=== PATIENT | male | born 1950 | race Caucasian/White ===

== ENCOUNTER → 2018-01-05 15:57 | Outpatient (CLI) | payer MEDICARE, SELFPAY ==
--- NOTE | 2018-01-05 16:04 | RAD_ITS ---
STUDY: X-RAY CHEST REASON FOR EXAM: Male, 67 years old. Bronchitis. Cough. TECHNIQUE: Frontal and lateral views of the chest COMPARISON: 06/10/2013 FINDINGS: There are stable emphysematous changes noted in the lungs. There is opacity in the right middle and lower lobes, consistent with infiltrates. The left lung is clear. There are no pleural effusions. There is no pneumothorax. The heart is normal in size. The visualized osseous structures are within normal limits. RAD/Chest PA and Lateral IMPRESSION: Right middle and lower lobe infiltrates. Electronically Signed: Jamar Plascencia, at 16:23 EDT Tel , Service support ,
== END ==
PROVIDERS: Family Provider Family Medicine Geriatric Medicine; PCP Family Medicine Geriatric Medicine; Visit Provider Family Medicine Geriatric Medicine
DX: J40 Bronchitis, not specified as acute or chronic (principal)
CPT/HCPCS: 71046

== ENCOUNTER → 2018-03-31 15:37 | Outpatient (CLI) | payer MEDICARE, SELFPAY ==
[2018-03-31 17:17] LABS: Absolute Lymphocyte Count 1.28 X10^3/ul (0.83-4.51); Absolute Neutrophil Count 5.7 X10^3/uL (2.0-7.7); Basophil# 0.01 X10^3/uL; Basophil% 0.1 % (0-1); Eosinophil# 0.01 X10^3/uL; Eosinophils% 0.1 % (0-5); Hematocrit 40.2 % (40-54); Hemoglobin 13.5 g/dl (13.0-16.5); Lymphocyte # 1.28 X10^3/ul (4.0); Lymphocyte % 16.3 % (19-41); Mean Corp Hgb Conc 33.6 g/gl (32-36); Mean Corpuscular Hgb 32.3 pg (27.0-32.0); Mean Corpuscular Volume 96.2 fL (80-94); Mean Platelet Vol. 9.3 fl (6.2-12.0); Monocyte# 0.85 X10^3/uL; Monocyte% 10.8 % (0-10); Neutrophil # 5.67 X10^3/uL (2.7-7.7); Neutrophil % 72.4 % (47-70); Platelet Count 269 K/mm3 (150-450); RBC Distribution Width CV 14.5 % (11.6-14.6); RBC Distribution Width SD 51.5 fl (35.1-43.9); Red Blood Count 4.18 M/mm3 (4.6-6.2); White Blood Count 7.8 K/mm3 (4.4-11.0)
[2018-03-31 17:23] LABS: POSITIVE COUNT NO; POSITIVE DIFFERENTIAL NO; POSITIVE MORPHOLOGY NO
[2018-03-31 19:08] LABS: ALB/GLOB Ratio 0.8 RATIO (0.9-2.4); AST(SGOT) 30 U/L (15-37); Alanine Aminotransfer ALT/SGPT 24 U/L (16-61); Albumin, Serum 3.4 g/dL (3.2-5.0); Alkaline Phosphatase 141 U/L (45-117); Anion Gap 10 (5-15); BUN 14 mg/dL (7-18); BUN/Creat Ratio 12.1 RATIO (10-20); Calcium,Total 9.3 mg/dL (8.5-10.1); Chloride 89 mmol/L (98-107); Creatinine, Serum 1.16 mg/dL (0.70-1.30); EST Glomerular Filtration Rate 66 mL/min (>60); Est Glom Filt Rate - Afr Amer 80 mL/min (>60); Globulin 4.3 g/dL (2.2-4.2); Glucose 83 mg/dL (74-106); Protein, Total 7.7 g/dL (6.4-8.2); Sodium Level 130 mmol/L (136-145); Thyroid Stim Hormone (TSH) 1.22 uIU/mL (0.358-3.74)
[2018-04-01 08:30] LABS: Vitamin D,25 Hydroxy 51.6 ng/mL (29.95-100.01)
== END ==
PROVIDERS: Family Provider Family Medicine Geriatric Medicine; PCP Family Medicine Geriatric Medicine; Visit Provider Family Medicine Geriatric Medicine
DX: I10 Essential (primary) hypertension (principal); E55.9 Vitamin D deficiency, unspecified
CPT/HCPCS: 36415; 80053; 82306; 84443; 85025

== ENCOUNTER → 2018-09-29 15:30 | Outpatient (CLI) | payer MEDICARE, SELFPAY ==
[2018-09-29 17:24] LABS: Absolute Lymphocyte Count 1.15 X10^3/ul (0.83-4.51); Absolute Neutrophil Count 4.6 X10^3/uL (2.0-7.7); Basophil# 0.02 X10^3/uL; Basophil% 0.3 % (0-1); Eosinophil# 0.12 X10^3/uL; Eosinophils% 1.8 % (0-5); Hematocrit 40.6 % (40-54); Hemoglobin 13.9 g/dl (13.0-16.5); Lymphocyte # 1.15 X10^3/ul (4.0); Lymphocyte % 17.4 % (19-41); Mean Corp Hgb Conc 34.2 g/gl (32-36); Mean Corpuscular Volume 99.3 fL (80-94); Mean Platelet Vol. 10.6 fl (6.2-12.0); Monocyte# 0.75 X10^3/uL; Monocyte% 11.3 % (0-10); Neutrophil # 4.57 X10^3/uL (2.7-7.7); Platelet Count 142 K/mm3 (150-450); RBC Distribution Width SD 50.3 fl (35.1-43.9); Red Blood Count 4.09 M/mm3 (4.6-6.2); White Blood Count 6.6 K/mm3 (4.4-11.0)
[2018-09-29 17:31] LABS: POSITIVE COUNT NO; POSITIVE DIFFERENTIAL NO; POSITIVE MORPHOLOGY NO
[2018-09-29 17:48] LABS: Vitamin D,25 Hydroxy 67.3 ng/mL (29.95-100.01)
[2018-09-29 17:52] LABS: ALB/GLOB Ratio 0.7 RATIO (0.9-2.4); AST(SGOT) 33 U/L (15-37); Alanine Aminotransfer ALT/SGPT 22 U/L (16-61); Albumin, Serum 3.1 g/dL (3.2-5.0); Alkaline Phosphatase 143 U/L (45-117); Anion Gap 8 (5-15); BUN 14 mg/dL (7-18); BUN/Creat Ratio 11.3 RATIO (10-20); Calcium,Total 8.6 mg/dL (8.5-10.1); Chloride 94 mmol/L (98-107); Creatinine, Serum 1.24 mg/dL (0.70-1.30); EST Glomerular Filtration Rate 61 mL/min (>60); Est Glom Filt Rate - Afr Amer 74 mL/min (>60); Globulin 4.2 g/dL (2.2-4.2); Glucose 112 mg/dL (74-106); PSA,Total - Annual Screen 0.64 ng/mL (0.00-4.00); Potassium 3.7 mmol/L (3.5-5.1); Protein, Total 7.3 g/dL (6.4-8.2); Sodium Level 130 mmol/L (136-145); Thyroid Stim Hormone (TSH) 1.25 uIU/mL (0.358-3.74)
--- OUTSIDE RECORDS SUMMARY | 2018-12-01 21:36 | XMS RPT_ITS ---
:1950 Author Organization [facility] Care Team Providers Name Role Phone Fareed, Smith Chi Attending Unavailable Fareed, Smith Chi Primary Care Unavailable Fareed, Smith Chi Attending Unavailable Fareed, Smith Chi Referring Unavailable Fareed, Smith Chi Primary Care Unavailable Fareed, Smith Chi Attending Unavailable Fareed, Smith Chi Referring Unavailable Fareed, Smith Chi Primary Care Unavailable Fareed, Smith Chi Attending Unavailable Fareed, Smith Chi Primary Care Unavailable PROBLEMS PROBLEMS DATE TYPE CONDITION / CODE ATTENDING STATUS SOURCE 01/05/2018 Unknown J40 - Fareed, Smith Chi Active [place] Bronchitis, not Community specified as Hospital acute or chronic Repository / J40(ICD-10) PROCEDURES PROCEDURES No Procedure Records FoundRESULTS RESULTS CBC W/DIFF, AUTOMATED Collected: 09/29/2018 Status: F Source: [place] 3:33 PM [facility] REPOSITORY TYPE CODE TESTS RESULT OUT OF RANGE REFERENCE UNITS LAB L100.1000 4.4-11.0 K/mm3 Normal WBC 6.6 LAB L100.1200 4.6-6.2 M/mm3 Low RBC 4.09 LAB L100.1300 13.0-16.5 g/dl Normal HGB 13.9 LAB L100.1400 40-54 % Normal HCT 40.6 LAB L100.1500 80-94 fL High MCV 99.3 LAB L100.1600 27.0-32.0 pg High MCH 34.0 LAB L100.1700 32-36 g/gl Normal MCHC 34.2 LAB L100.1810 11.6-14.6 % Normal RDW CV 14.0 LAB L100.1820 35.1-43.9 fl High RDW SD 50.3 LAB L100.1900 150-450 K/mm3 Low PLT 142 LAB L100.2000 6.2-12.0 fl Normal MPV 10.6 LAB L100.2100 47-70 % Normal NEUT% 69.0 LAB L100.2200 19-41 % Low LY% 17.4 LAB L100.2300 0-10 % High MONO% 11.3 LAB L100.2400 0-5 % Normal EO% 1.8 LAB L100.2500 0-1 % Normal BASO% 0.3 LAB L100.2550 0.0-0.9 % Normal IM GRAN % 0.200 Result Comment: IG% - Immature Granulocytes (promyelocytes, myelocytes and metamyelocytes) > 1% indicates that a LEFT SHIFT is Present. LAB L100.2620 2.0-7.7 X10 3/uL Normal Absolute Neut 4.6 LAB L100.2720 0.83-4.51 X10 3/ul Normal Absolute Lymph 1.15 Performed By: #### L100.0100 #### [facility] [facility]. [place], [place], [address] VITAMIN D,25 HYDROXY Collected: 09/29/2018 Status: F Source: [place] 3:33 PM [facility] TYPE CODE TESTS RESULT OUT OF RANGE REFERENCE UNITS LAB L506.1000 29.95-100.01 ng/mL Normal Vitamin D 67.3 25-OH Result Comment: Vitamin D 25(OH) Status Range Deficiency <20 ng/mL (50nmol/L) Insuffciency 20 - 30 ng/mL (50 - 75 nmol/L) Sufficiency 30 - 100 ng/mL (75 - 250 nmol/L) Toxicity >100 ng/mL (>250 nmol/L) Performed By: #### L506.1000 #### [facility] [address] [facility] [place], [place], [address] COMPREHENSIVE METABOLIC Collected: 09/29/2018 Status: F Source: [place] ACKERMAN 3:33 PM [facility] REPOSITORY TYPE CODE TESTS RESULT OUT OF RANGE REFERENCE UNITS LAB L501.0100 74-106 mg/dL High GLU 112 Result Comment: Fasting Glucose result from 100 to 125 mg/dL suggests IMPAIRED HOMEOSTASIS per A.D.A. criteria. Please note revised GLUCOSE reference range effective 2017. LAB L501.1000 7-18 mg/dL Normal BUN 14 LAB L501.1100 0.70-1.30 mg/dL Normal CREAT,SERUM 1.24 Result Comment: The validity of the calculated GFR AND GFRAA in patients over 70 years has not been determined. Clinical correlation is essential. LAB L501.1110 >60 mL/min Normal EST GFR 61 Result Comment: Non- GFR Calc LAB L501.1115 >60 mL/min Normal EST GFR - AA 74 Result Comment: GFR Calc LAB L501.1300 10-20 RATIO Normal BUN/CRE 11.3 LAB L501.1500 6.4-8.2 g/dL T Normal PROT 7.3 LAB L501.1800 3.2-5.0 g/dL Low ALB 3.1 LAB L501.1950 2.2-4.2 g/dL Normal GLOB 4.2 LAB L501.2000 0.9-2.4 RATIO Low A/G 0.7 LAB L501.2200 8.5-10.1 mg/dL CA Normal 8.6 LAB L501.4100 15-37 U/L Normal AST 33 LAB L501.4305 45-117 U/L High ALK P 143 LAB L501.4405 16-61 U/L Normal ALT 22 LAB L501.4600 0.20-1.00 mg/dL High T BILI 1.10 LAB L501.5300 136-145 mmol/L Low NA 130 LAB L501.5600 3.5-5.1 mmol/L K Normal 3.7 LAB L501.5900 98-107 mmol/L Low CL 94 LAB L501.6100 21.0-32.0 mmol/L Normal CO2 28.0 LAB L501.6200 5-15 Normal GAP 8 Performed By: #### L500.4050, L501.9520, L501.9910 #### [facility] [address] [place], [address] THYROID STIM HORMONE Collected: 09/29/2018 Status: F Source: [place] (TSH) 3:33 PM [facility] REPOSITORY TYPE CODE TESTS RESULT OUT OF RANGE REFERENCE UNITS LAB L501.9520 0.358-3.74 uIU/mL Normal TSH 1.25 Performed By: #### L500.4050, L501.9520, L501.9910 #### [facility] [address] [place], [address] PSA,TOTAL - ANNUAL Collected: 09/29/2018 Status: F Source: [place] SCREEN 3:33 PM [facility] REPOSITORY TYPE CODE TESTS RESULT OUT OF RANGE REFERENCE UNITS LAB L501.9910 0.00-4.00 ng/mL Normal PSA,TOT 0.64 SCREEN Result Comment: This test was performed using the TPSA assay method for the [employer] chemistry system. Values obtained with different assay methods cannot be used interchangably. When changing PSA assays in the course of monitoring a patient, additional sequential testing should be carried out to confirm baseline values. Performed By: #### L500.4050, L501.9520, L501.9910 #### [facility] [address] [place], [address] CBC W/DIFF, AUTOMATED Collected: 03/31/2018 Status: F Source: [place] 3:40 PM [facility] TYPE CODE TESTS RESULT OUT OF RANGE REFERENCE UNITS LAB L100.1000 4.4-11.0 K/mm3 Normal WBC 7.8 LAB L100.1200 4.6-6.2 M/mm3 Low RBC 4.18 LAB L100.1300 13.0-16.5 g/dl Normal HGB 13.5 LAB L100.1400 40-54 % Normal HCT 40.2 LAB L100.1500 80-94 fL High MCV 96.2 LAB L100.1600 27.0-32.0 pg High MCH 32.3 LAB L100.1700 32-36 g/gl Normal MCHC 33.6 LAB L100.1810 11.6-14.6 % Normal RDW CV 14.5 LAB L100.1820 35.1-43.9 fl High RDW SD 51.5 LAB L100.1900 150-450 K/mm3 Normal PLT 269 LAB L100.2000 6.2-12.0 fl Normal MPV 9.3 LAB L100.2100 47-70 % High NEUT% 72.4 LAB L100.2200 19-41 % Low LY% 16.3 LAB L100.2300 0-10 % High MONO% 10.8 LAB L100.2400 0-5 % Normal EO% 0.1 LAB L100.2500 0-1 % Normal BASO% 0.1 LAB L100.2550 0.0-0.9 % Normal IM GRAN % 0.300 Result Comment: IG% - Immature Granulocytes (promyelocytes, myelocytes and metamyelocytes) > 1% indicates that a LEFT SHIFT is Present. LAB L100.2620 2.0-7.7 X10 3/uL Normal Absolute Neut 5.7 LAB L100.2720 0.83-4.51 X10 3/ul Normal Absolute Lymph 1.28 Performed By: #### L100.0100 #### [facility] [address] [facility] [place], [address] COMPREHENSIVE METABOLIC Collected: 03/31/2018 Status: F Source: [facility] 3:40 PM [facility] RE[facility]IT[facility] TYPE CODE TESTS RESULT OUT OF RANGE REFERENCE UNITS LAB L501.0100 74-106 mg/dL Normal GLU 83 Result Comment: Please note revised GLUCOSE reference range effective 2017. LAB L501.1000 7-18 mg/dL Normal BUN 14 LAB L501.1100 0.70-1.30 mg/dL Normal CREAT,SERUM 1.16 Result Comment: The validity of the calculated GFR AND GFRAA in patients over 70 years has not been determined. Clinical correlation is essential. LAB L501.1110 >60 mL/min Normal EST GFR 66 Result Comment: Non- GFR Calc LAB L501.1115 >60 mL/min Normal EST GFR - AA 80 Result Comment: GFR Calc LAB L501.1300 10-20 RATIO Normal BUN/CRE 12.1 LAB L501.1500 6.4-8.2 g/dL T Normal PROT 7.7 LAB L501.1800 3.2-5.0 g/dL Normal ALB 3.4 LAB L501.1950 2.2-4.2 g/dL High GLOB 4.3 LAB L501.2000 0.9-2.4 RATIO Low A/G 0.8 LAB L501.2200 8.5-10.1 mg/dL CA Normal 9.3 LAB L501.4100 15-37 U/L Normal AST 30 LAB L501.4305 45-117 U/L High ALK P 141 LAB L501.4405 16-61 U/L Normal ALT 24 LAB L501.4600 0.20-1.00 mg/dL T Normal BILI 0.40 LAB L501.5300 136-145 mmol/L Low NA 130 LAB L501.5600 3.5-5.1 mmol/L K Normal 4.0 LAB L501.5900 98-107 mmol/L Low CL 89 LAB L501.6100 21.0-32.0 mmol/L Normal CO2 31.0 LAB L501.6200 5-15 Normal GAP 10 Performed By: #### L500.4050, L501.9520 #### [facility] [address] [place], [place], [address] THYROID STIM HORMONE Collected: 03/31/2018 Status: F Source: [place] (TSH) 3:40 PM [facility] TYPE CODE TESTS RESULT OUT OF RANGE REFERENCE UNITS LAB L501.9520 0.358-3.74 uIU/mL Normal TSH 1.22 Performed By: #### L500.4050, L501.9520 #### [facility] [address] [place], [address] VITAMIN D,25 HYDROXY Collected: 03/31/2018 Status: F Source: [place] 3:40 PM [facility] TYPE CODE TESTS RESULT OUT OF RANGE REFERENCE UNITS LAB L506.1000 29.95-100.01 ng/mL Normal Vitamin D 51.6 25-OH Result Comment: Vitamin D 25(OH) Status Range Deficiency <20 ng/mL (50nmol/L) Insuffciency 20 - 30 ng/mL (50 - 75 nmol/L) Sufficiency 30 - 100 ng/mL (75 - 250 nmol/L) Toxicity >100 ng/mL (>250 nmol/L) Performed By: #### L506.1000 #### [facility] [address] [place], [address] CHEST PA AND LATERAL Observed: 01/05/2018 Status: F Source: [place] 4:02 PM [facility] REPOSITORY [facility] Imaging Services [address] [place] [address] Chest PA and Lateral MR#: [id number] Acct: [id number] Name: SIVAKUMAR MAYORGA Rep #: [id number] : 1950 M 67 From: Jamar Plascencia MD PCP: Smith Guerrier MD, Chi Status: REG CLI Study: Chest PA and Lateral Date of Exam: 01/05/18 Exam# [id number] Ordering Dr: Smith Guerrier MD STUDY: X-RAY CHEST REASON FOR EXAM: Male, 67 years old. Bronchitis. Cough. TECHNIQUE: Frontal and lateral views of the chest COMPARISON: 06/10/2013 FINDINGS: There are stable emphysematous changes noted in the lungs. There is opacity in the right middle and lower lobes, consistent with infiltrates. The left lung is clear. There are no pleural effusions. There is no pneumothorax. The heart is normal in size. The visualized osseous structures are within normal limits. RAD/Chest PA and Lateral IMPRESSION: Right middle and lower lobe infiltrates. Electronically Signed: Jamar Plascencia, at 16:23 EDT Tel , Service support , CC: Smith Guerrier MD Risk Control Consultant: Signed ALLERGIES ALLERGIES No Allergies Records FoundENCOUNTERS ENCOUNTERS ADMIT/DISCHARGE ACCOUNT ADMITTING ENCOUNTER LOCATION SOURCE NUMBER CLASS 10/02/2018 [id number] Ambulatory [facility] 9 [facility] ing:CT Repository 09/29/2018 [id number] Ambulatory [facility] 0 [facility] ing:POLAB3 Repository 03/31/2018 [id number] [facility] [place] [facility] ing:POLAB3 Repository 01/05/2018 [id number] Ambulatory [place] 3 [facility] ing:RAD Repository PAYERS PAYERS ENCOUNTER GUARANTOR PAYER SUBSCRIBER SOURCE 10/02/2018 SIVAKUMAR Martinez Primary SIVAKUMAR Dillon [id number] Insurance:MEDICARE MOOREDOB: [facility] MCKAY PART A [facility] [id number] Number: Repository [id number]: 330 [id number] [phone] () Date:2018-09-29 10/02/2018 Secondary NOT GIVENUNK [place] Insurance:SELF PAY [place] Number: Effective Repository Date:2018-09-29 09/29/2018 Sivakumar Martinez Primary Sivakumar [id number] Insurance:MEDICARE MooreDOB: Community [place] PART A [id number] [place] [facility] Rep[facility] [id number]: 330 [id number] [phone] () Date:2018-09-29 09/29/2018 Secondary NOT GIVENUNK [place] Insurance:SELF PAY [place] Number: Effective Repository Date:2018-09-29 03/31/2018 Sivakumar Martinez Primary Sivakumar Dillon [id number] Insurance:MEDICARE MooreDOB: [facility] Mckay PART A [facility] [id number] Number: Repository [id number]: 330 [id number] [phone] () Date:2018-03-25 03/31/2018 Secondary NOT GIVENUNK [place] Insurance:SELF PAY [place] Number: Effective Repository Date:2018-03-25 01/05/2018 Sivakumar P Primary Sivakumar Dillon [id number] Insurance:MEDICARE MooreDOB: Community Mckay PART A [facility] [id number] Number: Repository [id number]: 330 [id number] [phone] () Date:2018-01-05 01/05/2018 Secondary NOT GIVENUNK [place] Insurance:[facility]LF [facility]: Effective Repository Date:2018-01-05
== END ==
PROVIDERS: Family Provider Family Medicine Geriatric Medicine; PCP Family Medicine Geriatric Medicine; Visit Provider Family Medicine Geriatric Medicine
DX: I10 Essential (primary) hypertension (principal); E55.9 Vitamin D deficiency, unspecified; Z12.5 Encounter for screening for malignant neoplasm of prostate
CPT/HCPCS: 36415; 80053; 82306; 84153; 84443; 85025; G0103

== ENCOUNTER → 2018-12-04 14:59 | Outpatient (CLI) | payer MEDICARE, SELFPAY ==
--- NOTE | 2018-12-04 15:04 | CT_ITS ---
STUDY: LOW DOSE CT LUNG CANCER SCREENING REASON FOR EXAM: Male, 68 years old. 10 pack-year history of smoking. Recent weight loss. RADIATION DOSAGE (If Supplied By Facility): CTDIvol = ( 2.01 ) mGy, DLP = ( 75.5 ) mGycm TECHNIQUE: No contrast was administered. Low dose technique was utilized (average mAS-38 and kVp 120). 1.25 mm axial source images with a slice interval of 1.25-mm were reconstructed in lung windows. 2.5 mm axial source images with a slice interval of 2.5-mm were reconstructed in lung windows. 5.0 mm axial source images with a slice interval of 5.0-mm were reconstructed in soft tissue windows. Nodule measured using lung windows on PACS and/or independent workstation with automated measurement of minimum and maximum diameter. Nodule measurement reported as average diameter rounded to the nearest whole number. Growth is defined as an increase ins size of greater than 1.5 mm. COMPARISON: Comparison is made with prior examination dated October 01, 2017. NODULES: Stable appearance of the small subcentimeters nodules suggestive of a granulomatous. Stable appearance of the 1 mm x 1 mm nodule in the right upper lobe. There is evidence of bilateral apical pleural-parenchymal scarring and bolus formation. Emphysema: Diffuse emphysematous changes with bullous formation worse in the upper lobes. Endobronchial lesion: None Aorta: Atherosclerotic calcification of the aortic arch and descending thoracic aorta. Coronary arteries: Coronary artery calcification. Heart: Normal size. Mediastinal nodes: Nonspecific subcentimeter mediastinal lymphadenopathy. Other chest and abdominal findings: Degenerative changes of the thoracic spine. CT/Low Dose CT Lung Screening IMPRESSION: Lung-RADS category 1 - Continue annual screening with LDCT in 12 months. IMPORTANT NOTES FOR USE: ACR Lung-RADS Version 1.0 Assessment Categories Release Date: January 03, 2014 Category: Coded 0-4 bases on nodule(s) with highest degree of suspicion. Negative screen is defined as categories 1 and 2; a positive screen is defined as categories 3 and 4. Category 3 and 4A nodules that are unchanged on interval CT should be coded as category 2, and individuals returned to screening in 12 months. Category 4X: Category 3 or 4 nodules with additional imaging findings that increase the suspicion of lung cancer, such as spiculation, GGN that doubles in size in 1 year, enlarged lymph notes, etc. Category Modifiers: S (significant finding unrelated to lung cancer) and C (prior history of treated lung cancer) may be added to the 0-4 Lung-RADS Electronically Signed: Davin Guerra, at 12:43 EDT , Service support ,
== END ==
PROVIDERS: Family Provider Family Medicine Geriatric Medicine; PCP Family Medicine Geriatric Medicine; Referring Provider Family Medicine Geriatric Medicine; Visit Provider Family Medicine Geriatric Medicine
DX: Z87.891 Personal history of nicotine dependence (principal)
CPT/HCPCS: G0297

== ENCOUNTER → 2019-01-13 15:29 | Outpatient (CLI) | payer MEDICARE, SELFPAY ==
--- NOTE | 2019-01-13 15:40 | RAD_ITS ---
STUDY: X-RAY - LUMBAR SPINE REASON FOR EXAM: Male, 68 years old. Back pain TECHNIQUE: AP and lateral view(s) of the lumbar spine were obtained. COMPARISON: None FINDINGS: Normal lumbar lordosis. There is no substantial scoliosis. There is a normal alignment of the vertebrae. There is multilevel disc space narrowing with anterior and posterior osteophytes. There are no acute fractures. The soft tissue structures are unremarkable. No acute fractures. RAD/Lumbar Spine 2 or 3 Views IMPRESSION: Multilevel spondylosis, no fractures Electronically Signed: Jakob Vásquez, at 16:24 EDT Tel , Service support ,
== END ==
PROVIDERS: Family Provider Family Medicine Geriatric Medicine; PCP Family Medicine Geriatric Medicine; Referring Provider Anesthesiology Pain Medicine; Visit Provider Anesthesiology Pain Medicine
DX: M54.9 Dorsalgia, unspecified (principal)
CPT/HCPCS: 72100

== ENCOUNTER → 2019-03-31 10:56 | Outpatient (CLI) | payer MEDICARE, SELFPAY | LOC: POLAB3 10:56 → LAB.FUTURE 15:57 | PROVIDERS: Family Provider Family Medicine Geriatric Medicine; PCP Family Medicine Geriatric Medicine; Visit Provider Family Medicine Geriatric Medicine | DX: I10 Essential (primary) hypertension (principal); E55.9 Vitamin D deficiency, unspecified ==

== ENCOUNTER → 2019-05-28 10:58 | Outpatient (CLI) | payer MEDICARE, SELFPAY ==
[2019-05-28 13:08] LABS: Erythrocyte Sedimentation Rate 27 mm/hr (0-20)
[2019-05-28 13:09] LABS: Absolute Neutrophil Count 3.4 X10^3/uL (2.0-7.7); Basophil# 0.06 X10^3/uL; Basophil% 0.9 % (0-1); Eosinophil# 0.16 X10^3/uL; Eosinophils% 2.5 % (0-5); Hematocrit 41.5 % (40-54); Hemoglobin 13.8 g/dL (13.0-16.5); Lymphocyte % 34.4 % (19-41); Mean Corp Hgb Conc 33.3 g/dL (32-36); Mean Corpuscular Volume 99.3 fL (80-94); Mean Platelet Vol. 9.5 fl (6.2-12.0); Monocyte# 0.51 X10^3/uL; NRBC Flagged by Analyzer 0 % (0-5); Neutrophil # 3.44 X10^3/uL (2.7-7.7); Neutrophil % 53.9 % (47-70); Platelet Count 272 K/mm3 (150-450); RBC Distribution Width CV 13.1 % (11.6-14.6); RBC Distribution Width SD 47.8 fl (35.1-43.9); Red Blood Count 4.18 M/mm3 (4.6-6.2); White Blood Count 6.4 K/mm3 (4.4-11.0)
[2019-05-28 13:23] LABS: Vitamin D,25 Hydroxy 42.9 ng/mL (29.95-100.01)
[2019-05-28 14:08] LABS: ALB/GLOB Ratio 0.7 RATIO (0.9-2.4); AST(SGOT) 24 U/L (15-37); Alanine Aminotransfer ALT/SGPT 16 U/L (16-61); Albumin, Serum 3.3 g/dL (3.2-5.0); Alkaline Phosphatase 119 U/L (45-117); Anion Gap 10 (5-15); BUN 14 mg/dL (7-18); BUN/Creat Ratio 14.9 RATIO (10-20); Calcium,Total 8.9 mg/dL (8.5-10.1); Chloride 99 mmol/L (98-107); Creatinine, Serum 0.94 mg/dL (0.70-1.30); EST Glomerular Filtration Rate 84 mL/min (>60); Est Glom Filt Rate - Afr Amer 102 mL/min (>60); Free T3 3.1 pg/mL (2.18-3.98); Globulin 4.6 g/dL (2.2-4.2); Glucose 67 mg/dL (74-106); Potassium 4.2 mmol/L (3.5-5.1); Protein, Total 7.9 g/dL (6.4-8.2); Rheumatoid Factor < 10.0 IU/mL (<15); Sodium Level 137 mmol/L (136-145); T4 Free Direct 0.99 ng/dL (0.76-1.46); Thyroid Stim Hormone (TSH) 2.22 uIU/mL (0.358-3.74)
[2019-05-31 21:09] LABS: Thyroid Stim Immunoglob <0.10 IU/L (0.00-0.55)
[2019-06-01 16:43] LABS: Adrenocorticotropic Hormone 31.3 pg/mL (7.2-63.3); Deamidated Gliadin IgA 5 units (0-19); Deamidated Gliadin IgG 2 units (0-19); t-Transglutaminase IgA <2 U/mL (0-3)
[2019-06-01 16:57] LABS: ANTINUCLEAR ANTIBODIES DIRECT Negative (Negative)
== END ==
PROVIDERS: Family Provider Family Medicine Geriatric Medicine; PCP Family Medicine Geriatric Medicine; Visit Provider Family Medicine Geriatric Medicine
DX: I10 Essential (primary) hypertension (principal); E55.9 Vitamin D deficiency, unspecified; R63.4 Abnormal weight loss
CPT/HCPCS: 36415; 80053; 82024; 82306; 82533; 83516; 84439; 84443; 84445; 84481; 85025; 85652; 86038; 86431

== ENCOUNTER → 2019-10-01 10:45 | Outpatient (CLI) | payer MEDICARE, SELFPAY ==
[2019-10-01 12:17] LABS: Absolute Lymphocyte Count 1.06 X10^3/uL (0.83-4.51); Absolute Neutrophil Count 5.9 X10^3/uL (2.0-7.7); Basophil# 0.04 X10^3/uL; Basophil% 0.5 % (0-1); Eosinophil# 0.08 X10^3/uL; Hematocrit 37.8 % (40-54); Hemoglobin 12.3 g/dL (13.0-16.5); Lymphocyte # 1.06 X10^3/ul (4.0); Lymphocyte % 13.8 % (19-41); Mean Corp Hgb Conc 32.5 g/dL (32-36); Mean Corpuscular Hgb 32.1 pg (27.0-32.0); Mean Corpuscular Volume 98.7 fL (80-94); Mean Platelet Vol. 10.2 fl (6.2-12.0); Monocyte# 0.58 X10^3/uL; Monocyte% 7.6 % (0-10); NRBC Flagged by Analyzer 0 % (0-5); Neutrophil # 5.87 X10^3/uL (2.7-7.7); Neutrophil % 76.6 % (47-70); Platelet Count 195 K/mm3 (150-450); RBC Distribution Width CV 14.1 % (11.6-14.6); Red Blood Count 3.83 M/mm3 (4.6-6.2); White Blood Count 7.7 K/mm3 (4.4-11.0)
[2019-10-01 12:35] LABS: Vitamin D,25 Hydroxy 31.5 ng/mL (29.95-100.01)
[2019-10-01 12:37] LABS: ALB/GLOB Ratio 0.7 RATIO (0.9-2.4); AST(SGOT) 21 U/L (15-37); Alanine Aminotransfer ALT/SGPT 17 U/L (16-61); Albumin, Serum 3.2 g/dL (3.2-5.0); Alkaline Phosphatase 110 U/L (45-117); Anion Gap 5 (5-15); BUN 24 mg/dL (7-18); BUN/Creat Ratio 16.9 RATIO (10-20); Chloride 99 mmol/L (98-107); Creatinine, Serum 1.42 mg/dL (0.70-1.30); EST Glomerular Filtration Rate 52 mL/min (>60); Est Glom Filt Rate - Afr Amer 63 mL/min (>60); Globulin 4.3 g/dL (2.2-4.2); Glucose 174 mg/dL (74-106); Potassium 4.3 mmol/L (3.5-5.1); Protein, Total 7.5 g/dL (6.4-8.2); Sodium Level 134 mmol/L (136-145)
== END ==
LOC: POLAB3 10:46
PROVIDERS: PCP Family Medicine Geriatric Medicine; Visit Provider Family Medicine Geriatric Medicine
DX: E55.9 Vitamin D deficiency, unspecified (principal); I10 Essential (primary) hypertension; Z12.5 Encounter for screening for malignant neoplasm of prostate
CPT/HCPCS: 36415; 80053; 82306; 84153; 84443; 85025; G0103

== ENCOUNTER 2020-02-26 16:59 | Emergency (ER) | payer MEDICARE, SELFPAY ==
[2020-02-26 17:00] VITALS: BP 184/108; PULSE 149; RESP 15; TEMP 36.6; O2SAT 95; BMI 18.6
--- NOTE | 2020-02-26 17:10 | EKG12_ITS ---
Test Reason : DYSRHYTHMIA Blood Pressure : / mmHG Vent. Rate : 122 BPM Atrial Rate : 122 BPM P-R Int : 152 ms QRS Dur : 088 ms QT Int : 290 ms P-R-T Axes : 086 -01 078 degrees QTc Int : 413 ms Sinus tachycardia with Premature supraventricular complexes Nonspecific ST and T wave abnormality Abnormal ECG Confirmed by RAAD DUMAS, DELTA ([id number]), editor in chief newspaper JOSE CLAIRE ([id number]) on 02/29/2020 8:59:10 AM Referred By: GILSON Confirmed By:DELTA SHANKAR MD
--- NOTE | 2020-02-26 17:11 | CT_ITS ---
STUDY: CT CHEST WITHOUT CONTRAST REASON FOR EXAM: Male, 69 years old. FALL last night WITH LEFT CHEST PAIN RADIATION DOSAGE (If Supplied By Facility): CTDIvol = ( 6.87 ) mGy, DLP = ( 295.15 ) mGycm TECHNIQUE: Transaxial imaging was performed without the administration of intravenous contrast material. Individualized dose optimization techniques were used for this CT. COMPARISON: Previous study of 12/04/2018 FINDINGS: This trauma study is technically limited, being performed without intravenous contrast. There are diffuse emphysematous changes of the lungs most severely affecting the upper lobes. There is a small calcified granuloma of the right lower lobe. There is a stellate margin 9 mm density of the right lower lobe image 85 series 4, new in the interval. There is no demonstrated pleural abnormality. The heart size is within normal limits. There is no pericardial effusion. Coronary arterial and valvular calcifications are present. There is a precarinal node measuring 1.1 cm in short axis appearing similar to the previous study. Hilar areas are difficult to assess on this noncontrast study. There is no obvious hilar mass or adenopathy. Normal unenhanced pulmonary arteries. There are calcified plaques of the thoracic aorta. There are diffuse degenerative changes of the visualized thoracolumbar spine. There are calcified plaques of the abdominal aorta. CT/Chest without Contrast IMPRESSION: 1. Negative limited study with the absence of intravenous contrast. 2. Diffuse emphysematous changes of the lungs most severely affecting the upper lobes. 3. Small calcified granuloma the right lower lobe. 4. There is a stellate margin 9 mm density of the right lower lobe, new in the interval. This may merely represent pneumonic or atelectatic process. Neoplasm cannot be excluded however. Close interval follow-up in 2-3 months is recommended. 5. Precarinal node measuring 1.1 cm in short axis appearing similar to the previous study. 6. There is no evidence of hemo or pneumothorax or pulmonary contusion. No fracture is identified. Electronically Signed: Monico Alexander MD at 18:01 EDT , Service support ,
--- NOTE | 2020-02-26 17:13 | ED.DCSUM_ITS ---
- ER Visit Summary Date of Service: 02/26/20 Chief Complaint: [Fall with injury to chest and left wrist] History of Present Illness: The patient is a 69 M [presents to the emergency department after sustaining a fall last evening around 11 PM. Patient states that he was at [facility] and fell when he tripped over some pallets. Patient complaining of pain in his left wrist and chest. Patient complains of pain with deep breath. He denies striking his head or loss consciousness. He denies any neck pain. He denies abdominal pain. Patient had been drinking alcohol last night. He has a history of hypertension. He is not on any blood thinners. He is a smoker. Denies any illicit drug use.] Physical Examination: [HEENT-PERRLA, EOMI. Cranial nerves II through XII grossly intact. TMs clear. Mucous membranes moist. No adenopathy. No external evidence of trauma to his head. No C-spine tenderness on palpation. He has normal active range of motion is painless. Cardiovascular-regular and tachycardic with a heart rate in the 150s. No murmurs auscultated. Lungs-clear to auscultation, chest wall stable without crepitus or subcu emphysema. Patient does have tenderness palpation over the anterior chest wall that reproduces his pain. Abdomen-normoactive bowel sounds, soft, nontender, no rebound or rigidity, no peritoneal signs. Extremities-intact ?4, normal range of motion, normal pulses. Left wrist- patient has ecchymosis and bruising noted over the volar aspect of the wrist as well as the dorsal aspect of the proximal hand. Decreased range of motion secondary to pain. No obvious deformity noted. Neurovascular intact distally.] Test Results: [EKG obtained on arrival showed a sinus tachycardia with a ventricular rate of 122 bpm with some nonspecific ST changes. CBC with differential showed a white count 12.2, hemoglobin 14, hematocrit 43.5, plates 189. Chemistries showed a sodium of 129, potassium 5.0, chloride 94, CO2 26, BUN 22, creatinine 1.3 and glucose was 130. . Troponin is less than 0.15.] CT scan of the chest obtained showed no evidence of acute traumatic injuries however he did have a right lower lobe density for which they recommended follow-up in 2 to 3 months. The concern was malignancy versus focal pneumonia versus atelectasis. X-rays of the left wrist obtained read by radiology as normal however on my evaluation of the film I suspect there is a nondisplaced fracture through the distal radius that may be intra-articular. Emergency Department Course and Treatment: [Patient will be placed in a wrist splint.] Treatment Plan: [Patient given a wrist splint and referral to orthopedics for follow-up. Patient will be given a prescription for H[place] for pain.] Disposition: [Discharged home in stable condition] Impression: [Chemical fall Left distal radius fracture nondisplaced Contusion chest] This note was generated with AppAddictive dictation software. It may contain incorrect words, spelling, and punctuation that were not noted in review of the chart prior to signing ED Disposition - Plan for ED Patient: Referrals: Smith Guerrier Chi, MD [Primary Care Provider] -
--- NOTE | 2020-02-26 17:16 | NURSING ---
NO OLD EKGS
--- NOTE | 2020-02-26 17:20 | RAD_ITS ---
STUDY: X-RAY - LEFT WRIST REASON FOR EXAM: Male, 69 years old. FALL TODAY. GENERALIZED LEFT WRIST PAIN. TECHNIQUE: 3 view(s) of the wrist were obtained. COMPARISON: None. FINDINGS: Normal visualized distal radius and ulna. Normal radiocarpal articulation. Normal distal radioulnar articulation. Normal carpal bones. Normal carpal articulations. Normal carpometacarpal articulation of the thumb. Normal second through fifth carpometacarpal articulations. Normal visualized metacarpal bones. The soft tissue structures are unremarkable. RAD/Wrist min 3 Views IMPRESSION: Normal x-ray examination of the wrist. Electronically Signed: Monico Alexander MD at 18:04 EDT , Service support ,
[2020-02-26 17:38] LABS: Absolute Lymphocyte Count 0.37 X10^3/uL (0.83-4.51); Absolute Neutrophil Count 11.2 X10^3/uL (2.0-7.7); Basophil# 0.03 X10^3/uL; Basophil% 0.2 % (0-1); Hematocrit 43.5 % (40-54); Lymphocyte # 0.37 X10^3/ul (4.0); Mean Corp Hgb Conc 32.2 g/dL (32-36); Mean Corpuscular Hgb 32.2 pg (27.0-32.0); Mean Platelet Vol. 9.8 fl (6.2-12.0); Monocyte# 0.61 X10^3/uL; NRBC Flagged by Analyzer 0 % (0-5); Neutrophil # 11.17 X10^3/uL (2.7-7.7); Neutrophil % 91.6 % (47-70); POSITIVE DIFFERENTIAL YES; Platelet Count 189 K/mm3 (150-450); RBC Distribution Width CV 12.8 % (11.6-14.6); RBC Distribution Width SD 46.9 fl (35.1-43.9); Red Blood Count 4.35 M/mm3 (4.6-6.2); White Blood Count 12.2 K/mm3 (4.4-11.0)
[2020-02-26] MEDS: 0.9% Normal Saline 1,000 ML 150 ML IV (17:44)
[2020-02-26 17:45] LABS: Anion Gap 9 (5-15); BUN 22 mg/dL (7-18); BUN/Creat Ratio 16.9 RATIO (10-20); Calcium,Total 9.5 mg/dL (8.5-10.1); Chloride 94 mmol/L (98-107); EST Glomerular Filtration Rate 58 mL/min (>60); Est Glom Filt Rate - Afr Amer 70 mL/min (>60); Estimated Creatinine Clearance 39.01 ml/min; Glucose 130 mg/dL (74-106); Sodium Level 129 mmol/L (136-145)
[2020-02-26 18:08] LABS: Differential Indicated SCAN CRITERIA MET
--- NOTE | 2020-02-26 18:23 | DCINST.ED_ITS ---
ED Disposition - Plan for ED Patient: Instructions: ED Mechanical Fall, ED Fx Colles Wrist No Redu Requ, ED CHEST CONTUSION Prescriptions: Hydrocodone Bitart/Apap 5-325 [[place] 5MG-325MG] 1 tablet PO Q4H PRN PRN 2 Days #10 tablet PRN Reason: Pain Transmission Status: Sent to [facility]30 Referrals: Smith Guerrier Chi, MD [Primary Care Provider] - Ermias López MD [STAFF PHYSICIAN] - 3-5 Days
[2020-02-26 18:40] VITALS: BP 114/74; PULSE 78; RESP 16; O2SAT 99
== END 2020-02-26 18:41 | disposition home or self-care (01) ==
LOC: ED 17:46
PROVIDERS: Emergency Provider Emergency Medicine; PCP Family Medicine Geriatric Medicine
DX: S52.502A Unspecified fracture of the lower end of left radius, initial encounter for closed fracture (principal); S20.212A Contusion of left front wall of thorax, initial encounter; W01.0XXA Fall on same level from slipping, tripping and stumbling without subsequent striking against object, initial encounter; Y93.9 Activity, unspecified; Y92.830 Public park as the place of occurrence of the external cause; J98.4 Other disorders of lung; I10 Essential (primary) hypertension; F17.200 Nicotine dependence, unspecified, uncomplicated
CPT/HCPCS: 71250; 73110; 80048; 84484; 85025; 93005; 96360; 96361; 99285; J7030; A4216

== ENCOUNTER 2020-07-03 21:26 | Inpatient (IN) | payer MEDICARE, SELFPAY ==
[2020-07-03 21:27] VITALS: BP 147/89; PULSE 73; RESP 22; TEMP 35.7; O2SAT 85; BMI 18.6
--- NOTE | 2020-07-03 21:52 | EKG12_ITS ---
Test Reason : SOB Blood Pressure : / mmHG Vent. Rate : 147 BPM Atrial Rate : 294 BPM P-R Int : 000 ms QRS Dur : 080 ms QT Int : 264 ms P-R-T Axes : 072 006 155 degrees QTc Int : [address] & T wave abnormality, consider lateral ischemia Abnormal ECG Confirmed by RAAD DUMAS, DELTA ([id number]), greeting card editor JOSE CLAIRE ([id number]) on 07/05/2020 1:48:56 PM Referred By: BB Confirmed By:DELTA SHANKAR MD
--- NOTE | 2020-07-03 21:57 | ED.DCSUM_ITS ---
History of Present Illness Chief Complaint: Shortness of Breath Informant: Patient Onset: Today Activity at onset: - - Gradual onset and progressively worsening Timing: Continuous Quality: - - Cannot breathe Current Severity: Moderate Maximum Severity: Moderate Worsened by: Coughing, Exertion, Lying flat Relieved by: Albuterol - Partially, Oxygen Associated Symptoms: Clear sputum, Cough. Negative for: Fever, Sweats Chest Pain: None Narrative: Patient with history of COPD, no home oxygen, presents with worsening COPD symptoms all day today. Progressively worsening throughout the day. He had a rescue inhaler, he used all 200 puffs from it throughout the day today and trying to help his symptoms. He is feeling a little jittery. He denies any chest pain, myalgias, he has noticed he has had some swelling in his legs lately and some orthopnea which are new. No known history of heart disease. - Past Medical History (1) COPD (chronic obstructive pulmonary disease) Status: Chronic (2) HTN (hypertension) Status: Chronic Past Medical History - Allergies and Home Meds Allergies/Adverse Reactions: Allergies No Known Allergies Allergy (Verified 07/03/20 21:28) Primary Care Physician: Smith Guerrier Chi, MD [Primary Care Provider] - Smoking Status: Current some day smoker Review of Systems General: Reports: Malaise. Denies: Chills, Fever, Sweats Eyes: Denies: Visual changes - bilaterally, Diplopia ENT: Denies: Bilateral ear pain, Rhinorrhea, Sore throat Cardiovascular: Denies: Chest pain, Palpitations, Heart racing Respiratory: Reports: Dyspnea, Cough, Sputum, Dyspnea on exertion, Orthopnea. Denies: Paroxysmal nocturnal dyspnea Gastrointestinal: Denies: Abdominal pain, Nausea, Vomiting, Diarrhea, Melena, Hematochezia Genitourinary: Denies: Dysuria, Hematuria, Frequency Musculoskeletal: Reports: Neck pain, Back pain - chronic, sciatica, Swelling. Denies: Myalgias, Extremity Pain Skin: Denies: Rash, Wounds Neurological: Denies: Headache, Weakness, Numbness Physical Exam Vital Signs/Narrative: Vital Signs Temp Pulse Resp BP Pulse Ox 07/03/20 21:27 96.2 F L 73 22 H 147/89 H 85 Inital Vital Signs reviewed: Yes General: Well nourished, Well developed, Acute Distress - Respiratory, mild, speaking in 3-5 her senses Head: Normocephalic, Atraumatic Eyes: Perrl, EOMI ENT: Moist mucous membranes, No rhinorrhea Neck: Supple, Nontender, No JVD Cardiovascular: Regular rate, Regular rhythm, No murmurs Respiratory: Chest nontender, Wheezing - Throughout all [place], symmetric with trachea midline. Negative for: Rales, Rhonchi Abdomen: Soft, Nontender, Nondistended, Normal bowel sounds Back: Nontender, Normal Inspection Extremities: Nontender, Edema - 1+ bilateral lower extremities to the knees, symmetric Skin: Normal color, No rash, No Trauma Neurological: Alert, Oriented x3, Cranial nerves II-XII grossly intact, Normal Strength, Normal Sensation Psychological: Normal affect, Normal Mood Diagnostic/Tx/Re-eval Impressions Chest X-Ray 07/03/20 22:24 IMPRESSION: Bibasilar infiltrates. Electronically Signed: Esau Beltran DO at 22:48 EDT Tel [phone], Service support , 07/03/20 22:24 Chest 1 View (Portable) [RAD] Stat Laboratory Results 07/03/20 07/03/20 07/03/20 21:45 21:48 21:48 WBC 9.5 RBC 3.75 L Hgb 12.2 L Hct 38.8 L MCV 103.5 H MCH 32.5 H MCHC 31.4 L RDW Std Deviation 55.2 H RDW Coeff of Senait 14.5 Plt Count 217 MPV 9.9 Immature Gran % (Auto) 0.400 Neut % (Auto) 83.4 H Lymph % (Auto) 7.4 L [place] % (Auto) 7.4 Eos % (Auto) 1.2 Baso % (Auto) 0.2 Absolute Neuts (auto) 7.9 H Absolute Lymphs (auto) 0.70 L Nucleated RBC % 0 Sodium 137 Potassium 4.9 Chloride 103 Carbon Dioxide 24.0 Anion Gap 10 BUN 31 H Creatinine 1.66 H Estim Creat Clear Calc 30.11 Est GFR (MDRD) Af Amer 53 L Est GFR (MDRD) Non-Af 44 L BUN/Creatinine Ratio 18.7 Glucose 167 H Calcium 8.4 L Total Bilirubin 0.40 AST 40 H ALT 18 Alkaline Phosphatase 151 H Troponin I B-Natriuretic Peptide 2999.8 H Total Protein 6.5 Albumin 2.7 L Globulin 3.8 Albumin/Globulin Ratio 0.7 L COVID-19 (NELSON) 07/03/20 07/03/20 21:48 21:55 WBC RBC Hgb Hct MCV MCH MCHC RDW Std Deviation RDW Coeff of Senait Plt Count MPV Immature Gran % (Auto) Neut % (Auto) Lymph % (Auto) [place] % (Auto) Eos % (Auto) Baso % (Auto) Absolute Neuts (auto) Absolute Lymphs (auto) Nucleated RBC % Sodium Potassium Chloride Carbon Dioxide Anion Gap BUN Creatinine Estim Creat Clear Calc Est GFR (MDRD) Af Amer Est GFR (MDRD) Non-Af BUN/Creatinine Ratio Glucose Calcium Total Bilirubin AST ALT Alkaline Phosphatase Troponin I 0.166 H B-Natriuretic Peptide Total Protein Albumin Globulin Albumin/Globulin Ratio COVID-19 (NELSON) Not Detected - Rhythm Strip Rhythm Strip: Sinus Tach Rate: 145 Ectopy: None Treatment - Dyspnea: Oxygen, Albuterol, Atrovent, Antibiotics, Steroid - Medical Decision Making Patient was presumed to be tachycardic because of all the albuterol he was using, however his EKG shows atrial flutter is likely. Initially treated him with a DuoNeb treatment and steroids, however his BNP returned significantly elevated and in context of a tachydysrhythmia, he was treated then with Lasix, Cardizem, oxygen, and eventually antibiotics just in case this is infectious which is unknown at this time. Afterwards he is significantly improved. He was also asking for tramadol/pain medication for his sciatica which is uncomfortable but otherwise not a major issue at this time. He states he has been dealing with this for a long time so he was given some pain medication. I think he is stable to be admitted to PCU. His Covid test came back negative. Of note, it is certainly possible the at his EKG represents sinus tachycardia, however it is difficult to discern whether it is this or atrial flutter with a 2:1 conduction since his rate is in the high 140s. After treatment and improvement, his rate is still in the 130s, so I do not think at this time it would be helpful to do another EKG, may be later when he is slower. ED Disposition - Plan for ED Patient: Disposition: Acute Care Hospital [facility] Diagnosis: Hypoxemia, Atrial flutter, Acute CHF, COPD (chronic obstructive pulmonary disease) Referrals: Smith Guerrier Chi, MD [Primary Care Provider] -
[2020-07-03 21:59] VITALS: O2SAT 100
[2020-07-03] MEDS: Ipratropium/Albuterol Sulfate 3 ML AMPUL.NEB INHALATION (21:59)
[2020-07-03 22:00] VITALS: PULSE 145; RESP 22
[2020-07-03 22:06] VITALS: BP 132/70; PULSE 135; RESP 30; TEMP 36.2; O2SAT 100
[2020-07-03 22:16] LABS: Absolute Neutrophil Count 7.9 X10^3/uL (2.0-7.7); Basophil# 0.02 X10^3/uL; Basophil% 0.2 % (0-1); Eosinophil# 0.11 X10^3/uL; Eosinophils% 1.2 % (0-5); Hematocrit 38.8 % (40-54); Hemoglobin 12.2 g/dL (13.0-16.5); Lymphocyte % 7.4 % (19-41); Mean Corp Hgb Conc 31.4 g/dL (32-36); Mean Corpuscular Hgb 32.5 pg (27.0-32.0); Mean Corpuscular Volume 103.5 fL (80-94); Mean Platelet Vol. 9.9 fl (6.2-12.0); Monocyte% 7.4 % (0-10); NRBC Flagged by Analyzer 0 % (0-5); Neutrophil # 7.91 X10^3/uL (2.7-7.7); Neutrophil % 83.4 % (47-70); Platelet Count 217 K/mm3 (150-450); RBC Distribution Width CV 14.5 % (11.6-14.6); RBC Distribution Width SD 55.2 fl (35.1-43.9); Red Blood Count 3.75 M/mm3 (4.6-6.2); White Blood Count 9.5 K/mm3 (4.4-11.0)
--- NOTE | 2020-07-03 22:24 | RAD_ITS ---
STUDY: X-RAY CHEST REASON FOR EXAM: Male, 70 years old. 3 of COPD. TECHNIQUE: Single AP portable view of the chest. COMPARISON: Chest CT, 02/26/2020. Chest, 01/05/2018. FINDINGS: There is increased density at both lung bases when compared to the earlier examination. History left pleural effusion. The heart is mildly enlarged. Normal mediastinum and jacky. Normal visualized pulmonary arteries. There is atherosclerotic calcification of the aortic arch with tortuosity. No visualized osseous changes. There is no demonstrated abnormality of the visualized soft tissue structures of the upper abdomen. RAD/Chest 1 View (Portable) IMPRESSION: Bibasilar infiltrates. Electronically Signed: Esau Beltran DO at 22:48 EDT Tel [phone], Service support ,
[2020-07-03] MEDS: MethylPREDNISolone 125 MG/2 ML Vial IV (22:52)
[2020-07-03 22:54] VITALS: BP 132/60; PULSE 135; RESP 30; TEMP 36.5; O2SAT 96
--- NOTE | 2020-07-03 23:21 | ED.RN ---
CALLED LAB CHEMISTRIES HAVE NOT RESULTED. LEVON WILL INVESTIGATE.
[2020-07-04] VITALS (28 sets, daily range): BP systolic 85–128; BP diastolic 48–77; PULSE 58–135; RESP 3–30; TEMP 36.3–37.1; O2SAT 93–100; BMI 19.1; BMI 19.2
[2020-07-04] MEDS: traMADol 50 MG Tablet PO ×3 (00:31→22:00)
[2020-07-04] MEDS: dilTIAZem 25 MG/5 ML Vial 15 MG IV BOLUS (00:31)
[2020-07-04] MEDS: Furosemide 20 MG/2 ML VIAL IV ×3 (00:32→22:00)
[2020-07-04 01:09] LABS: ALB/GLOB Ratio 0.7 RATIO (0.9-2.4); AST(SGOT) 40 U/L (15-37); Alanine Aminotransfer ALT/SGPT 18 U/L (16-61); Albumin, Serum 2.7 g/dL (3.2-5.0); Alkaline Phosphatase 151 U/L (45-117); Anion Gap 10 (5-15); BUN 31 mg/dL (7-18); BUN/Creat Ratio 18.7 RATIO (10-20); Calcium,Total 8.4 mg/dL (8.5-10.1); Chloride 103 mmol/L (98-107); Creatinine, Serum 1.66 mg/dL (0.70-1.30); EST Glomerular Filtration Rate 44 mL/min (>60); Est Glom Filt Rate - Afr Amer 53 mL/min (>60); Estimated Creatinine Clearance 30.11 ml/min; Globulin 3.8 g/dL (2.2-4.2); Glucose 167 mg/dL (74-106); Potassium 4.9 mmol/L (3.5-5.1); Protein, Total 6.5 g/dL (6.4-8.2); Sodium Level 137 mmol/L (136-145)
[2020-07-04] MEDS: Ceftriaxone 1 GM/50 ML BAG IV (01:40)
--- NOTE | 2020-07-04 02:03 | HP.PCM_ITS ---
Problem List (1) COPD (chronic obstructive pulmonary disease) Status: Chronic (2) HTN (hypertension) Status: Chronic (3) Hypoxemia Status: Acute (4) Atrial flutter Status: Acute (5) Acute CHF Status: Acute History of Present Illness Date of Admission: 07/04/20 Chief Complaint: sob The patient is a 70 year old M with a significant history of COPD who presents emergency department with a 1 day history of progressively worsening shortness of breath. Patient having symptom is a cough on and bilateral leg swelling as well as orthopnea. Also he reports wheezes. Patient used 1 canister of albuterol inhaler within 24 hours because of his shortness of breath. At emergency department he was found to have tachycardia and what appears to be atrial flutter. Past Medical History Past Medical History (Chronic Problems): Chronic Problems COPD (chronic obstructive pulmonary disease) (Chronic) HTN (hypertension) (Chronic) Allergies No Known Allergies Allergy (Verified 07/03/20 21:28) Home Medications: Ambulatory Orders Medication Instructions Recorded Losartan Potassium 100 mg PO DAILY 02/26/20 traMADol [Ultram (G)] 50 mg PO BID PRN 02/26/20 Albuterol Sulfate [Albuterol 2 puff IN Q6H PRN PRN 07/03/20 Sulfate HFA] Surgical History: - - Denies any surgical history. Smoking Status: Current every day smoker Tobacco Use: Cigarettes - *Family History Maternal History Items: Heart Disease Paternal History Items: - - Alcoholism Review of Systems Constitutional: Denies: Chills, Fever, Weight Change HEENT: Denies: Head Aches, Sinus Congestion, Sinus Drainage Cardiovascular: Reports: Edema, Orthopnea. Denies: Chest Pain, Palpitations Respiratory: Reports: Cough, Shortness of Breath, Wheezing Gastrointestinal: Denies: Abdominal Pain, Nausea, Vomiting Genitourinary: Denies: Dysuria Musculoskeletal: Denies: Joint Pain, Joint Tenderness Skin: Denies: Rash, Wounds Neurological: Denies: Numbness, Tingling, Focal weakness Psychiatric: Denies: Anxiety, Depression, Homicidal Ideations, Suicidal Ideations Hematologic/ Lymphatic: Denies: Easy Bruising, Easy Bleeding VTE Information - Inpt Only VTE Present on Admission: No VTE Mechan Device Prophylaxis: None VTE Pharm Prophylaxis ordered?: No Reason prophylaxis not ordered:: Treatment Not Indicated - Not indicated since patient has been started on therapeutic dose of Lovenox for atrial flutter Patient Problems: Active and Suspected Problems Hypoxemia (Acute) Atrial flutter (Acute) Acute CHF (Acute) - Physical Exam Vitals/I&O's: Vital Signs Temp Pulse Resp BP Pulse Ox 97.5 F L 135 H 30 H 122/49 H 95 07/04/20 00:34 07/04/20 01:21 07/04/20 01:21 07/04/20 01:21 07/04/20 01:21 Oxygen Flow Rate (L/min) 2 Oxygen Delivery Method Room Air Weight: 52.163 kg Body Mass Index (BMI) 18.6 General: Alert, Oriented x3, Cooperative HEENT: Atraumatic, PERRLA, EOMI, Normocephalic Neck: Supple, No JVD, Negative Carotid Bruits Lungs: No wheeze, Rales Cardiovascular: Normal S1, Normal S2, No murmurs, Tachycardic Abdomen: Bowel Sounds Present, Soft, Non Tender Extremities: Capillary Refill Less than 3 Seconds, Edema - Bilateral legs; mild. Skin: No rashes, No breakdown Musculoskeletal: No Tenderness to Palpation of Joints or Extremities Neurological: Cranial nerves II-XII grossly intact Psych/Mental Status: Normal Affect, Appropriate Laboratory Results 07/03/20 21:45: Sodium 137, Potassium 4.9, Chloride 103, Carbon Dioxide 24.0, Anion Gap 10, BUN 31 H, Creatinine 1.66 H, Estim Creat Clear Calc 30.11, Est GFR (MDRD) Af Amer 53 L, Est GFR (MDRD) Non-Af 44 L, BUN/Creatinine Ratio 18.7, Glucose 167 H, Calcium 8.4 L, Total Bilirubin 0.40, AST 40 H, ALT 18, Alkaline Phosphatase 151 H, Total Protein 6.5, Albumin 2.7 L, Globulin 3.8, Albumin/Globulin Ratio 0.7 L 07/03/20 21:48: WBC 9.5, RBC 3.75 L, Hgb 12.2 L, Hct 38.8 L, MCV 103.5 H, MCH 32.5 H, MCHC 31.4 L, RDW Std Deviation 55.2 H, RDW Coeff of Senait 14.5, Plt Count 217, MPV 9.9, Immature Gran % (Auto) 0.400, Neut % (Auto) 83.4 H, Lymph % (Auto) 7.4 L, [place] % (Auto) 7.4, Eos % (Auto) 1.2, Baso % (Auto) 0.2, Absolute Neuts (auto) 7.9 H, Absolute Lymphs (auto) 0.70 L, Nucleated RBC % 0 07/03/20 21:48: B-Natriuretic Peptide 2999.8 H 07/03/20 21:48: Troponin I 0.166 H 07/03/20 21:55: COVID-19 (NELOSN) Not Detected Assessment/Plan All Active Problems Hypoxemia (Acute) Atrial flutter (Acute) Acute CHF (Acute) New onset heart failure Place on monitored bed at the PCU Weight on admission to the floor; and then daily Strict I&O's CXR independently reviewed confirms bilateral basilar pulmonary infiltrates. EKG independently reviewed confirms atrial flutter Emergency department labs showed severely elevated BNP Lasix 20 mg IV was given at emergency department after patient did not have improvement with a DuoNeb and Solu-Medrol. We will continue Lasix 20 mg IV 3 times daily. Potassium is 4.9. Trend BMP. Echo ordered to evaluate LVEF and wall motion Elevate bilateral lower extremities Fluid restriction of 1500 mls daily Cardiac diet A flutter with rapid ventricular response Received Cardizem bolus. We will put patient on Cardizem drip. Therapeutic Lovenox adjusted for creatinine clearance. Consider transitioning to p.o. therapeutic anticoagulation Acute respiratory insufficiency His initial oxygen saturation was 85% on room air. Likely secondary to congestive heart failure and A. fib with rapid response. Treatment as above. As needed oxygen to maintain oxygen saturation more than 92%. RACHEL Creatinine presentation was 1.66. Review of old record showed a creatinine on 02/26/2020 was 1.37, and on 10/01/2019 was 1.42. Likely secondary to cardiorenal syndrome. Lasix as above. Trend BMP. DVT prophylaxis Not indicated since patient to be started on therapeutic dose of Lovenox for atrial flutter. Inpatient E&M: 92430 Init Hosp L3
[2020-07-04] MEDS: Morphine 4 MG/ML Syringe IV (02:55)
--- NOTE | 2020-07-04 04:34 | ECHOD_ITS ---
Reason For Study: Dyspnea/SOB Procedure This was a 2D Doppler, Color Flow transthoracic echocardiogram. The exam was of adequate technical quality. Exam performed portable in patient room. Left Ventricle Mildly dilated left ventricle. Apical false tendon noted. Severe segmental systolic dysfunction (see wall motion). The estimated ejection fraction is 15 %. Anterio-Basal: Hypokinetic. Lateral-Basal: Hypokinetic. Posterior-Basal: Severely hypokinetic. Infero-Basal: Severely Hypokinetic. Basal inferoseptal: Akinetic. Basal anteroseptal: Severely Hypokinetic. Mid-Anterior : Akinetic. Mid- Lateral : Severely Hypokinetic. Mid-Posterior: Hypokinetic. Mid-Inferior: Akinetic. Mid- inferoseptal : Akinetic. Mid-anteroseptal : Akinetic. [place] : Akinetic. Right Ventricle Normal RV size. Normal systolic function. Atria The left atrium is mildly enlarged. The right atrium is moderately enlarged. No doppler evidence for ASD. Mitral Valve There is no mitral annular calcification. Mild diffuse mitral valve thickening. Mild mitral valve prolapse, posterior leaflet. Mild (1+) mitral valve insufficiency. Tricuspid Valve Normal tricuspid valve. Mild to moderate (1-2+) tricuspid valve insufficiency. Right ventricular systolic pressure estimated to be 28 mmHg. Aortic Valve Trisinus/trileaflet aortic valve. Mild diffuse aortic valve thickening. Pulmonic Valve The pulmonic valve is not well visualized. Trivial eccentric pulmonic valve insufficiency. Great Vessels Normal sized aortic root. Mildly calcified aortic root. Pericardium/Pleural Trivial pericardial effusion. There are no echocardiographic indications of cardiac tamponade. Echo lucency compatible with a pleural effusion. MMode/2D Measurements & Calculations LVIDd: 5.5 cm IVSd: 1.2 cm Ao root diam: 3.2 cm LVIDs: 4.9 cm LVPWd: 1.2 cm LA dimension: 4.3 cm FS: 11.5 % LAV(MOD-bp): 61.0 ml LVAd ap4: 35.0 cm2 SV(MOD-sp4): 31.9 ml LAV(MOD-bp) Indexed: 38.1 ml/m2 EDV(MOD-sp4): 133.7 ml LAV(MOD-sp2): 62.4 ml EDV(sp4-el): 137.7 ml LAV(MOD-sp4): 60.0 ml LVAs ap4: 30.0 cm2 ESV(MOD-sp4): 101.8 ml ESV(sp4-el): 108.3 ml EF(MOD-sp4): 23.9 % EF(sp4-el): 21.4 % SV(sp4-el): 29.4 ml LA A4 area: 21.1 cm2 RA A4 area: 22.5 cm2 Time Measurements MV dec time: 0.19 sec Doppler Measurements & Calculations MV E max shahram: 85.4 cm/sec Lat Peak E' Shahram: 6.2 cm/sec Med Peak E' Shahram: 3.8 cm/sec MV A max shahram: 40.4 cm/sec E/E' lat: 13.8 E/E' med: 22.2 MV E/A: 2.1 MV V2 max: 84.6 cm/sec MV P1/2t max shahram: 85.0 cm/sec Ao V2 max: 80.8 cm/sec MV max P.9 mmHg MV P1/2t: 62.4 msec Ao max P.6 mmHg MV V2 mean: 42.8 cm/sec MV mean P.90 mmHg MV dec slope: 399.2 cm/sec2 MV V2 VTI: 16.9 cm MVA(P1/2t): 3.5 cm2 LV V1 max: 71.5 cm/sec MR max shahram: 381.5 cm/sec PA V2 max: 76.4 cm/sec LV V1 max P.0 mmHg MR max P.2 mmHg MR mean shahram: 330.5 cm/sec MR mean P.8 mmHg MR VTI: 124.0 cm TR max shahram: 250.8 cm/sec TR max P.2 mmHg Interpretation Summary Mildly dilated left ventricle. Severe segmental systolic dysfunction (see wall motion). The estimated ejection fraction is 15 %. Apical false tendon noted. The left atrium is mildly enlarged. The right atrium is moderately enlarged. Mild diffuse mitral valve thickening. Mild mitral valve prolapse, posterior leaflet Mild (1+) mitral valve insufficiency. Mild to moderate (1-2+) tricuspid valve insufficiency. Mild diffuse aortic valve thickening. Trivial eccentric pulmonic valve insufficiency. Mildly calcified aortic root. Trivial pericardial effusion. There are no echocardiographic indications of cardiac tamponade. Echo lucency compatible with a pleural effusion. Right ventricular systolic pressure estimated to be 28 mmHg. Transmitral diastolic flow velocities suggest diastolic dysfunction (pseudonormal pattern). Ordering Physician: Samuel Collins Referring Physician: Smith Guerrier Chi Performed By: Golden Tracey RCS
[2020-07-04] MEDS: Enoxaparin 60 MG/0.6 ML Syringe 50 MG SC (05:03)
[2020-07-04] MEDS: 0.9% Saline Lock 10 ML Syringe IV ×2 (05:07→05:52)
[2020-07-04 06:20] LABS: Absolute Lymphocyte Count 0.11 X10^3/uL (0.83-4.51); Absolute Neutrophil Count 8.8 X10^3/uL (2.0-7.7); Basophil# 0.01 X10^3/uL; Basophil% 0.1 % (0-1); Hematocrit 36.2 % (40-54); Hemoglobin 11.4 g/dL (13.0-16.5); Lymphocyte # 0.11 X10^3/ul (4.0); Lymphocyte % 1.2 % (19-41); Mean Corp Hgb Conc 31.5 g/dL (32-36); Mean Corpuscular Hgb 31.8 pg (27.0-32.0); Mean Corpuscular Volume 101.1 fL (80-94); Mean Platelet Vol. 9.7 fl (6.2-12.0); Monocyte# 0.07 X10^3/uL; Monocyte% 0.8 % (0-10); NRBC Flagged by Analyzer 0 % (0-5); Neutrophil # 8.79 X10^3/uL (2.7-7.7); Neutrophil % 97.3 % (47-70); POSITIVE DIFFERENTIAL YES; Platelet Count 177 K/mm3 (150-450); RBC Distribution Width CV 14.3 % (11.6-14.6); RBC Distribution Width SD 53.7 fl (35.1-43.9); Red Blood Count 3.58 M/mm3 (4.6-6.2)
[2020-07-04 06:30] LABS: Differential Indicated SCAN CRITERIA MET
[2020-07-04 06:53] LABS: Anion Gap 7 (5-15); BUN 31 mg/dL (7-18); BUN/Creat Ratio 18.8 RATIO (10-20); Calcium,Total 8.5 mg/dL (8.5-10.1); Chloride 102 mmol/L (98-107); Creatinine, Serum 1.65 mg/dL (0.70-1.30); EST Glomerular Filtration Rate 44 mL/min (>60); Est Glom Filt Rate - Afr Amer 53 mL/min (>60); Estimated Creatinine Clearance 31.31 ml/min; Glucose 230 mg/dL (74-106); Potassium 5.1 mmol/L (3.5-5.1); Sodium Level 135 mmol/L (136-145); Thyroid Stim Hormone (TSH) 1.16 uIU/mL (0.358-3.74)
[2020-07-04 07:40] LABS: Platelet Estimate ADEQUATE (ADEQ)
--- NOTE | 2020-07-04 07:57 | EKG12_ITS ---
Test Reason : Blood Pressure : / mmHG Vent. Rate : 082 BPM Atrial Rate : 082 BPM P-R Int : 158 ms QRS Dur : 090 ms QT Int : 418 ms P-R-T Axes : 033 -20 237 degrees QTc Int : 488 ms Normal sinus rhythm T wave abnormality, consider inferolateral ischemia Prolonged QT Poor R wave progression Abnormal ECG Confirmed by JOHNNY DUMAS, WALLY ([id number]), brands editor JOSE CLAIRE ([id number]) on 07/06/2020 9:20:54 AM Referred By: MONICA Confirmed By:WALLY TURNER MD
[2020-07-04] MEDS: Metoprolol Tartrate 50 MG Tablet PO (08:58)
--- NOTE | 2020-07-04 09:39 | PCM.PN.HOSP ---
Patient Problems: Active and Suspected Problems Hypoxemia (Acute) Atrial flutter (Acute) Acute CHF (Acute) Reason for Visit: CHF Subjective: Feels well. Vitals/I&O's: Vital Signs Temp Pulse Resp BP Pulse Ox 36.4 C L 93 3 L 128/64 H 98 07/04/20 08:00 07/04/20 08:58 07/04/20 08:14 07/04/20 08:58 07/04/20 08:14 Oxygen Flow Rate (L/min) 3 Oxygen Delivery Method Nasal Cannula Weight: 53.9 kg Body Mass Index (BMI) 19.1 Intake and Output for Last 24 Hours 07/02/20 07/03/20 07/04/20 23:59 23:59 23:59 Intake Total 189.66 / 189.66 Balance 189.66 / 189.66 General: Alert, No apparent distress HEENT: Atraumatic, Normocephalic Oral: Moist Mucosa, No Gingival or Mucosal Lesions/ Ulcerations Neck: No Nodes, Thyroid Normal Size and Texture Lungs: Clear to auscultation, Normal air movement, No rhonchi, No wheeze, No rales Cardiovascular: Regular rate, Regular Rhythm, Normal S1, Normal S2, No murmurs Abdomen: Bowel Sounds Present, Soft, Non Tender, Non-Distended Extremities: No Calf Tenderness, Edema Psych/Mental Status: Normal Affect, Appropriate Laboratory Results 07/03/20 21:45: Sodium 137, Potassium 4.9, Chloride 103, Carbon Dioxide 24.0, Anion Gap 10, BUN 31 H, Creatinine 1.66 H, Estim Creat Clear Calc 30.11, Est GFR (MDRD) Af Amer 53 L, Est GFR (MDRD) Non-Af 44 L, BUN/Creatinine Ratio 18.7, Glucose 167 H, Calcium 8.4 L, Total Bilirubin 0.40, AST 40 H, ALT 18, Alkaline Phosphatase 151 H, Total Protein 6.5, Albumin 2.7 L, Globulin 3.8, Albumin/Globulin Ratio 0.7 L 07/03/20 21:48: WBC 9.5, RBC 3.75 L, Hgb 12.2 L, Hct 38.8 L, MCV 103.5 H, MCH 32.5 H, MCHC 31.4 L, RDW Std Deviation 55.2 H, RDW Coeff of Senait 14.5, Plt Count 217, MPV 9.9, Immature Gran % (Auto) 0.400, Neut % (Auto) 83.4 H, Lymph % (Auto) 7.4 L, [place] % (Auto) 7.4, Eos % (Auto) 1.2, Baso % (Auto) 0.2, Absolute Neuts (auto) 7.9 H, Absolute Lymphs (auto) 0.70 L, Nucleated RBC % 0 07/03/20 21:48: B-Natriuretic Peptide 2999.8 H 07/03/20 21:48: Troponin I 0.166 H 07/03/20 21:55: COVID-19 (NELSON) Not Detected 07/04/20 05:45: WBC 9.0, RBC 3.58 L, Hgb 11.4 L, Hct 36.2 L, MCV 101.1 H, MCH 31.8, MCHC 31.5 L, RDW Std Deviation 53.7 H, RDW Coeff of Senait 14.3, Plt Count 177, MPV 9.7, Immature Gran % (Auto) 0.600, Neut % (Auto) 97.3 H, Lymph % (Auto) 1.2 L, [place] % (Auto) 0.8, Eos % (Auto) 0.0, Baso % (Auto) 0.1, Absolute Neuts (auto) 8.8 H, Absolute Lymphs (auto) 0.11 L, Nucleated RBC % 0, Platelet Estimate ADEQUATE 07/04/20 05:45: Sodium 135 L, Potassium 5.1, Chloride 102, Carbon Dioxide 26.0, Anion Gap 7, BUN 31 H, Creatinine 1.65 H, Estim Creat Clear Calc 31.31, Est GFR (MDRD) Af Amer 53 L, Est GFR (MDRD) Non-Af 44 L, BUN/Creatinine Ratio 18.8, Glucose 230 H, Calcium 8.5, TSH 1.16 07/04/20 05:45: Troponin I 0.345 H 07/04/20 08:40: Troponin I 0.331 H Current Medications Albuterol Sulfate (Albuterol 2.5 Mg/3 Ml Vial.Neb.) 2.5 mg INHALATION Q4H PRN PRN Reason: SHORTNESS OF BREATH Enoxaparin Sodium (Enoxaparin 60 Mg/0.6 Ml Syringe) 50 mg SC Q24 AYO Last Admin: 07/04/20 05:03 Dose: 50 mg Documented by: Furosemide (Furosemide 20 Mg/2 Ml Vial) 20 mg IV Q8 [facility] Last Admin: 07/04/20 05:53 Dose: 20 mg Documented by: Influenza Virus Vaccine Quadrival (Influenza Vaccine (6mos+)/Pf 0.5 Ml Syringe) 0.5 ml IM .ONCE ONE Stop: 07/04/20 10:01 Last Admin: 07/04/20 08:59 Dose: 0.5 ml Documented by: Melatonin (Melatonin 3 Mg Tablet) 3 mg PO QHS PRN PRN PRN Reason: INSOMNIA Metoprolol Tartrate (Metoprolol Tartrate 50 Mg Tablet) 50 mg PO BID [facility] Last Admin: 07/04/20 08:58 Dose: 50 mg Documented by: Nutritional Formula (Lactose Free) (Ensure Enlive 120 Ml Liquid) 120 ml PO 4X/DAY [facility] Ondansetron HCl (Ondansetron 4 Mg/2 Ml Vial) 4 mg IV Q8H PRN PRN PRN Reason: NAUSEA/VOMITING Sodium Chloride (0.9% Saline Lock 10 Ml Syringe) 10 - 40 ml IV UD PRN PRN Reason: SALINE FLUSH Last Admin: 07/04/20 05:52 Dose: 10 ml Documented by: Tramadol HCl (Tramadol 50 Mg Tablet) 50 mg PO BID [facility] Last Admin: 07/04/20 08:59 Dose: 50 mg Documented by: STROKE Vital Signs/Narrative: Vital Signs Temp Pulse Resp BP Pulse Ox 07/04/20 08:58 93 128/64 H 07/04/20 08:14 3 L 98 07/04/20 08:00 36.4 C L 78 12 125/64 H 98 07/04/20 07:44 99 07/04/20 07:38 78 07/04/20 07:00 87 12 102/53 L 99 07/04/20 06:30 86 13 105/54 L 100 07/04/20 06:00 93 16 112/58 L 97 07/04/20 05:45 91 14 114/63 100 Medical Necessity - Tobacco Use Smoking Status: Current every day smoker Tobacco Use: Cigarettes Assessment/Plan All Active Problems Hypoxemia (Acute) Atrial flutter (Acute) Acute CHF (Acute) 1. acute CHF exacerbation: unclear type. continue with furosemide. check echo. In the abscense of fever and leukocytosis, I doubt pneumonia and will DC abx. COVID-19 negative. 2. Aflutter with RVR: I don't see any evidence that patient was in aflutter. It appeared sinus tach if anything on EKG and telemetry. Currently rate controlled in NSR. on metoprolol for rate control. continue anticoagulation for now, but if no evidence of aflutter/afib, will dc. 3. elevated troponin: suspect due to demand from CHF and tachycardia. check echo. 4. moderate protein malnutrition: consult nutrition 5. CKD 3: RACHEL ruled out. Cr slightly higher than baseline. monitor closely. 6. VTE prophylaxis: anticoagulated. Procedures: Other Procedure - See Report - non billable rounding as patient admitted after midnight.
--- NOTE | 2020-07-04 10:43 | CASEMGMT ---
JULES RYAN assessment: Face to Face with patient for initial transition planning/care coordination assessment. JULES RYAN introduced self and role at [facility], pt voices understanding and consents to assessment at this time. Pt is sitting up in bed in no distress at this time and is currently on 3liters nc at this time. Care providers, pharmacy, and demographics verified at this time. Presentation: Increased SOB. hx COPD Admitting dx: SOB, new onset HF PCP: [facility] Specialists: Pt states no current specialists. Preferred Pharmacy: [facility] Insurance: MCR A/B Prescription Benefit: MCR D Living Will/HPOA: Pt states does not have LW/HPOA and declines AD info at this time. LNOK: Sonia Turk, keisha Living Arrangements: Pt states lives alone in apartment with a flight of stairs and states some SOB/weakness with going upstairs at times. Pt states is normally independent with ADL's. Transportation: Pt states drives self and states no transportation concerns at this time. DME/HHC: Pt states no current DME at this time and states no preference for DME company if pt needs home oxygen at discharge. Pt states no hx of HHC or SNF in the past. Pt states no concerns with going home at time of discharge. Pt states is retired. 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 Pt declines any need for resources at this time. Pt states no further concerns/needs at this time. CM to follow for home oxygen testing and any further discharge planning/needs. Advised pt to ask for CM if any further questions/concerns/needs arise, voices understanding. Pt Goal: Home Plan: Home, pending home oxygen testing. S[place]en JULES RYAN
--- NOTE | 2020-07-04 13:36 | NT.THERAPY_ITS ---
Nutrition Therapy Report - History Nutrition Services has been consulted to:: Manage nutrient details of diet order Current diet / nutrition support order:: Cardiac/1800 ml FR - Anthropometric Measurements Height:: 5 ft 6 in Weight:: 53.9 kg Body Mass Index (BMI):: 19.1 - Relevant Labs Relevant Labs:: RBC 3.58 M/mm3 (4.6-6.2) L 07/04/20 05:45 Hgb 11.4 g/dL (13.0-16.5) L 07/04/20 05:45 Hct 36.2 % (40-54) L 07/04/20 05:45 MCV 101.1 fL (80-94) H 07/04/20 05:45 MCH 32.5 pg (27.0-32.0) H 07/03/20 21:48 MCHC 31.5 g/dL (32-36) L 07/04/20 05:45 RDW Std Deviation 53.7 fl (35.1-43.9) H 07/04/20 05:45 Neut % (Auto) 97.3 % (47-70) H 07/04/20 05:45 Lymph % (Auto) 1.2 % (19-41) L 07/04/20 05:45 Absolute Neuts (auto) 8.8 X10^3/uL (2.0-7.7) H 07/04/20 05:45 Absolute Lymphs (auto) 0.11 X10^3/uL (0.83-4.51) L 07/04/20 05:45 Sodium 135 mmol/L (136-145) L 07/04/20 05:45 BUN 31 mg/dL (7-18) H 07/04/20 05:45 Creatinine 1.65 mg/dL (0.70-1.30) H 07/04/20 05:45 Est GFR (MDRD) Af Amer 53 mL/min (>60) L 07/04/20 05:45 Est GFR (MDRD) Non-Af 44 mL/min (>60) L 07/04/20 05:45 Glucose 230 mg/dL (74-106) H 07/04/20 05:45 Calcium 8.4 mg/dL (8.5-10.1) L 07/03/20 21:45 AST 40 U/L (15-37) H 07/03/20 21:45 Alkaline Phosphatase 151 U/L (45-117) H 07/03/20 21:45 Troponin I 0.280 ng/mL (<0.045) H 07/04/20 12:20 B-Natriuretic Peptide 2999.8 pg/mL (0-100) H 07/03/20 21:48 Albumin 2.7 g/dL (3.2-5.0) L 07/03/20 21:45 Albumin/Globulin Ratio 0.7 RATIO (0.9-2.4) L 07/03/20 21:45 - Assessment Food / Nutrition-Related History:: 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 Pt reports UBW~150-155 lbs approx 5 years ago but, has been maintaining current UBW~110-115 typically. Current admit wt is up likely due to fluid/heart failure--pt reports ankle edema. +NFPA--pt has moderate muscle/fat wasting in the face and upper body. Pt seems to maintain a low BMI x past 3-4 years. - Nutrition Diagnosis Problem / Etiology / Signs & Symptoms (PES):: Moderate pro/earnest malnutrition in the context of chronic disease related to increased nutrient needs as evidenced by moderate muscle/fat wasting, inadequate intake at meals and ~23% wt loss x 5 years per pt report. Evidence of Malnutrition Exists:: Yes Moderate PCM:: Chronic Illness - Nutrition Intervention Nutrition Prescription:: Estimated nutrition needs~7384-2221 kcal and ~65-75 g protein for repletion. - Food / Nutrient Delivery Interventions Summary of nutrition intervention:: Will offer ONS w/ medpass and with meals; encourage intake. Diet order: Cardiac/sodium-restricted with 1800 ml FR as ordered. Nutrition education provided?: Yes - low sodium/salt education provided - MNT Monitoring Further MNT monitoring and evaluation required?: Yes MNT Follow-up in:: 3-5 days
[2020-07-05] VITALS (15 sets, daily range): BP systolic 81–110; BP diastolic 47–66; PULSE 75–104; RESP 14–18; TEMP 36.4–37.1; O2SAT 97–100
[2020-07-05] MEDS: Acetaminophen 325 MG Tablet 650 MG PO (01:28)
[2020-07-05] MEDS: Furosemide 20 MG/2 ML VIAL IV (06:25)
[2020-07-05 07:23] LABS: Anion Gap 5 (5-15); BUN 46 mg/dL (7-18); BUN/Creat Ratio 19.4 RATIO (10-20); Calcium,Total 8.9 mg/dL (8.5-10.1); Chloride 102 mmol/L (98-107); Creatinine, Serum 2.37 mg/dL (0.70-1.30); EST Glomerular Filtration Rate 29 mL/min (>60); Est Glom Filt Rate - Afr Amer 35 mL/min (>60); Estimated Creatinine Clearance 22.85 ml/min; Glucose 151 mg/dL (74-106); Potassium 5.9 mmol/L (3.5-5.1); Sodium Level 130 mmol/L (136-145)
[2020-07-05] MEDS: Sodium Polystyrene Sulfonate 15 GM/60 ML UDC PO (09:53)
[2020-07-05] MEDS: Enoxaparin 60 MG/0.6 ML Syringe 50 MG SC (09:54)
[2020-07-05] MEDS: Metoprolol Tartrate 50 MG Tablet PO (09:54)
[2020-07-05] MEDS: traMADol 50 MG Tablet PO ×2 (10:00→21:58)
--- NOTE | 2020-07-05 13:02 | CON.PCM_ITS ---
Reason for Consult Date of Consultation: 07/05/20 Reason for Consultation: Shortness of breath and tachycardia History of Present Illness: The patient is a 70 year old M with no previous cardiac history who presented to the emergency room a few days ago due to progressive shortness of breath. She was seen in the emergency room and at that time was noted to have an elevated natruretic peptide level. He was also noted to be tachycardic etiology of which was not entirely clear. He has had no dizziness or diaphoresis no near syncope or syncope he has been compliant with his medications. He denies any significant pedal edema. His echocardiogram which was performed demonstrated a markedly reduced ejection fraction and cardiology was called for further evaluation and management. [] Past Medical History Allergies/Adverse Reactions: Allergies No Known Allergies Allergy (Verified 07/03/20 21:28) Home Medications: Ambulatory Orders Medication Instructions Recorded Losartan Potassium 100 mg PO DAILY 02/26/20 traMADol [Ultram (G)] 50 mg PO BID PRN 02/26/20 Albuterol Sulfate [Albuterol 2 puff IN Q6H PRN PRN 07/03/20 Sulfate HFA] Past Medical History (Chronic Problems): Chronic Problems COPD (chronic obstructive pulmonary disease) (Chronic) HTN (hypertension) (Chronic) Surgical History: - - Denies any surgical history. - *Family History Maternal History Items: Heart Disease Paternal History Items: - - Alcoholism Smoking Status: Current every day smoker Tobacco Use: Cigarettes Alcohol: None Drugs: None Review of Systems - Review of Systems General: Denies: Fever, Night Sweats, Fatigue HEENT: Denies: Vision Change Cardiovascular: Reports: Shortness of Breath, Shortness of Breath at Rest. Denies: Chest Discomfort, Orthopnea, PND, Peripheral Edema, Palpitations, Lightheadedness, Dizziness, Near Syncope, Syncope Respiratory: Denies: Cough, Sputum Production, Hemoptysis Gastrointestinal: Denies: Hematemesis, Hematochezia, Melena Genitourinary: Denies: Dysuria, Hematuria Muscoloskeletal: Denies: Myalgias Skin: Denies: Rash Neurological: Denies: Dizziness Psychiatric: Denies: Anxiety Subjectve: Pleasant elderly man in no distress Objective: Vital Signs Temp Pulse Resp BP Pulse Ox 97.7 F L 86 18 110/66 100 07/05/20 09:50 07/05/20 09:54 07/05/20 09:50 07/05/20 09:54 07/05/20 09:50 Oxygen Flow Rate (L/min) 3 Oxygen Delivery Method Nasal Cannula Weight: 124 lb 8.979 oz Body Mass Index (BMI) 19.1 Intake and Output for Last 24 Hours 07/03/20 07/04/20 07/05/20 23:59 23:59 23:59 Intake Total 1034.66 / 1274.66 650 / 650 Output Total 250 / 250 100 / 100 Balance 784.66 / 1024.66 550 / 550 General: Awake, Alert, Oriented x 3 HEENT: PERRL, EOMI, Sclera Non Icteric Neck: Supple, Good ROM, No Lymph Node Enlargement Lungs: Diminished Terry Bases Cardiovascular: Regular Rhythm, Normal S1, Normal S2, No Murmurs, No Rubs, No Gallops Vascular: No Carotid Bruits, Normal Femoral Pulses, Normal Radial Pulses, Normal Dorsalis Pedal Pulse, Normal Posterior Tibial Pulses Abdomen: Bowel Sounds Present, Soft, Non Tender, No HSM, No Organomegaly Extremities: No Cyanosis, No Clubbing, No edema Musculoskeletal: No Erythema Skin: No Rashes Lymphatic: No Lymph Node Enlargement Neurological: No Focal Motor or Sensory Deficit Psych/Mental Status: Appropriate 07/04/20 12:20: Troponin I 0.280 H 07/05/20 06:44: Sodium 130 L, Potassium 5.9 H, Chloride 102, Carbon Dioxide 23.0, Anion Gap 5, BUN 46 H, Creatinine 2.37 H, Est GFR (MDRD) Af Amer 35 L, Est GFR (MDRD) Non-Af 29 L, BUN/Creatinine Ratio 19.4, Glucose 151 H, Calcium 8.9 Rhythm: EKG: Sinus tachycardia with a rate of 147 bpm. ECHO: Severe global left ventricular systolic dysfunction with estimated ejection fraction of 10 to 15%. Stress Test: Cardiac Cath: PCI: CT Surgery: Holter monitor: EPS: PPM: CXR: Chest CT Scan: Assessment/Plan 1. Congestive heart failure-acute systolic * Patient presents with shortness of breath and is noted to have a markedly elevated natruretic peptide level and an echocardiogram which denotes severe left ventricular systolic dysfunction. The etiology of the above is not entirely clear at this particular time. He was initially noted to be tachycardic but it appears this was a sinus tachycardia which was reactive. He has reacted well to the beta-marcy which would be continued The diuretics would also be continued. At some point he may need a cardiac catheterization to assess whether this is secondary to coronary disease. His renal function has however significantly worsened and it may be prudent to pursue medical therapy at this time. * We may be able to permit form a pharmacologic stress test to exclude any occult coronary disease while we optimize his medical therapy. * * Thank you for allowing me to participate in the care of your patient. Please don't hesitate to call if any issues arise.
[2020-07-05] MEDS: Ondansetron 4 MG/2 ML Vial IV (15:00)
[2020-07-05] MEDS: 0.9% Saline Lock 10 ML Syringe IV (15:00)
--- NOTE | 2020-07-05 15:10 | PN_ITS ---
Patient Problems: Active and Suspected Problems Hypoxemia (Acute) Atrial flutter (Acute) Acute CHF (Acute) Reason for Visit: CHF Subjective: Breathing better. Decreased LE edema. Vitals/I&O's: Vital Signs Temp Pulse Resp BP Pulse Ox 36.5 C L 86 18 110/66 100 07/05/20 09:50 07/05/20 09:54 07/05/20 09:50 07/05/20 09:54 07/05/20 09:50 Oxygen Flow Rate (L/min) 3 Oxygen Delivery Method Nasal Cannula Weight: 56.5 kg Body Mass Index (BMI) 19.1 Intake and Output for Last 24 Hours 07/03/20 07/04/20 07/05/20 23:59 23:59 23:59 Intake Total 1034.66 / 1274.66 650 / 650 Output Total 250 / 250 100 / 100 Balance 784.66 / 1024.66 550 / 550 General: Alert, No apparent distress HEENT: Atraumatic, Normocephalic Oral: Moist Mucosa, No Gingival or Mucosal Lesions/ Ulcerations Neck: No Nodes, Thyroid Normal Size and Texture Lungs: Clear to auscultation, Normal air movement, No rhonchi, No wheeze Cardiovascular: Regular rate, Regular Rhythm, Normal S1, Normal S2 Abdomen: Bowel Sounds Present, Soft, Non Tender, Non-Distended Extremities: No Calf Tenderness, Edema Musculoskeletal: Cachexia, Muscle Wasting Laboratory Results 07/05/20 06:44: Sodium 130 L, Potassium 5.9 H, Chloride 102, Carbon Dioxide 23.0, Anion Gap 5, BUN 46 H, Creatinine 2.37 H, Estim Creat Clear Calc 22.85, Est GFR (MDRD) Af Amer 35 L, Est GFR (MDRD) Non-Af 29 L, BUN/Creatinine Ratio 19.4, Glucose 151 H, Calcium 8.9 Current Medications Acetaminophen (Acetaminophen 325 Mg Tablet) 650 mg PO Q6H PRN PRN PRN Reason: Pain 1-10 or Fever Last Admin: 07/05/20 01:28 Dose: 650 mg Documented by: Albuterol Sulfate (Albuterol 2.5 Mg/3 Ml Vial.Neb.) 2.5 mg INHALATION Q4H PRN PRN Reason: SHORTNESS OF BREATH Enoxaparin Sodium (Enoxaparin 60 Mg/0.6 Ml Syringe) 50 mg SC Q24 [facility] Last Admin: 07/05/20 09:54 Dose: 50 mg Documented by: Melatonin (Melatonin 3 Mg Tablet) 3 mg PO QHS PRN PRN PRN Reason: INSOMNIA Metoprolol Tartrate (Metoprolol Tartrate 50 Mg Tablet) 50 mg PO BID [facility] Last Admin: 07/05/20 09:54 Dose: 50 mg Documented by: Nutritional Formula (Lactose Free) (Ensure Enlive 120 Ml Liquid) 120 ml PO 4X/DAY [facility] Last Admin: 07/05/20 14:57 Dose: 120 ml Documented by: Ondansetron HCl (Ondansetron 4 Mg/2 Ml Vial) 4 mg IV Q8H PRN PRN PRN Reason: NAUSEA/VOMITING Last Admin: 07/05/20 15:00 Dose: 4 mg Documented by: Sodium Chloride (0.9% Saline Lock 10 Ml Syringe) 10 - 40 ml IV UD PRN PRN Reason: SALINE FLUSH Last Admin: 07/05/20 15:00 Dose: 10 ml Documented by: Tramadol HCl (Tramadol 50 Mg Tablet) 50 mg PO BID [facility] Last Admin: 07/05/20 10:00 Dose: 50 mg Documented by: Medical Necessity - Tobacco Use Smoking Status: Current every day smoker Tobacco Use: Cigarettes Assessment/Plan All Active Problems Hypoxemia (Acute) Atrial flutter (Acute) Acute CHF (Acute) 1. acute HFrEF: * furosemide held given worsening kidney fxn * cardiology consulted may need stress v heart cath 2. Aflutter with RVR: * I don't see any evidence that patient was in aflutter--ruled out. * It appeared sinus tach if anything on EKG and telemetry. Currently rate controlled in NSR. on metoprolol for rate control. continue anticoagulation for now, but if no evidence of aflutter/afib, will dc. 3. elevated troponin: * peaked at 0.345 * suspect due to demand from CHF and tachycardia. 4. RACHEL * furosmide held * monitor 5. Hyperkalemia * hemolysis not reported * received kayexalate 6. moderate protein malnutrition: nutrition 7. VTE prophylaxis: anticoagulated. Inpatient E&M: 01985 [facility] [[email or web address]] Hosp L2
[2020-07-06] VITALS (18 sets, daily range): BP systolic 90–128; BP diastolic 50–64; PULSE 71–108; RESP 14–18; TEMP 36.3–37.1; O2SAT 90–100
[2020-07-06 09:21] LABS: Anion Gap 8 (5-15); BUN 65 mg/dL (7-18); BUN/Creat Ratio 19.2 RATIO (10-20); Calcium,Total 8.3 mg/dL (8.5-10.1); Chloride 96 mmol/L (98-107); Creatinine, Serum 3.38 mg/dL (0.70-1.30); EST Glomerular Filtration Rate 19 mL/min (>60); Est Glom Filt Rate - Afr Amer 23 mL/min (>60); Estimated Creatinine Clearance 16.02 ml/min; Glucose 69 mg/dL (74-106); Sodium Level 133 mmol/L (136-145)
[2020-07-06] MEDS: traMADol 50 MG Tablet PO ×2 (09:38→21:15)
[2020-07-06] MEDS: Enoxaparin 60 MG/0.6 ML Syringe 50 MG SC (09:38)
[2020-07-06] MEDS: Metoprolol Tartrate 25 MG Tablet PO ×2 (09:40→21:15)
[2020-07-06] MEDS: 0.9% Saline Lock 10 ML Syringe IV ×2 (09:41→18:10)
[2020-07-06 10:29] LABS: Color, Urine Yellow (Yellow); Glucose, Dipstick Normal (Normal); Ketone-Dipstick 5 mg/dl (Negative); Leukocyte Esterase-Dipstick 100 /ul (Negative); Nitrite-Dipstick Negative (Negative); Occult Blood-Urine 10 /ul (Negative); Protein-Dipstick 30 mg/dl (Negative); Specific Gravity, Urine 1.025 (1.002-1.030); Urine Clarity Sl. Cloudy (Clear); Urine Urobilinogen 1 mg/dl (Normal)
[2020-07-06 10:37] LABS: TCA Internal Control -Neg LINE = VALID (- VALID); TCA Urine Drug Screen Negative (<1000 ng/mL)
[2020-07-06 10:48] LABS: Urine Bilirubin Dipstick 1 mg/dL (Negative)
[2020-07-06 10:49] LABS: Red Blood Cells-Urine 0-5 SEEN /hpf (0-5); Squamous Epithelial Cells - UA 0-5 SEEN /hpf (0-5); White Blood Cells 10-25 SEEN /hpf (0-5)
[2020-07-06 10:50] LABS: Bacteria 1+ /hpf (None Seen); Mucous, Urine 1+ /hpf (<or=2+)
--- NOTE | 2020-07-06 11:21 | PN_ITS ---
Patient Problems: Active and Suspected Problems Hypoxemia (Acute) Atrial flutter (Acute) Acute CHF (Acute) Reason for Visit: CHF Subjective: Feels well. Breathing well. Vitals/I&O's: Vital Signs Temp Pulse Resp BP Pulse Ox 36.4 C L 100 18 103/64 98 07/06/20 07:50 07/06/20 09:40 07/06/20 07:50 07/06/20 09:40 07/06/20 07:50 Oxygen Flow Rate (L/min) 3 Oxygen Delivery Method Nasal Cannula Weight: 56.5 kg Body Mass Index (BMI) 19.1 Intake and Output for Last 24 Hours 07/04/20 07/05/20 07/06/20 23:59 23:59 23:59 Intake Total 1034.66 / 1274.66 770 / 770 Output Total 250 / 250 100 / 100 Balance 784.66 / 1024.66 670 / 670 General: Alert, No apparent distress HEENT: Atraumatic, Normocephalic Oral: Moist Mucosa, No Gingival or Mucosal Lesions/ Ulcerations Neck: No Nodes, Thyroid Normal Size and Texture Lungs: Clear to auscultation, Normal air movement, No rhonchi, No wheeze, No rales Cardiovascular: Regular rate, Regular Rhythm, Normal S1, Normal S2 Abdomen: Bowel Sounds Present, Soft, Non Tender, Non-Distended Extremities: No Calf Tenderness, Edema Skin: - Musculoskeletal: Cachexia, Muscle Wasting Psych/Mental Status: Normal Affect, Appropriate Laboratory Results 07/06/20 08:14: Sodium 133 L, Potassium 6.0 H*, Chloride 96 L, Carbon Dioxide 29.0, Anion Gap 8, BUN 65 H, Creatinine 3.38 H, Estim Creat Clear Calc 16.02, Est GFR (MDRD) Af Amer 23 L, Est GFR (MDRD) Non-Af 19 L, BUN/Creatinine Ratio 19.2, Glucose 69 L, Calcium 8.3 L 07/06/20 09:47: Tricyclics Screen Negative, Ur Drug Screen Comment 07/06/20 09:47: Eos Smear Total Cells Pending 07/06/20 09:47: Urine Color Yellow, Urine Clarity Sl. Cloudy, Urine pH 5.0, Ur Specific [place] 1.025, Urine Protein 30 H, Urine Glucose (UA) Normal, Urine Ketones 5 H, Urine Occult Blood 10 H, Urine Nitrite Negative, Urine Bilirubin 1 H, Urine Urobilinogen 1 H, Ur Leukocyte Esterase 100 H, Urine RBC 0-5 SEEN, Urine WBC 10-25 SEEN, Ur Squamous Epith Cells 0-5 SEEN, Urine Bacteria 1+, Urine Mucus 1+ 07/06/20 09:47: Urine Creatinine 189.00 Current Medications Acetaminophen (Acetaminophen 325 Mg Tablet) 650 mg PO Q6H PRN PRN PRN Reason: Pain 1-10 or Fever Last Admin: 07/05/20 01:28 Dose: 650 mg Documented by: Albuterol Sulfate (Albuterol 2.5 Mg/3 Ml Vial.Neb.) 2.5 mg INHALATION Q4H PRN PRN Reason: SHORTNESS OF BREATH Enoxaparin Sodium (Enoxaparin 60 Mg/0.6 Ml Syringe) 50 mg SC Q24 [facility] Last Admin: 07/06/20 09:38 Dose: 50 mg Documented by: Melatonin (Melatonin 3 Mg Tablet) 3 mg PO QHS PRN PRN PRN Reason: INSOMNIA Metoprolol Tartrate (Metoprolol Tartrate 25 Mg Tablet) 25 mg PO BID [facility] Last Admin: 07/06/20 09:40 Dose: 25 mg Documented by: Nutritional Formula (Lactose Free) (Ensure Enlive 120 Ml Liquid) 120 ml PO 4X/DAY [facility] Last Admin: 07/06/20 09:38 Dose: 120 ml Documented by: Ondansetron HCl (Ondansetron 4 Mg/2 Ml Vial) 4 mg IV Q8H PRN PRN PRN Reason: NAUSEA/VOMITING Last Admin: 07/05/20 15:00 Dose: 4 mg Documented by: Sodium Chloride (0.9% Saline Lock 10 Ml Syringe) 10 - 40 ml IV UD PRN PRN Reason: SALINE FLUSH Last Admin: 07/06/20 09:41 Dose: 10 ml Documented by: Tramadol HCl (Tramadol 50 Mg Tablet) 50 mg PO BID [facility] Last Admin: 07/06/20 09:38 Dose: 50 mg Documented by: STROKE Vital Signs/Narrative: Vital Signs Temp Pulse Resp BP Pulse Ox 07/06/20 09:40 100 103/64 07/06/20 07:50 36.4 C L 76 18 103/64 98 07/06/20 07:45 36.7 C 96 18 95/50 L Medical Necessity - Tobacco Use Smoking Status: Current every day smoker Tobacco Use: Cigarettes Assessment/Plan All Active Problems Hypoxemia (Acute) Atrial flutter (Acute) Acute CHF (Acute) 1. acute HFrEF: * furosemide held given worsening kidney fxn * cardiology consulted may need stress v heart cath 2. Aflutter with RVR--RULED OUT: * I don't see any evidence that patient was in aflutter--ruled out. * It appeared sinus tach if anything on EKG and telemetry. No further arrhythmia. DC therapeutic enoxaparin. 3. elevated troponin: * peaked at 0.345 * suspect due to demand from CHF and tachycardia. * cardiology following. 4. RACHEL * furosmide held * monitor * incomplete IsOs 5. Hyperkalemia * hemolysis not reported * received kayexalate 07/05, but still elevated. Repeat kayexalate today, then recheck BMP. 6. moderate protein malnutrition: nutrition 7. VTE prophylaxis: anticoagulated. Inpatient E&M: 25754 Subs Hosp L2
[2020-07-06] MEDS: Sodium Polystyrene Sulfonate 15 GM/60 ML UDC 30 GM PO ×2 (12:26→17:59)
[2020-07-06 13:30] LABS: Protein, Urine (Random) 46.8 mg/dL (<11.9)
[2020-07-06 13:35] LABS: Anion Gap 9 (5-15); BUN 70 mg/dL (7-18); BUN/Creat Ratio 19.5 RATIO (10-20); Calcium,Total 8.7 mg/dL (8.5-10.1); Chloride 99 mmol/L (98-107); Creatinine, Serum 3.59 mg/dL (0.70-1.30); EST Glomerular Filtration Rate 18 mL/min (>60); Est Glom Filt Rate - Afr Amer 22 mL/min (>60); Estimated Creatinine Clearance 15.08 ml/min; Glucose 94 mg/dL (74-106); Potassium 5.9 mmol/L (3.5-5.1); Sodium Level 132 mmol/L (136-145)
[2020-07-06] MEDS: 0.9% Normal Saline 1,000 ML 100 ML IV (18:10)
[2020-07-07] VITALS (14 sets, daily range): BP systolic 102–115; BP diastolic 48–65; PULSE 71–102; RESP 14–18; TEMP 36.6–36.9; O2SAT 95–98
[2020-07-07 07:02] LABS: Anion Gap 10 (5-15); BUN 70 mg/dL (7-18); BUN/Creat Ratio 18.6 RATIO (10-20); Calcium,Total 8.3 mg/dL (8.5-10.1); Chloride 104 mmol/L (98-107); Creatinine, Serum 3.76 mg/dL (0.70-1.30); EST Glomerular Filtration Rate 17 mL/min (>60); Est Glom Filt Rate - Afr Amer 21 mL/min (>60); Glucose 82 mg/dL (74-106); Potassium 4.3 mmol/L (3.5-5.1); Sodium Level 139 mmol/L (136-145)
[2020-07-07] MEDS: 0.9% Normal Saline 1,000 ML 100 ML IV (08:59)
[2020-07-07] MEDS: Ondansetron 4 MG/2 ML Vial IV (08:59)
[2020-07-07] MEDS: Metoprolol Tartrate 25 MG Tablet PO ×2 (08:59→20:29)
[2020-07-07] MEDS: Enoxaparin 60 MG/0.6 ML Syringe 50 MG SC (09:00)
[2020-07-07] MEDS: 0.9% Saline Lock 10 ML Syringe IV (09:02)
[2020-07-07] MEDS: traMADol 50 MG Tablet PO ×2 (09:04→20:28)
--- NOTE | 2020-07-07 10:40 | PCM.PN.HOSP ---
Patient Problems: Active and Suspected Problems Hypoxemia (Acute) Atrial flutter (Acute) Acute CHF (Acute) Reason for Visit: CHF Subjective: Feels well. Breathing well on oxygen. Vitals/I&O's: Vital Signs Temp Pulse Resp BP Pulse Ox 36.6 C 79 18 112/48 L 96 07/07/20 08:48 07/07/20 08:59 07/07/20 08:48 07/07/20 08:59 07/07/20 08:48 Oxygen Flow Rate (L/min) 3 Oxygen Delivery Method Nasal Cannula Weight: 56.5 kg Body Mass Index (BMI) 19.1 Intake and Output for Last 24 Hours 07/05/20 07/06/20 07/07/20 23:59 23:59 23:59 Intake Total 770 / 770 1010 / 1010 150 / 150 Output Total 100 / 100 450 / 450 200 / 200 Balance 670 / 670 560 / 560 -50 / -50 General: Alert, No apparent distress HEENT: Atraumatic, Normocephalic Oral: Moist Mucosa, No Gingival or Mucosal Lesions/ Ulcerations Neck: No Nodes, Thyroid Normal Size and Texture Lungs: Clear to auscultation, Normal air movement, No rhonchi, No wheeze Cardiovascular: Regular rate, Regular Rhythm, Normal S1, Normal S2 Abdomen: Bowel Sounds Present, Soft, Non Tender, Non-Distended Extremities: No edema, No Calf Tenderness Laboratory Results 07/06/20 09:47: Urine Color Yellow, Urine Clarity Sl. Cloudy, Urine pH 5.0, Ur Specific [place] 1.025, Urine Protein 30 H, Urine Glucose (UA) Normal, Urine Ketones 5 H, Urine Occult Blood 10 H, Urine Nitrite Negative, Urine Bilirubin 1 H, Urine Urobilinogen 1 H, Ur Leukocyte Esterase 100 H, Urine RBC 0-5 SEEN, Urine WBC 10-25 SEEN, Ur Squamous Epith Cells 0-5 SEEN, Urine Bacteria 1+, Urine Mucus 1+ 07/06/20 09:47: Urine Creatinine 189.00 07/06/20 09:47: U Random Total Protein 46.8 H 07/06/20 13:07: Sodium 132 L, Potassium 5.9 H, Chloride 99, Carbon Dioxide 24.0, Anion Gap 9, BUN 70 H, Creatinine 3.59 H, Estim Creat Clear Calc 15.08, Est GFR (MDRD) Af Amer 22 L, Est GFR (MDRD) Non-Af 18 L, BUN/Creatinine Ratio 19.5, Glucose 94, Calcium 8.7 07/07/20 06:20: Sodium 139, Potassium 4.3, Chloride 104, Carbon Dioxide 25.0, Anion Gap 10, BUN 70 H, Creatinine 3.76 H, Estim Creat Clear Calc 14.40, Est GFR (MDRD) Af Amer 21 L, Est GFR (MDRD) Non-Af 17 L, BUN/Creatinine Ratio 18.6, Glucose 82, Calcium 8.3 L Current Medications Acetaminophen (Acetaminophen 325 Mg Tablet) 650 mg PO Q6H PRN PRN PRN Reason: Pain 1-10 or Fever Last Admin: 07/05/20 01:28 Dose: 650 mg Documented by: Albuterol Sulfate (Albuterol 2.5 Mg/3 Ml Vial.Neb.) 2.5 mg INHALATION Q4H PRN PRN Reason: SHORTNESS OF BREATH Enoxaparin Sodium (Enoxaparin 60 Mg/0.6 Ml Syringe) 50 mg SC Q24 [facility] Last Admin: 07/07/20 09:00 Dose: 50 mg Documented by: Sodium Chloride () 1,000 mls @ 100 mls/hr IV .Q10H [facility] Stop: 07/07/20 12:39 Last Admin: 07/07/20 08:59 Dose: 100 mls/hr Documented by: Melatonin (Melatonin 3 Mg Tablet) 3 mg PO QHS PRN PRN PRN Reason: INSOMNIA Metoprolol Tartrate (Metoprolol Tartrate 25 Mg Tablet) 25 mg PO BID [facility] Last Admin: 07/07/20 08:59 Dose: 25 mg Documented by: Nutritional Formula (Lactose Free) (Ensure Enlive 120 Ml Liquid) 120 ml PO 4X/DAY [facility] Last Admin: 07/07/20 09:00 Dose: Not Given Documented by: Ondansetron HCl (Ondansetron 4 Mg/2 Ml Vial) 4 mg IV Q8H PRN PRN PRN Reason: NAUSEA/VOMITING Last Admin: 07/07/20 08:59 Dose: 4 mg Documented by: Sodium Chloride (0.9% Saline Lock 10 Ml Syringe) 10 - 40 ml IV UD PRN PRN Reason: SALINE FLUSH Last Admin: 07/07/20 09:02 Dose: 10 ml Documented by: Tramadol HCl (Tramadol 50 Mg Tablet) 50 mg PO BID [facility] Last Admin: 07/07/20 09:04 Dose: 50 mg Documented by: STROKE Vital Signs/Narrative: Vital Signs Temp Pulse Resp BP Pulse Ox 07/07/20 08:59 79 112/48 L 07/07/20 08:48 36.6 C 79 18 112/48 L 96 07/07/20 08:20 97 07/07/20 07:56 80 18 07/07/20 07:00 76 Medical Necessity - Tobacco Use Smoking Status: Current every day smoker Tobacco Use: Cigarettes Assessment/Plan All Active Problems Hypoxemia (Acute) Atrial flutter (Acute) Acute CHF (Acute) 1. acute HFrEF: furosemide held given worsening kidney fxn cardiology consulted may need stress v heart cath 2. Aflutter with RVR--RULED OUT: I don't see any evidence that patient was in aflutter--ruled out. It appeared sinus tach if anything on EKG and telemetry. No further arrhythmia. DC therapeutic enoxaparin. 3. elevated troponin: peaked at 0.345 suspect due to demand from CHF and tachycardia. cardiology following. 4. RACHEL ongoing FeUrea cw prerenal azotemia. Received 500cc saline yesterday and his creatinine has gone up again. Will give more IVF and reevaluate this afternoon. furosmide held monitor incomplete IsOs 5. Hyperkalemia resolved after 2 doses of kayexalate. 6. moderate protein malnutrition: nutrition 7. VTE prophylaxis: anticoagulated. Inpatient E&M: 64096 [facility] Hosp L2
[2020-07-07] MEDS: Acetaminophen 325 MG Tablet 650 MG PO (14:32)
[2020-07-07 15:05] LABS: Anion Gap 6 (5-15); BUN 71 mg/dL (7-18); BUN/Creat Ratio 18.5 RATIO (10-20); Calcium,Total 8.2 mg/dL (8.5-10.1); Chloride 104 mmol/L (98-107); Creatinine, Serum 3.83 mg/dL (0.70-1.30); EST Glomerular Filtration Rate 17 mL/min (>60); Est Glom Filt Rate - Afr Amer 20 mL/min (>60); Estimated Creatinine Clearance 14.14 ml/min; Glucose 118 mg/dL (74-106); Potassium 4.2 mmol/L (3.5-5.1); Sodium Level 139 mmol/L (136-145)
--- NOTE | 2020-07-07 15:13 | NURSING ---
Read and reviewed SN documentation
[2020-07-07 15:32] LABS: Eosinophil Ct. Urine No Eosinophils Seen % (.)
--- NOTE | 2020-07-07 15:48 | CASEMGMT ---
SW met with patient. Introduced self and role at [facility]. SW asked patient if he felt like he would like home health at discharge. He said he does not know how he will feel at d/c. SW asked if he felt like he was ok to go home or if he needed a halfway. He said he does not need a halfway. SW gave him the list of local home health agencies. SW told him SW can check back in with him. Karol MORGAN MSW
--- NOTE | 2020-07-07 15:52 | CASEMGMT ---
CM to follow PT/OT as pt is undecided on whether he needs HHC at discharge. Green sheet on chart of possible home oxygen, if pt qualifies. Pt voices no further questions/concerns/needs at this time. Paloma VICENTE CM
[2020-07-07] MEDS: 0.9% Normal Saline 1,000 ML 150 ML IV (17:04)
[2020-07-08] VITALS (11 sets, daily range): BP systolic 110–131; BP diastolic 50–65; PULSE 61–104; RESP 14–20; TEMP 36.1–36.8; O2SAT 90–100
[2020-07-08] MEDS: Enoxaparin 30 MG/0.3 ML Syringe SC (05:03)
[2020-07-08] MEDS: 0.9% Saline Lock 10 ML Syringe IV (05:04)
[2020-07-08] MEDS: Acetaminophen 325 MG Tablet 650 MG PO ×2 (05:35→21:19)
[2020-07-08 06:13] LABS: Anion Gap 7 (5-15); BUN 66 mg/dL (7-18); Calcium,Total 8.1 mg/dL (8.5-10.1); Chloride 107 mmol/L (98-107); Creatinine, Serum 3.66 mg/dL (0.70-1.30); EST Glomerular Filtration Rate 18 mL/min (>60); Est Glom Filt Rate - Afr Amer 21 mL/min (>60); Estimated Creatinine Clearance 14.79 ml/min; Glucose 78 mg/dL (74-106); Sodium Level 139 mmol/L (136-145)
--- NOTE | 2020-07-08 07:23 | US_ITS ---
STUDY: RENAL ULTRASOUND - COMPLETE REASON FOR EXAM: Male, 70 years old. RACHEL TECHNIQUE: Ultrasound evaluation of the kidneys was performed with real-time and static franco-scale imaging. COMPARISON: None. FINDINGS: RIGHT KIDNEY: Normal location of the right kidney, which is normal in size. The right kidney measures 9.4 cm. Increased echogenicity renal cortex consistent with chronic medical renal disease. The renal cortex measures 1.6 cm. There is no right renal mass or cyst. There are no right renal calculi. There is no right hydronephrosis. DISTAL RIGHT URETER: There is non-visualization of the distal right ureter. There is no demonstrated right ureterovesical junction calculus. There is a visualized right ureteral jet. LEFT KIDNEY: Normal location of the left kidney, which is normal in size. The left kidney measures 9.7 cm. Increased echogenicity renal cortex consistent with chronic medical renal disease. The renal cortex measures 1. cm. There is no left renal mass or cyst. There are no left renal calculi. There is no left hydronephrosis. DISTAL LEFT URETER: There is non-visualization of the distal left ureter. There is no demonstrated left ureterovesical junction calculus. There is a visualized left ureteral jet. BLADDER: The distended urinary bladder has a volume of 53 ml. The empty urinary bladder has a volume of ml. There is a normal wall thickness of the distended urinary bladder. Significant amount of layering debris within the bladder. There are no demonstrated bladder calculi. US/Kidney and Bladder IMPRESSION: 1. Chronic medical renal disease but no hydronephrosis to suggest obstruction. 2. Significant layering debris within the bladder. Cystoscopy may be useful. Electronically Signed: Dontrell Torres MD at 8:33 EDT Tel , Service support ,
--- NOTE | 2020-07-08 07:52 | ART_ITS ---
Reason For Study: Leg pain, Weak pulses Procedure A bilateral lower extremity continuous wave Doppler with analog waveform analysis and ankle brachial indexes. Left Segmental Pressures Left brachial= 154mmHg. Left posterior tibial artery = 56mmHg. Left dorsalis pedis artery = 57mmHg. Left digit = 24 mmHg. The left dorsalis pedis waveforms are monophasic. The left posterior tibial artery waveforms are monophasic. Right Segmental Pressures Right brachial= 149mmHg. Right posterior tibial artery = 34mmHg. Right dorsalis pedis artery = 33mmHg. The right dorsalis pedis waveforms are monophasic. The right posterior tibial artery waveforms are monophasic. Indices The right ankle brachial index by the dorsalis pedis is 0.21. The right ankle brachial index by the posterior tibial artery is 0.22. The left ankle brachial index by the dorsalis pedis is 0.37. The left ankle brachial index by the posterior tibial artery is 0.36. The left digital-brachial index is 0.16. Interpretation Summary Bilateral severe occlussive disease with SIRENA 0.22 and 0.37. Ordering Physician: Zia Amezcua Referring Physician: Smith Guerrier Chi Performed By: Amber Wadsworth RVT
--- NOTE | 2020-07-08 08:08 | CPS ---
pt placed back on 2 lpm
[2020-07-08] MEDS: Metoprolol Tartrate 25 MG Tablet PO (09:05)
[2020-07-08] MEDS: traMADol 50 MG Tablet PO (09:05)
--- NOTE | 2020-07-08 16:18 | PN_ITS ---
Patient Problems: Active and Suspected Problems Hypoxemia (Acute) Atrial flutter (Acute) Acute CHF (Acute) Reason for Visit: CHF Subjective: Breathing well. Later was complaining of pain in legs. Vitals/I&O's: Vital Signs Temp Pulse Resp BP Pulse Ox 36.1 C L 75 14 131/63 H 100 07/08/20 15:59 07/08/20 15:59 07/08/20 15:59 07/08/20 15:59 07/08/20 15:59 Oxygen Flow Rate (L/min) 2 Oxygen Delivery Method Nasal Cannula Weight: 55.5 kg Body Mass Index (BMI) 19.1 Intake and Output for Last 24 Hours 07/06/20 07/07/20 07/08/20 23:59 23:59 23:59 Intake Total 1010 / 1010 1449.17 / 1499.17 200 / 200 Output Total 450 / 450 200 / 300 500 / 500 Balance 560 / 560 1249.17 / 1199.17 -300 / -300 General: Alert, No apparent distress HEENT: Atraumatic, Normocephalic Oral: Moist Mucosa, No Gingival or Mucosal Lesions/ Ulcerations Neck: No Nodes, Thyroid Normal Size and Texture Lungs: Clear to auscultation, Normal air movement, No rhonchi, No wheeze, No rales Cardiovascular: Regular rate, Regular Rhythm, Normal S1, Normal S2, No murmurs Abdomen: Bowel Sounds Present, Soft, Non Tender, Non-Distended Extremities: Edema Skin: - - rubor in LE Laboratory Results 07/08/20 05:25: Sodium 139, Potassium 4.0, Chloride 107, Carbon Dioxide 25.0, Anion Gap 7, BUN 66 H, Creatinine 3.66 H, Estim Creat Clear Calc 14.79, Est GFR (MDRD) Af Amer 21 L, Est GFR (MDRD) Non-Af 18 L, BUN/Creatinine Ratio 18.0, Glucose 78, Calcium 8.1 L Current Medications Acetaminophen (Acetaminophen 325 Mg Tablet) 650 mg PO Q6H PRN PRN PRN Reason: Pain 1-10 or Fever Last Admin: 07/08/20 05:35 Dose: 650 mg Documented by: Albuterol Sulfate (Albuterol 2.5 Mg/3 Ml Vial.Neb.) 2.5 mg INHALATION Q4H PRN PRN Reason: SHORTNESS OF BREATH Enoxaparin Sodium (Enoxaparin 30 Mg/0.3 Ml Syringe) 30 mg SC DAILY@0600 [facility] Last Admin: 07/08/20 05:03 Dose: 30 mg Documented by: Melatonin (Melatonin 3 Mg Tablet) 3 mg PO QHS PRN PRN PRN Reason: INSOMNIA Metoprolol Tartrate (Metoprolol Tartrate 25 Mg Tablet) 25 mg PO BID [facility] Last Admin: 07/08/20 09:05 Dose: 25 mg Documented by: Nutritional Formula (Lactose Free) (Ensure Enlive 120 Ml Liquid) 120 ml PO 4X/DAY [facility] Last Admin: 07/08/20 14:49 Dose: Not Given Documented by: Ondansetron HCl (Ondansetron 4 Mg/2 Ml Vial) 4 mg IV Q8H PRN PRN PRN Reason: NAUSEA/VOMITING Last Admin: 07/07/20 08:59 Dose: 4 mg Documented by: Oxycodone HCl (Oxycodone 5 Mg Tablet) 5 mg PO Q6H PRN PRN PRN Reason: Pain Score 6-10 Sodium Chloride (0.9% Saline Lock 10 Ml Syringe) 10 - 40 ml IV UD PRN PRN Reason: SALINE FLUSH Last Admin: 07/08/20 05:04 Dose: 10 ml Documented by: STROKE Vital Signs/Narrative: Vital Signs Temp Pulse Resp BP Pulse Ox 07/08/20 15:59 36.1 C L 75 14 131/63 H 100 Medical Necessity - Tobacco Use Smoking Status: Current every day smoker Tobacco Use: Cigarettes Assessment/Plan All Active Problems Hypoxemia (Acute) Atrial flutter (Acute) Acute CHF (Acute) 1. acute HFrEF: * furosemide held given worsening kidney fxn * cardiology consulted may need stress v heart cath * DW Dr. Alexander, he was signed out that cardiology had signed off. Last seen by cardiology on the . * Will have patient follow up as oupt for further cardiac evaluation * change metoprolol tartrate to carvedilol * no ACEi/ARB given RACHEL. 2. Aflutter with RVR--RULED OUT: * I don't see any evidence that patient was in aflutter--ruled out. * It appeared sinus tach if anything on EKG and telemetry. No further arrhythmia. DC therapeutic enoxaparin. 3. elevated troponin: * peaked at 0.345 * suspect due to demand from CHF and tachycardia. 4. RACHEL * improved slightly * FeUrea cw prerenal azotemia. * furosmide held * monitor * renal US showed chronic renal dz and significnat layer debris w/i in the bladder * avoid nephrotoxic agents * follow up with nephrology and 5. Hyperkalemia * resolved after 2 doses of kayexalate. 6. moderate protein malnutrition: nutrition 7. PAD: check ABIs. having pain. concern for claudication. start cilostazol. 8. VTE prophylaxis: anticoagulated. Inpatient E&M: 87909 Subs Hosp L2
[2020-07-08] MEDS: oxyCODONE 5 MG Tablet PO ×2 (16:39→23:38)
[2020-07-08] MEDS: Cilostazol 50 MG Tablet 100 MG PO (18:36)
[2020-07-08] MEDS: Carvedilol 3.125 MG TABLET PO (21:19)
[2020-07-09] VITALS (10 sets, daily range): BP systolic 117–137; BP diastolic 50–64; PULSE 68–100; RESP 14–18; TEMP 36.6–37; O2SAT 95–98
[2020-07-09] MEDS: Cilostazol 50 MG Tablet 100 MG PO ×2 (06:32→15:00)
[2020-07-09] MEDS: oxyCODONE 5 MG Tablet PO ×3 (06:32→20:39)
[2020-07-09] MEDS: Enoxaparin 30 MG/0.3 ML Syringe SC (06:32)
[2020-07-09 07:28] LABS: Absolute Lymphocyte Count 0.63 X10^3/uL (0.83-4.51); Absolute Neutrophil Count 7.4 X10^3/uL (2.0-7.7); Basophil# 0.02 X10^3/uL; Basophil% 0.2 % (0-1); Eosinophil# 0.38 X10^3/uL; Eosinophils% 4.2 % (0-5); Hematocrit 37.9 % (40-54); Hemoglobin 11.5 g/dL (13.0-16.5); Lymphocyte # 0.63 X10^3/ul (4.0); Mean Corp Hgb Conc 30.3 g/dL (32-36); Mean Corpuscular Hgb 31.7 pg (27.0-32.0); Mean Corpuscular Volume 104.4 fL (80-94); Mean Platelet Vol. 10.5 fl (6.2-12.0); Monocyte# 0.56 X10^3/uL; Monocyte% 6.2 % (0-10); NRBC Flagged by Analyzer 0 % (0-5); Neutrophil # 7.39 X10^3/uL (2.7-7.7); Neutrophil % 82.2 % (47-70); Platelet Count 186 K/mm3 (150-450); RBC Distribution Width CV 14.4 % (11.6-14.6); Red Blood Count 3.63 M/mm3 (4.6-6.2)
[2020-07-09 07:56] LABS: Anion Gap 7 (5-15); BUN 64 mg/dL (7-18); BUN/Creat Ratio 17.9 RATIO (10-20); Calcium,Total 7.9 mg/dL (8.5-10.1); Chloride 105 mmol/L (98-107); Cholesterol 94 mg/dL (200); Creatinine, Serum 3.58 mg/dL (0.70-1.30); EST Glomerular Filtration Rate 18 mL/min (>60); Est Glom Filt Rate - Afr Amer 22 mL/min (>60); Glucose 60 mg/dL (74-106); High Density Lipoprotein 46 mg/dL; Sodium Level 140 mmol/L (136-145); Triglycerides 71 mg/dL; Very Low Density Lipoprotein 14 mg/dL (5-40)
[2020-07-09] MEDS: Aspirin 81 MG TAB.CHEW PO (08:30)
[2020-07-09] MEDS: Carvedilol 3.125 MG TABLET PO ×2 (08:30→20:38)
--- NOTE | 2020-07-09 11:46 | PN_ITS ---
<Júnior Guzman - Last Filed: 07/09/20 11:46> Patient Problems: Active and Suspected Problems Hypoxemia (Acute) Atrial flutter (Acute) Acute CHF (Acute) Reason for Visit: today ongoing BL LE pain. states sometimes he has relief letting them hang at the side of the bed but today this only helped minimally. still on o2. normally does not use o2. At home prior to comitng in he used an entire brand new inhaler (ventolin) - 200 doses. He had increased urine output yesterday. Minimal SOB. No CP. Vitals/I&O's: Vital Signs Temp Pulse Resp BP Pulse Ox 97.8 F 100 16 117/64 96 07/09/20 08:45 07/09/20 08:45 07/09/20 08:45 07/09/20 08:45 07/09/20 08:45 Oxygen Flow Rate (L/min) 2 Oxygen Delivery Method Room Air Weight: 121 lb 14.65 oz Body Mass Index (BMI) 19.1 Intake and Output for Last 24 Hours 07/07/20 07/08/20 07/09/20 23:59 23:59 22:59 Intake Total 1449.17 / 1499.17 440 / 440 Output Total 200 / 300 900 / 900 150 / 150 Balance 1249.17 / 1199.17 -460 / -460 -150 / -150 General: Alert, Oriented x3, Cooperative HEENT: Atraumatic, PERRLA, EOMI, Normocephalic Neck: Supple, No JVD, Negative Carotid Bruits Lungs: Clear to auscultation, Diminished Cardiovascular: Regular rate, No murmurs Abdomen: Bowel Sounds Present, Soft, Non Tender Extremities: No edema, Cool, Diminished Peripheral Pulses Skin: No rashes, No breakdown Musculoskeletal: No Tenderness to Palpation of Joints or Extremities Neurological: Cranial nerves II-XII grossly intact Psych/Mental Status: Normal Affect, Appropriate, Alert and oriented to time, place, person, mood and affect Laboratory Results 07/09/20 05:20: WBC 9.0, RBC 3.63 L, Hgb 11.5 L, Hct 37.9 L, MCV 104.4 H, MCH 31.7, MCHC 30.3 L, RDW Std Deviation 56.0 H, RDW Coeff of Senait 14.4, Plt Count 186, MPV 10.5, Immature Gran % (Auto) 0.200, Neut % (Auto) 82.2 H, Lymph % (Auto) 7.0 L, [place] % (Auto) 6.2, Eos % (Auto) 4.2, Baso % (Auto) 0.2, Absolute Neuts (auto) 7.4, Absolute Lymphs (auto) 0.63 L, Nucleated RBC % 0 07/09/20 05:20: Sodium 140, Potassium 4.0, Chloride 105, Carbon Dioxide 28.0, Anion Gap 7, BUN 64 H, Creatinine 3.58 H, Estim Creat Clear Calc 14.80, Est GFR (MDRD) Af Amer 22 L, Est GFR (MDRD) Non-Af 18 L, BUN/Creatinine Ratio 17.9, Glucose 60 L, Calcium 7.9 L, Triglycerides 71, Cholesterol 94, LDL Cholesterol 34, VLDL Cholesterol 14, HDL Cholesterol 46 Current Medications Acetaminophen (Acetaminophen 325 Mg Tablet) 650 mg PO Q6H PRN PRN PRN Reason: Pain 1-10 or Fever Last Admin: 07/08/20 21:19 Dose: 650 mg Documented by: Albuterol Sulfate (Albuterol 2.5 Mg/3 Ml Vial.Neb.) 2.5 mg INHALATION Q4H PRN PRN Reason: SHORTNESS OF BREATH Aspirin (Aspirin 81 Mg Tab.Chew) 81 mg PO DAILY@0800 [facility] Last Admin: 07/09/20 08:30 Dose: 81 mg Documented by: Carvedilol (Carvedilol 3.125 Mg Tablet) 3.125 mg PO BID [facility] Last Admin: 07/09/20 08:30 Dose: 3.125 mg Documented by: Cilostazol (Cilostazol 50 Mg Tablet) 100 mg PO BIDAC [facility] Last Admin: 07/09/20 06:32 Dose: 100 mg Documented by: Enoxaparin Sodium (Enoxaparin 30 Mg/0.3 Ml Syringe) 30 mg SC DAILY@0600 [facility] Last Admin: 07/09/20 06:32 Dose: 30 mg Documented by: Melatonin (Melatonin 3 Mg Tablet) 3 mg PO QHS PRN PRN PRN Reason: INSOMNIA Nutritional Formula (Lactose Free) (Ensure Enlive 120 Ml Liquid) 120 ml PO 4X/DAY [facility] Last Admin: 07/09/20 08:31 Dose: Not Given Documented by: Ondansetron HCl (Ondansetron 4 Mg/2 Ml Vial) 4 mg IV Q8H PRN PRN PRN Reason: NAUSEA/VOMITING Last Admin: 07/07/20 08:59 Dose: 4 mg Documented by: Oxycodone HCl (Oxycodone 5 Mg Tablet) 5 mg PO Q6H PRN PRN PRN Reason: Pain Score 6-10 Last Admin: 07/09/20 06:32 Dose: 5 mg Documented by: Sodium Chloride (0.9% Saline Lock 10 Ml Syringe) 10 - 40 ml IV UD PRN PRN Reason: SALINE FLUSH Last Admin: 07/08/20 05:04 Dose: 10 ml Documented by: STROKE Vital Signs/Narrative: Vital Signs Temp Pulse Resp BP Pulse Ox 07/09/20 08:45 97.8 F 100 16 117/64 96 07/09/20 08:04 95 Medical Necessity - Tobacco Use Smoking Status: Current every day smoker Tobacco Use: Cigarettes Assessment/Plan All Active Problems Hypoxemia (Acute) Atrial flutter (Acute) Acute CHF (Acute) 1. Acute systolic CHF - improved. off lasix. Cardiogram demonstrating severe segmental systolic dysfunction, EF 15%. 1+ MVI, 1-2+ TVI, RVSP 28 mmHg, trivial pericardial effusion with no evidence of tamponade. 2. Afib ruled out - tachycardia resolved. continue coreg. 3. ELevated troponin - cardiology signed off - f/u as outpatient. likely 2/2 demand ischemia 4. RACHEL - 900 cc out yesterday. US with debris in bladder. Small improvement in BUN/Cr. Refer to nephrology as outpatient if he continues to improved. Hyperkalemia resolved. BMP in AM. Off losartan. 5. PAD - aspirin, pletal - SIRENA in am. referral to vascular surgery depending on results. 6. Mod protein earnest malnutrition - servicer travel trailers eval. 7. HTN - stable off losartan DVT ppx: Lovenox. DC planning: ABIs in AM. PTOT evals. difficulty walking due to LE pain. This patient was seen by Júnior Guzman PA-C under the supervision of Doctor Goldie. <Zia Amezcua - Last Filed: 07/09/20 14:30> Reason for Visit: Complains of pain in left hip similar to his sciatica. Pain in feet upon standing. Still with redness in legs. Vitals/I&O's: Vital Signs Temp Pulse Resp BP Pulse Ox 36.6 C 100 16 117/64 96 07/09/20 08:45 07/09/20 08:45 07/09/20 08:45 07/09/20 08:45 07/09/20 08:45 Oxygen Flow Rate (L/min) 2 Oxygen Delivery Method Room Air Weight: 55.3 kg Body Mass Index (BMI) 19.1 Intake and Output for Last 24 Hours 07/07/20 07/08/20 07/09/20 23:59 23:59 22:59 Intake Total 1449.17 / 1499.17 440 / 440 Output Total 200 / 300 900 / 900 150 / 150 Balance 1249.17 / 1199.17 -460 / -460 -150 / -150 General: Alert, Cooperative HEENT: Atraumatic, Normocephalic Lungs: Clear to auscultation, Diminished Cardiovascular: Regular rate, No murmurs Abdomen: Bowel Sounds Present, Soft, Non Tender Extremities: No edema, Cool Skin: No rashes, No breakdown Psych/Mental Status: Normal Affect, Appropriate Laboratory Results 07/09/20 05:20: WBC 9.0, RBC 3.63 L, Hgb 11.5 L, Hct 37.9 L, MCV 104.4 H, MCH 31.7, MCHC 30.3 L, RDW Std Deviation 56.0 H, RDW Coeff of Senait 14.4, Plt Count 186, MPV 10.5, Immature Gran % (Auto) 0.200, Neut % (Auto) 82.2 H, Lymph % (Auto) 7.0 L, [place] % (Auto) 6.2, Eos % (Auto) 4.2, Baso % (Auto) 0.2, Absolute Neuts (auto) 7.4, Absolute Lymphs (auto) 0.63 L, Nucleated RBC % 0 07/09/20 05:20: Sodium 140, Potassium 4.0, Chloride 105, Carbon Dioxide 28.0, Anion Gap 7, BUN 64 H, Creatinine 3.58 H, Estim Creat Clear Calc 14.80, Est GFR (MDRD) Af Amer 22 L, Est GFR (MDRD) Non-Af 18 L, BUN/Creatinine Ratio 17.9, Glucose 60 L, Calcium 7.9 L, Triglycerides 71, Cholesterol 94, LDL Cholesterol 34, VLDL Cholesterol 14, HDL Cholesterol 46 Current Medications Acetaminophen (Acetaminophen 325 Mg Tablet) 650 mg PO Q6H PRN PRN PRN Reason: Pain 1-10 or Fever Last Admin: 07/08/20 21:19 Dose: 650 mg Documented by: Albuterol Sulfate (Albuterol 2.5 Mg/3 Ml Vial.Neb.) 2.5 mg INHALATION Q4H PRN PRN Reason: SHORTNESS OF BREATH Aspirin (Aspirin 81 Mg Tab.Chew) 81 mg PO DAILY@0800 [facility] Last Admin: 07/09/20 08:30 Dose: 81 mg Documented by: Carvedilol (Carvedilol 3.125 Mg Tablet) 3.125 mg PO BID [facility] Last Admin: 07/09/20 08:30 Dose: 3.125 mg Documented by: Cilostazol (Cilostazol 50 Mg Tablet) 100 mg PO BIDAC [facility] Last Admin: 07/09/20 06:32 Dose: 100 mg Documented by: Enoxaparin Sodium (Enoxaparin 30 Mg/0.3 Ml Syringe) 30 mg SC DAILY@0600 [facility] Last Admin: 07/09/20 06:32 Dose: 30 mg Documented by: Melatonin (Melatonin 3 Mg Tablet) 3 mg PO QHS PRN PRN PRN Reason: INSOMNIA Nutritional Formula (Lactose Free) (Ensure Enlive 120 Ml Liquid) 120 ml PO 4X/DAY [facility] Last Admin: 07/09/20 08:31 Dose: Not Given Documented by: Ondansetron HCl (Ondansetron 4 Mg/2 Ml Vial) 4 mg IV Q8H PRN PRN PRN Reason: NAUSEA/VOMITING Last Admin: 07/07/20 08:59 Dose: 4 mg Documented by: Oxycodone HCl (Oxycodone 5 Mg Tablet) 5 mg PO Q6H PRN PRN PRN Reason: Pain Score 6-10 Last Admin: 07/09/20 12:38 Dose: 5 mg Documented by: Sodium Chloride (0.9% Saline Lock 10 Ml Syringe) 10 - 40 ml IV UD PRN PRN Reason: SALINE FLUSH Last Admin: 07/08/20 05:04 Dose: 10 ml Documented by: Assessment/Plan Patient seen and examined independently. Data reviewed. I agree with the above note by the physician oceanographer assistant. 1. acute HFrEF: * furosemide held given worsening kidney fxn * cardiology consulted may need stress v heart cath * DW Dr. Alexander, he was signed out that cardiology had signed off. Last seen by cardiology on the . * Will have patient follow up as oupt for further cardiac evaluation * change metoprolol tartrate to carvedilol * no ACEi/ARB given RACHEL. 2. Aflutter with RVR--RULED OUT: * I don't see any evidence that patient was in aflutter--ruled out. * It appeared sinus tach if anything on EKG and telemetry. No further arrhythmia. DC therapeutic enoxaparin. 3. elevated troponin: * peaked at 0.345 * suspect due to demand from CHF and tachycardia. * follow up with cardiology as oupt. 4. RACHEL * improved * FeUrea cw prerenal azotemia. * furosmide held * monitor * renal US showed chronic renal dz and significnat layer debris w/i in the bladder * avoid nephrotoxic agents * follow up with nephrology and 5. Hyperkalemia * resolved after 2 doses of kayexalate. 6. moderate protein malnutrition: nutrition 7. PAD: check ABIs. having pain upon standing. concern for claudication. continue cilostazol. 8. VTE prophylaxis: enoxaparin 9. Disposition: TBD. pt on the fence with home w HHC v SNF.
[2020-07-09] MEDS: MELATONIN 3 MG TABLET PO (20:38)
--- NOTE | 2020-07-09 20:51 | NURSING ---
pt requested 2200 meds early so that he could try and sleep without being disturbed. Completed meds early as requested.
[2020-07-10] VITALS (9 sets, daily range): BP systolic 126–159; BP diastolic 43–68; PULSE 65–84; RESP 16–20; TEMP 36.5–37.2; O2SAT 86–97
[2020-07-10] MEDS: Acetaminophen 325 MG Tablet 650 MG PO ×2 (01:16→09:08)
[2020-07-10] MEDS: oxyCODONE 5 MG Tablet PO ×2 (02:53→09:09)
[2020-07-10 06:00] LABS: Absolute Lymphocyte Count 0.54 X10^3/uL (0.83-4.51); Absolute Neutrophil Count 8.9 X10^3/uL (2.0-7.7); Basophil# 0.03 X10^3/uL; Basophil% 0.3 % (0-1); Eosinophil# 0.36 X10^3/uL; Eosinophils% 3.4 % (0-5); Hemoglobin 11.8 g/dL (13.0-16.5); Lymphocyte # 0.54 X10^3/ul (4.0); Lymphocyte % 5.2 % (19-41); Mean Corp Hgb Conc 29.5 g/dL (32-36); Mean Corpuscular Hgb 32.4 pg (27.0-32.0); Mean Corpuscular Volume 109.9 fL (80-94); Mean Platelet Vol. 9.9 fl (6.2-12.0); Monocyte# 0.66 X10^3/uL; Monocyte% 6.3 % (0-10); NRBC Flagged by Analyzer 0 % (0-5); Neutrophil # 8.86 X10^3/uL (2.7-7.7); Neutrophil % 84.5 % (47-70); POSITIVE DIFFERENTIAL YES; Platelet Count 169 K/mm3 (150-450); RBC Distribution Width CV 14.3 % (11.6-14.6); RBC Distribution Width SD 58.4 fl (35.1-43.9); Red Blood Count 3.64 M/mm3 (4.6-6.2); White Blood Count 10.5 K/mm3 (4.4-11.0)
[2020-07-10] MEDS: Cilostazol 50 MG Tablet 100 MG PO ×2 (06:01→16:48)
[2020-07-10] MEDS: Enoxaparin 30 MG/0.3 ML Syringe SC (06:02)
[2020-07-10 06:03] LABS: Differential Indicated SCAN CRITERIA MET
[2020-07-10 06:27] LABS: Differential Comment SCANNED
[2020-07-10 06:28] LABS: Platelet Estimate ADEQUATE (ADEQ)
[2020-07-10 06:30] LABS: Anion Gap 6 (5-15); BUN 50 mg/dL (7-18); BUN/Creat Ratio 18.3 RATIO (10-20); Calcium,Total 8.1 mg/dL (8.5-10.1); Chloride 111 mmol/L (98-107); Creatinine, Serum 2.73 mg/dL (0.70-1.30); EST Glomerular Filtration Rate 25 mL/min (>60); Est Glom Filt Rate - Afr Amer 30 mL/min (>60); Estimated Creatinine Clearance 19.41 ml/min; Glucose 110 mg/dL (74-106); Potassium 4.4 mmol/L (3.5-5.1); Sodium Level 138 mmol/L (136-145)
[2020-07-10] MEDS: Carvedilol 3.125 MG TABLET PO (09:08)
[2020-07-10] MEDS: Aspirin 81 MG TAB.CHEW PO (09:08)
--- NOTE | 2020-07-10 11:29 | DCINST_ITS ---
- Discharge Diagnoses Current Active Problems: Current Active and Chronic Problems COPD (chronic obstructive pulmonary disease) (Chronic) HTN (hypertension) (Chronic) Hypoxemia (Acute) Atrial flutter (Acute) Acute CHF (Acute) You will use the following diet at home:: Cardiac Your food should be the consistency of: Regular Your liquids should be the consistency of: Regular/Thin Discharge Activity: Return to Normal Activity Allergies/Adverse Reactions: Allergies No Known Allergies Allergy (Verified 07/03/20 21:28) Medications to take at Discharge traMADol [Ultram] 50 mg PO BID PRN 02/26/20 Albuterol Sulfate [Albuterol Sulfate HFA] 2 puff IN Q6H PRN PRN 07/03/20 Aspirin [Aspirin, Baby] 81 mg PO DAILY@0800 tab.chew 07/10/20 Carvedilol [Coreg (Beta Alayna)] 3.125 mg PO BID #60 tab 07/10/20 Cilostazol [Pletal] 100 mg PO BIDAC #60 tab 07/10/20 The following prescriptions were given: Carvedilol [Coreg (Beta Alayna)] 3.125 mg PO BID #60 tab Transmission Status: Pending to [facility] #30 Cilostazol [Pletal] 100 mg PO BIDAC #60 tab Transmission Status: Pending to [facility] #30 Primary Care Physician: Smith Guerrier Chi, MD [Primary Care Provider] - Please follow up with your Primary Care Physician in: 2 weeks Test Results: Test results from this visit will be discussed in further detail at your follow- up appointment, if applicable. Please Follow Up With: Juan Jose Phillips MD - Peripheral arterial disease When: 2 weeks Please Follow Up With: Ramakrishna Johnson MD - Kidney failure When: 2 weeks Please Follow Up With: Shabnam Gonzales MD - Cardiomyopathy When: 2 weeks Proposed Discharge Date: 07/10/20
--- NOTE | 2020-07-10 12:24 | CASEMGMT ---
Addendum entered by Amber Velazquez 07/10/20 13:38: Call back from Sandy at [facility] and she states they can take pt at this time and that they will do start of care on 07/12/2020. [facility] [place] at this [place]. Paloma VICENTE CM Original Note: Pt does qualify for 2liters nc continuous at this time and had stated previously no preference for DME company at this time. [place] [facility] [place] to Francie at [facility] [place] notify of referral at this time, voices understanding. Pt is agreeable to [facility] at this time and states would like [facility]. Order placed for SN, PT/OT at this time and message left with Sandy/Nitza at [facility] at this time. Pt is awaiting on arterial studies prior to discharge. Pt states that he does have a flight of steps into home and states 'I have someone who can help me.' Pt states no concerns with going home at discharge. Pt voices no further questions/concerns/needs at this time. Paloma VICENTE CM
[2020-07-10 13:40] LABS: Magnesium 1.8 mg/dL (1.6-2.6)
--- NOTE | 2020-07-10 13:48 | DS.PCM_ITS ---
<Júnior Guzman - Last Filed: 07/10/20 13:48> Discharge Date and Diagnosis - Problem List Patient Problems: Active and Suspected Problems Hypoxemia (Acute) Atrial flutter (Acute) Acute CHF (Acute) Date of Admission: 07/04/20 Date of Discharge: 07/10/20 - Primary Discharge Diagnosis Acute Problems: Active Problems Acute systolic CHF RACHEL Afib / flutter ruled out Indeterminate troponin 2/2 demand ischemia (CHF/tachycardia) PAD with claudication - Secondary Discharge Diagnosis Chronic Problems: Chronic Problems COPD (chronic obstructive pulmonary disease) (Chronic) HTN (hypertension) (Chronic) Hospital Course and Treatment Imaging Results: RAD/Chest 1 View (Portable) IMPRESSION: Bibasilar infiltrates. Echo: Interpretation Summary Mildly dilated left ventricle. Severe segmental systolic dysfunction (see wall motion). The estimated ejection fraction is 15 %. Apical false tendon noted. The left atrium is mildly enlarged. The right atrium is moderately enlarged. Mild diffuse mitral valve thickening. Mild mitral valve prolapse, posterior leaflet Mild (1+) mitral valve insufficiency. Mild to moderate (1-2+) tricuspid valve insufficiency. Mild diffuse aortic valve thickening. Trivial eccentric pulmonic valve insufficiency. Mildly calcified aortic root. Trivial pericardial effusion. There are no echocardiographic indications of cardiac tamponade. Echo lucency compatible with a pleural effusion. Right ventricular systolic pressure estimated to be 28 mmHg. Transmitral diastolic flow velocities suggest diastolic dysfunction (pseudonormal pattern). US/Kidney and Bladder IMPRESSION: 1. Chronic medical renal disease but no hydronephrosis to suggest obstruction. 2. Significant layering debris within the bladder. Cystoscopy may be useful. Consults: Kiah - Cardiology Operations: None Procedures: 2-D Echocardiogram Summary of Care Provided: Hospital Course: The patient is a 70 year old M with pmhx as above who presented to the ER with c/o SOB with LE edema and orthopnea. BNP was elevated and CXR was c/w CHF. He was hyperkalemic with RACHEL and indeterminate troponin. He had taken an entire brand new albuterol inhaler (200 doses) in one day with no relief of his SOB. He was markedly tachycardic at presentation with concern for A flutter. He was given a cardizem bolus and placed on drip. He was admitted to the PCU and start ed on lasix. Cardiology was consulted. His SOB and LE edema resolved however he could not be completely weaned off o2. His tachycardia resolved and he appeared to have underlying sinus tachycardia - afib/flutter ruled out. He was transitioned to Coreg. His Renal function worsened and diuretics were discontinued. Echo showed EF 15 %, however with his worsening renal function further intervention was not warranted. He was monitored off lasix and his renal function improved without worsening of his SOB. He c/o severe claudication and had diminished peripheral pulses. He appears to have significant PAD. He was sent for arterial studies prior to DC and referred to Vascular surgery - follow up 2 weeks. He was placed on aspirin and pletal. He should also follow up with nephrology in 2 weeks, cardiology as directed, and with his PCP in 1-2 weeks. This patient was seen by Júnior Guzman PA-C under the supervision of Dr. Quinn.[] Patient Problems: Active and Suspected Problems Hypoxemia (Acute) Atrial flutter (Acute) Acute CHF (Acute) - Physical Exam Vitals/I&O's: Vital Signs Temp Pulse Resp BP Pulse Ox 97.8 F 81 18 159/68 H 97 07/10/20 12:15 07/10/20 12:15 07/10/20 12:15 07/10/20 12:15 07/10/20 12:15 Oxygen Flow Rate (L/min) [ 2 AMBULATION with Oxygen] Oxygen Flow Rate (L/min) 2 Oxygen Delivery Method Nasal Cannula Weight: 121 lb 3.2 oz Body Mass Index (BMI) 19.1 Intake and Output for Last 24 Hours 07/09/20 07/09/20 07/10/20 00:59 23:59 23:59 Intake Total 595 / 595 Output Total 375 / 375 Balance 220 / 220 General: Alert, Oriented x3, Cooperative HEENT: Atraumatic, PERRLA, EOMI, Normocephalic Neck: Supple, No JVD, Negative Carotid Bruits Lungs: Clear to auscultation, Normal air movement Cardiovascular: Regular rate, No murmurs Abdomen: Bowel Sounds Present, Soft, Non Tender Extremities: No edema, Capillary Refill Less than 3 Seconds, - - Diminished peripheral pulses. Extremities are warm. Skin: No rashes, No breakdown Musculoskeletal: No Tenderness to Palpation of Joints or Extremities Neurological: Cranial nerves II-XII grossly intact Psych/Mental Status: Normal Affect, Appropriate, Alert and oriented to time, place, person, mood and affect Laboratory Results 07/10/20 05:48: WBC 10.5, RBC 3.64 L, Hgb 11.8 L, Hct 40.0, MCV 109.9 H D, MCH 32.4 H, MCHC 29.5 L, RDW Std Deviation 58.4 H, RDW Coeff of Senait 14.3, Plt Count 169, MPV 9.9, Immature Gran % (Auto) 0.300, Neut % (Auto) 84.5 H, Lymph % (Auto) 5.2 L, [place] % (Auto) 6.3, Eos % (Auto) 3.4, Baso % (Auto) 0.3, Absolute Neuts (auto) 8.9 H, Absolute Lymphs (auto) 0.54 L, Nucleated RBC % 0, Differential Comment SCANNED, Platelet Estimate ADEQUATE 07/10/20 05:48: Sodium 138, Potassium 4.4, Chloride 111 H, Carbon Dioxide 21.0, Anion Gap 6, BUN 50 H, Creatinine 2.73 H, Estim Creat Clear Calc 19.41, Est GFR (MDRD) Af Amer 30 L, Est GFR (MDRD) Non-Af 25 L, BUN/Creatinine Ratio 18.3, Glucose 110 H, Calcium 8.1 L 07/10/20 12:29: Magnesium 1.8 Current Medications Acetaminophen (Acetaminophen 325 Mg Tablet) 650 mg PO Q6H PRN PRN PRN Reason: Pain 1-10 or Fever Last Admin: 07/10/20 09:08 Dose: 650 mg Documented by: Albuterol Sulfate (Albuterol 2.5 Mg/3 Ml Vial.Neb.) 2.5 mg INHALATION Q4H PRN PRN Reason: SHORTNESS OF BREATH Aspirin (Aspirin 81 Mg Tab.Chew) 81 mg PO DAILY@0800 [facility] Last Admin: 07/10/20 09:08 Dose: 81 mg Documented by: Carvedilol (Carvedilol 3.125 Mg Tablet) 3.125 mg PO BID [facility] Last Admin: 07/10/20 09:08 Dose: 3.125 mg Documented by: Cilostazol ([facility]il[facility] 50 Mg Tablet) [facility] Last Admin: 07/10/20 06:01 Dose: 100 mg Documented by: Enoxaparin Sodium (Enoxaparin 30 Mg/0.3 Ml Syringe) 30 mg SC DAILY@0600 AYO Last Admin: 07/10/20 06:02 Dose: 30 mg Documented by: Magnesium Chloride (Magnesium Chloride 64 Mg Delay Rel.Tablet) 128 mg PO X1 ONE Stop: 07/10/20 13:48 Melatonin (Melatonin 3 Mg Tablet) 3 mg PO QHS PRN PRN PRN Reason: INSOMNIA Last Admin: 07/09/20 20:38 Dose: 3 mg Documented by: Ondansetron HCl (Ondansetron 4 Mg/2 Ml Vial) 4 mg IV Q8H PRN PRN PRN Reason: NAUSEA/VOMITING Last Admin: 07/07/20 08:59 Dose: 4 mg Documented by: Oxycodone HCl (Oxycodone 5 Mg Tablet) 5 mg PO Q6H PRN PRN PRN Reason: Pain Score 6-10 Last Admin: 07/10/20 09:09 Dose: 5 mg Documented by: Sodium Chloride (0.9% Saline Lock 10 Ml Syringe) 10 - 40 ml IV UD PRN PRN Reason: SALINE FLUSH Last Admin: 07/08/20 05:04 Dose: 10 ml Documented by: Discharge Diet: Low fat/ Low Cholesterol, 2000 mg Sodium Diet Discharge Activity: Return to Normal Activity Home Medications: Medications to take at Discharge traMADol [Ultram] 50 mg PO BID PRN 02/26/20 Albuterol Sulfate [Albuterol Sulfate HFA] 2 puff IN Q6H PRN PRN 07/03/20 Aspirin [Aspirin, Baby] 81 mg PO DAILY@0800 tab.chew 07/10/20 Carvedilol [Coreg (Beta Alayna)] 3.125 mg PO BID #60 tab 07/10/20 Cilostazol [Pletal] 100 mg PO BIDAC #60 tab 07/10/20 Following Prescriptions Were Given to Patient: Carvedilol [Coreg (Beta Alayna)] 3.125 mg PO BID #60 tab Transmission Status: Received by [facility] #30 Cilostazol [Pletal] 100 mg PO BIDAC #60 tab Transmission Status: Received by [facility] #30 Primary Care Physician: Smith Guerrier Chi, MD [Primary Care Provider] - Please follow up with your Primary Care Physician in: 2 weeks Please Follow Up With: Juan Jose Phillips MD - Peripheral arterial disease When: 2 weeks Please Follow Up With: Ramakrishna Johnson MD - Kidney failure When: 2 weeks Please Follow Up With: Shabnam Gonzales MD - Cardiomyopathy When: 2 weeks Disposition: Home Minutes spent on discharge:: 35 Patient Condition:: Stable Medical Necessity - Tobacco Use Smoking Status: Current every day smoker Tobacco Use: Cigarettes Meaningful Use Info Meaningful Use Diagnoses (Choose all that apply): None applicable <Pedro Quinn - Last Filed: 07/10/20 15:16> Discharge Date and Diagnosis - Primary Discharge Diagnosis Acute Problems: Active Problems Hypoxemia (Acute) Atrial flutter (Acute) Acute CHF (Acute) - Secondary Discharge Diagnosis Chronic Problems: Chronic Problems COPD (chronic obstructive pulmonary disease) (Chronic) HTN (hypertension) (Chronic) Hospital Course and Treatment Summary of Care Provided: This patient was seen in conjunction with Júnior Guzman PA-C . I have independently interviewed and examined the patient and reviewed pertinent historical, laboratory, and other data. Please refer to Júnior Guzman PA-C note for details of this patient's presentation, findings, and recommendations. I have reviewed Júnior Guzman PA-C note and concur with documented findings. In brief, patient is-year-old gentleman presented with progressive shortness of breath. An assessment of acute congestive heart failure with reduced ejection fraction 15% was made admitted to a monitored bed for subsequent management Hospital course; as documented above - Physical Exam Vitals/I&O's: Vital Signs Temp Pulse Resp BP Pulse Ox 97.8 F 72 18 159/68 H 97 07/10/20 12:15 07/10/20 15:00 07/10/20 12:15 07/10/20 12:15 07/10/20 12:15 Oxygen Flow Rate (L/min) [ 2 AMBULATION with Oxygen] Oxygen Flow Rate (L/min) 2 Oxygen Delivery Method Nasal Cannula Weight: 54.975 kg Body Mass Index (BMI) 19.1 Intake and Output for Last 24 Hours 07/09/20 07/09/20 07/10/20 00:59 23:59 23:59 Intake Total 595 / 595 Output Total 375 / 375 Balance 220 / 220 Laboratory Results 07/10/20 05:48: WBC 10.5, RBC 3.64 L, Hgb 11.8 L, Hct 40.0, MCV 109.9 H D, MCH 32.4 H, MCHC 29.5 L, RDW Std Deviation 58.4 H, RDW Coeff of Senait 14.3, Plt Count 169, MPV 9.9, Immature Gran % (Auto) 0.300, Neut % (Auto) 84.5 H, Lymph % (Auto) 5.2 L, [place] % (Auto) 6.3, Eos % (Auto) 3.4, Baso % (Auto) 0.3, Absolute Neuts (auto) 8.9 H, Absolute Lymphs (auto) 0.54 L, Nucleated RBC % 0, Differential Comment SCANNED, Platelet Estimate ADEQUATE 07/10/20 05:48: Sodium 138, Potassium 4.4, Chloride 111 H, Carbon Dioxide 21.0, Anion Gap 6, BUN 50 H, Creatinine 2.73 H, Estim Creat Clear Calc 19.41, Est GFR (MDRD) Af Amer 30 L, Est GFR (MDRD) Non-Af 25 L, BUN/Creatinine Ratio 18.3, Glucose 110 H, Calcium 8.1 L 07/10/20 12:29: Magnesium 1.8 Current Medications Acetaminophen (Acetaminophen 325 Mg Tablet) 650 mg PO Q6H PRN PRN PRN Reason: Pain 1-10 or Fever Last Admin: 07/10/20 09:08 Dose: 650 mg Documented by: Albuterol Sulfate (Albuterol 2.5 Mg/3 Ml Vial.Neb.) 2.5 mg INHALATION Q4H PRN PRN Reason: SHORTNESS OF BREATH Aspirin (Aspirin 81 Mg Tab.Chew) 81 mg PO DAILY@0800 [facility] Last Admin: 07/10/20 09:08 Dose: 81 mg Documented by: Carvedilol (Carvedilol 3.125 Mg Tablet) 3.125 mg PO BID [facility] Last Admin: 07/10/20 09:08 Dose: 3.125 mg Documented by: Cilostazol (Cilostazol 50 Mg Tablet) 100 mg PO BIDAC [facility] Last Admin: 07/10/20 06:01 Dose: 100 mg Documented by: Enoxaparin Sodium (Enoxaparin 30 Mg/0.3 Ml Syringe) 30 mg SC DAILY@0600 [facility] Last Admin: 07/10/20 06:02 Dose: 30 mg Documented by: Melatonin (Melatonin 3 Mg Tablet) 3 mg PO QHS PRN PRN PRN Reason: INSOMNIA Last Admin: 07/09/20 20:38 Dose: 3 mg Documented by: Ondansetron HCl (Ondansetron 4 Mg/2 Ml Vial) 4 mg IV Q8H PRN PRN PRN Reason: NAUSEA/VOMITING Last Admin: 07/07/20 08:59 Dose: 4 mg Documented by: Oxycodone HCl (Oxycodone 5 Mg Tablet) 5 mg PO Q6H PRN PRN PRN Reason: Pain Score 6-10 Last Admin: 07/10/20 09:09 Dose: 5 mg Documented by: Sodium Chloride (0.9% Saline Lock 10 Ml Syringe) 10 - 40 ml IV UD PRN PRN Reason: SALINE FLUSH Last Admin: 07/08/20 05:04 Dose: 10 ml Documented by: Inpatient E&M: [id number] Disch Hosp
[2020-07-10] MEDS: Magnesium Chloride 64 MG Delay Rel.Tablet 128 MG PO (14:09)
--- NOTE | 2020-07-10 15:22 | PHA.DC.MC ---
Pharmacy Service has performed discharge medication reconciliation and counseling for this patient. 1. ASPIRIN 81MG PO DAILY 2. CARVEDILOL 3.125MG PO BID 3. CILOSTAZOL 100MG PO BIDAC The patient's discharge medication list was reviewed for discrepancies and discrepancies were resolved. Home Medications traMADol [Ultram] 50 mg PO BID PRN 02/26/20 Albuterol Sulfate [Albuterol Sulfate HFA] 2 puff IN Q6H PRN PRN 07/03/20 Aspirin [Aspirin, Baby] 81 mg PO DAILY@0800 tab.chew 07/10/20 Carvedilol [Coreg (Beta Alayna)] 3.125 mg PO BID #60 tab 07/10/20 Cilostazol [Pletal] 100 mg PO BIDAC #60 tab 07/10/20 The patient was counseled on the following discharge medications and changes in medications for homegoing were reviewed. The Reason for Use, instructions for use, and potential side effects were reviewed for all new medications. The patient's questions regarding all of their medications were answered. The patient was able to verbally demonstrate an understanding of their discharge medications.
--- NOTE | 2020-07-11 16:02 | CASEMGMT ---
RN CM Discharge Follow-up Phone Call: JI: 13 Strata: 3 Call Date: 07/11/2020 Discharge Date: 07/10/2020 Time of Call: 1540 Admitting Diagnosis: Aflutter, acute sys CHF Discharge follow-up call placed to pt. Pt states his foot is hurting him and preventing him from getting around his home. Pt states there has not been any changes in his foot since discharge. Pt states it was swollen while hospitalized. He does state he elevates it on a stool off and on. Encouraged pt to keep it elevated. Pt states he has been using a urinal instead of going to the bathroom. Pt states he needs Tramadol for his pain which he rates 10. Pt states he has called Dr. Guerrier's office and requested the Tramadol but states they aren't returning his calls but also states they want to see him in the office first. This RN CM offered to call Dr. Guerrier's office for which pt provided permission. This RN CM contacted Dr. Guerrier's office and spoke with his nurse Rayne. Rayne states they have attempted to call pt but one number was not working and the other did not allow for a voicemail to be left. They left a message with pt's emergency contact. Rayne reiterated that pt needs to be seen by Dr. Guerrier prior to any prescriptions being filled as pt is overdue for a visit. An appointment was scheduled for patient tomorrow 07/12 at 1320. Rayne confirms that they did receive a call from [facility] and she will be calling them back. This RN CM phoned pt back and provided him with response and appointment date and time. Instructed pt to call Dr. Guerrier's office to reschedule this appointment if the date and time do not work. Pt states his niece, nephew and neighbors check on him and assist him as needed. Pt states he did receive his oxygen and has been wearing it. Pt states he did not obtain the prescriptions at discharge and that his nephew was picking them up and bringing them to him anytime. Instructed pt to take them upon receipt. Pt denies any palpitations and states his breathing is so-so. Pt denies having a pulse oximetry reader. Pt aware of home health visit planned for tomorrow. Pt denied any further needs and reiterated his family would be there soon to assist him. Noel Paige RN CM
== END 2020-07-10 17:11 | disposition home or self-care (01) | DRG 291 ==
LOC: ED 07-04 00:35 → PCU 07-04 02:38
PROVIDERS: Physician Assistant; Admitting Provider Hospitalist; Emergency Provider Emergency Medicine; PCP Family Medicine Geriatric Medicine; Visit Provider Internal Medicine
DX: I13.0 Hypertensive heart and chronic kidney disease with heart failure and stage 1 through stage 4 chronic kidney disease, or unspecified chronic kidney disease (principal); I50.21 Acute systolic (congestive) heart failure; E44.0 Moderate protein-calorie malnutrition; Z68.1 Body mass index [BMI] 19.9 or less, adult; N17.9 Acute kidney failure, unspecified; I24.8 Other forms of acute ischemic heart disease; N18.30 Chronic kidney disease, stage 3 unspecified; I73.9 Peripheral vascular disease, unspecified; J44.9 Chronic obstructive pulmonary disease, unspecified; E87.5 Hyperkalemia; F17.210 Nicotine dependence, cigarettes, uncomplicated; Z79.899 Other long term (current) drug therapy; Z23 Encounter for immunization
CPT/HCPCS: 36415; 71045; 76770; 80048; 80053; 80061; 80307; 81001; 82570; 83735; 83880; 84156; 84443; 84484; 85025; 87205; 87635; 93005; 93306; 93922; 94640; 97110; 97162; 97166; 97802; 97803; 99285; 99406; G0008; J7030; J7050; 90686; A4216; J1940; J2405; U0002

== ENCOUNTER → 2020-07-14 11:28 | Outpatient (CLI) | payer MEDICARE, SELFPAY ==
[2020-07-04 13:42] VITALS: BMI 19.1
[2020-07-14 12:16] LABS: Absolute Lymphocyte Count 1.09 X10^3/uL (0.83-4.51); Absolute Neutrophil Count 6.6 X10^3/uL (2.0-7.7); Basophil# 0.03 X10^3/uL; Basophil% 0.3 % (0-1); Eosinophil# 0.26 X10^3/uL; Hemoglobin 13.5 g/dL (13.0-16.5); Lymphocyte # 1.09 X10^3/ul (4.0); Lymphocyte % 12.7 % (19-41); Mean Corp Hgb Conc 31.4 g/dL (32-36); Mean Corpuscular Hgb 31.8 pg (27.0-32.0); Mean Corpuscular Volume 101.4 fL (80-94); Mean Platelet Vol. 10.7 fl (6.2-12.0); Monocyte# 0.62 X10^3/uL; Monocyte% 7.2 % (0-10); NRBC Flagged by Analyzer 0 % (0-5); Neutrophil # 6.56 X10^3/uL (2.7-7.7); Neutrophil % 76.3 % (47-70); Platelet Count 220 K/mm3 (150-450); RBC Distribution Width CV 14.1 % (11.6-14.6); RBC Distribution Width SD 52.8 fl (35.1-43.9); Red Blood Count 4.24 M/mm3 (4.6-6.2); White Blood Count 8.6 K/mm3 (4.4-11.0)
[2020-07-14 12:33] LABS: Vitamin D,25 Hydroxy 29.6 ng/mL
[2020-07-14 12:59] LABS: ALB/GLOB Ratio 0.6 RATIO (0.9-2.4); AST(SGOT) 20 U/L (15-37); Alanine Aminotransfer ALT/SGPT 14 U/L (16-61); Albumin, Serum 2.5 g/dL (3.2-5.0); Alkaline Phosphatase 123 U/L (45-117); Anion Gap 6 (5-15); BUN 39 mg/dL (7-18); BUN/Creat Ratio 19.4 RATIO (10-20); Calcium,Total 8.7 mg/dL (8.5-10.1); Chloride 108 mmol/L (98-107); Creatinine, Serum 2.01 mg/dL (0.70-1.30); EST Glomerular Filtration Rate 35 mL/min (>60); Est Glom Filt Rate - Afr Amer 42 mL/min (>60); Globulin 4.4 g/dL (2.2-4.2); Glucose 81 mg/dL (74-106); Protein, Total 6.9 g/dL (6.4-8.2); Sodium Level 139 mmol/L (136-145); Thyroid Stim Hormone (TSH) 2.27 uIU/mL (0.358-3.74)
== END ==
PROVIDERS: PCP Family Medicine Geriatric Medicine; Visit Provider Family Medicine Geriatric Medicine
DX: I10 Essential (primary) hypertension (principal); E55.9 Vitamin D deficiency, unspecified
CPT/HCPCS: 36415; 80053; 82306; 84443; 85025

== ENCOUNTER → 2020-08-19 09:46 | Outpatient (CLI) | payer MEDICARE, SELFPAY ==
[2020-08-16 15:48] VITALS: BMI 19.0
[2020-08-19 10:15] LABS: Absolute Lymphocyte Count 0.66 X10^3/uL (0.83-4.51); Absolute Neutrophil Count 3.8 X10^3/uL (2.0-7.7); Basophil# 0.01 X10^3/uL; Basophil% 0.2 % (0-1); Eosinophil# 0.27 X10^3/uL; Eosinophils% 5.1 % (0-5); Hematocrit 33.6 % (40-54); Hemoglobin 10.3 g/dL (13.0-16.5); Lymphocyte # 0.66 X10^3/ul (4.0); Lymphocyte % 12.5 % (19-41); Mean Corp Hgb Conc 30.7 g/dL (32-36); Mean Corpuscular Hgb 31.1 pg (27.0-32.0); Mean Corpuscular Volume 101.5 fL (80-94); Monocyte# 0.51 X10^3/uL; Monocyte% 9.6 % (0-10); NRBC Flagged by Analyzer 0 % (0-5); Neutrophil # 3.83 X10^3/uL (2.7-7.7); Neutrophil % 72.4 % (47-70); Platelet Count 145 K/mm3 (150-450); RBC Distribution Width CV 13.2 % (11.6-14.6); RBC Distribution Width SD 49.9 fl (35.1-43.9); Red Blood Count 3.31 M/mm3 (4.6-6.2); White Blood Count 5.3 K/mm3 (4.4-11.0)
[2020-08-19 10:46] LABS: ALB/GLOB Ratio 0.6 RATIO (0.9-2.4); AST(SGOT) 12 U/L (15-37); Alanine Aminotransfer ALT/SGPT 8 U/L (16-61); Albumin, Serum 2.8 g/dL (3.2-5.0); Alkaline Phosphatase 85 U/L (45-117); Anion Gap 3 (5-15); BUN 46 mg/dL (7-18); BUN/Creat Ratio 19.3 RATIO (10-20); Calcium,Total 8.4 mg/dL (8.5-10.1); Chloride 94 mmol/L (98-107); Creatinine, Serum 2.38 mg/dL (0.70-1.30); EST Glomerular Filtration Rate 29 mL/min (>60); Est Glom Filt Rate - Afr Amer 35 mL/min (>60); Globulin 4.4 g/dL (2.2-4.2); Glucose 67 mg/dL (74-106); Potassium 3.6 mmol/L (3.5-5.1); Protein, Total 7.2 g/dL (6.4-8.2); Sodium Level 134 mmol/L (136-145)
== END ==
PROVIDERS: PCP Internal Medicine; Referring Provider Internal Medicine; Visit Provider Internal Medicine
DX: I12.9 Hypertensive chronic kidney disease with stage 1 through stage 4 chronic kidney disease, or unspecified chronic kidney disease (principal); N18.9 Chronic kidney disease, unspecified; I73.9 Peripheral vascular disease, unspecified; I42.0 Dilated cardiomyopathy; I25.2 Old myocardial infarction; F10.20 Alcohol dependence, uncomplicated; F17.200 Nicotine dependence, unspecified, uncomplicated; R91.8 Other nonspecific abnormal finding of lung field
CPT/HCPCS: 36415; 80053; 85025

== ENCOUNTER → 2020-08-22 18:22 | Outpatient (CLI) | payer MEDICARE, SELFPAY ==
[2020-08-16 15:48] VITALS: BMI 19.0
--- NOTE | 2020-08-22 18:25 | CT_ITS ---
STUDY: CT CHEST WITHOUT CONTRAST REASON FOR EXAM: Male, 70 years old. LUNG NODULE. Hx of COPD, HTN. RADIATION DOSAGE (If Supplied By Facility): CTDIvol = ( 12.43 ) mGy, DLP = ( 474.09 ) mGycm TECHNIQUE: Transaxial imaging was performed without the administration of intravenous contrast material. Multiplanar coronal and sagittal images were reformatted. Individualized dose optimization techniques were used for this CT. COMPARISON: None. FINDINGS: There are diffuse bilateral emphysematous changes through the mid upper lung [place] and more severe at the lung apices. There is anterior right upper lobe focus of pleural thickening with subpleural interstitial prominence and honeycombing consistent with scarring and pulmonary fibrosis. There is consolidation versus mass at the level of the right anterior upper lobe near the right heart border with scarring/surrounding desmoplastic reaction. Cannot exclude neoplasm, these findings are new in the interval. There is bilateral lower lobe consolidation suggestive of atelectasis versus infiltrates. There are moderate bilateral pleural effusions. Borderline cardiomegaly with coronary artery calcifications. Normal mediastinum. Normal hilar regions. Normal unenhanced pulmonary arteries. There is atherosclerotic calcification of the aortic arch with tortuosity and elongation of the aortic arch and descending thoracic aorta. Normal osseous structures. There is no demonstrated abnormality of the visualized upper abdomen. CT/Chest without Contrast IMPRESSION: New interval appearance of moderate bilateral pleural effusions. Bilateral lower lobe atelectasis versus infiltrates. Areas of pleural thickening with consolidation versus masslike density within the anterior aspect of the right upper lobe, combination of findings suggestive of pulmonary fibrosis with underlying neoplasm not entirely excluded. If indicated, these findings can be further assessed with PET scan or CT follow-up in 6 months. Electronically Signed: Lucie Fulton MD at 0:47 EST , Service support ,
== END ==
PROVIDERS: PCP Internal Medicine; Referring Provider Internal Medicine; Visit Provider Internal Medicine
DX: R91.1 Solitary pulmonary nodule (principal); J90 Pleural effusion, not elsewhere classified
CPT/HCPCS: 71250

== ENCOUNTER → 2020-09-25 08:14 | Outpatient (CLI) | payer MEDICARE, SELFPAY ==
[2020-08-16 15:48] VITALS: BMI 19.0
[2020-09-19 11:34] VITALS: BMI 19.2
--- NOTE | 2020-09-25 08:17 | RDU_ITS ---
Reason For Study: CKD Right Renal Artery Left Renal Artery Right renal artery ostium 104/16 Left renal artery ostium 137/29 RSV/EDV. PSV/EDV. Right renal artery proximal 104/22 Left renal artery proximal PSV/EDV PSV/EDV. 145/26 . Right renal artery mid 111/18 Left renal artery mid 68/12 PSV/EDV. PSV/EDV . Right renal artery distal 82/17 Left renal artery distal 110/18 PSV/EDV. PSV/EDV. Right RAR 1.66. Left RAR 2.16. Right Renal Parenchyma Left Renal Parenchyma Upper Pole Medula 34/9 PSV/EDV. Left upper pole medulla 37/7 Right upper pole medulla EDR 0.26 . PSV/EDV . Right upper pole medulla R.I. Left upper pole medulla EDR 0.19 . 0.73 . Left upper pole medulla R.I. 0.81 . Upper Myron Cortx 22/6 PSV/EDV. UP Cortex 39/9 PSV/EDV. Right upper pole cortex EDR 0.27 . Left upper pole cortex EDR 0.23 . Right upper pole cortex R.I. 0.75 . Left upper pole cortex R.I. 0.77 . Right lower Pole medulla 23/6 Left lower Pole medulla 46/9 PSV/EDV . PSV/EDV . Right lower pole medulla EDR 0.26 . Left lower pole medulla EDR 0.20 . Right lower pole medulla R.I. Left lower pole medulla R.I. 0.80 . 0.74 . Lower Pole Cortx 23/5 PSV/EDV. Lower Pole Cortex 25/5 PSV/EDV. Left lower pole cortex EDR 0.22 . Right lower pole cortex EDR 0.20 . Left lower pole cortex R.I. 0.78 . Right lower pole cortex R.I. 0.81 . Left Renal Hilar Right Renal Hilar LT Hilar avg 57/14 PSV/EDV . Right Hilar avg 88/16 PSV/EDV. Left hilar acceleration time 40 Right hilar acceleration time 50 m/sec. m/sec. Left Renal Dimensions Right Renal Dimensions Left kidney size 9.13 cm . Right kidney size 10.2 cm . Left cortical dimension 1.29 cm . Right cortical dimension 1.31 cm . Aorta Proximal abdominal aorta 1.88cm x 1.86 cm . Proximal abdominal aorta peak systolic velocity is 38 cm/sec . Distal abdominal aorta 2.13cm x 2.01 cm . Distal abdominal aorta peak systolic velocity is 67 cm/sec . Procedures Technically difficult study. Interpretation Summary Less than 60% stenosis bilateral renal arteries Abnormal bilateral renal resistivity indices consistent with intrinsic renal parenchymal disease Maintained right renal length 10.2 cm Left renal length 9.13 cm Distal abdominal aorta 2.13 x 2.01 cm Technically difficult study Ordering Physician: Heena Oseguera Referring Physician: Heena Oseguera Performed By: Shaila Zamora, LOTUS, RVT
--- NOTE | 2020-09-25 08:17 | ADU_ITS ---
Reason For Study: PVD Right Velocities Left Velocities Ext. Iliac Artery, dist = 9 cm./sec. Ext Iliac Artery, dist = 37 cm./sec. No flow noted Rt FOOD AND NUTRITION PROFESSOR, Rt SFA, Rt POTATO CHIP FRIER prox and Common Femoral Artery, dist = 53 cm./sec. distal, and Rt PeroA prox and distal. Supf. Femoral Artery, prox = 15 cm./sec. Popliteal Artery, prox. = 15 cm./sec. Supf. Femoral Artery, mid = 21 cm./sec. Popliteal Artery, mid = 12 cm./sec. Supf. Femoral Artery, dist = 15 cm./sec. Popliteal Artery, dist = 15 cm./sec. Profunda Femoral Artery = 47 cm./sec. Post. Tibial Artery, mid = 6 cm./sec. Popliteal Artery, proximal, = 24 cm./sec. Peroneal Artery, mid = 5 cm./sec. Popliteal Artery, mid = 21 cm./sec. Rt SACHI not visualized. Popliteal Artery, distal = 30 cm./sec. Post. Tibial Artery, prox = 9 cm./sec. Post Tibial Artery, mid = 8 cm./sec. Post Tibial Artery, dist. = 11 cm./sec. Peroneal Artery, prox = 13 cm./sec. Peroneal Artery, mid = 9 cm./sec. Peroneal Artery,dist. = 7 cm./sec. Lt SACHI not visualized. Procedure Technically difficult study. Exam performed in department. Interpretation Summary Markedly diminished flow right external iliac artery with no flow noted in the right common femoral artery, right superficial femoral artery, proximal and distal right posterior tibial artery, and proximal distal right peroneal artery Right anterior tibial artery not identified Markedly diminished flow right popliteal artery Findings involving the right lower extremity would be consistent with severe multi segmental arterial occlusive disease Irregular calcific plaque with shadowing left distal external iliac and lower extremity vessels Diminished flow velocities located throughout the left superficial femoral artery and this extends through the left popliteal and infrageniculate vessels. The left anterior tibial artery is not visualized Notably diminished flow velocities would be consistent with severe arterial occlusive disease Ordering Physician: Heena Oseguera Referring Physician: Heena Oseguera Performed By: Shaila Zamora, LOTUS, RVT
--- NOTE | 2020-09-25 08:17 | AAVD_ITS ---
Reason For Study: PVD Aorta Measurements Aorta Doppler Measurements Proximal aorta measures1.85cm x 2.08cm. in cross- Peak systolic flow velocities within the proximal sectional axis. aorta measure 25 cm/sec. Proximal aorta measures1.81cm. in longitudinal Peak systolic flow velocities within the mid aorta axis. measure 25 cm/sec. Mid aorta measures2.58cm x 2.87cm. in cross- Peak systolic flow velocities within the distal sectional axis. aorta measure 48 cm/sec. Mid aorta measures2.50cm. in longitudinal axis. Distal aorta measures1.93cm x 1.98cm. in cross- sectional axis. Distal aorta measures1.63cm. in longitudinal axis. Left Iliac Artery Left iliac artery measures 1.28cm x 1.16 cm. in the cross-sectional axis. Peak systolic velocity in the left iliac artery measures 83 cm/sec. Right Iliac Artery Right iliac artery measures 1.46cm x 1.55 cm. in the cross-sectional axis. Right iliac artery measures 1.26 cm. in the longitudinal axis. Peak systolic velocity in the right iliac artery measures 88 cm/sec. Procedure Aorta IVC Iliac vasculature or bypass grafts 19325. Technically difficult study, difficult to visualize Ao and Iliacs due to plaque and calcific shadowing. Exam performed in department. Interpretation Summary Maximal aortic dimension 2.58 x 2.87 cm mid abdominal aorta with significant amount of plaque and calcific shadowing. Flow velocities in the proximal mid abdominal aorta markedly diminished Left common iliac 1.28 x 1.16 cm Right common iliac 1.46 x 1.55 cm Technically difficult study secondary to difficulty in visualizing aorta and iliac vessels Ordering Physician: Heena Oseguera Referring Physician: Heena Oseguera Performed By: Shaila Zamora, RDCS, RVT
[2020-09-25 10:44] LABS: Absolute Lymphocyte Count 0.45 X10^3/uL (0.83-4.51); Absolute Neutrophil Count 4.1 X10^3/uL (2.0-7.7); Basophil# 0.02 X10^3/uL; Basophil% 0.4 % (0-1); Eosinophil# 0.05 X10^3/uL; Hematocrit 39.8 % (40-54); Lymphocyte # 0.45 X10^3/ul (4.0); Lymphocyte % 8.7 % (19-41); Mean Corp Hgb Conc 30.2 g/dL (32-36); Mean Corpuscular Hgb 31.2 pg (27.0-32.0); Mean Corpuscular Volume 103.4 fL (80-94); Mean Platelet Vol. 11.2 fl (6.2-12.0); Monocyte% 9.7 % (0-10); NRBC Flagged by Analyzer 0 % (0-5); Neutrophil # 4.14 X10^3/uL (2.7-7.7); POSITIVE DIFFERENTIAL YES; Platelet Count 148 K/mm3 (150-450); RBC Distribution Width CV 16.3 % (11.6-14.6); RBC Distribution Width SD 59.2 fl (35.1-43.9); Red Blood Count 3.85 M/mm3 (4.6-6.2); White Blood Count 5.2 K/mm3 (4.4-11.0)
[2020-09-25 10:47] LABS: Differential Indicated SCAN CRITERIA MET
[2020-09-25 11:26] LABS: Anion Gap 5 (5-15); BUN 65 mg/dL (7-18); Calcium,Total 9.4 mg/dL (8.5-10.1); Chloride 96 mmol/L (98-107); Creatinine, Serum 2.03 mg/dL (0.70-1.30); EST Glomerular Filtration Rate 35 mL/min (>60); Est Glom Filt Rate - Afr Amer 42 mL/min (>60); Glucose 88 mg/dL (74-106); Potassium 4.7 mmol/L (3.5-5.1); Sodium Level 137 mmol/L (136-145); Vitamin B12 1102 pg/mL (211-911)
[2020-09-25 11:40] LABS: Iron 73 ug/dL (65-175); Iron Binding Capacity,Total 351 ug/dL (250-450); PERCENT IRON SATURATION 20.8 % (15.0-55.0)
== END ==
PROVIDERS: Nurse Practitioner Family; PCP Internal Medicine; Referring Provider Internal Medicine; Visit Provider Internal Medicine
DX: I12.9 Hypertensive chronic kidney disease with stage 1 through stage 4 chronic kidney disease, or unspecified chronic kidney disease (principal); N18.9 Chronic kidney disease, unspecified; D63.1 Anemia in chronic kidney disease; I42.0 Dilated cardiomyopathy; I73.9 Peripheral vascular disease, unspecified; F17.200 Nicotine dependence, unspecified, uncomplicated
CPT/HCPCS: 36415; 80048; 82607; 82746; 83540; 83550; 85025; 93925; 93975; 93978

== ENCOUNTER 2020-09-30 14:09 | Inpatient (IN) | payer MEDICARE, SELFPAY ==
[2020-09-19 11:34] VITALS: BMI 19.2
[2020-09-30] VITALS (15 sets, daily range): BP systolic 119–131; BP diastolic 64–77; PULSE 98–116; RESP 16–26; TEMP 36.2–36.8; O2SAT 79–99; BMI 20.1; BMI 19.1; BMI 19.2
--- NOTE | 2020-09-30 14:34 | EKG12_ITS ---
Test Reason : SOB Blood Pressure : / mmHG Vent. Rate : 105 BPM Atrial Rate : 105 BPM P-R Int : 178 ms QRS Dur : 086 ms QT Int : 336 ms P-R-T Axes : 029 -25 103 degrees QTc Int : 444 ms Sinus tachycardia with occasional Premature ventricular complexes Possible Left atrial enlargement T wave abnormality, consider lateral ischemia Abnormal ECG Confirmed by JOHNNY DUMAS, WALLY ([id number]), makeup editor BURT VALENZUELA ([id number]) on 10/03/2020 10:29:26 AM Referred By: RHONDA Confirmed By:WALLY TURNER MD
--- NOTE | 2020-09-30 14:46 | ED.DCSUM_ITS ---
- ER Visit Summary Date of Service: 09/30/20 Chief Complaint: Shortness of breath History of Present Illness: The patient is a 70 M Struve COPD reportedly on home O2. Patient somewhat of a limited informant. States been short of breath for the last 5 weeks. Denies chest pain. Denies fever. Denies a significant cough. No hemoptysis. No leg swelling. Physical Examination: Older male cachectic. Vital signs stable on oxygen his pulse ox is 93% no hypoxia on O2. HEENT exam unremarkable neck nontender. Lungs prolonged expiratory phase expiratory wheezing. Heart regular rhythm rate about 105 with PVCs. No obvious murmur. Abdomen soft nontender normal bowel sounds no peritoneal signs. Moving all 4 extremities. Thin and cachectic. Atrophied and weak. Neurologically is awake alert answering questions. He is a limited informant. No focal motor deficit. Test Results: EKG shows sinus tachycardia rate of 105 with PVCs. Test x-ray portable 1 view interpreted by myself shows normal cardiac silhouette with bilateral pleural effusions. These have been seen before in the past on a CAT scan. I do not see any obvious acute pneumonia. There are chronic lung changes from his COPD. CBC shows a white count of 5 hemoglobin 14 no bands. BMP shows BUN 74 creatinine 2.16 which is baseline renal insufficiency. Gap at 9. Troponin is elevated at 0.173. BNP is elevated greater than 5000. Those most may be elevated because of his dilated cardiomyopathy. Repeat exam the patient is doing somewhat better after Solu-Medrol and DuoNeb aerosol. He will also be given Lasix IV. Emergency Department Course and Treatment: Elderly male with shortness of breath with reportedly history of home O2 requiring COPD. Treated with IV Solu-Medrol for COPD flare and DuoNeb aerosol. Treatment Plan: Already spoken to the hospitalist about the PCU admission for exacerbation of COPD, CHF and pleural effusions. Disposition: Admission Impression: Acute dyspnea secondary to COPD flare Acute exacerbation CHF Acute on chronic bilateral pleural effusions Chronic renal insufficiency History of COPD on home O2 This note was generated with [employer] software. It may contain incorrect words, spelling, and punctuation that were not noted in review of the chart prior to signing ED Disposition - Plan for ED Patient: Referrals: Heena Oseguera MD [Primary Care Provider] -
[2020-09-30 15:50] LABS: Absolute Lymphocyte Count 0.32 X10^3/uL (0.83-4.51); Absolute Neutrophil Count 4.9 X10^3/uL (2.0-7.7); Basophil# 0.01 X10^3/uL; Basophil% 0.2 % (0-1); Hematocrit 45.5 % (40-54); Hemoglobin 14.4 g/dL (13.0-16.5); Lymphocyte # 0.32 X10^3/ul (4.0); Lymphocyte % 5.7 % (19-41); Mean Corp Hgb Conc 31.6 g/dL (32-36); Mean Corpuscular Hgb 31.9 pg (27.0-32.0); Mean Corpuscular Volume 100.7 fL (80-94); Mean Platelet Vol. 10.7 fl (6.2-12.0); Monocyte# 0.39 X10^3/uL; Monocyte% 6.9 % (0-10); NRBC Flagged by Analyzer 0 % (0-5); Neutrophil # 4.88 X10^3/uL (2.7-7.7); Neutrophil % 86.8 % (47-70); POSITIVE DIFFERENTIAL YES; Platelet Count 135 K/mm3 (150-450); RBC Distribution Width CV 17.5 % (11.6-14.6); RBC Distribution Width SD 61.1 fl (35.1-43.9); Red Blood Count 4.52 M/mm3 (4.6-6.2); White Blood Count 5.6 K/mm3 (4.4-11.0)
[2020-09-30 15:53] LABS: Differential Indicated SCAN CRITERIA MET
--- NOTE | 2020-09-30 16:00 | RAD_ITS ---
STUDY: X-RAY CHEST REASON FOR EXAM: Male, 70 years old. SOB OFF AND ON x5 WEEKS, BILATERAL LEG SWELLING WITH SEEPING WOUNDS, HX OF COPD AND HTN TECHNIQUE: AP COMPARISON: 07/03/2020 FINDINGS: Bilateral pulmonary infiltrates predominantly in the lung bases with moderate volume bilateral pleural effusions now identified. No pneumothorax. There is mild cardiac enlargement. Normal mediastinum and jacky. There is prominence of the pulmonary hilar arteries and peripheral pulmonary arteries, consistent with congestive heart failure (CHF). There is atherosclerotic tortuosity of the aortic arch and descending thoracic aorta. There is demineralization of the osseous structures. Normal visualized ribs, clavicles, and shoulders. There is no demonstrated abnormality of the visualized soft tissue structures of the upper abdomen. RAD/Chest 1 View (Portable) IMPRESSION: 1. Moderate bilateral pleural effusions, new. 2. Vascular congestion and basilar dominant infiltrates could represent edema. Query CHF. Electronically Signed: Abiel Cardoza MD ([place]) at 16:23 EST , Service support ,
[2020-09-30 16:15] LABS: Differential Comment SCANNED
[2020-09-30 16:43] LABS: BNP,B-Type NATRIURETIC PEPTIDE > 5000.0 pg/mL (0-100)
[2020-09-30 16:56] LABS: Anion Gap 9 (5-15); BUN 74 mg/dL (7-18); BUN/Creat Ratio 34.3 RATIO (10-20); Calcium,Total 9.1 mg/dL (8.5-10.1); Chloride 92 mmol/L (98-107); Creatinine, Serum 2.16 mg/dL (0.70-1.30); EST Glomerular Filtration Rate 32 mL/min (>60); Est Glom Filt Rate - Afr Amer 39 mL/min (>60); Estimated Creatinine Clearance 25.11 ml/min; Glucose 67 mg/dL (74-106); Potassium 4.7 mmol/L (3.5-5.1); Sodium Level 135 mmol/L (136-145)
[2020-09-30] MEDS: Ipratropium/Albuterol Sulfate 3 ML AMPUL.NEB INHALATION ×2 (16:57→19:37)
[2020-09-30] MEDS: MethylPREDNISolone 125 MG/2 ML Vial IV (17:05)
--- NOTE | 2020-09-30 17:16 | HP.PCM_ITS ---
<Júnior Gumzan - Last Filed: 09/30/20 17:16> Problem List (1) COPD (chronic obstructive pulmonary disease) Status: Acute (2) Systolic CHF Status: Acute (3) Protein-calorie malnutrition, mild Status: Chronic (4) Dilated cardiomyopathy Status: Chronic (5) Acute systolic (congestive) heart failure Status: Chronic (6) Essential (primary) hypertension Status: Chronic (7) Chronic kidney disease (CKD) Status: Chronic (8) Nicotine dependence Status: Chronic History of Present Illness Date of Admission: 09/30/20 Chief Complaint: SOB The patient is a 70 year old M with pmhx of COPD, systolic CHF with EF 15%, chronic hypoxic respiratory failure, HTN, PAD, malnutrition, who presented to the ER with SOB. The patient states he has had progressive SOB for about 4 weeks. He notes this worsening significantly last night. He has had intermittent LE edema. He has intermittent wheezing. Furthermore he has not had the aid of his home albuterol inhaler as someone stepped on it and broke it. He has orthopnea and PND. He sleeps in a recliner. He uses 4 lpm o2 at baseline. He denies any cough fevers, or chills. He states he has some tightness in his chest. He has no palpitations, LH, or dizziness. He currently has minimal LE edema. He does not check his weight regularly. [] Past Medical History Past Medical History (Chronic Problems): Chronic Problems (Last Reviewed 09/19/20 @ 12:09 by Mauricio Zamora CERTIFIED REGISTERED LOCKSMITH, CERTIFIED REGISTERED LOCKSMITH-C) Anemia (Chronic) Protein-calorie malnutrition, mild (Chronic) Chronic back pain (Chronic) Dilated cardiomyopathy (Chronic) Acute systolic (congestive) heart failure (Chronic 07/04/20) Essential (primary) hypertension (Chronic) Chronic kidney disease (CKD) (Chronic) Abnormal CT scan, lung (Chronic 02/2020) There is a stellate margin 9 mm density of the right lower lobe, new in the interval. This may merely represent pneumonic or atelectatic process. Neoplasm cannot be excluded however. Close interval follow-up in 2-3 months is recommended. 02/2020 Peripheral vascular occlusive disease (Chronic) Bilateral severe occlussive disease with SIRENA 0.22 and 0.37. 07/12/2020 Nicotine dependence (Chronic) EtOH dependence (Chronic) Medical History: Medical History (Last Reviewed 09/19/20 @ 12:09 by Mauricio Zamora CERTIFIED REGISTERED LOCKSMITH, CERTIFIED REGISTERED LOCKSMITH-C) History of non-ST elevation myocardial infarction (NSTEMI) (Resolved) Onset Date: 07/04/20 I25.2 Dilated cardiomyopathy (Chronic) I42.0 Acute systolic (congestive) heart failure (Chronic) Onset Date: 07/04/20 I50.21 Essential (primary) hypertension (Chronic) I10 Chronic kidney disease (CKD) (Chronic) N18.[address] scan, lung (Chronic) Onset Date: 02/2020 R91.8 There is a stellate margin 9 mm density of the right lower lobe, new in the interval. This may merely represent pneumonic or atelectatic process. Neoplasm cannot be excluded however. Close interval follow-up in 2-3 months is recommended. 02/2020 Peripheral vascular occlusive disease (Chronic) I73.9 Bilateral severe occlussive disease with SIRENA 0.22 and 0.37. 07/12/2020 Nicotine dependence (Chronic) F17.200 EtOH dependence (Chronic) F10.20 COPD (chronic obstructive pulmonary disease) J44.9 Depression F32.9 Osteoarthritis M19.90 Hypoxemia R09.02 Atrial flutter (Ruled-out) I48.92 Allergies No Known Allergies Allergy (Verified 09/30/20 14:10) Home Medications: Ambulatory Orders Medication Instructions Recorded cilostazol 50 mg tablet 50 mg PO BID 07/21/20 albuterol sulfate 90 mcg/actuation 2 puff INHALATION Q6H PRN PRN #18 g 09/18/20 aerosol inhaler acetaminophen 500 mg capsule 1,000 mg PO Q6H PRN cap 09/19/20 tramadol 50 mg tablet 50 mg PO BID PRN #60 tab 09/21/20 Aspirin [Aspirin, Baby] 81 mg PO DAILY@0800 09/30/20 Carvedilol 6.25 mg PO BID 09/30/20 Furosemide 40 mg PO BID 09/30/20 Surgical History: - - Denies any surgical history. Psychiatric History: No pertinent psych hx Lives: Alone Smoking Status: Former smoker Tobacco Use: Non-smoker Alcohol: None Drugs: None - *Family History Maternal Family History: Family History (Last Reviewed 09/30/20 @ 17:25 by Júnior VANEGAS, PA) Mother Heart disease CVA (cerebral vascular accident) Father Alcohol abuse Brother CVA (cerebral vascular accident) Sister Thyroid disorder History Items: Heart Disease Paternal Family History: Family History (Last Reviewed 09/30/20 @ 17:25 by Júnior VANEGAS, PA) Mother Heart disease CVA (cerebral vascular accident) Father Alcohol abuse Brother CVA (cerebral vascular accident) Sister Thyroid disorder History Items: - - Alcoholism Review of Systems Constitutional: Denies: Chills, Fever, Weakness, Weight Change, Fatigue HEENT: Denies: Hard of Hearing, Head Aches, Sinus Congestion, Sinus Drainage Cardiovascular: Reports: Chest Tightness, Orthopnea, Paroxysmal Noc. Dyspnea. Denies: Chest Pain, Heaviness, Light Headedness, Palpitations Respiratory: Reports: Shortness of Breath, Shortness of breath at rest, Shortness of breath upon exertion, Wheezing. Denies: Cough, Hemoptysis, Sputum production Gastrointestinal: Denies: Abdominal Pain, Diarrhea, Nausea, Vomiting Genitourinary: Denies: Dysuria, Hesitancy, Urgency Musculoskeletal: Denies: Joint Pain, Joint Tenderness, Muscle pain Skin: Denies: Lesions, Rash, Wounds Neurological: Denies: Numbness, Tingling, Focal weakness Psychiatric: Denies: Anxiety, Depression, Homicidal Ideations, Suicidal Ideations Hematologic/ Lymphatic: Denies: Easy Bruising, Easy Bleeding VTE Information - Inpt Only VTE Present on Admission: No VTE Mechan Device Prophylaxis: None VTE Pharm Prophylaxis ordered?: Yes Patient Problems: Active and Suspected Problems (Last Reviewed 09/19/20 @ 12:09 by Mauricio Zamora CERTIFIED REGISTERED LOCKSMITH, CERTIFIED REGISTERED LOCKSMITH-C) COPD (chronic obstructive pulmonary disease) (Acute) Systolic CHF (Acute) - Physical Exam Vitals/I&O's: Vital Signs Temp Pulse Resp BP Pulse Ox 97.8 F 110 H 26 H 131/64 H 99 09/30/20 17:09 09/30/20 17:09 09/30/20 17:09 09/30/20 17:09 09/30/20 17:09 Oxygen Flow Rate (L/min) 4 Oxygen Delivery Method Nasal Cannula Weight: 124 lb 12.506 oz Body Mass Index (BMI) 20.1 General: Alert, Oriented x3, Cooperative HEENT: Atraumatic, PERRLA, EOMI, Normocephalic Neck: Supple, No JVD, Negative Carotid Bruits Lungs: Clear to auscultation, Diminished Cardiovascular: Regular rate, No murmurs Abdomen: Bowel Sounds Present, Soft, Non Tender Extremities: No edema, Capillary Refill Less than 3 Seconds, - - LE erythematous, cool to the touch, diminished peripheral pulses. Skin: No rashes, No breakdown Musculoskeletal: No Tenderness to Palpation of Joints or Extremities Neurological: Cranial nerves II-XII grossly intact Psych/Mental Status: Normal Affect, Appropriate, Alert and oriented to time, place, person, mood and affect Microbiology Past 72 Hours 09/30/20 15:20 Mucosa - Nose SARS-CoV-2 Antigen (Rapid) - Final Laboratory Results 09/30/20 15:38: WBC 5.6, RBC 4.52 L, Hgb 14.4, Hct 45.5, MCV 100.7 H, MCH 31.9, MCHC 31.6 L, RDW Std Deviation 61.1 H, RDW Coeff of Senait 17.5 H, Plt Count 135 L, MPV 10.7, Immature Gran % (Auto) 0.400, Neut % (Auto) 86.8 H, Lymph % (Auto) 5.7 L, [place] % (Auto) 6.9, Eos % (Auto) 0.0, Baso % (Auto) 0.2, Absolute Neuts (auto) 4.9, Absolute Lymphs (auto) 0.32 L, Nucleated RBC % 0, Differential Comment SCANNED 09/30/20 15:38: Sodium 135 L, Potassium 4.7, Chloride 92 L, Carbon Dioxide 34.0 H, Anion Gap 9, BUN 74 H, Creatinine 2.16 H, Estim Creat Clear Calc 25.11, Est GFR (MDRD) Af Amer 39 L, Est GFR (MDRD) Non-Af 32 L, BUN/Creatinine Ratio 34.3 H , Glucose 67 L, Calcium 9.1, Troponin I 0.173 H 09/30/20 15:38: B-Natriuretic Peptide > 5000.0 H Assessment/Plan All Active Problems (Last Reviewed 09/19/20 @ 12:09 by Mauricio Zamora CERTIFIED REGISTERED LOCKSMITH, CERTIFIED REGISTERED LOCKSMITH-C) COPD (chronic obstructive pulmonary disease) (Acute) Systolic CHF (Acute) History of non-ST elevation myocardial infarction (NSTEMI) (Resolved 07/04/20) Atrial flutter (Ruled-out) 1. Acute on chronic systolic CHF and acute COPD exacerbation - clinical picture is not clear. he has CXR c/w chf and elevated BNP. He has orthopnea and PND. He has no significant LE edema, his legs do have evidence of significant PAD. He has been without his albuterol inhaler as someone stepped on it and broke it. He does not have significant rales or wheezing on exam but lungs are severely diminished. His CO2 is elevated at 34, last admission it was 21. He will be treated for both, with solumedrol and IV lasix, aerosol therapy, fluid/sodium restriction. -In June 2020 he had an Echo with EF 15% 2. Indeterminate troponin - actually less than what it was in june. At that time cardiology noted that he may need further invasive workup possibly including a heart cath in the future. Consult cardiology. Cycle enzymes and repeat EKG in AM. EKG in ER showed sinus tach, PVCs, and nonspecific T wave abnormalities. 3. Chronic hypoxic respiratory failure -2/2 COPD/CHF. Pt is at his baseline - 4lpm. 4. CKDIII - improved since last admission 5. PAD - Recent PVRs with Bilateral severe occlusive disease with SIRENA 0.22 and 0.37. Recommend f/u with the wound care center and Dr. Phillips. He is on aspirin and cilostazol. 6. HTN - stable DVT ppx: heparin DC planning: PTOT evals, recent fall at home. This patient was seen by Júnior Guzman PA-C under the supervision of Dr. Rodríguez. <Liestte Rodríguez - Last Filed: 09/30/20 21:31> History of Present Illness The patient is a 70 year old M [] Past Medical History Medical History: Medical History (Last Reviewed 09/19/20 @ 12:09 by Mauricio Zamora CERTIFIED REGISTERED LOCKSMITH, CERTIFIED REGISTERED LOCKSMITH-C) History of non-ST elevation myocardial infarction (NSTEMI) (Resolved) Onset Date: 07/04/20 I25.2 Dilated cardiomyopathy (Chronic) I42.0 Acute systolic (congestive) heart failure (Chronic) Onset Date: 07/04/20 I50.21 Essential (primary) hypertension (Chronic) I10 Chronic kidney disease (CKD) (Chronic) N18.[address] scan, lung (Chronic) Onset Date: 02/2020 R91.8 There is a stellate margin 9 mm density of the right lower lobe, new in the interval. This may merely represent pneumonic or atelectatic process. Neoplasm cannot be excluded however. Close interval follow-up in 2-3 months is recommended. 02/2020 Peripheral vascular occlusive disease (Chronic) I73.9 Bilateral severe occlussive disease with SIRENA 0.22 and 0.37. 07/12/2020 Nicotine dependence (Chronic) F17.200 EtOH dependence (Chronic) F10.20 COPD (chronic obstructive pulmonary disease) J44.9 Depression F32.9 Osteoarthritis M19.90 Hypoxemia R09.02 Atrial flutter (Ruled-out) I48.92 Allergies No Known Allergies Allergy (Verified 09/30/20 14:10) - *Family History Maternal Family History: Family History (Last Reviewed 09/30/20 @ 17:25 by Júnior VANEGAS PA) Mother Heart disease CVA (cerebral vascular accident) Father Alcohol abuse Brother CVA (cerebral vascular accident) Sister Thyroid disorder Paternal Family History: Family History (Last Reviewed 09/30/20 @ 17:25 by Júnior VANEGAS PA) Mother Heart disease CVA (cerebral vascular accident) Father Alcohol abuse Brother CVA (cerebral vascular accident) Sister Thyroid disorder - Physical Exam Vitals/I&O's: Vital Signs Temp Pulse Resp BP Pulse Ox 97.8 F 98 18 125/71 H 96 09/30/20 20:21 09/30/20 20:21 09/30/20 20:21 09/30/20 20:21 09/30/20 20:21 Oxygen Flow Rate (L/min) 4 Oxygen Delivery Method Nasal Cannula Weight: 53.9 kg Body Mass Index (BMI) 19.1 Microbiology Past 72 Hours 09/30/20 15:20 Mucosa - Nose SARS-CoV-2 Antigen (Rapid) - Final Laboratory Results 09/30/20 15:38: WBC 5.6, RBC 4.52 L, Hgb 14.4, Hct 45.5, MCV 100.7 H, MCH 31.9, MCHC 31.6 L, RDW Std Deviation 61.1 H, RDW Coeff of Senait 17.5 H, Plt Count 135 L, MPV 10.7, Immature Gran % (Auto) 0.400, Neut % (Auto) 86.8 H, Lymph % (Auto) 5.7 L, [place] % (Auto) 6.9, Eos % (Auto) 0.0, Baso % (Auto) 0.2, Absolute Neuts (auto) 4.9, Absolute Lymphs (auto) 0.32 L, Nucleated RBC % 0, Differential Comment SCANNED 09/30/20 15:38: Sodium 135 L, Potassium 4.7, Chloride 92 L, Carbon Dioxide 34.0 H, Anion Gap 9, BUN 74 H, Creatinine 2.16 H, Estim Creat Clear Calc 25.11, Est GFR (MDRD) Af Amer 39 L, Est GFR (MDRD) Non-Af 32 L, BUN/Creatinine Ratio 34.3 H , Glucose 67 L, Calcium 9.1, Troponin I 0.173 H 09/30/20 15:38: B-Natriuretic Peptide > 5000.0 H 09/30/20 20:11: Troponin I 0.145 H Current Medications Acetaminophen (Acetaminophen 325 Mg Tablet) 650 mg PO Q6H PRN PRN PRN Reason: Pain Score 1-10/Temp > 100.7 F Al Hydroxide/Mg Hydroxide (Mag Hydrox/Al Hydrox/Simeth 30 Ml Udc) 30 ml PO Q6H PRN PRN PRN Reason: Gastric Burning Albuterol Sulfate (Albuterol 2.5 Mg/3 Ml Vial.Neb.) 2.5 mg INHALATION Q2H PRN PRN PRN Reason: SOB/Wheezing Albuterol/Ipratropium (Ipratropium/Albuterol Sulfate 3 Ml Ampul.Neb) 3 ml INHALATION Q4HWA.RT AYO Last Admin: 09/30/20 19:37 Dose: 3 ml Documented by: Aspirin (Aspirin 81 Mg Tab.Chew) 81 mg PO DAILY@0800 [facility] Carvedilol (Carvedilol 6.25 Mg Tablet) 6.25 mg PO BID [facility] Cilostazol (Cilostazol 50 Mg Tablet) 50 mg PO BID [facility] Furosemide (Furosemide 40 Mg/4 Ml Vial) 40 mg IV BIDLX [facility] Heparin Sodium (Porcine) (Heparin Injection (Vial) 5,000 Unit/Ml Vial) 5,000 unit SC Q12 [facility] Cefazolin Sodium () 1 gm in 50 mls @ 100 mls/hr IV Q8 [facility] Methylprednisolone (Methylprednisolone 40 Mg/Ml Vial) 40 mg IV Q8 [facility] Nitroglycerin (Nitroglycerin (Inpatient Use) 0.4 Mg Tab.Subl) 0.4 mg SUBLINGUAL Q5M PRN PRN Reason: CARDIAC/CHEST PAIN Non-Formulary Medication (Albuterol Sulfate) 2 puff INHALATION Q6H PRN PRN PRN Reason: SHORTNESS OF BREATH Nutritional Formula (Lactose Free) (Ensure Enlive 120 Ml Liquid) 120 ml PO 4X/DAY [facility] Ondansetron HCl (Ondansetron 4 Mg/2 Ml Vial) 4 mg IV Q8H PRN PRN PRN Reason: NAUSEA/VOMITING Sodium Chloride (0.9% Saline Lock 10 Ml Syringe) 10 - 40 ml IV UD PRN PRN Reason: SALINE FLUSH Tramadol HCl (Tramadol 50 Mg Tablet) 50 mg PO BID PRN PRN Reason: Pain 1-10 or Fever Assessment/Plan This patient was seen in conjunction with ROMINA Philip. I have independently interviewed and examined the patient and reviewed pertinent historical, laboratory, and other data. Please refer to ROMINA Philip note for his patient's presentation, findings, and recommendations. I have reviewed and his note and concur with his documentation 70-year-old with past medical history of COPD, on home oxygen,4L, chronic systolic CHF with EF of 15%, not on AICD, hypertension, PAD, malnutrition who comes in with progressive shortness of breath ongoing for about 4 weeks, worse over the last night. Patient admits to wheezing, denies any fever or chills. Denied any sick contact. He denied any chest pain but admits to some tightness in his chest. His vitals in the ED were stable, saturating well on 4 L of oxygen His admitting blood work was remarkable for BUN of 74, creatinine of 2.16, baseline creatinine was around 2.03. Troponin 0.173, BNPep was more than 5000. Admitting chest x-ray suggestive of moderate bilateral pleural effusions, new, vascular congestion Physical Exam: Gen: Chronically unwell,, not pale, not jaundiced, well hydrated, on 4 L of oxygen CVS:HS I +II, regular, no murmurs RESP: Diminished at lung bases, scattered wheezes GI: BS present and normal, soft, nontender, no palpable organs EXT: Bilateral lower extremity erythema, very cool to touch, no palpable pulses ASSESSMENT: 1. Acute on chronic CHF, EF 15% 2. Probable acute COPD exacerbation 3. Probable bilateral lower extremity cellulitis, chronic healing ulcers of the lower extremity 4. Chronic hypoxic respiratory failure secondary to COPD/CHF 5. Elevated troponin likely secondary to demand ischemia from #1 6. CKD stage III 7. Severe PAD with bilateral lower extremity ulcers 8. Hypertension 9. Code status - DNR-CCA Plan: Admit to PCU, trend troponins Cardiology consult for work-up for cardiomyopathy-patient will need a cardiac cath Patient needs to follow-up with vascular surgery in the outpatient Continue on aspirin, cilostazol Lasix IV twice daily Strict CHF protocol Patient is at high risk for adverse cardiac event with his low EF. He likely needs to be discharged on a LifeVest pending AICD placement-we will defer to cardiology. Patient is a candidate for palliative care on discharged. I discussed and explained in details the various types of CODE STATUS-full code, DNR CCA, DNR CC. Patient chose to be a DNR CCA. He does not want any CPR in the event of a cardiopulmonary arrest. Time spent discussing CODE STATUS 18 minutes Inpatient E&M: 07940 Init Hosp L3 Procedures: 65880 Advncd Care Plan 30 Min
[2020-09-30] MEDS: Furosemide 40 MG/4 ML Vial IV (17:51)
--- NOTE | 2020-09-30 18:22 | PCS.PANDOC ---
PANDEMIC DOCUMENTATION INITIATED: Date: 09/30/2020 Time: 1814
[2020-09-30] MEDS: Carvedilol 6.25 MG Tablet PO (22:17)
[2020-09-30] MEDS: Cilostazol 50 MG Tablet PO (22:17)
[2020-09-30] MEDS: Heparin Injection (Vial) 5,000 UNIT/ML VIAL 5000 UNIT SC (22:18)
[2020-09-30] MEDS: Cefazolin 1 GM/50 ML BAG IV (22:19)
[2020-10-01] VITALS (13 sets, daily range): BP systolic 106–114; BP diastolic 60–78; PULSE 90–120; RESP 16–18; TEMP 36.2–36.7; O2SAT 93–100; BMI 18.9
[2020-10-01 01:55] LABS: Absolute Lymphocyte Count 0.14 X10^3/uL (0.83-4.51); Absolute Neutrophil Count 4.7 X10^3/uL (2.0-7.7); Hematocrit 39.5 % (40-54); Hemoglobin 12.8 g/dL (13.0-16.5); Lymphocyte # 0.14 X10^3/ul (4.0); Lymphocyte % 2.8 % (19-41); Mean Corp Hgb Conc 32.4 g/dL (32-36); Mean Corpuscular Hgb 31.8 pg (27.0-32.0); Mean Corpuscular Volume 98.3 fL (80-94); Mean Platelet Vol. 10.9 fl (6.2-12.0); Monocyte# 0.04 X10^3/uL; Monocyte% 0.8 % (0-10); NRBC Flagged by Analyzer 0 % (0-5); Neutrophil # 4.74 X10^3/uL (2.7-7.7); Neutrophil % 96.2 % (47-70); POSITIVE DIFFERENTIAL YES; Platelet Count 141 K/mm3 (150-450); RBC Distribution Width CV 17.3 % (11.6-14.6); RBC Distribution Width SD 60.4 fl (35.1-43.9); Red Blood Count 4.02 M/mm3 (4.6-6.2); White Blood Count 4.9 K/mm3 (4.4-11.0)
[2020-10-01 02:05] LABS: Differential Indicated SCAN CRITERIA MET
[2020-10-01 02:11] LABS: ALB/GLOB Ratio 0.6 RATIO (0.9-2.4); AST(SGOT) 73 U/L (15-37); Alanine Aminotransfer ALT/SGPT 102 U/L (16-61); Albumin, Serum 2.1 g/dL (3.2-5.0); Alkaline Phosphatase 103 U/L (45-117); Anion Gap 7 (5-15); BUN 78 mg/dL (7-18); Calcium,Total 8.5 mg/dL (8.5-10.1); Chloride 93 mmol/L (98-107); Creatinine, Serum 2.05 mg/dL (0.70-1.30); EST Glomerular Filtration Rate 34 mL/min (>60); Est Glom Filt Rate - Afr Amer 41 mL/min (>60); Globulin 3.6 g/dL (2.2-4.2); Glucose 241 mg/dL (74-106); Potassium 4.3 mmol/L (3.5-5.1); Protein, Total 5.7 g/dL (6.4-8.2); Sodium Level 133 mmol/L (136-145)
[2020-10-01 03:11] LABS: Differential Comment SCANNED
[2020-10-01] MEDS: 0.9% Saline Lock 10 ML Syringe IV ×3 (06:25→18:03)
[2020-10-01] MEDS: Ipratropium/Albuterol Sulfate 3 ML AMPUL.NEB INHALATION ×4 (06:40→20:35)
[2020-10-01] MEDS: Aspirin 81 MG TAB.CHEW PO (09:34)
[2020-10-01] MEDS: Cefazolin 1 GM/50 ML BAG IV ×2 (09:35→21:23)
[2020-10-01] MEDS: Cilostazol 50 MG Tablet PO ×2 (09:36→21:24)
[2020-10-01] MEDS: Furosemide 40 MG/4 ML Vial IV ×2 (09:36→18:03)
--- NOTE | 2020-10-01 09:36 | CON.PCM_ITS ---
Problem List (1) Leg ulcer Status: Acute (2) COPD (chronic obstructive pulmonary disease) Status: Acute (3) Systolic CHF Status: Acute (4) Chronic kidney disease (CKD) Status: Chronic (5) Peripheral vascular occlusive disease Status: Chronic Comment: Bilateral severe occlussive disease with SIRENA 0.22 and 0.37. 07/12/2020 (6) Nicotine dependence Status: Chronic Reason for Consult Date of Consultation: 10/01/20 Reason for Consultation: Bilateral lower extremity ulcerations. Peripheral vascular disease History of Present Illness: The patient is a 70 year old M who presents for worsening CHF with COPD. Patient was also noted to have bilateral lower extremity ulcerations. Podiatry was consulted for management of. Patient relates that he had some vascular work-up done couple months ago but never followed through with any vascular doctor. Nor did he follow-up with the wound care center. Patient states that the wounds have been present since around 2019. Patient has some shortness of breath and is on nasal cannula. Patient denies any nausea fever vomiting chills chest pain shortness of breath. Patient states that he got some purulence out of his right leg wounds prior but has not recently. Patient has no other foot complaints. [] Past Medical History Past Medical History (Chronic Problems): Chronic Problems (Last Reviewed 09/19/20 @ 12:09 by Mauricio Zamora RADIATION THERAPIST, RADIATION THERAPIST-C) Anemia (Chronic) Protein-calorie malnutrition, mild (Chronic) Chronic back pain (Chronic) Dilated cardiomyopathy (Chronic) Acute systolic (congestive) heart failure (Chronic 07/04/20) Essential (primary) hypertension (Chronic) Chronic kidney disease (CKD) (Chronic) Abnormal CT scan, lung (Chronic 02/2020) There is a stellate margin 9 mm density of the right lower lobe, new in the interval. This may merely represent pneumonic or atelectatic process. Neoplasm cannot be excluded however. Close interval follow-up in 2-3 months is recommended. 02/2020 Peripheral vascular occlusive disease (Chronic) Bilateral severe occlussive disease with SIRENA 0.22 and 0.37. 07/12/2020 Nicotine dependence (Chronic) EtOH dependence (Chronic) Medical History: Medical History (Last Reviewed 09/19/20 @ 12:09 by Mauricio Zamora NP, RADIATION THERAPIST-C) History of non-ST elevation myocardial infarction (NSTEMI) (Resolved) Onset Date: 07/04/20 I25.2 Dilated cardiomyopathy (Chronic) I42.0 Acute systolic (congestive) heart failure (Chronic) Onset Date: 07/04/20 I50.21 Essential (primary) hypertension (Chronic) I10 Chronic kidney disease (CKD) (Chronic) N18.[address] scan, lung (Chronic) Onset Date: 02/2020 R91.8 There is a stellate margin 9 mm density of the right lower lobe, new in the interval. This may merely represent pneumonic or atelectatic process. Neoplasm cannot be excluded however. Close interval follow-up in 2-3 months is recommended. 02/2020 Peripheral vascular occlusive disease (Chronic) I73.9 Bilateral severe occlussive disease with SIRENA 0.22 and 0.37. 07/12/2020 Nicotine dependence (Chronic) F17.200 EtOH dependence (Chronic) F10.20 COPD (chronic obstructive pulmonary disease) J44.9 Depression F32.9 Osteoarthritis M19.90 Hypoxemia R09.02 Atrial flutter (Ruled-out) I48.92 Allergies No Known Allergies Allergy (Verified 09/30/20 14:10) Home Medications: Ambulatory Orders Medication Instructions Recorded cilostazol 50 mg tablet 50 mg PO BID 07/21/20 albuterol sulfate 90 mcg/actuation 2 puff INHALATION Q6H PRN PRN #18 g 09/18/20 aerosol inhaler acetaminophen 500 mg capsule 1,000 mg PO Q6H PRN cap 09/19/20 tramadol 50 mg tablet 50 mg PO BID PRN #60 tab 09/21/20 Aspirin [Aspirin, Baby] 81 mg PO DAILY@0800 09/30/20 Carvedilol 6.25 mg PO BID 09/30/20 Furosemide 40 mg PO BID 09/30/20 Surgical History: - - Denies any surgical history. Psychiatric History: No pertinent psych hx Lives: Alone Smoking Status: Former smoker Tobacco Use: Non-smoker Alcohol: None Drugs: None - *Family History Maternal Family History: Family History (Last Reviewed 09/30/20 @ 17:25 by Júnior VANEGAS PA) Mother Heart disease CVA (cerebral vascular accident) Father Alcohol abuse Brother CVA (cerebral vascular accident) Sister Thyroid disorder History Items: Heart Disease Paternal Family History: Family History (Last Reviewed 09/30/20 @ 17:25 by Júnior VANEGAS PA) Mother Heart disease CVA (cerebral vascular accident) Father Alcohol abuse Brother CVA (cerebral vascular accident) Sister Thyroid disorder History Items: - - Alcoholism Review of Systems Constitutional: Denies: Chills, Fever HEENT: Reports: Hard of Hearing Cardiovascular: Denies: Chest Pain Musculoskeletal: Reports: Leg Pain - Right worse than left Skin: Reports: Wounds - Bilateral lower extremities Neurological: Denies: Numbness, Tingling Patient Problems: Active and Suspected Problems (Last Reviewed 09/19/20 @ 12:09 by Mauricio Zamora RADIATION THERAPIST, RADIATION THERAPIST-C) COPD (chronic obstructive pulmonary disease) (Acute) Systolic CHF (Acute) - Physical Exam Vitals/I&O's: Vital Signs Temp Pulse Resp BP Pulse Ox 97.6 F L 120 H 16 114/65 93 10/01/20 09:09 10/01/20 09:09 10/01/20 09:09 10/01/20 09:09 10/01/20 09:09 Oxygen Flow Rate (L/min) 4 Oxygen Delivery Method Nasal Cannula Weight: 53.2 kg Body Mass Index (BMI) 19.1 Intake and Output for Last 24 Hours 09/29/20 09/30/20 10/01/20 23:59 23:59 23:59 Intake Total 275 / 275 220 / 220 Output Total 500 / 500 200 / 200 Balance -225 / -225 General: Alert, Oriented x3 HEENT: Atraumatic Lungs: Short of Breath Extremities: No clubbing, No cyanosis, No edema, No Calf Tenderness, Cool, - - Absent peripheral pulses bilateral lower extremities with monophasic noted on vascular studies 07/2020, sluggish capillary refill time noted to digits Skin: Ulcer/ Wound - Bilateral lower leg cluster of venous ulcerations. These are stable without signs of infection no erythema edema edema malodor or drainage noted. Wounds have fibrotic base. There is a cluster to the anterior right farley both distal & proximal as well as to the left anterior. Right worse than left, - - Skin is hairless and atrophic with chronic rubor secondary to poor vascular status, toes are cool, no ischemic skin changes noted Musculoskeletal: Tenderness - Ulcerations bilateral lower extremity Neurological: Sensory exam intact to light touch and pain Psych/Mental Status: Normal Affect, Appropriate Microbiology Past 72 Hours 09/30/20 19:30 Mucosa - Nose Respiratory Panel (PCR) - Final 09/30/20 15:20 Mucosa - Nose SARS-CoV-2 Antigen (Rapid) - Final Laboratory Results 09/30/20 15:38: WBC 5.6, RBC 4.52 L, Hgb 14.4, Hct 45.5, MCV 100.7 H, MCH 31.9, MCHC 31.6 L, RDW Std Deviation 61.1 H, RDW Coeff of Senait 17.5 H, Plt Count 135 L, MPV 10.7, Immature Gran % (Auto) 0.400, Neut % (Auto) 86.8 H, Lymph % (Auto) 5.7 L, [place] % (Auto) 6.9, Eos % (Auto) 0.0, Baso % (Auto) 0.2, Absolute Neuts (auto) 4.9, Absolute Lymphs (auto) 0.32 L, Nucleated RBC % 0, Differential Comment SCANNED 09/30/20 15:38: Sodium 135 L, Potassium 4.7, Chloride 92 L, Carbon Dioxide 34.0 H, Anion Gap 9, BUN 74 H, Creatinine 2.16 H, Estim Creat Clear Calc 25.11, Est GFR (MDRD) Af Amer 39 L, Est GFR (MDRD) Non-Af 32 L, BUN/Creatinine Ratio 34.3 H , Glucose 67 L, Calcium 9.1, Troponin I 0.173 H 09/30/20 15:38: B-Natriuretic Peptide > 5000.0 H 09/30/20 20:11: Troponin I 0.145 H 09/30/20 23:20: Troponin I 0.135 H 10/01/20 01:47: WBC 4.9, RBC 4.02 L, Hgb 12.8 L, Hct 39.5 L, MCV 98.3 H, MCH 31.8, MCHC 32.4, RDW Std Deviation 60.4 H, RDW Coeff of Senait 17.3 H, Plt Count 141 L, MPV 10.9, Immature Gran % (Auto) 0.200, Neut % (Auto) 96.2 H, Lymph % (Auto) 2.8 L, [place] % (Auto) 0.8, Eos % (Auto) 0.0, Baso % (Auto) 0.0, Absolute Neuts (auto) 4.7, Absolute Lymphs (auto) 0.14 L, Nucleated RBC % 0, Differential Comment SCANNED 10/01/20 01:47: Sodium 133 L, Potassium 4.3, Chloride 93 L, Carbon Dioxide 33.0 H, Anion Gap 7, BUN 78 H, Creatinine 2.05 H, Estim Creat Clear Calc 25.20, Est GFR (MDRD) Af Amer 41 L, Est GFR (MDRD) Non-Af 34 L, BUN/Creatinine Ratio 38.0 H , Glucose 241 H, Calcium 8.5, Total Bilirubin 1.00, AST 73 H, ALT 102 H, Alkaline Phosphatase 103, Total Protein 5.7 L, Albumin 2.1 L, Globulin 3.6, Albumin/Globulin Ratio 0.6 L 10/01/20 01:47: Troponin I 0.126 H Current Medications Acetaminophen (Acetaminophen 325 Mg Tablet) 650 mg PO Q6H PRN PRN PRN Reason: Pain Score 1-10/Temp > 100.7 F Al Hydroxide/Mg Hydroxide (Mag Hydrox/Al Hydrox/Simeth 30 Ml Udc) 30 ml PO Q6H PRN PRN PRN Reason: Gastric Burning Albuterol Sulfate (Albuterol 2.5 Mg/3 Ml Vial.Neb.) 2.5 mg INHALATION Q2H PRN PRN PRN Reason: SOB/Wheezing Albuterol/Ipratropium (Ipratropium/Albuterol Sulfate 3 Ml Ampul.Neb) 3 ml INHALATION Q4HWA.RT [facility] Last Admin: 10/01/20 06:40 Dose: 3 ml Documented by: Aspirin (Aspirin 81 Mg Tab.Chew) 81 mg PO DAILY@0800 [facility] Carvedilol (Carvedilol 6.25 Mg Tablet) 6.25 mg PO BID [facility] Last Admin: 09/30/20 22:17 Dose: 6.25 mg Documented by: Cilostazol (Cilostazol 50 Mg Tablet) 50 mg PO BID [facility] Last Admin: 09/30/20 22:17 Dose: 50 mg Documented by: Furosemide (Furosemide 40 Mg/4 Ml Vial) 40 mg IV BIDLX [facility] Heparin Sodium (Porcine) (Heparin Injection (Vial) 5,000 Unit/Ml Vial) 5,000 unit SC Q12 [facility] Last Admin: 09/30/20 22:18 Dose: 5,000 unit Documented by: Cefazolin Sodium () 1 gm in 50 mls @ 100 mls/hr IV Q12 [facility] Last Infusion: 09/30/20 23:23 Dose: Infused Documented by: Methylprednisolone (Methylprednisolone 40 Mg/Ml Vial) 40 mg IV Q8 [facility] Last Admin: 10/01/20 06:24 Dose: 40 mg Documented by: Nitroglycerin (Nitroglycerin (Inpatient Use) 0.4 Mg Tab.Subl) 0.4 mg SUBLINGUAL Q5M PRN PRN Reason: CARDIAC/CHEST PAIN Nutritional Formula (Lactose Free) (Ensure Enlive 120 Ml Liquid) 120 ml PO 4X/DAY [facility] Last Admin: 09/30/20 22:27 Dose: 120 ml Documented by: Ondansetron HCl (Ondansetron 4 Mg/2 Ml Vial) 4 mg IV Q8H PRN PRN PRN Reason: NAUSEA/VOMITING Sodium Chloride (0.9% Saline Lock 10 Ml Syringe) 10 - 40 ml IV UD PRN PRN Reason: SALINE FLUSH Last Admin: 10/01/20 06:25 Dose: 10 ml Documented by: Tramadol HCl (Tramadol 50 Mg Tablet) 50 mg PO BID PRN PRN PRN Reason: Pain 1-10 or Fever Assessment/Plan All Active Problems (Last Reviewed 09/19/20 @ 12:09 by Mauricio Zamora RADIATION THERAPIST, RADIATION THERAPIST-C) COPD (chronic obstructive pulmonary disease) (Acute) Systolic CHF (Acute) Leg ulcer (Acute) History of non-ST elevation myocardial infarction (NSTEMI) (Resolved 07/04/20) Atrial flutter (Ruled-out) Bilateral lower extremity venous ulcerations in clusters Peripheral vascular disease bilateral lower extremities Pain bilateral lower extremities COPD CHF Patient seen and examined bedside White blood cell count of 4.9 Patient noted to have clusters of ulcerations noted to bilateral lower extremities with right worse than left Right lower extremity lower leg anterior ulcerations underwent a sharp excisional nonselective debridement was carried out into the level of subcutaneous tissue with a 3 mm curette with removal of all devitalized, slough, biofilm, and fibrous tissue. This was done without incidence. Some sanguinous drainage noted. Predebridement measurements of cluster was 12 x 2 x 0.1 cm and post debridement measuring 12.1 x 2.1 x 0.2 cm. The entire cluster was notified due to patient pain. This was done to patient tolerance only Continue wound care consisting of hydrogel and dry sterile dressing to leg ulcerations Vascular studies from July 2020 demonstrated bilateral DP and PT monophasic pulses with right SIRENA of 0.21 and TBI unable to be obtained and left SIRENA of 0.36 and TBI of 0.16. Given his very poor vascular status it is unlikely that he is the blood flow necessary to heal the ulcerations to his lower extremities. Highly recommend vascular consult whether in house or an outpatient setting. Patient states that he was never given any information for specialist to follow- up with after studies were obtained in July. If to follow-up with vascular on an outpatient basis please make sure patient is sent home with referral information No podiatry surgical intervention necessary Thank you for the consult Podiatry will continue to follow while in house Please contact if any questions or concerns Juliana Chester DPM [facility] [phone] This note was generated with [employer] dictation software. It may contain incorrect words, spelling, and punctuation that were not noted in checking the note before signing.
[2020-10-01] MEDS: Heparin Injection (Vial) 5,000 UNIT/ML VIAL 5000 UNIT SC ×2 (09:38→21:24)
[2020-10-01] MEDS: Carvedilol 6.25 MG Tablet PO ×2 (09:38→21:24)
--- NOTE | 2020-10-01 10:07 | PCM.NTREPORT ---
Nutrition Therapy Report - History Nutrition Services has been consulted to:: Manage nutrient details of diet order Current diet / nutrition support order:: Cardiac: Ensure Enlive 120 ml 4x/day w/ medpass. - Anthropometric Measurements Height:: 5 ft 6 in Weight:: 53.2 kg Body Mass Index (BMI):: 18.9 - Relevant Labs Relevant Labs:: RBC 4.02 M/mm3 (4.6-6.2) L 10/01/20 01:47 Hgb 12.8 g/dL (13.0-16.5) L 10/01/20 01:47 Hct 39.5 % (40-54) L 10/01/20 01:47 MCV 98.3 fL (80-94) H 10/01/20 01:47 MCHC 31.6 g/dL (32-36) L 09/30/20 15:38 RDW Std Deviation 60.4 fl (35.1-43.9) H 10/01/20 01:47 RDW Coeff of Senait 17.3 % (11.6-14.6) H 10/01/20 01:47 Plt Count 141 K/mm3 (150-450) L 10/01/20 01:47 Neut % (Auto) 96.2 % (47-70) H 10/01/20 01:47 Lymph % (Auto) 2.8 % (19-41) L 10/01/20 01:47 Absolute Lymphs (auto) 0.14 X10^3/uL (0.83-4.51) L 10/01/20 01:47 Sodium 133 mmol/L (136-145) L 10/01/20 01:47 Chloride 93 mmol/L (98-107) L 10/01/20 01:47 Carbon Dioxide 33.0 mmol/L (21.0-32.0) H 10/01/20 01:47 BUN 78 mg/dL (7-18) H 10/01/20 01:47 Creatinine 2.05 mg/dL (0.70-1.30) H 10/01/20 01:47 Est GFR (MDRD) Af Amer 41 mL/min (>60) L 10/01/20 01:47 Est GFR (MDRD) Non-Af 34 mL/min (>60) L 10/01/20 01:47 BUN/Creatinine Ratio 38.0 RATIO (10-20) H 10/01/20 01:47 Glucose 241 mg/dL (74-106) H 10/01/20 01:47 AST 73 U/L (15-37) H 10/01/20 01:47 ALT 102 U/L (16-61) H 10/01/20 01:47 Troponin I 0.126 ng/mL (<0.045) H 10/01/20 01:47 B-Natriuretic Peptide > 5000.0 pg/mL (0-100) H 09/30/20 15:38 Total Protein 5.7 g/dL (6.4-8.2) L 10/01/20 01:47 Albumin 2.1 g/dL (3.2-5.0) L 10/01/20 01:47 Albumin/Globulin Ratio 0.6 RATIO (0.9-2.4) L 10/01/20 01:47 - Assessment Food / Nutrition-Related History:: 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 Enjoying b-fast consumed ~50% meal at time of interview--continued to consume b-fast. States hx wt loss over the past several years w/ UBW 115-118#; CBW 117.3#- wt hx per EMR 07/04/20 118.8#. Wt stable. +NFPE: severe temporal scooping, severe orbital bone depression/hollow look, severe clavicle bone protrusion, severe dorsal hand interosseous muscle depression. States occasional constipation. - Nutrition Diagnosis Problem / Etiology / Signs & Symptoms (PES):: Severe malnutrition in the context of chronic illness/injury AEB inadequate oral intake & increased nutrient needs d/t multiple stasis ulcers on low extremeties AEB </=75% energy intake compared to estimated energy needs >/=1 month, severe muscle/fat wasting, underweight w/ BMI 18.9. Evidence of Malnutrition Exists:: Yes Severe PCM:: Chronic Illness - Nutrition Intervention Nutrition Prescription:: [id number] calories, 65-75 g protein - Food / Nutrient Delivery Interventions Nutrition support ordered as / adjusted to:: Continue Cardiac diet. Pt agreeable to CIB (straw or alondra) w/ meals. Will provide Laz 1 packet BID at L&D to promote wound healing. Nutrition education provided?: No - MNT Monitoring Further MNT monitoring and evaluation required?: Yes MNT Follow-up in:: 3-5 days
--- NOTE | 2020-10-01 11:32 | PCM.PN.HOSP ---
<Júnior Guzman - Last Filed: 10/01/20 11:32> Patient Problems: Active and Suspected Problems (Last Reviewed 09/19/20 @ 12:09 by Mauricio Zamora TIBCO DEVELOPER, TIBCO DEVELOPER-C) COPD (chronic obstructive pulmonary disease) (Acute) Systolic CHF (Acute) Leg ulcer (Acute) Reason for Visit: SOB Subjective: Pt reports some improvement in breathing, altho minimal. No LE edema. He states he has some chest heaviness. He has no LH/dizziness. He has a rare non productive cough. No fever/chills. Vitals/I&O's: Vital Signs Temp Pulse Resp BP Pulse Ox 97.6 F L 120 H 16 114/65 93 10/01/20 09:09 10/01/20 09:09 10/01/20 09:09 10/01/20 09:09 10/01/20 09:09 Oxygen Flow Rate (L/min) 4 Oxygen Delivery Method Nasal Cannula Weight: 117 lb 4.575 oz Body Mass Index (BMI) 18.9 Intake and Output for Last 24 Hours 09/29/20 09/30/20 10/01/20 23:59 23:59 23:59 Intake Total 275 / 275 220 / 220 Output Total 500 / 500 200 / 200 Balance -225 / -225 General: Alert, Oriented x3, Cooperative HEENT: Atraumatic, PERRLA, EOMI, Normocephalic Neck: Supple, No JVD, Negative Carotid Bruits Lungs: Clear to auscultation, Diminished Cardiovascular: Regular rate, No murmurs Abdomen: Bowel Sounds Present, Soft, Non Tender Extremities: No edema, Capillary Refill Less than 3 Seconds Skin: No rashes, No breakdown Musculoskeletal: No Tenderness to Palpation of Joints or Extremities Neurological: Cranial nerves II-XII grossly intact Psych/Mental Status: Normal Affect, Appropriate, Alert and oriented to time, place, person, mood and affect Microbiology Past 72 Hours 09/30/20 19:30 Mucosa - Nose Respiratory Panel (PCR) - Final 09/30/20 15:20 Mucosa - Nose SARS-CoV-2 Antigen (Rapid) - Final Laboratory Results 09/30/20 15:38: WBC 5.6, RBC 4.52 L, Hgb 14.4, Hct 45.5, MCV 100.7 H, MCH 31.9, MCHC 31.6 L, RDW Std Deviation 61.1 H, RDW Coeff of Senait 17.5 H, Plt Count 135 L, MPV 10.7, Immature Gran % (Auto) 0.400, Neut % (Auto) 86.8 H, Lymph % (Auto) 5.7 L, [place] % (Auto) 6.9, Eos % (Auto) 0.0, Baso % (Auto) 0.2, Absolute Neuts (auto) 4.9, Absolute Lymphs (auto) 0.32 L, Nucleated RBC % 0, Differential Comment SCANNED 09/30/20 15:38: Sodium 135 L, Potassium 4.7, Chloride 92 L, Carbon Dioxide 34.0 H, Anion Gap 9, BUN 74 H, Creatinine 2.16 H, Estim Creat Clear Calc 25.11, Est GFR (MDRD) Af Amer 39 L, Est GFR (MDRD) Non-Af 32 L, BUN/Creatinine Ratio 34.3 H, Glucose 67 L, Calcium 9.1, Troponin I 0.173 H 09/30/20 15:38: B-Natriuretic Peptide > 5000.0 H 09/30/20 20:11: Troponin I 0.145 H 09/30/20 23:20: Troponin I 0.135 H 10/01/20 01:47: WBC 4.9, RBC 4.02 L, Hgb 12.8 L, Hct 39.5 L, MCV 98.3 H, MCH 31.8, MCHC 32.4, RDW Std Deviation 60.4 H, RDW Coeff of Senait 17.3 H, Plt Count 141 L, MPV 10.9, Immature Gran % (Auto) 0.200, Neut % (Auto) 96.2 H, Lymph % (Auto) 2.8 L, [place] % (Auto) 0.8, Eos % (Auto) 0.0, Baso % (Auto) 0.0, Absolute Neuts (auto) 4.7, Absolute Lymphs (auto) 0.14 L, Nucleated RBC % 0, Differential Comment SCANNED 10/01/20 01:47: Sodium 133 L, Potassium 4.3, Chloride 93 L, Carbon Dioxide 33.0 H, Anion Gap 7, BUN 78 H, Creatinine 2.05 H, Estim Creat Clear Calc 25.20, Est GFR (MDRD) Af Amer 41 L, Est GFR (MDRD) Non-Af 34 L, BUN/Creatinine Ratio 38.0 H, Glucose 241 H, Calcium 8.5, Total Bilirubin 1.00, AST 73 H, ALT 102 H, Alkaline Phosphatase 103, Total Protein 5.7 L, Albumin 2.1 L, Globulin 3.6, Albumin/Globulin Ratio 0.6 L 10/01/20 01:47: Troponin I 0.126 H Current Medications Acetaminophen (Acetaminophen 325 Mg Tablet) 650 mg PO Q6H PRN PRN PRN Reason: Pain Score 1-10/Temp > 100.7 F Al Hydroxide/Mg Hydroxide (Mag Hydrox/Al Hydrox/Simeth 30 Ml Udc) 30 ml PO Q6H PRN PRN PRN Reason: Gastric Burning Albuterol Sulfate (Albuterol 2.5 Mg/3 Ml Vial.Neb.) 2.5 mg INHALATION Q2H PRN PRN PRN Reason: SOB/Wheezing Albuterol/Ipratropium (Ipratropium/Albuterol Sulfate 3 Ml Ampul.Neb) 3 ml INHALATION Q4HWA.RT [facility] Last Admin: 10/01/20 11:27 Dose: 3 ml Documented by: Aspirin (Aspirin 81 Mg Tab.Chew) 81 mg PO DAILY@0800 [facility] Last Admin: 10/01/20 09:34 Dose: 81 mg Documented by: Carvedilol (Carvedilol 6.25 Mg Tablet) 6.25 mg PO BID [facility] Last Admin: 10/01/20 09:38 Dose: 6.25 mg Documented by: Cilostazol (Cilostazol 50 Mg Tablet) 50 mg PO BID [facility] Last Admin: 10/01/20 09:36 Dose: 50 mg Documented by: Furosemide (Furosemide 40 Mg/4 Ml Vial) 40 mg IV BIDLX [facility] Last Admin: 10/01/20 09:36 Dose: 40 mg Documented by: Heparin Sodium (Porcine) (Heparin Injection (Vial) 5,000 Unit/Ml Vial) 5,000 unit SC Q12 [facility] Last Admin: 10/01/20 09:38 Dose: 5,000 unit Documented by: Cefazolin Sodium () 1 gm in 50 mls @ 100 mls/hr IV Q12 [facility] Last Admin: 10/01/20 09:35 Dose: 100 mls/hr Documented by: Methylprednisolone (Methylprednisolone 40 Mg/Ml Vial) 40 mg IV Q8 [facility] Last Admin: 10/01/20 06:24 Dose: 40 mg Documented by: Nitroglycerin (Nitroglycerin (Inpatient Use) 0.4 Mg Tab.Subl) 0.4 mg SUBLINGUAL Q5M PRN PRN Reason: CARDIAC/CHEST PAIN Ondansetron HCl (Ondansetron 4 Mg/2 Ml Vial) 4 mg IV Q8H PRN PRN PRN Reason: NAUSEA/VOMITING Sodium Chloride (0.9% Saline Lock 10 Ml Syringe) 10 - 40 ml IV UD PRN PRN Reason: SALINE FLUSH Last Admin: 10/01/20 09:37 Dose: 10 ml Documented by: Tramadol HCl (Tramadol 50 Mg Tablet) 50 mg PO BID PRN PRN PRN Reason: Pain 1-10 or Fever STROKE Vital Signs/Narrative: Vital Signs Temp Pulse Resp BP Pulse Ox 10/01/20 09:09 97.6 F L 120 H 16 114/65 93 10/01/20 08:00 116 H Medical Necessity - Tobacco Use Smoking Status: Former smoker Tobacco Use: Non-smoker Assessment/Plan All Active Problems (Last Reviewed 09/19/20 @ 12:09 by Mauricio Zamora TIBCO DEVELOPER, TIBCO DEVELOPER-C) COPD (chronic obstructive pulmonary disease) (Acute) Systolic CHF (Acute) Leg ulcer (Acute) History of non-ST elevation myocardial infarction (NSTEMI) (Resolved 07/04/20) Atrial flutter (Ruled-out) 1. Acute on chronic systolic CHF and acute COPD exacerbation - continue IV lasix, solumedrol, aerosols. pt remains stable on home o2, reports minimal improvement in SOB. Respiratory panel negative. covid negative. 2. Indeterminate troponin - cardiology consulted. previously cardiology planned to pursue a heart cath in the future. pt c/o some chest heaviness 3. Chronic hypoxic respiratory failure -2/2 COPD/CHF. Pt is at his baseline - 4lpm. 4. CKD-III - stable, will complicate #2 if pt will need a heart cath 5. PAD - Recent PVRs with Bilateral severe occlusive disease with SIRENA 0.22 and 0.37. Recommend f/u with the wound care center and Dr. Phillips. He is on aspirin and cilostazol. 6. HTN - stable DVT ppx: heparin DC planning: PTOT evals, recent fall at home. This patient was seen by Júnior Guzman PA-C under the supervision of Dr. Amezcua <Zia Amezcua - Last Filed: 10/01/20 12:05> Vitals/I&O's: Vital Signs Temp Pulse Resp BP Pulse Ox 36.4 C L 90 16 114/65 93 10/01/20 09:09 10/01/20 11:27 10/01/20 11:27 10/01/20 09:09 10/01/20 09:09 Oxygen Flow Rate (L/min) 4 Oxygen Delivery Method Nasal Cannula Weight: 53.2 kg Body Mass Index (BMI) 18.9 Intake and Output for Last 24 Hours 09/29/20 09/30/20 10/01/20 23:59 23:59 23:59 Intake Total 275 / 275 220 / 220 Output Total 500 / 500 200 / 200 Balance -225 / -225 General: Alert, Cooperative HEENT: Atraumatic, Normocephalic Neck: No Nodes, Thyroid Normal Size and Texture Lungs: Clear to auscultation, Diminished, - - DTP in bases Cardiovascular: Regular rate, No murmurs Abdomen: Bowel Sounds Present, Soft, Non Tender, Non-Distended Skin: No rashes, No breakdown Psych/Mental Status: Normal Affect, Appropriate Microbiology Past 72 Hours 09/30/20 19:30 Mucosa - Nose Respiratory Panel (PCR) - Final 09/30/20 15:20 Mucosa - Nose SARS-CoV-2 Antigen (Rapid) - Final Laboratory Results 09/30/20 15:38: WBC 5.6, RBC 4.52 L, Hgb 14.4, Hct 45.5, MCV 100.7 H, MCH 31.9, MCHC 31.6 L, RDW Std Deviation 61.1 H, RDW Coeff of Senait 17.5 H, Plt Count 135 L, MPV 10.7, Immature Gran % (Auto) 0.400, Neut % (Auto) 86.8 H, Lymph % (Auto) 5.7 L, [place] % (Auto) 6.9, Eos % (Auto) 0.0, Baso % (Auto) 0.2, Absolute Neuts (auto) 4.9, Absolute Lymphs (auto) 0.32 L, Nucleated RBC % 0, Differential Comment SCANNED 09/30/20 15:38: Sodium 135 L, Potassium 4.7, Chloride 92 L, Carbon Dioxide 34.0 H, Anion Gap 9, BUN 74 H, Creatinine 2.16 H, Estim Creat Clear Calc 25.11, Est GFR (MDRD) Af Amer 39 L, Est GFR (MDRD) Non-Af 32 L, BUN/Creatinine Ratio 34.3 H, Glucose 67 L, Calcium 9.1, Troponin I 0.173 H 09/30/20 15:38: B-Natriuretic Peptide > 5000.0 H 09/30/20 20:11: Troponin I 0.145 H 09/30/20 23:20: Troponin I 0.135 H 10/01/20 01:47: WBC 4.9, RBC 4.02 L, Hgb 12.8 L, Hct 39.5 L, MCV 98.3 H, MCH 31.8, MCHC 32.4, RDW Std Deviation 60.4 H, RDW Coeff of Senait 17.3 H, Plt Count 141 L, MPV 10.9, Immature Gran % (Auto) 0.200, Neut % (Auto) 96.2 H, Lymph % (Auto) 2.8 L, [place] % (Auto) 0.8, Eos % (Auto) 0.0, Baso % (Auto) 0.0, Absolute Neuts (auto) 4.7, Absolute Lymphs (auto) 0.14 L, Nucleated RBC % 0, Differential Comment SCANNED 10/01/20 01:47: Sodium 133 L, Potassium 4.3, Chloride 93 L, Carbon Dioxide 33.0 H, Anion Gap 7, BUN 78 H, Creatinine 2.05 H, Estim Creat Clear Calc 25.20, Est GFR (MDRD) Af Amer 41 L, Est GFR (MDRD) Non-Af 34 L, BUN/Creatinine Ratio 38.0 H, Glucose 241 H, Calcium 8.5, Total Bilirubin 1.00, AST 73 H, ALT 102 H, Alkaline Phosphatase 103, Total Protein 5.7 L, Albumin 2.1 L, Globulin 3.6, Albumin/Globulin Ratio 0.6 L 10/01/20 01:47: Troponin I 0.126 H Current Medications Acetaminophen (Acetaminophen 325 Mg Tablet) 650 mg PO Q6H PRN PRN PRN Reason: Pain Score 1-10/Temp > 100.7 F Al Hydroxide/Mg Hydroxide (Mag Hydrox/Al Hydrox/Simeth 30 Ml Udc) 30 ml PO Q6H PRN PRN PRN Reason: Gastric Burning Albuterol Sulfate (Albuterol 2.5 Mg/3 Ml Vial.Neb.) 2.5 mg INHALATION Q2H PRN PRN PRN Reason: SOB/Wheezing Albuterol/Ipratropium (Ipratropium/Albuterol Sulfate 3 Ml Ampul.Neb) 3 ml INHALATION Q4HWA.RT [facility] Last Admin: 10/01/20 11:27 Dose: 3 ml Documented by: Aspirin (Aspirin 81 Mg Tab.Chew) 81 mg PO DAILY@0800 [facility] Last Admin: 10/01/20 09:34 Dose: 81 mg Documented by: Carvedilol (Carvedilol 6.25 Mg Tablet) 6.25 mg PO BID [facility] Last Admin: 10/01/20 09:38 Dose: 6.25 mg Documented by: Cilostazol (Cilostazol 50 Mg Tablet) 50 mg PO BID [facility] Last Admin: 10/01/20 09:36 Dose: 50 mg Documented by: Furosemide (Furosemide 40 Mg/4 Ml Vial) 40 mg IV BIDLX [facility] Last Admin: 10/01/20 09:36 Dose: 40 mg Documented by: Heparin Sodium (Porcine) (Heparin Injection (Vial) 5,000 Unit/Ml Vial) 5,000 unit SC Q12 [facility] Last Admin: 10/01/20 09:38 Dose: 5,000 unit Documented by: Cefazolin Sodium () 1 gm in 50 mls @ 100 mls/hr IV Q12 [facility] Last Admin: 10/01/20 09:35 Dose: 100 mls/hr Documented by: Nitroglycerin (Nitroglycerin (Inpatient Use) 0.4 Mg Tab.Subl) 0.4 mg SUBLINGUAL Q5M PRN PRN Reason: CARDIAC/CHEST PAIN Ondansetron HCl (Ondansetron 4 Mg/2 Ml Vial) 4 mg IV Q8H PRN PRN PRN Reason: NAUSEA/VOMITING Sodium Chloride (0.9% Saline Lock 10 Ml Syringe) 10 - 40 ml IV UD PRN PRN Reason: SALINE FLUSH Last Admin: 10/01/20 09:37 Dose: 10 ml Documented by: Tramadol HCl (Tramadol 50 Mg Tablet) 50 mg PO BID PRN PRN PRN Reason: Pain 1-10 or Fever STROKE Vital Signs/Narrative: Vital Signs Temp Pulse Resp BP Pulse Ox 10/01/20 11:27 90 16 10/01/20 09:09 36.4 C L 120 H 16 114/65 93 10/01/20 08:00 116 H Assessment/Plan Patient seen and examined independently. Data reviewed. I agree with the above note by the physician career services assistant. 1. Acute HFrEF: EF 15% from echo on 07/04/2020. Continue furosemide. DC solumedrol as this is CHF exacerbation. On carvedilol. No ENMA-/ARB given CKD. 2. Elevated troponin: likely demand ischemia from CHF. Cardiology consult. 3. Severe PAD: Follow up with vascular. On ASA and cilostazol. 4. moderate malnutrition: albumin 2.1. nutrition consult. add supplements. Had been advised to follow up with vascular surgery in June, but pt never did. 5. LE wounds: complicated by severe PAD. Podiatry on consult. Wound care. Inpatient E&M: 91703 Subs Hosp L2
--- NOTE | 2020-10-01 12:28 | PCM.CONS.C ---
Reason for Consult History of Present Illness: The patient is a 70 year old M [] Past Medical History Allergies/Adverse Reactions: Allergies No Known Allergies Allergy (Verified 09/30/20 14:10) Home Medications: Ambulatory Orders Medication Instructions Recorded cilostazol 50 mg tablet 50 mg PO BID 07/21/20 albuterol sulfate 90 mcg/actuation 2 puff INHALATION Q6H PRN PRN #18 g 09/18/20 aerosol inhaler acetaminophen 500 mg capsule 1,000 mg PO Q6H PRN cap 09/19/20 tramadol 50 mg tablet 50 mg PO BID PRN #60 tab 09/21/20 Aspirin [Aspirin, Baby] 81 mg PO DAILY@0800 09/30/20 Carvedilol 6.25 mg PO BID 09/30/20 Furosemide 40 mg PO BID 09/30/20 Past Medical History (Chronic Problems): Chronic Problems (Last Reviewed 09/19/20 @ 12:09 by Mauricio Zamora FIRER MARINE, FIRER MARINE-C) Anemia (Chronic) Protein-calorie malnutrition, mild (Chronic) Chronic back pain (Chronic) Dilated cardiomyopathy (Chronic) Acute systolic (congestive) heart failure (Chronic 07/04/20) Essential (primary) hypertension (Chronic) Chronic kidney disease (CKD) (Chronic) Abnormal CT scan, lung (Chronic 02/2020) There is a stellate margin 9 mm density of the right lower lobe, new in the interval. This may merely represent pneumonic or atelectatic process. Neoplasm cannot be excluded however. Close interval follow-up in 2-3 months is recommended. 02/2020 Peripheral vascular occlusive disease (Chronic) Bilateral severe occlussive disease with SIRENA 0.22 and 0.37. 07/12/2020 Nicotine dependence (Chronic) EtOH dependence (Chronic) Surgical History: - - Denies any surgical history. Psychiatric History: No pertinent psych hx - *Family History Maternal Family History: Family History (Last Reviewed 09/30/20 @ 17:25 by ROMINA Menon) Mother Heart disease CVA (cerebral vascular accident) Father Alcohol abuse Brother CVA (cerebral vascular accident) Sister Thyroid disorder History Items: Heart Disease Paternal Family History: Family History (Last Reviewed 09/30/20 @ 17:25 by ROMINA Menon) Mother Heart disease CVA (cerebral vascular accident) Father Alcohol abuse Brother CVA (cerebral vascular accident) Sister Thyroid disorder History Items: - - Alcoholism Lives: Alone Smoking Status: Former smoker Tobacco Use: Non-smoker Alcohol: None Drugs: None Objective: Vital Signs Temp Pulse Resp BP Pulse Ox 97.2 F L 98 17 106/78 97 10/01/20 12:13 10/01/20 12:13 10/01/20 12:13 10/01/20 12:13 10/01/20 12:13 Oxygen Flow Rate (L/min) 4 Oxygen Delivery Method Nasal Cannula Weight: 117 lb 4.575 oz Body Mass Index (BMI) 18.9 Intake and Output for Last 24 Hours 09/29/20 09/30/20 10/01/20 23:59 23:59 23:59 Intake Total 275 / 275 640 / 640 Output Total 500 / 500 575 / 575 Balance -225 / -225 65 / 65 09/30/20 15:38: WBC 5.6, RBC 4.52 L, Hgb 14.4, Hct 45.5, MCV 100.7 H, MCH 31.9, MCHC 31.6 L, Plt Count 135 L, MPV 10.7, Immature Gran % (Auto) 0.400, Neut % (Auto) 86.8 H, Lymph % (Auto) 5.7 L, [place] % (Auto) 6.9, Eos % (Auto) 0.0, Baso % (Auto) 0.2, Absolute Neuts (auto) 4.9, Nucleated RBC % 0 09/30/20 15:38: Sodium 135 L, Potassium 4.7, Chloride 92 L, Carbon Dioxide 34.0 H, Anion Gap 9, BUN 74 H, Creatinine 2.16 H, Est GFR (MDRD) Af Amer 39 L, Est GFR (MDRD) Non-Af 32 L, BUN/Creatinine Ratio 34.3 H, Glucose 67 L, Calcium 9.1, Troponin I 0.173 H 09/30/20 15:38: B-Natriuretic Peptide > 5000.0 H 09/30/20 20:11: Troponin I 0.145 H 09/30/20 23:20: Troponin I 0.135 H 10/01/20 01:47: WBC 4.9, RBC 4.02 L, Hgb 12.8 L, Hct 39.5 L, MCV 98.3 H, MCH 31.8, MCHC 32.4, Plt Count 141 L, MPV 10.9, Immature Gran % (Auto) 0.200, Neut % (Auto) 96.2 H, Lymph % (Auto) 2.8 L, [place] % (Auto) 0.8, Eos % (Auto) 0.0, Baso % (Auto) 0.0, Absolute Neuts (auto) 4.7, Nucleated RBC % 0 10/01/20 01:47: Sodium 133 L, Potassium 4.3, Chloride 93 L, Carbon Dioxide 33.0 H, Anion Gap 7, BUN 78 H, Creatinine 2.05 H, Est GFR (MDRD) Af Amer 41 L, Est GFR (MDRD) Non-Af 34 L, BUN/Creatinine Ratio 38.0 H, Glucose 241 H, Calcium 8.5, Total Bilirubin 1.00 10/01/20 01:47: Troponin I 0.126 H Rhythm: EKG: ECHO: Stress Test: Cardiac Cath: PCI: CT Surgery: Holter monitor: EPS: PPM: CXR: Chest CT Scan:
--- NOTE | 2020-10-01 12:29 | PCM.CONS.C ---
Reason for Consult Date of Consultation: 10/01/20 History of Present Illness: Patient presented with progressive symptoms of shortness of breath for the last 2 to 3 weeks. He lives by himself he denied any symptoms of chest pain. Past Medical History Allergies/Adverse Reactions: Allergies No Known Allergies Allergy (Verified 09/30/20 14:10) Home Medications: Ambulatory Orders Medication Instructions Recorded cilostazol 50 mg tablet 50 mg PO BID 07/21/20 albuterol sulfate 90 mcg/actuation 2 puff INHALATION Q6H PRN PRN #18 g 09/18/20 aerosol inhaler acetaminophen 500 mg capsule 1,000 mg PO Q6H PRN cap 09/19/20 tramadol 50 mg tablet 50 mg PO BID PRN #60 tab 09/21/20 Aspirin [Aspirin, Baby] 81 mg PO DAILY@0800 09/30/20 Carvedilol 6.25 mg PO BID 09/30/20 Furosemide 40 mg PO BID 09/30/20 Past Medical History (Chronic Problems): Chronic Problems (Last Reviewed 09/19/20 @ 12:09 by Maurciio Zamora VIBRATION ANALYST, VIBRATION ANALYST-C) Anemia (Chronic) Protein-calorie malnutrition, mild (Chronic) Chronic back pain (Chronic) Dilated cardiomyopathy (Chronic) Acute systolic (congestive) heart failure (Chronic 07/04/20) Essential (primary) hypertension (Chronic) Chronic kidney disease (CKD) (Chronic) Abnormal CT scan, lung (Chronic 02/2020) There is a stellate margin 9 mm density of the right lower lobe, new in the interval. This may merely represent pneumonic or atelectatic process. Neoplasm cannot be excluded however. Close interval follow-up in 2-3 months is recommended. 02/2020 Peripheral vascular occlusive disease (Chronic) Bilateral severe occlussive disease with SIRENA 0.22 and 0.37. 07/12/2020 Nicotine dependence (Chronic) EtOH dependence (Chronic) Surgical History: - - Denies any surgical history. Psychiatric History: No pertinent psych hx - *Family History Maternal Family History: Family History (Last Reviewed 09/30/20 @ 17:25 by Júnior VANEGAS, PA) Mother Heart disease CVA (cerebral vascular accident) Father Alcohol abuse Brother CVA (cerebral vascular accident) Sister Thyroid disorder History Items: Heart Disease Paternal Family History: Family History (Last Reviewed 09/30/20 @ 17:25 by ROMINA Menon) Mother Heart disease CVA (cerebral vascular accident) Father Alcohol abuse Brother CVA (cerebral vascular accident) Sister Thyroid disorder History Items: - - Alcoholism Lives: Alone Smoking Status: Former smoker Tobacco Use: Non-smoker Alcohol: None Drugs: None Review of Systems - Review of Systems Cardiovascular: Denies: Chest Discomfort, Orthopnea, PND, Peripheral Edema, Palpitations, Lightheadedness, Dizziness, Near Syncope, Syncope Objective: Vital Signs Temp Pulse Resp BP Pulse Ox 97.2 F L 98 17 106/78 97 10/01/20 12:13 10/01/20 12:13 10/01/20 12:13 10/01/20 12:13 10/01/20 12:13 Oxygen Flow Rate (L/min) 4 Oxygen Delivery Method Nasal Cannula Weight: 117 lb 4.575 oz Body Mass Index (BMI) 18.9 Intake and Output for Last 24 Hours 09/29/20 09/30/20 10/01/20 23:59 23:59 23:59 Intake Total 275 / 275 640 / 640 Output Total 500 / 500 575 / 575 Balance -225 / -225 65 / 65 09/30/20 15:38: WBC 5.6, RBC 4.52 L, Hgb 14.4, Hct 45.5, MCV 100.7 H, MCH 31.9, MCHC 31.6 L, Plt Count 135 L, MPV 10.7, Immature Gran % (Auto) 0.400, Neut % (Auto) 86.8 H, Lymph % (Auto) 5.7 L, [place] % (Auto) 6.9, Eos % (Auto) 0.0, Baso % (Auto) 0.2, Absolute Neuts (auto) 4.9, Nucleated RBC % 0 09/30/20 15:38: Sodium 135 L, Potassium 4.7, Chloride 92 L, Carbon Dioxide 34.0 H, Anion Gap 9, BUN 74 H, Creatinine 2.16 H, Est GFR (MDRD) Af Amer 39 L, Est GFR (MDRD) Non-Af 32 L, BUN/Creatinine Ratio 34.3 H, Glucose 67 L, Calcium 9.1, Troponin I 0.173 H 09/30/20 15:38: B-Natriuretic Peptide > 5000.0 H 09/30/20 20:11: Troponin I 0.145 H 09/30/20 23:20: Troponin I 0.135 H 10/01/20 01:47: WBC 4.9, RBC 4.02 L, Hgb 12.8 L, Hct 39.5 L, MCV 98.3 H, MCH 31.8, MCHC 32.4, Plt Count 141 L, MPV 10.9, Immature Gran % (Auto) 0.200, Neut % (Auto) 96.2 H, Lymph % (Auto) 2.8 L, [place] % (Auto) 0.8, Eos % (Auto) 0.0, Baso % (Auto) 0.0, Absolute Neuts (auto) 4.7, Nucleated RBC % 0 10/01/20 01:47: Sodium 133 L, Potassium 4.3, Chloride 93 L, Carbon Dioxide 33.0 H, Anion Gap 7, BUN 78 H, Creatinine 2.05 H, Est GFR (MDRD) Af Amer 41 L, Est GFR (MDRD) Non-Af 34 L, BUN/Creatinine Ratio 38.0 H, Glucose 241 H, Calcium 8.5, Total Bilirubin 1.00 10/01/20 01:47: Troponin I 0.126 H Rhythm: EKG: Cardiogram reveals normal sinus rhythm with sinus tachycardia and occasional premature ventricular complexes also noted T wave inversion in the lateral lead possible lateral myocardial ischemia. ECHO: Prior echocardiogram showed severe LV systolic dysfunction with ejection fraction around 15%. Assessment/Plan 70-year-old patient, presented to hospital with history of progressive shortness of breath For the last 2 to 3 weeks. Patient had history of dilated cardiomyopathy with ejection fraction of around 15%. Today he was seen at bedside along with the nursing staff Patient had no symptoms of chest pain no dizziness or syncope. From review of the records he been living by himself and noted he had progressive shortness of breath on minimal exertion. Bedside examination he is alert orientated, Cardiac exam S1-S2 is regular Review of the electrocardiogram revealed underlying normal sinus rhythm. He had T wave abnormality/T wave inversion possible lateral ischemia Also review of the cardiac telemetry showed underlying normal sinus rhythm with no evidence of atrial fibrillation. However he repeatedly denied any symptoms of chest pain. I reviewed his current medication patient had renal insufficiency with elevated creatinine more than 2 He is on diuretic IV Lasix as well he is on carvedilol and cardiac care plan would be to reevaluate by 2D echocardiogram in the morning. environmental services supervisor has been consulted. Noted patient has significantly elevated BNP level more than 5000 Impression and plan; Patient with severe LV systolic dysfunction presenting with progressive symptoms of chest pain with a significant elevation of BNP, acute on chronic systolic heart failure. Recommendation would be to start on CHF protocol and will repeat an echocardiogram on Friday and also will establish with the cardiology team for continued of cardiac care and plan of management. I discussed the cardiac care plan in detail with the nursing staff and the patient. This patient has multiple medical problems with history of hypertension chronic renal insufficiency, severe peripheral vascular disease with significantly bilateral ankle-brachial indices.
--- NOTE | 2020-10-01 13:05 | ECHOD_ITS ---
Reason For Study: DYSPNEA Procedure This was a 2D Doppler, Color Flow transthoracic echocardiogram. Exam performed portable in patient room. Left Ventricle Normal LV size. The estimated ejection fraction is 18 %. Severe global left ventricular systolic dysfunction. Stage 3 diastolic dysfunction. There is severe global hypokinesis of the left ventricle. Right Ventricle Normal RV size. Normal systolic function. Atria The left atrium is moderately enlarged. Normal right atrium. Mitral Valve Normal mitral valve. Mild (1+) eccentric mitral valve insufficiency. Tricuspid Valve Normal tricuspid valve. Mild tricuspid valve insufficiency. Pulmonary artery systolic pressure is 35 mmHg. Aortic Valve Normal aortic valve. Trisinus/trileaflet aortic valve. Pulmonic Valve Normal pulmonic valve. Great Vessels Normal aortic root. The pulmonary artery is normal size. The inferior vena cava is dilated. Pericardium/Pleural No pericardial effusion. Moderate size left pleural effusion. MMode/2D Measurements & Calculations LVIDd: 5.6 cm IVSd: 1.0 cm LVOT diam: 3.1 cm LVIDs: 4.7 cm LVPWd: 0.99 cm LVOT area: 7.5 cm2 RVDd: 4.1 cm FS: 15.2 % LAV(MOD-bp): 106.3 ml LA A4 area: 30.3 cm2 LA dimension(2D): 4.6 cm LAV(MOD-bp) Indexed: 66.7 ml/m2 LAV(MOD-sp2): 102.3 ml LAV(MOD-sp4): 115.4 ml RA A4 area: 18.6 cm2 Time Measurements MV dec time: 0.12 sec Doppler Measurements & Calculations MV E max shahram: 64.6 cm/sec Lat Peak E' Shahram: 2.0 cm/sec Med Peak E' Shahram: 1.2 cm/sec MV A max shahram: 29.2 cm/sec E/E' lat: 32.3 E/E' med: 54.1 MV E/A: 2.2 Ao V2 max: 86.0 cm/sec LV V1 max: 47.0 cm/sec PA V2 max: 112.8 cm/sec Ao max P.0 mmHg LV V1 max P.88 mmHg DELMAR(V,D): 4.1 cm2 TR max shahram: 277.8 cm/sec TR max P.0 mmHg Interpretation Summary Normal LV size. The estimated ejection fraction is 18 %. Severe global left ventricular systolic dysfunction. There is severe global hypokinesis of the left ventricle. Pulmonary artery systolic pressure is 35 mmHg. Stage 3 diastolic dysfunction. Compared to previous study, the left ventricular systolic function is the same.. Ordering Physician: Brandi Blakely Referring Physician: OBED REDMOND Performed By: Iman Kuo RDCS, RVT
[2020-10-01] MEDS: traMADol 50 MG Tablet PO (18:20)
[2020-10-01] MEDS: Acetaminophen 325 MG Tablet 650 MG PO (20:08)
[2020-10-02] VITALS (14 sets, daily range): BP systolic 103–119; BP diastolic 58–70; PULSE 72–116; RESP 14–20; TEMP 36.6–36.7; O2SAT 92–100
--- NOTE | 2020-10-02 00:39 | PCM.PN.BLA ---
Progress Note Nurse reported patient has red stools. H&H ordered for morning. We will continue aspirin and cilostazol for severe peripheral artery disease. Of note patient has heart failure with severely reduced ejection fraction and cardiac cath is being considered in the future. Discontinue subcutaneous heparin for DVT prophylaxis. SCD ordered. Protonix 40 mg IV twice daily. If confirmed that patient has blood in stool consider discontinuation of aspirin. STROKE Vital Signs/Narrative: Vital Signs Temp Pulse Resp BP Pulse Ox 10/01/20 21:14 97.8 F 99 18 110/60 100
[2020-10-02 04:43] LABS: Hematocrit 27.6 % (40-54)
[2020-10-02 05:00] LABS: Anion Gap 6 (5-15); BNP,B-Type NATRIURETIC PEPTIDE 2083.7 pg/mL (0-100); BUN 92 mg/dL (7-18); BUN/Creat Ratio 43.2 RATIO (10-20); Calcium,Total 8.1 mg/dL (8.5-10.1); Chloride 90 mmol/L (98-107); Creatinine, Serum 2.13 mg/dL (0.70-1.30); EST Glomerular Filtration Rate 33 mL/min (>60); Est Glom Filt Rate - Afr Amer 40 mL/min (>60); Estimated Creatinine Clearance 23.94 ml/min; Glucose 168 mg/dL (74-106); Potassium 3.8 mmol/L (3.5-5.1); Sodium Level 131 mmol/L (136-145)
[2020-10-02] MEDS: Ipratropium/Albuterol Sulfate 3 ML AMPUL.NEB INHALATION ×3 (06:40→19:22)
[2020-10-02] MEDS: traMADol 50 MG Tablet PO (07:14)
--- NOTE | 2020-10-02 09:10 | NURSING ---
wound photo: right lower leg
--- NOTE | 2020-10-02 09:11 | NURSING ---
wound photo: left lower leg
--- NOTE | 2020-10-02 09:12 | NURSING ---
wound photo: sacrum
--- NOTE | 2020-10-02 09:29 | CASEMGMT ---
Assessment- SW completed assessment with patient at bedside. SW also confirmed addresses and phone numbers. Living situation- Patient lives alone in an upstairs apartment with 11 entry steps. PCP: Dr Oseguera Specialists: None Pharmacy: [facility] DME: Oxygen from [employer] wears 4L continuous. He said he puts the O2 wherever he feels like he needs it. ADL's/IADL's: Prior to the last couple of weeks when patient started to not feel well he was independent with just about everything. His niece does help with groceries. He was also getting Meals on Wheels. The last few weeks he has not done much of anything as he has been so weak. Past SNF/rehab: None Past HH: None LW: Yes and it is on file at [facility] POA: Yes and it is on file at [facility]. His niece, Sonia Turk is his Healthcare Power of Sales Team Leader. Plan: Patient lives alone and he does not think he can take care of himself right now. He is in agreement with going to a custodial. He asked if SW could talk with his niece about this plan. Patient was provided a list of Jail Facilities including quality and resource use data. The list was also consistent with the patient?s preferred geographic region, medical needs, and insurance network. SW called patient's niece, Sonia. Introduced self and role at [facility]. JASMIN discussed d/c plan with her and she agrees he needs to go somewhere short term for rehab. She said she will be in later after 5p. JASMIN told her SW left a list of in network facilities. She asked about TCU. JASMIN told her SW can put him on the list and will have to check on availability. SW asked her to review the list and christina 2 or 3 places she and patient are willing to try in the event TCU does not work out. She said she would do this. JASMIN did call Lisandra on referral phone and she put patient on the list. She said at this time there will not be any beds until . This could change. SNF pending patient's choices, accepting facility, and insurance approval. Karol MORGAN MANUAL TRAINING TEACHER
[2020-10-02] MEDS: Carvedilol 6.25 MG Tablet PO (10:42)
[2020-10-02] MEDS: 0.9% Saline Lock 10 ML Syringe IV ×5 (10:42→22:34)
[2020-10-02] MEDS: Furosemide 40 MG/4 ML Vial IV ×2 (10:42→18:54)
--- NOTE | 2020-10-02 10:55 | US_ITS ---
HISTORY: ALCOHOLIC LIVER DISEASE. PT ATE AT 11 AM, NPO FOR 4.5 HOURS PT NEEDED TO BEGIN PREP FOR COLONOSCOPY. TECHNIQUE: Soares scale and color doppler imaging was performed of the pancreas, liver, and gallbladder. COMPARISON: Abdominal aortic ultrasound from September 25, 2020, which demonstrated 2.9 cm fusiform aneurysmal dilatation to the abdominal aorta. FINDINGS: # of images incl. paperwork: 134 Liver is small and cirrhotic. Right pleural effusion. Ascites. No gallstones, gallbladder wall thickening or biliary dilatation. Gallbladder wall measures 2 mm. Common bile duct measures 6 mm. No tenderness upon insonation the gallbladder. Visualized pancreas is normal in appearance. Right kidney is normal in size and appearance. Visualized abdominal aorta has normal caliber. IVC is patent. Hepatopedal flow is present within the central portal vein. US/Abdomen Limited IMPRESSION: Right pleural effusion. Ascites. Probable cirrhosis.. at 0205 Reported and signed by: William Fraga MD Electronically Signed: William Fraga MD at 2:03 EST Tel , Service support ,
[2020-10-02] MEDS: Cefazolin 1 GM/50 ML BAG IV ×2 (11:01→22:44)
--- NOTE | 2020-10-02 12:24 | PCM.PN.HOSP ---
<Júnior Guzman - Last Filed: 10/02/20 12:24> Patient Problems: Active and Suspected Problems (Last Reviewed 09/19/20 @ 12:09 by Mauricio Zamora CAR RENTAL MANAGER, CAR RENTAL MANAGER-C) COPD (chronic obstructive pulmonary disease) (Acute) Systolic CHF (Acute) Leg ulcer (Acute) Reason for Visit: CHF, COPD, bloody stool Subjective: Mild improvement in SOB. No cough/fever/chills. No LE edema. No CP/palp/pressure. This AM the patient had a bright red bloody stool. He states he had a colonoscopy at least [address] Caceres and does not remember any specific findings. The patient did eat breakfast today. He is amenable to endoscopy if needed. Vitals/I&O's: Vital Signs Temp Pulse Resp BP Pulse Ox 97.8 F 100 14 113/58 L 98 10/02/20 12:18 10/02/20 12:18 10/02/20 12:18 10/02/20 12:18 10/02/20 12:18 Oxygen Flow Rate (L/min) 4 Oxygen Delivery Method Nasal Cannula Weight: 124 lb 5.451 oz Body Mass Index (BMI) 18.9 Intake and Output for Last 24 Hours 09/30/20 10/01/20 10/02/20 23:59 23:59 23:59 Intake Total 275 / 275 1370 / 1370 270 / 270 Output Total 500 / 500 675 / 675 Balance -225 / -225 695 / 695 270 / 270 General: Alert, Oriented x3, Cooperative HEENT: Atraumatic, PERRLA, EOMI, Normocephalic Neck: Supple, No JVD, Negative Carotid Bruits Lungs: Clear to auscultation, Diminished Cardiovascular: Regular rate, No murmurs Abdomen: Bowel Sounds Present, Soft, Non Tender Extremities: No edema, Capillary Refill Less than 3 Seconds Skin: No rashes, No breakdown Musculoskeletal: No Tenderness to Palpation of Joints or Extremities Neurological: Cranial nerves II-XII grossly intact Psych/Mental Status: Normal Affect, Appropriate, Alert and oriented to time, place, person, mood and affect Microbiology Past 72 Hours 09/30/20 19:30 Mucosa - Nose Respiratory Panel (PCR) - Final 09/30/20 15:20 Mucosa - Nose SARS-CoV-2 Antigen (Rapid) - Final Laboratory Results 10/02/20 04:15: Sodium 131 L, Potassium 3.8, Chloride 90 L, Carbon Dioxide 35.0 H, Anion Gap 6, BUN 92 H, Creatinine 2.13 H, Estim Creat Clear Calc 23.94, Est GFR (MDRD) Af Amer 40 L, Est GFR (MDRD) Non-Af 33 L, BUN/Creatinine Ratio 43.2 H, Glucose 168 H, Calcium 8.1 L 10/02/20 04:15: B-Natriuretic Peptide 2083.7 H 10/02/20 04:15: Hgb 9.0 L, Hct 27.6 L Current Medications Acetaminophen (Acetaminophen 325 Mg Tablet) 650 mg PO Q6H PRN PRN PRN Reason: Pain Score 1-10/Temp > 100.7 F Last Admin: 10/01/20 20:08 Dose: 650 mg Documented by: Al Hydroxide/Mg Hydroxide (Mag Hydrox/Al Hydrox/Simeth 30 Ml Udc) 30 ml PO Q6H PRN PRN PRN Reason: Gastric Burning Albuterol Sulfate (Albuterol 2.5 Mg/3 Ml Vial.Neb.) 2.5 mg INHALATION Q2H PRN PRN PRN Reason: SOB/Wheezing Albuterol/Ipratropium (Ipratropium/Albuterol Sulfate 3 Ml Ampul.Neb) 3 ml INHALATION Q4HWA.RT [facility] Last Admin: 10/02/20 06:40 Dose: 3 ml Documented by: Carvedilol (Carvedilol 6.25 Mg Tablet) 6.25 mg PO BID [facility] Last Admin: 10/02/20 10:42 Dose: 6.25 mg Documented by: Furosemide (Furosemide 40 Mg/4 Ml Vial) 40 mg IV BIDLX [facility] Last Admin: 10/02/20 10:42 Dose: 40 mg Documented by: Cefazolin Sodium () 1 gm in 50 mls @ 100 mls/hr IV Q12 [facility] Last Infusion: 10/02/20 12:00 Dose: Infused Documented by: Pantoprazole Sodium 40 mg/ (Sodium Chloride) 110 mls @ 330 mls/hr IV Q12 [facility] Last Infusion: 10/02/20 11:01 Dose: Infused Documented by: Nitroglycerin (Nitroglycerin (Inpatient Use) 0.4 Mg Tab.Subl) 0.4 mg SUBLINGUAL Q5M PRN PRN Reason: CARDIAC/CHEST PAIN Ondansetron HCl (Ondansetron 4 Mg/2 Ml Vial) 4 mg IV Q8H PRN PRN PRN Reason: NAUSEA/VOMITING Sodium Chloride (0.9% Saline Lock 10 Ml Syringe) 10 - 40 ml IV UD PRN PRN Reason: SALINE FLUSH Last Admin: 10/02/20 12:14 Dose: 10 ml Documented by: Tramadol HCl (Tramadol 50 Mg Tablet) 50 mg PO BID PRN PRN PRN Reason: Pain 1-10 or Fever Last Admin: 10/02/20 07:14 Dose: 50 mg Documented by: STROKE Vital Signs/Narrative: Vital Signs Temp Pulse Resp BP Pulse Ox 10/02/20 12:18 97.8 F 100 14 113/58 L 98 10/02/20 09:45 97.8 F 104 H 14 106/58 L 95 Medical Necessity - Tobacco Use Smoking Status: Former smoker Tobacco Use: Non-smoker Assessment/Plan All Active Problems (Last Reviewed 09/19/20 @ 12:09 by Mauricio Zamora CAR RENTAL MANAGER, CAR RENTAL MANAGER-C) COPD (chronic obstructive pulmonary disease) (Acute) Systolic CHF (Acute) Leg ulcer (Acute) History of non-ST elevation myocardial infarction (NSTEMI) (Resolved 07/04/20) Atrial flutter (Ruled-out) 1. Acute on chronic systolic CHF and acute COPD exacerbation - continue IV lasix, solumedrol, aerosols. pt remains stable on home o2, reports minimal improvement in SOB. Respiratory panel negative. covid negative. -Pts CO2 has trended up on BMP, plan is to obtain ABG today to better quantify. 2. Indeterminate troponin - cardiology consulted. previously cardiology planned to pursue a heart cath in the future. pt c/o some chest heaviness. Pt may need a heart cath, however now he has acute GI bleeding and antiplatelets must be held at this time. 3. Acute blood loss anemia 2/2 GI bleed presumed lower - Hgb 14.4-->9.0. Bright red bloody BM this AM. Pt does have a hx of alcoholism quit at least 1 month prior. LFTs mildly abnormal. -Heparin, Aspirin and pletal are discontinued. -General surgery consult. Probably endoscopy tomorrow AM. 4. Chronic hypoxic respiratory failure -2/2 COPD/CHF. Pt is at his baseline - 4lpm. 5. CKD-III - creatinine stable, BUN markedly elevated at 92. No prior nephrology. Will consult [facility] will complicate #2 if pt will need a heart cath 6. PAD - Recent PVRs with Bilateral severe occlusive disease with SIRENA 0.22 and 0.37. Recommend f/u with the wound care center and Dr. Phillips. He is on aspirin and cilostazol. 7. HTN - stable 8. Hx alcoholism - mildly abnormal LFTs. RUQ US pending. DVT ppx: chemoppx contraindicated due to acute gi bleed, SCDs contraindicated due to severe PAD. DC planning: PTOT evals, recent fall at home. This patient was seen by Júnior Guzman PA-C under the supervision of Dr. Lopez <Rajesh Lopez - Last Filed: 10/02/20 15:42> Reason for Visit: Follow-up for GI bleed, CHF exacerbation, COPD and chronic alcohol use. Objective: Seen and examined. Patient admitted that he has history of chronic alcohol use and drank 1 to 2 pints of chief program on most other days and had recently quit 1 or 2 weeks ago. Patient was admitted with shortness of breath, CHF exacerbation this plan for heart cath which is postponed as patient had GI bleed. Patient had 2 episodes of bright red rectal bleed. Prior to that he had Pepto-Bismol, OTC about 2 to 3 months ago as he had gastric upset. Physical exam: General: Alert, Oriented x3, Cooperative HEENT: Atraumatic, PERRLA, EOMI, Normocephalic Oral: No Gingival or Mucosal Lesions/ Ulcerations Neck: Supple, No JVD, Negative Carotid Bruits Lungs: Air entry diminished in bilateral lung bases. No crepitation/rhonchi Cardiovascular: Regular rate, Regular Rhythm, Normal S1, Normal S2, No murmurs Abdomen: Bowel Sounds Present, Soft, Non Tender, Non-Distended. No palpable mass : No renal angle tenderness. No suprapubic tenderness. Extremities: No edema, Capillary Refill Less than 3 Seconds Skin: No rashes, No breakdown Musculoskeletal: Moderate muscle atrophy of extremities and loss of subcutaneous fat. No Tenderness to Palpation of Joints or Extremities Neurological: Cranial nerves II-XII grossly intact, Deep Tendon Reflexes 2+/4 and Symmetrical, Neuro grossly intact Psych/Mental Status: Normal Affect, Appropriate. Vitals/I&O's: Vital Signs Temp Pulse Resp BP Pulse Ox 97.8 F 110 H 14 113/58 L 98 10/02/20 12:18 10/02/20 13:07 10/02/20 12:18 10/02/20 12:18 10/02/20 12:18 Oxygen Flow Rate (L/min) 4 Oxygen Delivery Method Nasal Cannula Weight: 124 lb 5.451 oz Body Mass Index (BMI) 18.9 Intake and Output for Last 24 Hours 09/30/20 10/01/20 10/02/20 23:59 23:59 23:59 Intake Total 275 / 275 1370 / 1370 750 / 750 Output Total 500 / 500 675 / 675 850 / 850 Balance -225 / -225 695 / 695 -100 / -100 Microbiology Past 72 Hours 09/30/20 19:30 Mucosa - Nose Respiratory Panel (PCR) - Final 09/30/20 15:20 Mucosa - Nose SARS-CoV-2 Antigen (Rapid) - Final Laboratory Results 10/02/20 04:15: Sodium 131 L, Potassium 3.8, Chloride 90 L, Carbon Dioxide 35.0 H, Anion Gap 6, BUN 92 H, Creatinine 2.13 H, Estim Creat Clear Calc 23.94, Est GFR (MDRD) Af Amer 40 L, Est GFR (MDRD) Non-Af 33 L, BUN/Creatinine Ratio 43.2 H, Glucose 168 H, Calcium 8.1 L 10/02/20 04:15: B-Natriuretic Peptide 2083.7 H 10/02/20 04:15: Hgb 9.0 L, Hct 27.6 L 10/02/20 13:06: Specimen Type ART, Sample Site L Radial, pH 7.39, Bicarbonate Actual 34.2 H, Total CO2 36, Base Excess 9 H, O2 Saturation 98, ABG pCO2 56.2 H, ABG pO2 114 H, [place] Test Positive, O2 Delivery Device Cannula, Liter Flow 4.0 Current Medications Acetaminophen (Acetaminophen 325 Mg Tablet) 650 mg PO Q6H PRN PRN PRN Reason: Pain Score 1-10/Temp > 100.7 F Last Admin: 10/01/20 20:08 Dose: 650 mg Documented by: Al Hydroxide/Mg Hydroxide (Mag Hydrox/Al Hydrox/Simeth 30 Ml Udc) 30 ml PO Q6H PRN PRN PRN Reason: Gastric Burning Albuterol Sulfate (Albuterol 2.5 Mg/3 Ml Vial.Neb.) 2.5 mg INHALATION Q2H PRN PRN PRN Reason: SOB/Wheezing Albuterol/Ipratropium (Ipratropium/Albuterol Sulfate 3 Ml Ampul.Neb) 3 ml INHALATION Q4HWA.RT [facility] Last Admin: 10/02/20 06:40 Dose: 3 ml Documented by: Carvedilol (Carvedilol 12.5 Mg Tablet) 12.5 mg PO BID [facility] Furosemide (Furosemide 40 Mg/4 Ml Vial) 40 mg IV BIDLX [facility] Last Admin: 10/02/20 10:42 Dose: 40 mg Documented by: Cefazolin Sodium () 1 gm in 50 mls @ 100 mls/hr IV Q12 [facility] Last Infusion: 10/02/20 12:00 Dose: Infused Documented by: Pantoprazole Sodium 40 mg/ (Sodium Chloride) 110 mls @ 330 mls/hr IV Q12 [facility] Last Infusion: 10/02/20 11:01 Dose: Infused Documented by: Nitroglycerin (Nitroglycerin (Inpatient Use) 0.4 Mg Tab.Subl) 0.4 mg SUBLINGUAL Q5M PRN PRN Reason: CARDIAC/CHEST PAIN Ondansetron HCl (Ondansetron 4 Mg/2 Ml Vial) 4 mg IV Q8H PRN PRN PRN Reason: NAUSEA/VOMITING Sodium Chloride (0.9% Saline Lock 10 Ml Syringe) 10 - 40 ml IV UD PRN PRN Reason: SALINE FLUSH Last Admin: 10/02/20 12:14 Dose: 10 ml Documented by: STROKE Vital Signs/Narrative: Vital Signs Temp Pulse Resp BP Pulse Ox 10/02/20 13:07 110 H 10/02/20 12:18 97.8 F 100 14 113/58 L 98 Assessment/Plan This patient was seen in conjunction with Júnior VANEGAS. I have independently interviewed and examined the patient and reviewed pertinent history, examination findings, laboratory and plan of management. I have reviewed the note and agree with the documented findings with the few additional points. In brief, patient is 70, gentleman with history of chronic alcohol use, chronic systolic heart failure, COPD admitted with shortness of breath. Patient started on CHF protocol with Lasix. 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 Patient started on Protonix 40 mg IV twice daily. H&H dropped from 12.8 to 9 g. Hemogram shows MCV 100.7, normal MCH. Platelet count 1 35,000. Liver profile ALT 102, AST 73, total bili normal. Alkaline phosphatase 73. Surgeon has been consulted and plan for EGD and colonoscopy tomorrow a.m. Right upper quadrant sonogram ordered. Aspirin, cilostazol and heparin subcu discontinued. Patient also has chronic hypoxic respiratory failure secondary to COPD and CHF currently on baseline 4 L. 2D echo EF 18% with severe global LV systolic dysfunction. LA moderately enlarged. Normal RV size. Mild TR, RVSP 35 mmHg. Patient has peripheral arterial disease with recent PVR showed bilateral severe occlusive disease. Patient other comorbidities as mentioned above I have discussed my assessment with Júnior VANEGAS and orders have been reviewed. Inpatient E&M: 41912 Subs Hosp L2
--- NOTE | 2020-10-02 12:56 | PN.CARD_ITS ---
Subjectve: Patient seen and evaluated. Appears to be doing fair. Objective: Vital Signs Temp Pulse Resp BP Pulse Ox 97.8 F 100 14 113/58 L 98 10/02/20 12:18 10/02/20 12:18 10/02/20 12:18 10/02/20 12:18 10/02/20 12:18 Oxygen Flow Rate (L/min) 4 Oxygen Delivery Method Nasal Cannula Weight: 124 lb 5.451 oz Body Mass Index (BMI) 18.9 Intake and Output for Last 24 Hours 09/30/20 10/01/20 10/02/20 23:59 23:59 23:59 Intake Total 275 / 275 1370 / 1370 270 / 270 Output Total 500 / 500 675 / 675 Balance -225 / -225 695 / 695 270 / 270 General: Awake, Alert, Oriented x 3 HEENT: PERRL, EOMI, Sclera Non Icteric Neck: Supple, Good ROM, No Lymph Node Enlargement Lungs: Clear to auscultation Cardiovascular: Regular Rhythm, Normal S1, Normal S2, No Murmurs, No Rubs, No Gallops Vascular: No Carotid Bruits, Normal Femoral Pulses, Normal Radial Pulses, Normal Dorsalis Pedal Pulse, Normal Posterior Tibial Pulses Abdomen: Bowel Sounds Present, Soft, Non Tender, No HSM, No Organomegaly Extremities: No Cyanosis, No Clubbing, Cool Musculoskeletal: Erythema Neurological: No Focal Motor or Sensory Deficit Psych/Mental Status: Appropriate 10/02/20 04:15: Sodium 131 L, Potassium 3.8, Chloride 90 L, Carbon Dioxide 35.0 H, Anion Gap 6, BUN 92 H, Creatinine 2.13 H, Est GFR (MDRD) Af Amer 40 L, Est GFR (MDRD) Non-Af 33 L, BUN/Creatinine Ratio 43.2 H, Glucose 168 H, Calcium 8.1 L 10/02/20 04:15: B-Natriuretic Peptide 2083.7 H 10/02/20 04:15: Hgb 9.0 L, Hct 27.6 L Rhythm: EKG: ECHO: Stress Test: Cardiac Cath: PCI: CT Surgery: Holter monitor: EPS: PPM: CXR: Chest CT Scan: Medical Necessity - Tobacco Use Smoking Status: Former smoker Tobacco Use: Non-smoker Assessment/Plan 1. Chronic congestive heart failure systolic * Patient presents with systolic heart failure. At this time the patient would remain on the beta-marcy and I would recommend increasing the carvedilol to 12.5 mg twice a day for better heart rate control. The idea will be to titrate the beta-marcy to the maximum dose of 25 twice a day and then consider repeating his echocardiogram. We would also consider a defibrillator implantation after he has been appropriately worked up. * Will also continue the diuretics with intravenous Lasix and subsequently switch over to p.o. Lasix * His renal function appears to have improved but at this time still has difficulty with compliance. I would hold off on an ENMA inhibitor or ARB at this particular time. * After patient is euvolemic then will consider adding a starting dose. * May schedule him for a pharmacologic myocardial perfusion stress test during this visit to exclude obstructive coronary disease as a potential etiology. 2. Anemia * The etiology of the above is not entirely clear. I would like to wait until this has been fully evaluated before starting the patient on aspirin or any P2 Y 12 inhibitor. * Will await GI or surgical evaluation. * * Thank you for allowing me to participate in the care of your patient. Please don't hesitate to call if any issues arise.
[2020-10-02 13:11] LABS: Allen Test Positive; Base Excess 9 mmol/L (-2 to +2); Bicarbonate 34.2 mmol/L (22-26); Blood Gas Specimen Type ART; O2 Delivery Device Cannula; PO2 114 mmHG (75-100); SITE L Radial; SO2 98 % (95-99); Total Carbon Dioxide 36 mmol/L; pCO2 56.2 mmHg (35-45); pH 7.39 (7.35-7.45)
--- NOTE | 2020-10-02 13:16 | CON.PCM_ITS ---
Reason for Consult Date of Consultation: 10/02/20 History of Present Illness: The patient is a 70 year old M patient was planned to have a cardiac cath this morning however he did have bright red blood per rectum. Hemoglobin dropped from 12-9 this morning. Patient denies ever having this in the past. Patient states his last colonoscopy was 10 years ago and had maybe [address] Lyons. Patient denies any abdominal pain/nausea/vomiting. Patient does have ejection fraction of 15% as well as the elevated troponins with unknown etiology thus the cardiac cath was planned. When asked patient was not really able to tell me why he came into the hospital according to the chart came in on 09/30 due to some shortness of breath which is chronic. Past Medical History Past Medical History (Chronic Problems): Chronic Problems (Last Reviewed 09/19/20 @ 12:09 by Mauricio Zamora NUTRITION THERAPIST, NUTRITION THERAPIST-C) Anemia (Chronic) Protein-calorie malnutrition, mild (Chronic) Chronic back pain (Chronic) Dilated cardiomyopathy (Chronic) Acute systolic (congestive) heart failure (Chronic 07/04/20) Essential (primary) hypertension (Chronic) Chronic kidney disease (CKD) (Chronic) Abnormal CT scan, lung (Chronic 02/2020) There is a stellate margin 9 mm density of the right lower lobe, new in the interval. This may merely represent pneumonic or atelectatic process. Neoplasm cannot be excluded however. Close interval follow-up in 2-3 months is recommended. 02/2020 Peripheral vascular occlusive disease (Chronic) Bilateral severe occlussive disease with SIRENA 0.22 and 0.37. 07/12/2020 Nicotine dependence (Chronic) EtOH dependence (Chronic) Medical History: Medical History (Last Reviewed 09/19/20 @ 12:09 by Mauricio Zamora NUTRITION THERAPIST, NUTRITION THERAPIST-C) History of non-ST elevation myocardial infarction (NSTEMI) (Resolved) Onset Date: 07/04/20 I25.2 Dilated cardiomyopathy (Chronic) I42.0 Acute systolic (congestive) heart failure (Chronic) Onset Date: 07/04/20 I50.21 Essential (primary) hypertension (Chronic) I10 Chronic kidney disease (CKD) (Chronic) N18.[address] scan, lung (Chronic) Onset Date: 02/2020 R91.8 There is a stellate margin 9 mm density of the right lower lobe, new in the interval. This may merely represent pneumonic or atelectatic process. Neoplasm cannot be excluded however. Close interval follow-up in 2-3 months is recommended. 02/2020 Peripheral vascular occlusive disease (Chronic) I73.9 Bilateral severe occlussive disease with SIRENA 0.22 and 0.37. 07/12/2020 Nicotine dependence (Chronic) F17.200 EtOH dependence (Chronic) F10.20 COPD (chronic obstructive pulmonary disease) J44.9 Depression F32.9 Osteoarthritis M19.90 Hypoxemia R09.02 Atrial flutter (Ruled-out) I48.92 Allergies No Known Allergies Allergy (Verified 09/30/20 14:10) Home Medications: Ambulatory Orders Medication Instructions Recorded cilostazol 50 mg tablet 50 mg PO BID 07/21/20 albuterol sulfate 90 mcg/actuation 2 puff INHALATION Q6H PRN PRN #18 g 09/18/20 aerosol inhaler acetaminophen 500 mg capsule 1,000 mg PO Q6H PRN cap 09/19/20 tramadol 50 mg tablet 50 mg PO BID PRN #60 tab 09/21/20 Aspirin [Aspirin, Baby] 81 mg PO DAILY@0800 09/30/20 Carvedilol 6.25 mg PO BID 09/30/20 Furosemide 40 mg PO BID 09/30/20 Surgical History: - - Denies any surgical history. Psychiatric History: No pertinent psych hx Lives: Alone Smoking Status: Former smoker Tobacco Use: Non-smoker Alcohol: None Drugs: None - *Family History Maternal Family History: Family History (Last Reviewed 09/30/20 @ 17:25 by ROMINA Menon) Mother Heart disease CVA (cerebral vascular accident) Father Alcohol abuse Brother CVA (cerebral vascular accident) Sister Thyroid disorder History Items: Heart Disease Paternal Family History: Family History (Last Reviewed 09/30/20 @ 17:25 by ROMINA Menon) Mother Heart disease CVA (cerebral vascular accident) Father Alcohol abuse Brother CVA (cerebral vascular accident) Sister Thyroid disorder History Items: - - Alcoholism Review of Systems Constitutional: Denies: Anorexia Eyes: Denies: Drainage HEENT: Denies: Difficulty Swallowing Cardiovascular: Denies: Chest Pain Respiratory: Reports: Shortness of Breath Gastrointestinal: Reports: Hematochezia. Denies: Abdominal Pain, Nausea, Vomiti ng Genitourinary: Denies: Dysuria Skin: Denies: Jaundice Neurological: Denies: Slurred speech, Confusion Psychiatric: Denies: Anxiety Hematologic/ Lymphatic: Reports: Anemia Patient Problems: Active and Suspected Problems (Last Reviewed 09/19/20 @ 12:09 by Mauricio Zamora NUTRITION THERAPIST, NUTRITION THERAPIST-C) COPD (chronic obstructive pulmonary disease) (Acute) Systolic CHF (Acute) Leg ulcer (Acute) - Physical Exam Vitals/I&O's: Vital Signs Temp Pulse Resp BP Pulse Ox 97.8 F 100 14 113/58 L 98 10/02/20 12:18 10/02/20 12:18 10/02/20 12:18 10/02/20 12:18 10/02/20 12:18 Oxygen Flow Rate (L/min) 4 Oxygen Delivery Method Nasal Cannula Weight: 124 lb 5.451 oz Body Mass Index (BMI) 18.9 Intake and Output for Last 24 Hours 09/30/20 10/01/20 10/02/20 23:59 23:59 23:59 Intake Total 275 / 275 1370 / 1370 270 / 270 Output Total 500 / 500 675 / 675 Balance -225 / -225 695 / 695 270 / 270 General: Alert, Cooperative, No apparent distress Lungs: Normal air movement Cardiovascular: Regular rate Abdomen: Soft, Non Tender, Non-Distended Extremities: No clubbing, No cyanosis, No edema, - - Right farley dressed Skin: - - Right farley dressed Neurological: Cranial nerves II-XII grossly intact Psych/Mental Status: Normal Affect Microbiology Past 72 Hours 09/30/20 19:30 Mucosa - Nose Respiratory Panel (PCR) - Final 09/30/20 15:20 Mucosa - Nose SARS-CoV-2 Antigen (Rapid) - Final Laboratory Results 10/02/20 04:15: Sodium 131 L, Potassium 3.8, Chloride 90 L, Carbon Dioxide 35.0 H, Anion Gap 6, BUN 92 H, Creatinine 2.13 H, Estim Creat Clear Calc 23.94, Est GFR (MDRD) Af Amer 40 L, Est GFR (MDRD) Non-Af 33 L, BUN/Creatinine Ratio 43.2 H , Glucose 168 H, Calcium 8.1 L 10/02/20 04:15: B-Natriuretic Peptide 2083.7 H 10/02/20 04:15: Hgb 9.0 L, Hct 27.6 L 10/02/20 13:06: Specimen Type ART, Sample Site L Radial, pH 7.39, Bicarbonate Actual 34.2 H, Total CO2 36, Base Excess 9 H, O2 Saturation 98, ABG pCO2 56.2 H, ABG pO2 114 H, Clayton Test Positive, O2 Delivery Device Cannula, Liter Flow 4.0 Current Medications Acetaminophen (Acetaminophen 325 Mg Tablet) 650 mg PO Q6H PRN PRN PRN Reason: Pain Score 1-10/Temp > 100.7 F Last Admin: 10/01/20 20:08 Dose: 650 mg Documented by: Al Hydroxide/Mg Hydroxide (Mag Hydrox/Al Hydrox/Simeth 30 Ml Udc) 30 ml PO Q6H PRN PRN PRN Reason: Gastric Burning Albuterol Sulfate (Albuterol 2.5 Mg/3 Ml Vial.Neb.) 2.5 mg INHALATION Q2H PRN PRN PRN Reason: SOB/Wheezing Albuterol/Ipratropium (Ipratropium/Albuterol Sulfate 3 Ml Ampul.Neb) 3 ml INHALATION Q4HWA.RT [facility] Last Admin: 10/02/20 06:40 Dose: 3 ml Documented by: Carvedilol (Carvedilol 12.5 Mg Tablet) 12.5 mg PO BID AYO Furosemide (Furosemide 40 Mg/4 Ml Vial) 40 mg IV BIDLX [facility] Last Admin: 10/02/20 10:42 Dose: 40 mg Documented by: Cefazolin Sodium () 1 gm in 50 mls @ 100 mls/hr IV Q12 [facility] Last Infusion: 10/02/20 12:00 Dose: Infused Documented by: Pantoprazole Sodium 40 mg/ (Sodium Chloride) 110 mls @ 330 mls/hr IV Q12 [facility] Last Infusion: 10/02/20 11:01 Dose: Infused Documented by: Nitroglycerin (Nitroglycerin (Inpatient Use) 0.4 Mg Tab.Subl) 0.4 mg SUBLINGUAL Q5M PRN PRN Reason: CARDIAC/CHEST PAIN Ondansetron HCl (Ondansetron 4 Mg/2 Ml Vial) 4 mg IV Q8H PRN PRN PRN Reason: NAUSEA/VOMITING Sodium Chloride (0.9% Saline Lock 10 Ml Syringe) 10 - 40 ml IV UD PRN PRN Reason: SALINE FLUSH Last Admin: 10/02/20 12:14 Dose: 10 ml Documented by: Assessment/Plan All Active Problems (Last Reviewed 09/19/20 @ 12:09 by Mauricio Zamora NUTRITION THERAPIST, NUTRITION THERAPIST-C) COPD (chronic obstructive pulmonary disease) (Acute) Systolic CHF (Acute) Leg ulcer (Acute) History of non-ST elevation myocardial infarction (NSTEMI) (Resolved 07/04/20) Atrial flutter (Ruled-out) 70 y/o M with GI bleed, elevated troponins, Acute HF Golnorma will be started for prep for EGD/colonoscopy tomorrow maybe early afternoon I have discussed the above with the patient. I have offered the patient EGD & colonoscopy for evaluation. I have explained the risks/benefits of the procedure and described the procedure. I have discussed the risks with the patient, including but not limited to: infection, bleeding, perforation of the GI tract requiring emergency surgery, inability to complete the procedure, injury to any internal organs, complications of anesthesia, etc. - the patient understands and agrees to proceed. I have answered all the patient's questions to the patient's satisfaction and the patient has no further questions. Juany De Souza M.D. Pager: [phone] [facility] [address] [place] [address] [address] [place] [address] Office: [phone] Procedure Criteria Procedure Type: Elective COVID Risk Discussion: The surgeon/proceduralist and patient have discussed in detail the risk of exposure to and/or potential harm posed by the COVID-19 virus with having a surgery/procedure at this time versus the risk of delaying the surgery/procedure. It is not possible to know either the risk of delaying the surgery or procedure or chance of getting an infection with perfect accuracy, but a joint decision was made between the patient and the surgeon/proceduralist to proceed at this time with the scheduled surgery/procedure as indicated on the consent form. Inpatient E&M: 03843 Init Hosp L3
--- NOTE | 2020-10-02 15:06 | PN_ITS ---
Patient Problems: Active and Suspected Problems (Last Reviewed 09/19/20 @ 12:09 by Mauricio Zamora PRIMER CHARGING TOOL SETTER, PRIMER CHARGING TOOL SETTER-C) COPD (chronic obstructive pulmonary disease) (Acute) Systolic CHF (Acute) Leg ulcer (Acute) Subjective: Patient was seen today for follow up on leg ulcerations. Patient noted to have hgb drop, further workup in progress by general surgery. Patient resting in bed, relates foot/legs doing well at this time with no complaints. Patient afebrile. - Physical Exam Vitals/I&O's: Vital Signs Temp Pulse Resp BP Pulse Ox 97.8 F 110 H 14 113/58 L 98 10/02/20 12:18 10/02/20 13:07 10/02/20 12:18 10/02/20 12:18 10/02/20 12:18 Oxygen Flow Rate (L/min) 4 Oxygen Delivery Method Nasal Cannula Weight: 56.4 kg Body Mass Index (BMI) 18.9 Intake and Output for Last 24 Hours 09/30/20 10/01/20 10/02/20 23:59 23:59 23:59 Intake Total 275 / 275 1370 / 1370 750 / 750 Output Total 500 / 500 675 / 675 850 / 850 Balance -225 / -225 695 / 695 -100 / -100 General: Alert, Oriented x3, Cooperative, No apparent distress Extremities: Capillary Refill Less than 3 Seconds - CFT < 3 seconds to all toes bilateral, no evidence of acute ischemia to the foot or ankle bilateral. No POP or pain on ROM to the foot or ankle bilateral., No Calf Tenderness, - - Reviewed wound photos - small superfical wounds to right leg, some dry superfical eschars to left leg - no evidence of infection. Microbiology Past 72 Hours 09/30/20 19:30 Mucosa - Nose Respiratory Panel (PCR) - Final 09/30/20 15:20 Mucosa - Nose SARS-CoV-2 Antigen (Rapid) - Final Laboratory Results 10/02/20 04:15: Sodium 131 L, Potassium 3.8, Chloride 90 L, Carbon Dioxide 35.0 H, Anion Gap 6, BUN 92 H, Creatinine 2.13 H, Estim Creat Clear Calc 23.94, Est GFR (MDRD) Af Amer 40 L, Est GFR (MDRD) Non-Af 33 L, BUN/Creatinine Ratio 43.2 H , Glucose 168 H, Calcium 8.1 L 10/02/20 04:15: B-Natriuretic Peptide 2083.7 H 10/02/20 04:15: Hgb 9.0 L, Hct 27.6 L 10/02/20 13:06: Specimen Type ART, Sample Site L Radial, pH 7.39, Bicarbonate Actual 34.2 H, Total CO2 36, Base Excess 9 H, O2 Saturation 98, ABG pCO2 56.2 H, ABG pO2 114 H, Clayton Test Positive, O2 Delivery Device Cannula, Liter Flow 4.0 Current Medications Acetaminophen (Acetaminophen 325 Mg Tablet) 650 mg PO Q6H PRN PRN PRN Reason: Pain Score 1-10/Temp > 100.7 F Last Admin: 10/01/20 20:08 Dose: 650 mg Documented by: Al Hydroxide/Mg Hydroxide (Mag Hydrox/Al Hydrox/Simeth 30 Ml Udc) 30 ml PO Q6H PRN PRN PRN Reason: Gastric Burning Albuterol Sulfate (Albuterol 2.5 Mg/3 Ml Vial.Neb.) 2.5 mg INHALATION Q2H PRN PRN PRN Reason: SOB/Wheezing Albuterol/Ipratropium (Ipratropium/Albuterol Sulfate 3 Ml Ampul.Neb) 3 ml INHALATION Q4HWA.RT [facility] Last Admin: 10/02/20 06:40 Dose: 3 ml Documented by: Carvedilol (Carvedilol 12.5 Mg Tablet) 12.5 mg PO BID AYO Furosemide (Furosemide 40 Mg/4 Ml Vial) 40 mg IV BIDLX [facility] Last Admin: 10/02/20 10:42 Dose: 40 mg Documented by: Cefazolin Sodium () 1 gm in 50 mls @ 100 mls/hr IV Q12 [facility] Last Infusion: 10/02/20 12:00 Dose: Infused Documented by: Pantoprazole Sodium 40 mg/ (Sodium Chloride) 110 mls @ 330 mls/hr IV Q12 [facility] Last Infusion: 10/02/20 11:01 Dose: Infused Documented by: Nitroglycerin (Nitroglycerin (Inpatient Use) 0.4 Mg Tab.Subl) 0.4 mg SUBLINGUAL Q5M PRN PRN Reason: CARDIAC/CHEST PAIN Ondansetron HCl (Ondansetron 4 Mg/2 Ml Vial) 4 mg IV Q8H PRN PRN PRN Reason: NAUSEA/VOMITING Sodium Chloride (0.9% Saline Lock 10 Ml Syringe) 10 - 40 ml IV UD PRN PRN Reason: SALINE FLUSH Last Admin: 10/02/20 12:14 Dose: 10 ml Documented by: Medical Necessity - Tobacco Use Smoking Status: Former smoker Tobacco Use: Non-smoker Assessment/Plan All Active Problems (Last Reviewed 09/19/20 @ 12:09 by Mauricio Zamora PRIMER CHARGING TOOL SETTER, PRIMER CHARGING TOOL SETTER-C) COPD (chronic obstructive pulmonary disease) (Acute) Systolic CHF (Acute) Leg ulcer (Acute) History of non-ST elevation myocardial infarction (NSTEMI) (Resolved 07/04/20) Atrial flutter (Ruled-out) Bilateral lower extremity peripheral arterial disease Small right leg ulcerations down to superficial subcutaneous tissue Reviewed AIDA - patient needs to follow up with vascular specialist for further workup and evaluation - his lower extremity vascular disease is chronic and there is no evidence of acute ischemia at this time. Continue with daily dressing changes to right leg ulcerations - hydrogel, adaptic and kerlix gauze - no compression due to PAD. Podiatry will continue to follow while in house.
--- NOTE | 2020-10-02 15:21 | CON.PCM_ITS ---
Problem List (1) Systolic CHF Status: Acute (2) Chronic kidney disease (CKD) Status: Chronic Consultation - Renal 10/02/20 PCP/ Referring MD: Requesting physician: [] Primary care physician: Dr. Heena Oseguera MD Reason for Consultation:: RACHEL - History of Present Illness History of Present Illness: The patient is a 70 year old M who presented to hospital with complaints of dyspnea. CXR on admit was showing edema and effusions. received IV lasix since admit. feels better. deniesany urinary complaints. was supposed to go to cath today but was found to have GI bleed. for Colonoscopy tomorrow. has CKD 3 at baseline cr around 1.5 or so. does not check weight regularly - Allergies Allergies: Allergies No Known Allergies Allergy (Verified 09/30/20 14:10) - Current Medications Current Medications: Current Medications Acetaminophen (Acetaminophen 325 Mg Tablet) 650 mg PO Q6H PRN PRN PRN Reason: Pain Score 1-10/Temp > 100.7 F Last Admin: 10/01/20 20:08 Dose: 650 mg Documented by: Al Hydroxide/Mg Hydroxide (Mag Hydrox/Al Hydrox/Simeth 30 Ml Udc) 30 ml PO Q6H PRN PRN PRN Reason: Gastric Burning Albuterol Sulfate (Albuterol 2.5 Mg/3 Ml Vial.Neb.) 2.5 mg INHALATION Q2H PRN PRN PRN Reason: SOB/Wheezing Albuterol/Ipratropium (Ipratropium/Albuterol Sulfate 3 Ml Ampul.Neb) 3 ml INHALATION Q4HWA.RT [facility] Last Admin: 10/02/20 06:40 Dose: 3 ml Documented by: Carvedilol (Carvedilol 12.5 Mg Tablet) 12.5 mg PO BID AYO Furosemide (Furosemide 40 Mg/4 Ml Vial) 40 mg IV BIDLX [facility] Last Admin: 10/02/20 10:42 Dose: 40 mg Documented by: Cefazolin Sodium () 1 gm in 50 mls @ 100 mls/hr IV Q12 [facility] Last Infusion: 10/02/20 12:00 Dose: Infused Documented by: Pantoprazole Sodium 40 mg/ (Sodium Chloride) 110 mls @ 330 mls/hr IV Q12 [facility] Last Infusion: 10/02/20 11:01 Dose: Infused Documented by: Nitroglycerin (Nitroglycerin (Inpatient Use) 0.4 Mg Tab.Subl) 0.4 mg SUBLINGUAL Q5M PRN PRN Reason: CARDIAC/CHEST PAIN Ondansetron HCl (Ondansetron 4 Mg/2 Ml Vial) 4 mg IV Q8H PRN PRN PRN Reason: NAUSEA/VOMITING Sodium Chloride (0.9% Saline Lock 10 Ml Syringe) 10 - 40 ml IV UD PRN PRN Reason: SALINE FLUSH Last Admin: 10/02/20 12:14 Dose: 10 ml Documented by: - Past Medical History Past Medical History (Chronic Problems): Chronic Problems (Last Reviewed 09/19/20 @ 12:09 by Mauricio Zamora WAREHOUSE STOCKER, WAREHOUSE STOCKER-C) Anemia (Chronic) Protein-calorie malnutrition, mild (Chronic) Chronic back pain (Chronic) Dilated cardiomyopathy (Chronic) Acute systolic (congestive) heart failure (Chronic 07/04/20) Essential (primary) hypertension (Chronic) Chronic kidney disease (CKD) (Chronic) Abnormal CT scan, lung (Chronic 02/2020) There is a stellate margin 9 mm density of the right lower lobe, new in the interval. This may merely represent pneumonic or atelectatic process. Dieudonne plasm cannot be excluded however. Close interval follow-up in 2-3 months is recommended. 02/2020 Peripheral vascular occlusive disease (Chronic) Bilateral severe occlussive disease with SIRENA 0.22 and 0.37. 07/12/2020 Nicotine dependence (Chronic) EtOH dependence (Chronic) - Past Surgical History Surgical History: - - Denies any surgical history. - Social History Smoking Status: Former smoker Alcohol: None Drugs: None - Family History Maternal Family History: Family History (Last Reviewed 09/30/20 @ 17:25 by ROMINA Menon) Mother Heart disease CVA (cerebral vascular accident) Father Alcohol abuse Brother CVA (cerebral vascular accident) Sister Thyroid disorder History Items: Heart Disease Paternal Family History: Family History (Last Reviewed 09/30/20 @ 17:25 by ROMINA Menon) Mother Heart disease CVA (cerebral vascular accident) Father Alcohol abuse Brother CVA (cerebral vascular accident) Sister Thyroid disorder History Items: - - Alcoholism Review of Systems Constitutional: Denies: Chills, Fever, Weight Change HEENT: Denies: Head Aches, Sinus Congestion, Sinus Drainage Cardiovascular: Denies: Chest Pain, Palpitations Respiratory: Reports: Cough, Shortness of Breath, Shortness of breath upon exertion. Denies: Shortness of breath at rest, Sputum production Gastrointestinal: Denies: Abdominal Pain, Nausea, Vomiting Genitourinary: Denies: Dysuria Musculoskeletal: Denies: Joint Pain, Joint Tenderness Skin: Denies: Rash, Wounds Neurological: Denies: Numbness, Tingling, Focal weakness Psychiatric: Denies: Anxiety, Depression, Homicidal Ideations, Suicidal Ideations Hematologic/ Lymphatic: Denies: Easy Bruising, Easy Bleeding Patient Problems: Active and Suspected Problems (Last Reviewed 09/19/20 @ 12:09 by Mauricio Zamora WAREHOUSE STOCKER, WAREHOUSE STOCKER-C) COPD (chronic obstructive pulmonary disease) (Acute) Systolic CHF (Acute) Leg ulcer (Acute) - Physical Exam Vitals/I&O's: Vital Signs Temp Pulse Resp BP Pulse Ox 97.8 F 110 H 14 113/58 L 98 10/02/20 12:18 10/02/20 13:07 10/02/20 12:18 10/02/20 12:18 10/02/20 12:18 Oxygen Flow Rate (L/min) 4 Oxygen Delivery Method Nasal Cannula Weight: 56.4 kg Body Mass Index (BMI) 18.9 Intake and Output for Last 24 Hours 09/30/20 10/01/20 10/02/20 23:59 23:59 23:59 Intake Total 275 / 275 1370 / 1370 750 / 750 Output Total 500 / 500 675 / 675 850 / 850 Balance -225 / -225 695 / 695 -100 / -100 General: Alert, Oriented x3, Cooperative HEENT: Atraumatic, PERRLA, EOMI, Normocephalic Neck: Supple, No JVD, Negative Carotid Bruits Lungs: Diminished Cardiovascular: Regular rate, No murmurs Abdomen: Bowel Sounds Present, Soft, Non Tender Extremities: No edema, Capillary Refill Less than 3 Seconds Skin: No rashes, No breakdown Musculoskeletal: No Tenderness to Palpation of Joints or Extremities Neurological: Cranial nerves II-XII grossly intact Psych/Mental Status: Normal Affect, Appropriate Microbiology Past 72 Hours 09/30/20 19:30 Mucosa - Nose Respiratory Panel (PCR) - Final 09/30/20 15:20 Mucosa - Nose SARS-CoV-2 Antigen (Rapid) - Final Laboratory Results 10/02/20 04:15: Sodium 131 L, Potassium 3.8, Chloride 90 L, Carbon Dioxide 35.0 H, Anion Gap 6, BUN 92 H, Creatinine 2.13 H, Estim Creat Clear Calc 23.94, Est GFR (MDRD) Af Amer 40 L, Est GFR (MDRD) Non-Af 33 L, BUN/Creatinine Ratio 43.2 H , Glucose 168 H, Calcium 8.1 L 10/02/20 04:15: B-Natriuretic Peptide 2083.7 H 10/02/20 04:15: Hgb 9.0 L, Hct 27.6 L 10/02/20 13:06: Specimen Type ART, Sample Site L Radial, pH 7.39, Bicarbonate Actual 34.2 H, Total CO2 36, Base Excess 9 H, O2 Saturation 98, ABG pCO2 56.2 H, ABG pO2 114 H, Clayton Test Positive, O2 Delivery Device Cannula, Liter Flow 4.0 Current Medications Acetaminophen (Acetaminophen 325 Mg Tablet) 650 mg PO Q6H PRN PRN PRN Reason: Pain Score 1-10/Temp > 100.7 F Last Admin: 10/01/20 20:08 Dose: 650 mg Documented by: Al Hydroxide/Mg Hydroxide (Mag Hydrox/Al Hydrox/Simeth 30 Ml Udc) 30 ml PO Q6H PRN PRN PRN Reason: Gastric Burning Albuterol Sulfate (Albuterol 2.5 Mg/3 Ml Vial.Neb.) 2.5 mg INHALATION Q2H PRN PRN PRN Reason: SOB/Wheezing Albuterol/Ipratropium (Ipratropium/Albuterol Sulfate 3 Ml Ampul.Neb) 3 ml INHALATION Q4HWA.RT [facility] Last Admin: 10/02/20 06:40 Dose: 3 ml Documented by: Carvedilol (Carvedilol 12.5 Mg Tablet) 12.5 mg PO BID AYO Furosemide (Furosemide 40 Mg/4 Ml Vial) 40 mg IV BIDLX [facility] Last Admin: 10/02/20 10:42 Dose: 40 mg Documented by: Cefazolin Sodium () 1 gm in 50 mls @ 100 mls/hr IV Q12 [facility] Last Infusion: 10/02/20 12:00 Dose: Infused Documented by: Pantoprazole Sodium 40 mg/ (Sodium Chloride) 110 mls @ 330 mls/hr IV Q12 [facility] Last Infusion: 10/02/20 11:01 Dose: Infused Documented by: Nitroglycerin (Nitroglycerin (Inpatient Use) 0.4 Mg Tab.Subl) 0.4 mg SUBLINGUAL Q5M PRN PRN Reason: CARDIAC/CHEST PAIN Ondansetron HCl (Ondansetron 4 Mg/2 Ml Vial) 4 mg IV Q8H PRN PRN PRN Reason: NAUSEA/VOMITING Sodium Chloride (0.9% Saline Lock 10 Ml Syringe) 10 - 40 ml IV UD PRN PRN Reason: SALINE FLUSH Last Admin: 10/02/20 12:14 Dose: 10 ml Documented by: Assessment/Plan All Active Problems (Last Reviewed 09/19/20 @ 12:09 by Mauricio Zamora WAREHOUSE STOCKER, WAREHOUSE STOCKER-C) COPD (chronic obstructive pulmonary disease) (Acute) Systolic CHF (Acute) Leg ulcer (Acute) History of non-ST elevation myocardial infarction (NSTEMI) (Resolved 07/04/20) Atrial flutter (Ruled-out) RACHEL CKD 3a CHF CHF with low EF clinically overloaded on admit, pulmonary edema and effusions. better with lasix no obstructive symptoms RACHEL is likely cardiorenal continue lasix for now was supposed to go for cath but canceled due to GI bleed colonoscopy tomorrow
[2020-10-02 15:54] LABS: GGTP 20 U/L (15-85)
[2020-10-02 16:03] LABS: International Normalized Ratio 1.1; Prothrombin Time (Protime)PT. 14.1 SECONDS (11.7-14.9)
[2020-10-02] MEDS: Electrolyte Solution/Peg's 4000 ML PO (17:29)
[2020-10-02] MEDS: Carvedilol 12.5 MG Tablet PO (22:17)
[2020-10-02] MEDS: Acetaminophen 325 MG Tablet 650 MG PO (22:24)
[2020-10-02] MEDS: Ondansetron 4 MG/2 ML Vial IV (22:33)
[2020-10-03] VITALS (27 sets, daily range): BP systolic 82–124; BP diastolic 46–89; PULSE 82–120; RESP 16–23; TEMP 36.2–36.7; O2SAT 93–100; BMI 20.2
[2020-10-03 04:45] LABS: Absolute Lymphocyte Count 0.09 X10^3/uL (0.83-4.51); Absolute Neutrophil Count 6.4 X10^3/uL (2.0-7.7); Hematocrit 21.5 % (40-54); Hemoglobin 6.8 g/dL (13.0-16.5); Lymphocyte # 0.09 X10^3/ul (4.0); Lymphocyte % 1.3 % (19-41); Mean Corp Hgb Conc 31.6 g/dL (32-36); Mean Corpuscular Hgb 31.6 pg (27.0-32.0); Mean Platelet Vol. 10.8 fl (6.2-12.0); Monocyte# 0.26 X10^3/uL; Monocyte% 3.8 % (0-10); NRBC Flagged by Analyzer 0 % (0-5); Neutrophil # 6.44 X10^3/uL (2.7-7.7); Neutrophil % 94.5 % (47-70); POSITIVE COUNT YES; POSITIVE DIFFERENTIAL YES; Platelet Count 92 K/mm3 (150-450); RBC Distribution Width CV 17.5 % (11.6-14.6); RBC Distribution Width SD 63.2 fl (35.1-43.9); Red Blood Count 2.15 M/mm3 (4.6-6.2); White Blood Count 6.8 K/mm3 (4.4-11.0)
[2020-10-03 04:46] LABS: Differential Indicated SCAN CRITERIA MET
--- NOTE | 2020-10-03 05:00 | EKG12_ITS ---
Test Reason : AM EKG Blood Pressure : / mmHG Vent. Rate : 088 BPM Atrial Rate : 088 BPM P-R Int : 164 ms QRS Dur : 094 ms QT Int : 398 ms P-R-T Axes : 034 -08 210 degrees QTc Int : 481 ms Normal sinus rhythm ST & T wave abnormality, consider lateral ischemia Prolonged QT Abnormal ECG When compared with ECG of 30-SEP-2020 14:21, MANUAL COMPARISON REQUIRED, DATA IS UNCONFIRMED Confirmed by DEENA DUMAS, RACHELL ([id number]), purchase request editor JOSE CLAIRE ([id number]) on 10/09/2020 12:53:30 PM Referred By: MAIK Confirmed By:CESARIO SHAFFER MD
[2020-10-03 05:08] LABS: ALB/GLOB Ratio 0.7 RATIO (0.9-2.4); AST(SGOT) 40 U/L (15-37); Alanine Aminotransfer ALT/SGPT 31 U/L (16-61); Albumin, Serum 1.9 g/dL (3.2-5.0); Alkaline Phosphatase 68 U/L (45-117); Anion Gap 6 (5-15); BUN 86 mg/dL (7-18); BUN/Creat Ratio 44.3 RATIO (10-20); Calcium,Total 7.6 mg/dL (8.5-10.1); Chloride 88 mmol/L (98-107); Creatinine, Serum 1.94 mg/dL (0.70-1.30); EST Glomerular Filtration Rate 36 mL/min (>60); Est Glom Filt Rate - Afr Amer 44 mL/min (>60); Estimated Creatinine Clearance 27.86 ml/min; Globulin 2.9 g/dL (2.2-4.2); Glucose 199 mg/dL (74-106); Potassium 3.4 mmol/L (3.5-5.1); Protein, Total 4.8 g/dL (6.4-8.2); Sodium Level 132 mmol/L (136-145)
[2020-10-03] MEDS: Ipratropium/Albuterol Sulfate 3 ML AMPUL.NEB INHALATION ×4 (07:17→19:35)
--- NOTE | 2020-10-03 07:48 | PN.CARD_ITS ---
Subjectve: Patient seen and evaluated. Appears to be stable. Currently receiving blood transfusion. Objective: Vital Signs Temp Pulse Resp BP Pulse Ox 97.9 F 82 17 124/61 H 95 10/03/20 07:10 10/03/20 07:18 10/03/20 07:18 10/03/20 07:10 10/03/20 07:18 Oxygen Flow Rate (L/min) 2 Oxygen Delivery Method Nasal Cannula Weight: 125 lb 7.088 oz Body Mass Index (BMI) 20.0 Intake and Output for Last 24 Hours 10/01/20 10/02/20 10/03/20 23:59 23:59 23:59 Intake Total 1370 / 1370 1510 / 2310 1999 / 1999 Output Total 675 / 675 850 / 1050 425 / 425 Balance 695 / 695 660 / 1260 1575 / 1575 General: Awake, Alert, Oriented x 3 HEENT: PERRL, EOMI, Sclera Non Icteric, Pallor Neck: Supple, Good ROM, No Lymph Node Enlargement Lungs: Clear to auscultation Cardiovascular: Regular Rhythm, Normal S1, Normal S2, No Murmurs, No Rubs, No Gallops Vascular: No Carotid Bruits, Normal Femoral Pulses, Normal Radial Pulses, Normal Dorsalis Pedal Pulse, Normal Posterior Tibial Pulses Abdomen: Bowel Sounds Present, Soft, Non Tender, No HSM, No Organomegaly Extremities: No Cyanosis, No Clubbing, No edema, Bilateral Edema +2 Musculoskeletal: Erythema Skin: No Rashes Neurological: No Focal Motor or Sensory Deficit 10/02/20 13:06: pH 7.39, Bicarbonate Actual 34.2 H, Base Excess 9 H, O2 Saturation 98, ABG pCO2 56.2 H, ABG pO2 114 H, Clayton Test Positive 10/02/20 15:41: PT 14.1, INR 1.1 10/03/20 04:38: WBC 6.8, RBC 2.15 L, Hgb 6.8 L, Hct 21.5 L, MCV 100.0 H, MCH 31.6, MCHC 31.6 L, Plt Count 92 L, MPV 10.8, Immature Gran % (Auto) 0.400, Neut % (Auto) 94.5 H, Lymph % (Auto) 1.3 L, [place] % (Auto) 3.8, Eos % (Auto) 0.0, Baso % (Auto) 0.0, Absolute Neuts (auto) 6.4, Nucleated RBC % 0 10/03/20 04:38: Sodium 132 L, Potassium 3.4 L, Chloride 88 L, Carbon Dioxide 38.0 H, Anion Gap 6, BUN 86 H, Creatinine 1.94 H, Est GFR (MDRD) Af Amer 44 L, Est GFR (MDRD) Non-Af 36 L, BUN/Creatinine Ratio 44.3 H, Glucose 199 H, Calcium 7.6 L, Total Bilirubin 0.30 Rhythm: EKG: ECHO: Stress Test: Cardiac Cath: PCI: CT Surgery: Holter monitor: EPS: PPM: CXR: Chest CT Scan: Medical Necessity - Tobacco Use Smoking Status: Former smoker Tobacco Use: Non-smoker Assessment/Plan 1. Chronic congestive heart failure systolic * Patient presents with systolic heart failure. At this time the patient would remain on the beta-marcy and I would recommend increasing the carvedilol to 12.5 mg twice a day for better heart rate control. The idea will be to titrate the beta-marcy to the maximum dose of 25 twice a day and then consider repeating his echocardiogram. We would also consider a defibrillator implantation after he has been appropriately worked up. * Will also continue the diuretics with intravenous Lasix and subsequently switch over to p.o. Lasix * His renal function appears to have improved but at this time still has difficulty with compliance. I would hold off on an ENMA inhibitor or ARB at this particular time. * After patient is euvolemic then will consider adding a starting dose. * May schedule him for a pharmacologic myocardial perfusion stress test during this visit to exclude obstructive coronary disease as a potential etiology. 2. Anemia * The etiology of the above is not entirely clear. I would like to wait until this has been fully evaluated before starting the patient on aspirin or any P2 Y 12 inhibitor. * Will await GI or surgical evaluation. * He is currently receiving blood transfusion * Thank you for allowing me to participate in the care of your patient. Please don't hesitate to call if any issues arise.
--- NOTE | 2020-10-03 08:30 | PN.SURG_ITS ---
Patient Problems: Active and Suspected Problems (Last Reviewed 09/19/20 @ 12:09 by Mauricio Zamora MOBILE PAINT SPECIALIST, MOBILE PAINT SPECIALIST-C) COPD (chronic obstructive pulmonary disease) (Acute) Systolic CHF (Acute) Leg ulcer (Acute) Subjective: Patient evaluated resting comfortably in bed. He notes having 2 episodes of rectal bleeding overnight during the bowel prep. Patient's hemoglobin has decreased this morning. He is currently being transfused PRBC. He denies pain. - Physical Exam Vitals/I&O's: Vital Signs Temp Pulse Resp BP Pulse Ox 97.6 F L 87 16 116/60 93 10/03/20 08:07 10/03/20 07:45 10/03/20 08:07 10/03/20 08:07 10/03/20 08:07 Oxygen Flow Rate (L/min) 2 Oxygen Delivery Method Nasal Cannula Weight: 125 lb 7.088 oz Body Mass Index (BMI) 20.0 Intake and Output for Last 24 Hours 10/01/20 10/02/20 10/03/20 23:59 23:59 23:59 Intake Total 1370 / 1370 1510 / 2310 1999 / 1999 Output Total 675 / 675 850 / 1050 425 / 425 Balance 695 / 695 660 / 1260 1575 / 1575 General: Alert, Oriented x3, Cooperative Microbiology Past 72 Hours 09/30/20 19:30 Mucosa - Nose Respiratory Panel (PCR) - Final 09/30/20 15:20 Mucosa - Nose SARS-CoV-2 Antigen (Rapid) - Final Laboratory Results 10/02/20 04:15: GGT 20 10/02/20 13:06: Specimen Type ART, Sample Site L Radial, pH 7.39, Bicarbonate Actual 34.2 H, Total CO2 36, Base Excess 9 H, O2 Saturation 98, ABG pCO2 56.2 H, ABG pO2 114 H, Clayton Test Positive, O2 Delivery Device Cannula, Liter Flow 4.0 10/02/20 15:41: PT 14.1, INR 1.1 10/03/20 04:38: WBC 6.8, RBC 2.15 L, Hgb 6.8 L, Hct 21.5 L, MCV 100.0 H, MCH 31.6, MCHC 31.6 L, RDW Std Deviation 63.2 H, RDW Coeff of Senait 17.5 H, Plt Count 92 L, MPV 10.8, Immature Gran % (Auto) 0.400, Neut % (Auto) 94.5 H, Lymph % (Auto) 1.3 L, [place] % (Auto) 3.8, Eos % (Auto) 0.0, Baso % (Auto) 0.0, Absolute Neuts (auto) 6.4, Absolute Lymphs (auto) 0.09 L, Nucleated RBC % 0 10/03/20 04:38: Sodium 132 L, Potassium 3.4 L, Chloride 88 L, Carbon Dioxide 38.0 H, Anion Gap 6, BUN 86 H, Creatinine 1.94 H, Estim Creat Clear Calc 27.86, Est GFR (MDRD) Af Amer 44 L, Est GFR (MDRD) Non-Af 36 L, BUN/Creatinine Ratio 44.3 H, Glucose 199 H, Calcium 7.6 L, Total Bilirubin 0.30, AST 40 H, ALT 31, Alkaline Phosphatase 68, Total Protein 4.8 L, Albumin 1.9 L, Globulin 2.9, Albumin/Globulin Ratio 0.7 L 10/03/20 05:25: Blood Type A POSITIVE, Antibody Screen NEGATIVE, Crossmatch See Detail Current Medications Acetaminophen (Acetaminophen 325 Mg Tablet) 650 mg PO Q6H PRN PRN PRN Reason: Pain Score 1-10/Temp > 100.7 F Last Admin: 10/02/20 22:24 Dose: 650 mg Documented by: Al Hydroxide/Mg Hydroxide (Mag Hydrox/Al Hydrox/Simeth 30 Ml Udc) 30 ml PO Q6H PRN PRN PRN Reason: Gastric Burning Albuterol Sulfate (Albuterol 2.5 Mg/3 Ml Vial.Neb.) 2.5 mg INHALATION Q2H PRN PRN PRN Reason: SOB/Wheezing Albuterol/Ipratropium (Ipratropium/Albuterol Sulfate 3 Ml Ampul.Neb) 3 ml INHALATION Q4HWA.RT [facility] Last Admin: 10/03/20 07:17 Dose: 3 ml Documented by: Carvedilol (Carvedilol 12.5 Mg Tablet) 12.5 mg PO BID [facility] Last Admin: 10/02/20 22:17 Dose: 12.5 mg Documented by: Furosemide (Furosemide 40 Mg/4 Ml Vial) 40 mg IV BIDLX [facility] Last Admin: 10/02/20 18:54 Dose: 40 mg Documented by: Cefazolin Sodium () 1 gm in 50 mls @ 100 mls/hr IV Q12 [facility] Last Infusion: 10/02/20 23:17 Dose: Infused Documented by: Pantoprazole Sodium 40 mg/ (Sodium Chloride) 110 mls @ 330 mls/hr IV Q12 A[facility] Last Infusion: 10/02/20 22:55 Dose: Infused Documented by: Nitroglycerin (Nitroglycerin (Inpatient Use) 0.4 Mg Tab.Subl) 0.4 mg SUBLINGUAL Q5M PRN PRN Reason: CARDIAC/CHEST PAIN Ondansetron HCl (Ondansetron 4 Mg/2 Ml Vial) 4 mg IV Q8H PRN PRN PRN Reason: NAUSEA/VOMITING Last Admin: 10/02/20 22:33 Dose: 4 mg Documented by: Sodium Chloride (0.9% Saline Lock 10 Ml Syringe) 10 - 40 ml IV UD PRN PRN Reason: SALINE FLUSH Last Admin: 10/02/20 22:34 Dose: 20 ml Documented by: Medical Necessity - Tobacco Use Smoking Status: Former smoker Tobacco Use: Non-smoker Assessment/Plan All Active Problems (Last Reviewed 09/19/20 @ 12:09 by Mauricio Zamora MOBILE PAINT SPECIALIST, MOBILE PAINT SPECIALIST-C) COPD (chronic obstructive pulmonary disease) (Acute) Systolic CHF (Acute) Leg ulcer (Acute) History of non-ST elevation myocardial infarction (NSTEMI) (Resolved 07/04/20) Atrial flutter (Ruled-out) I am following this patient in conjunction [facility] Dr. De Souza Will plan to proceed with upper/lower scope later today Patient may need bleeding scan if scopes unremarkable Patient discussed with Dr. De Souza
--- NOTE | 2020-10-03 09:28 | CASEMGMT ---
JASMIN spoke with Lisandra from TCU and she would have a bed for patient. JASMIN will talk with patient and his niece and let them know. Plan: [facility] when ready. Karol SHAFER
[2020-10-03] MEDS: 0.9% Saline Lock 10 ML Syringe IV ×2 (09:54→20:49)
[2020-10-03] MEDS: Furosemide 40 MG/4 ML Vial IV ×2 (10:02→20:49)
[2020-10-03] MEDS: Carvedilol 12.5 MG Tablet PO ×2 (10:09→21:02)
[2020-10-03] MEDS: Cefazolin 1 GM/50 ML BAG IV ×2 (10:29→21:01)
[2020-10-03] MEDS: Potassium Chloride 10mEq/100mL 10 MEQ/100 ML IV.SOLN. 100 MEQ IV BOLUS ×4 (10:38→15:12)
--- NOTE | 2020-10-03 11:58 | PCM.PN.REN ---
Patient Problems: Active and Suspected Problems (Last Reviewed 09/19/20 @ 12:09 by Mauricio Zamora CITY LETTER CARRIER, CITY LETTER CARRIER-C) COPD (chronic obstructive pulmonary disease) (Acute) Systolic CHF (Acute) Leg ulcer (Acute) Subjective: no new complaints still bleeding prbc today - Physical Exam Vitals/I&O's: Vital Signs Temp Pulse Resp BP Pulse Ox 97.3 F L 108 H 18 117/65 97 10/03/20 11:45 10/03/20 11:45 10/03/20 11:45 10/03/20 11:45 10/03/20 11:45 Oxygen Flow Rate (L/min) 2 Oxygen Delivery Method Nasal Cannula Weight: 56.9 kg Body Mass Index (BMI) 20.0 Intake and Output for Last 24 Hours 10/01/20 10/02/20 10/03/20 23:59 23:59 23:59 Intake Total 1370 / 1370 1510 / 2310 2660 / 2660 Output Total 675 / 675 850 / 1050 425 / 425 Balance 695 / 695 660 / 1260 2235 / 2235 General: Alert, Oriented x3, Cooperative HEENT: Atraumatic, PERRLA, EOMI, Normocephalic Neck: Supple, No JVD, Negative Carotid Bruits Lungs: Clear to auscultation, Normal air movement Cardiovascular: Regular rate, No murmurs Abdomen: Bowel Sounds Present, Soft, Non Tender Extremities: No edema, Capillary Refill Less than 3 Seconds Skin: No rashes, No breakdown Musculoskeletal: No Tenderness to Palpation of Joints or Extremities Neurological: Cranial nerves II-XII grossly intact Psych/Mental Status: Normal Affect, Appropriate Microbiology Past 72 Hours 09/30/20 19:30 Mucosa - Nose Respiratory Panel (PCR) - Final 09/30/20 15:20 Mucosa - Nose SARS-CoV-2 Antigen (Rapid) - Final Laboratory Results 10/02/20 04:15: GGT 20 10/02/20 13:06: Specimen Type ART, Sample Site L Radial, pH 7.39, Bicarbonate Actual 34.2 H, Total CO2 36, Base Excess 9 H, O2 Saturation 98, ABG pCO2 56.2 H, ABG pO2 114 H, Clayton Test Positive, O2 Delivery Device Cannula, Liter Flow 4.0 10/02/20 15:41: PT 14.1, INR 1.1 10/03/20 04:38: WBC 6.8, RBC 2.15 L, Hgb 6.8 L, Hct 21.5 L, MCV 100.0 H, MCH 31.6, MCHC 31.6 L, RDW Std Deviation 63.2 H, RDW Coeff of Senait 17.5 H, Plt Count 92 L, MPV 10.8, Immature Gran % (Auto) 0.400, Neut % (Auto) 94.5 H, Lymph % (Auto) 1.3 L, [place] % (Auto) 3.8, Eos % (Auto) 0.0, Baso % (Auto) 0.0, Absolute Neuts (auto) 6.4, Absolute Lymphs (auto) 0.09 L, Nucleated RBC % 0 10/03/20 04:38: Sodium 132 L, Potassium 3.4 L, Chloride 88 L, Carbon Dioxide 38.0 H, Anion Gap 6, BUN 86 H, Creatinine 1.94 H, Estim Creat Clear Calc 27.86, Est GFR (MDRD) Af Amer 44 L, Est GFR (MDRD) Non-Af 36 L, BUN/Creatinine Ratio 44.3 H, Glucose 199 H, Calcium 7.6 L, Total Bilirubin 0.30, AST 40 H, ALT 31, Alkaline Phosphatase 68, Total Protein 4.8 L, Albumin 1.9 L, Globulin 2.9, Albumin/Globulin Ratio 0.7 L 10/03/20 05:25: Blood Type A POSITIVE, Antibody Screen NEGATIVE, Crossmatch See Detail Current Medications Acetaminophen (Acetaminophen 325 Mg Tablet) 650 mg PO Q6H PRN PRN PRN Reason: Pain Score 1-10/Temp > 100.7 F Last Admin: 10/02/20 22:24 Dose: 650 mg Documented by: Al Hydroxide/Mg Hydroxide (Mag Hydrox/Al Hydrox/Simeth 30 Ml Udc) 30 ml PO Q6H PRN PRN PRN Reason: Gastric Burning Albuterol Sulfate (Albuterol 2.5 Mg/3 Ml Vial.Neb.) 2.5 mg INHALATION Q2H PRN PRN PRN Reason: SOB/Wheezing Albuterol/Ipratropium (Ipratropium/Albuterol Sulfate 3 Ml Ampul.Neb) 3 ml INHALATION Q4HWA.RT [facility] Last Admin: 10/03/20 10:55 Dose: 3 ml Documented by: Carvedilol (Carvedilol 12.5 Mg Tablet) 12.5 mg PO BID [facility] Last Admin: 10/03/20 10:09 Dose: 12.5 mg Documented by: Furosemide (Furosemide 40 Mg Tablet) 40 mg PO DAILY COUNT INCLUDES THE [facility] Cefazolin Sodium () 1 gm in 50 mls @ 100 mls/hr IV Q12 COUNT INCLUDES THE [facility] Last Infusion: 10/03/20 10:59 Dose: Infused Documented by: Pantoprazole Sodium 40 mg/ (Sodium Chloride) 110 mls @ 330 mls/hr IV Q12 COUNT INCLUDES THE [facility] Last Infusion: 10/03/20 10:13 Dose: Infused Documented by: Potassium Chloride () 10 meq in 100 mls @ 100 mls/hr IV BOLUS Q1H COUNT INCLUDES THE [facility] Stop: 10/03/20 13:59 Last Admin: 10/03/20 11:45 Dose: 100 mls/hr Documented by: Sodium Chloride () 250 mls @ 15 mls/hr IV .[id number] PRN PRN Reason: Saline Flush Sodium Chloride () 250 mls @ 15 mls/hr IV .[id number] PRN PRN Reason: Additional IVPB Infusion Nitroglycerin (Nitroglycerin (Inpatient Use) 0.4 Mg Tab.Subl) 0.4 mg SUBLINGUAL Q5M PRN PRN Reason: CARDIAC/CHEST PAIN Ondansetron HCl (Ondansetron 4 Mg/2 Ml Vial) 4 mg IV Q8H PRN PRN PRN Reason: NAUSEA/VOMITING Last Admin: 10/02/20 22:33 Dose: 4 mg Documented by: Sodium Chloride (0.9% Saline Lock 10 Ml Syringe) 10 - 40 ml IV UD PRN PRN Reason: SALINE FLUSH Last Admin: 10/03/20 09:54 Dose: 10 ml Documented by: Medical Necessity - Tobacco Use Smoking Status: Former smoker Tobacco Use: Non-smoker Assessment/Plan All Active Problems (Last Reviewed 09/19/20 @ 12:09 by Mauricio Zamora NP, CITY LETTER CARRIER-C) COPD (chronic obstructive pulmonary disease) (Acute) Systolic CHF (Acute) Leg ulcer (Acute) History of non-ST elevation myocardial infarction (NSTEMI) (Resolved 07/04/20) Atrial flutter (Ruled-out) RACHEL CKD 3a CHF CHF with low EF clinically overloaded on admit, pulmonary edema and effusions. better with lasix no obstructive symptoms RACHEL is likely cardiorenal continue lasix for now was supposed to go for cath but canceled due to GI bleed colonoscopy today if bleeding scan positive may end up getting transferred dw hospitalist service
--- NOTE | 2020-10-03 13:21 | OP.EGD_ITS ---
Patient Name: Sivakumar Calderon Procedure Date: 10/03/2020 12:26 PM Date of : 1950 Age: 70 Procedure: Upper GI endoscopy Indications: Hematochezia Providers: Juany De Souza MD Medicines: Monitored Anesthesia Care Patient Profile: This is a 70 year old male. Complications: No immediate complications. Procedure: Pre-Anesthesia Assessment: - Prior to the procedure, a History and Physical was performed, and patient medications and allergies were reviewed. The patient's tolerance of previous anesthesia was also reviewed. The risks and benefits of the procedure and the sedation options and risks were discussed with the patient. All questions were answered, and informed consent was obtained. Prior Anticoagulants: The patient has taken aspirin, last dose was 1 day prior to procedure. ASA Grade Assessment: Per anesthesia. After reviewing the risks and benefits, the patient was deemed in satisfactory condition to undergo the procedure. After obtaining informed consent, the endoscope was passed under direct vision. Throughout the procedure, the patient's blood pressure, pulse, and oxygen saturations were monitored continuously. The gastroscope was introduced through the mouth, and advanced to the second part of duodenum. The upper GI endoscopy was accomplished without difficulty. The patient tolerated the procedure well. Scope In: 12:41:12 PM Scope Out: 12:53:50 PM Total Procedure Duration Time 0 hours 12 minutes 38 seconds Findings: The Z-line was regular and was found 42 cm from the incisors. Scattered moderate mucosal changes characterized by arterio-venous malformation were found in the gastric fundus. Red blood was found in the duodenal bulb and in the first portion of the duodenum; at the junction of the two from a single lesion. Area was successfully injected with 0.5 of a 1:10,000 solution of epinephrine for hemostasis. Impression: - Z-line regular, 42 cm from the incisors. 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 - Blood in the duodenal bulb. Injected. - No specimens collected. Recommendation: - Return patient to [facility] for ongoing care. - Soft diet. - Continue present medications. Procedure Code(s): --- Professional --- 25406, Esophagogastroduodenoscopy, flexible, transoral; with control of bleeding, any method Diagnosis Code(s): --- Professional --- Q45.8, Other specified congenital malformations of digestive system K92.2, Gastrointestinal hemorrhage, unspecified K92.1, Melena (includes Hematochezia) CPT copyright 2017 [employer]. All rights reserved. The codes documented in this report are preliminary and upon over hauler helper review may be revised to meet current compliance requirements. MD Juany Ramirez MD 10/03/2020 1:20:42 PM This report has been signed electronically. Number of Addenda: 0 Note Initiated On: 10/03/2020 12:26 PM
--- NOTE | 2020-10-03 13:21 | OP.CCLET_ITS ---
10/03/2020 Heena Oseguera [facility] [address] [place] [address] Re : Upper GI endoscopy procedure for Sivakumar Calderon Dear Dr. Oseguera This procedure was performed on Saturday, October 03, 2020. My impressions and recommendations are as follows: Impressions : - Z-line regular, 42 cm from the incisors. 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 - Blood in the duodenal bulb. Injected. - No specimens collected. Recommendations : - Return patient to [facility] for ongoing care. - Soft diet. - Continue present medications. My findings are described in the full procedure note, which is enclosed. If I can be of further assistance, please feel free to contact me at Doctor phone number(s): , Work: . Sincerely, MD Juany Ramirez MD 10/03/2020 1:20:42 PM This report has been signed electronically.
--- NOTE | 2020-10-03 13:26 | OP.COLON_ITS ---
Patient Name: Sivakumar Calderon Procedure Date: 10/03/2020 12:54 PM Date of : 1950 Age: 70 Procedure: Colonoscopy Indications: Hematochezia Providers: Juany De Souza MD Medicines: Monitored Anesthesia Care Patient Profile: This is a 70 year old male. Last Colonoscopy: 10 years ago. Complications: No immediate complications. Procedure: Pre-Anesthesia Assessment: - Prior to the procedure, a History and Physical was performed, and patient medications and allergies were reviewed. The patient's tolerance of previous anesthesia was also reviewed. The risks and benefits of the procedure and the sedation options and risks were discussed with the patient. All questions were answered, and informed consent was obtained. Prior Anticoagulants: The patient has taken aspirin, last dose was 1 day prior to procedure. ASA Grade Assessment: Per anesthesia. After reviewing the risks and benefits, the patient was deemed in satisfactory condition to undergo the procedure. After I obtained informed consent, the scope was passed under direct vision. Throughout the procedure, the patient's blood pressure, pulse, and oxygen saturations were monitored continuously. The Colonoscope was introduced through the anus and advanced to the cecum, identified by appendiceal orifice and ileocecal valve. The colonoscopy was performed without difficulty. The patient tolerated the procedure well. The quality of the bowel preparation was good. Scope In: 12:56:21 PM Scope Withdrawal Time 0 hours 6 minutes 41 seconds Scope Out: 1:09:08 PM Total Procedure Duration Time 0 hours 12 minutes 47 seconds Findings: Hemorrhoids were found on perianal exam. A single small-mouthed diverticulum was found in the transverse colon. Non-bleeding internal hemorrhoids were found. The hemorrhoids were Grade I (internal hemorrhoids that do not prolapse). Impression: - Hemorrhoids found on perianal exam. - Diverticulosis in the transverse colon. - Non-bleeding internal hemorrhoids. - No specimens collected. Recommendation: - Return patient to [facility] for ongoing care. - Soft diet due to duodenal bleeding- then high fiber. - Continue present medications. - Repeat colonoscopy in 10 years for screening purposes. Procedure Code(s): --- Professional --- 98811, Colonoscopy, flexible; diagnostic, including collection of specimen(s) by brushing or washing, when performed (separate procedure) Diagnosis Code(s): --- Professional --- K64.0, First degree hemorrhoids K92.1, Melena (includes Hematochezia) K57.30, Diverticulosis of large intestine without perforation or abscess without bleeding CPT copyright 2017 [employer]. All rights reserved. The codes documented in this report are preliminary and upon lab director review may be revised to meet current compliance requirements. MD Juany Ramirez MD 10/03/2020 1:26:28 PM This report has been signed electronically. Number of Addenda: 0 Note Initiated On: 10/03/2020 12:54 PM
--- NOTE | 2020-10-03 13:27 | OP.CCLET_ITS ---
10/03/2020 Heena Oseguera [facility] [address] [place] [address] Re : Colonoscopy procedure for Sivakumar Calderon Dear Dr. Oseguera This procedure was performed on Saturday, October 03, 2020. My impressions and recommendations are as follows: Impressions : - Hemorrhoids found on perianal exam. - Diverticulosis in the transverse colon. - Non-bleeding internal hemorrhoids. - No specimens collected. Recommendations : - Return patient to [facility] for ongoing care. - Soft diet due to duodenal bleeding- then high fiber. - Continue present medications. - Repeat colonoscopy in 10 years for screening purposes. My findings are described in the full procedure note, which is enclosed. If I can be of further assistance, please feel free to contact me at Doctor phone number(s): , Work: . Sincerely, MD Juany Ramirez MD 10/03/2020 1:26:28 PM This report has been signed electronically.
--- NOTE | 2020-10-03 14:21 | CASEMGMT ---
JASMIN called patient's niece and let her know that [facility] can take patient when he is ready. She thanked JASMIN for the update. JASMIN then went to patient's room and let him know as well. He thanked JASMIN for the update. Plan: [facility] when medically ready. Karol SHAFER
--- NOTE | 2020-10-03 14:38 | PN_ITS ---
<Júnior Guzman - Last Filed: 10/03/20 14:38> Patient Problems: Active and Suspected Problems (Last Reviewed 09/19/20 @ 12:09 by Mauricio Zamora [employer]OR, [employer]OR-C) COPD (chronic obstructive pulmonary disease) (Acute) Systolic CHF (Acute) Leg ulcer (Acute) Reason for Visit: CHF, rectal bleed Subjective: Pt seen and examined prior to colonoscopy today. He had multiple bright red bowel movements overnight. He does report SOB and Lightheadedness. He has 2 units PRBC ordered. He has no fever/chills. Vitals/I&O's: Vital Signs Temp Pulse Resp BP Pulse Ox 97.6 F L 108 H 16 119/65 94 10/03/20 14:08 10/03/20 14:08 10/03/20 14:08 10/03/20 14:08 10/03/20 14:08 Oxygen Flow Rate (L/min) 2 Oxygen Delivery Method Nasal Cannula Weight: 125 lb 7.088 oz Body Mass Index (BMI) 20.2 Intake and Output for Last 24 Hours 10/01/20 10/02/20 10/03/20 23:59 23:59 23:59 Intake Total 1370 / 1370 1510 / 2310 3160 / 3160 Output Total 675 / 675 850 / 1050 750 / 750 Balance 695 / 695 660 / 1260 2410 / 2410 General: Alert, Oriented x3, Cooperative, - - frail HEENT: Atraumatic, PERRLA, EOMI, Normocephalic Neck: Supple, No JVD, Negative Carotid Bruits Lungs: Clear to auscultation, Normal air movement Cardiovascular: Regular rate, No murmurs Abdomen: Bowel Sounds Present, Soft, Non Tender Extremities: No edema, Capillary Refill Less than 3 Seconds Skin: No rashes, No breakdown Musculoskeletal: No Tenderness to Palpation of Joints or Extremities Neurological: Cranial nerves II-XII grossly intact Psych/Mental Status: Normal Affect, Appropriate Microbiology Past 72 Hours 09/30/20 19:30 Mucosa - Nose Respiratory Panel (PCR) - Final 09/30/20 15:20 Mucosa - Nose SARS-CoV-2 Antigen (Rapid) - Final Laboratory Results 10/02/20 04:15: GGT 20 10/02/20 15:41: PT 14.1, INR 1.1 10/03/20 04:38: WBC 6.8, RBC 2.15 L, Hgb 6.8 L, Hct 21.5 L, MCV 100.0 H, MCH 31.6, MCHC 31.6 L, RDW Std Deviation 63.2 H, RDW Coeff of Senait 17.5 H, Plt Count 92 L, MPV 10.8, Immature Gran % (Auto) 0.400, Neut % (Auto) 94.5 H, Lymph % (Aut o) 1.3 L, Shelby % (Auto) 3.8, Eos % (Auto) 0.0, Baso % (Auto) 0.0, Absolute Neuts (auto) 6.4, Absolute Lymphs (auto) 0.09 L, Nucleated RBC % 0 10/03/20 04:38: Sodium 132 L, Potassium 3.4 L, Chloride 88 L, Carbon Dioxide 38.0 H, Anion Gap 6, BUN 86 H, Creatinine 1.94 H, Estim Creat Clear Calc 27.86, Est GFR (MDRD) Af Amer 44 L, Est GFR (MDRD) Non-Af 36 L, BUN/Creatinine Ratio 44.3 H, Glucose 199 H, Calcium 7.6 L, Total Bilirubin 0.30, AST 40 H, ALT 31, Alkaline Phosphatase 68, Total Protein 4.8 L, Albumin 1.9 L, Globulin 2.9, Albumin/Globulin Ratio 0.7 L 10/03/20 05:25: Blood Type A POSITIVE, Antibody Screen NEGATIVE, Crossmatch See Detail Current Medications Acetaminophen (Acetaminophen 325 Mg Tablet) 650 mg PO Q6H PRN PRN PRN Reason: Pain Score 1-10/Temp > 100.7 F Last Admin: 10/02/20 22:24 Dose: 650 mg Documented by: Al Hydroxide/Mg Hydroxide (Mag Hydrox/Al Hydrox/Simeth 30 Ml Udc) 30 ml PO Q6H PRN PRN PRN Reason: Gastric Burning Albuterol Sulfate (Albuterol 2.5 Mg/3 Ml Vial.Neb.) 2.5 mg INHALATION Q2H PRN PRN PRN Reason: SOB/Wheezing Albuterol/Ipratropium (Ipratropium/Albuterol Sulfate 3 Ml Ampul.Neb) 3 ml INHALATION Q4HWA.RT AYO Last Admin: 10/03/20 10:55 Dose: 3 ml Documented by: Carvedilol (Carvedilol 12.5 Mg Tablet) 12.5 mg PO BID [facility] Last Admin: 10/03/20 10:09 Dose: 12.5 mg Documented by: Furosemide (Furosemide 40 Mg Tablet) 40 mg PO DAILY [facility] Cefazolin Sodium () 1 gm in 50 mls @ 100 mls/hr IV Q12 [facility] Last Infusion: 10/03/20 10:59 Dose: Infused Documented by: Pantoprazole Sodium 40 mg/ (Sodium Chloride) 110 mls @ 330 mls/hr IV Q12 [facility] Last Infusion: 10/03/20 10:13 Dose: Infused Documented by: Sodium Chloride () 250 mls @ 15 mls/hr IV .[id number] PRN PRN Reason: Saline Flush Sodium Chloride () 250 mls @ 15 mls/hr IV .[id number] PRN PRN Reason: Additional IVPB Infusion Nitroglycerin (Nitroglycerin (Inpatient Use) 0.4 Mg Tab.Subl) 0.4 mg SUBLINGUAL Q5M PRN PRN Reason: CARDIAC/CHEST PAIN Ondansetron HCl (Ondansetron 4 Mg/2 Ml Vial) 4 mg IV Q8H PRN PRN PRN Reason: NAUSEA/VOMITING Last Admin: 10/02/20 22:33 Dose: 4 mg Documented by: Sodium Chloride (0.9% Saline Lock 10 Ml Syringe) 10 - 40 ml IV UD PRN PRN Reason: SALINE FLUSH Last Admin: 10/03/20 09:54 Dose: 10 ml Documented by: STROKE Vital Signs/Narrative: Vital Signs Temp Pulse Resp BP Pulse Ox 10/03/20 14:08 97.6 F L 108 H 16 119/65 94 10/03/20 14:07 97.6 F L 107 H 16 119/65 97 10/03/20 14:00 93 10/03/20 13:31 97.5 F L 92 18 103/59 L 97 10/03/20 13:25 103 H 16 95/54 L 98 10/03/20 13:20 104 H 18 82/62 L 98 10/03/20 13:16 97.3 F L 104 H 18 97/50 L 97 10/03/20 11:45 97.3 F L 108 H 18 117/65 97 10/03/20 11:04 94 10/03/20 10:56 112 H 20 H Medical Necessity - Tobacco Use Smoking Status: Former smoker Tobacco Use: Non-smoker Assessment/Plan All Active Problems (Last Reviewed 09/19/20 @ 12:09 by Mauricio Zamora [employer], [employer]-C) COPD (chronic obstructive pulmonary disease) (Acute) Systolic CHF (Acute) Leg ulcer (Acute) History of non-ST elevation myocardial infarction (NSTEMI) (Resolved 07/04/20) Atrial flutter (Ruled-out) 1. Acute on chronic systolic CHF and acute COPD exacerbation - pts CO2 is trending up --> lasix to PO. conitnue solumedrol, aerosols. pt remains stable on home o2, reports minimal improvement in SOB. Respiratory panel negative. covid negative. Echo shows EF 18%, stage 3 diastolic dysfunction, severe global hypokineses of the left vent, RVSP 35 mmHg 2. Indeterminate troponin - cardiology consulted. previously cardiology planned to pursue a heart cath in the future, however with his bleeding he would not be able to start aspirin/plavix, so this is going to be deferred for the time being. pt c/o some chest heaviness. 3. Acute blood loss anemia 2/2 GI bleed presumed lower - Hgb 14.4-->6.8 --> 2 units PRBC ordered. Pt does have a hx of alcoholism quit at least 1 month prior. LFTs mildly abnormal. -Heparin, Aspirin and pletal are discontinued. -General surgery consult. -Colonoscopy/EGD - duodenal bulb injected with epinephrine, AVMs noted. no active bleeding on colonoscopy. -IV PPI continued 4. Chronic hypoxic respiratory failure -2/2 COPD/CHF. Pt is at his baseline - 4lpm. 5. CKD-III - No prior nephrology - [facility] following. improving. 6. PAD - Recent PVRs with Bilateral severe occlusive disease with SIRENA 0.22 and 0.37. Recommend f/u with the wound care center and Dr. Phillips. He is on aspirin and cilostazol - these are held due to bleeding. 7. HTN - stable 8. Hx alcoholism - mildly abnormal LFTs. RUQ shows ascites, probably cirrhosis, right pleural effusion. DVT ppx: chemoppx contraindicated due to acute gi bleed, SCDs contraindicated due to severe PAD. DC planning: PTOT evals, recent fall at home. This patient was seen by Júnior Guzman PA-C under the supervision of Dr. Lopez <Rajesh Lopez - Last Filed: 10/03/20 16:05> Reason for Visit: Follow-up for rectal bleed, GI bleed along with CHF and COPD exacerbation Objective: Patient's hemoglobin dropped to 6.8 g attributes of PRBC ordered by the nighttime hospitalist. Platelet count 92,000. Patient looks weak and pale. Blood pressure 119/65 heart rate in upper 100s. Physical exam Physical exam: General: Awake but dull, oriented x3. HEENT: Atraumatic, PERRLA, EOMI, Normocephalic Oral: No Gingival or Mucosal Lesions/ Ulcerations Neck: Supple, No JVD, Negative Carotid Bruits Lungs: Air entry diminished in bilateral lung bases. Mild bilateral expiratory wheezing and rhonchi Cardiovascular: Regular rate, Regular Rhythm, Normal S1, Normal S2, No murmurs Abdomen: Bowel Sounds Present, Soft, Non Tender, Non-Distended. No palpable mass : No renal angle tenderness. No suprapubic tenderness. Extremities: No edema, Capillary Refill Less than 3 Seconds Skin: No rashes, No breakdown Musculoskeletal: Moderate muscle atrophy of extremities and loss of subcutaneous fat. No Tenderness to Palpation of Joints or Extremities Neurological: Cranial nerves II-XII grossly intact, Deep Tendon Reflexes 2+/4 and Symmetrical, Neuro grossly intact Psych/Mental Status: Looks sad. Vitals/I&O's: Vital Signs Temp Pulse Resp BP Pulse Ox 97.6 F L 106 H 20 H 119/65 94 10/03/20 14:08 10/03/20 14:46 10/03/20 14:46 10/03/20 14:08 10/03/20 14:08 Oxygen Flow Rate (L/min) 2 Oxygen Delivery Method Nasal Cannula Weight: 125 lb 7.088 oz Body Mass Index (BMI) 20.2 Intake and Output for Last 24 Hours 10/01/20 10/02/20 10/03/20 23:59 23:59 23:59 Intake Total 1370 / 1370 1510 / 2310 3260 / 3260 Output Total 675 / 675 850 / 1050 750 / 750 Balance 695 / 695 660 / 1260 2510 / 2510 Microbiology Past 72 Hours 09/30/20 19:30 Mucosa - Nose Respiratory Panel (PCR) - Final 09/30/20 15:20 Mucosa - Nose SARS-CoV-2 Antigen (Rapid) - Final Laboratory Results 10/02/20 15:41: PT 14.1, INR 1.1 10/03/20 04:38: WBC 6.8, RBC 2.15 L, Hgb 6.8 L, Hct 21.5 L, MCV 100.0 H, MCH 31.6, MCHC 31.6 L, RDW Std Deviation 63.2 H, RDW Coeff of Senait 17.5 H, Plt Count 92 L, MPV 10.8, Immature Gran % (Auto) 0.400, Neut % (Auto) 94.5 H, Lymph % (Auto) 1.3 L, Shelby % (Auto) 3.8, Eos % (Auto) 0.0, Baso % (Auto) 0.0, Absolute Neuts (auto) 6.4, Absolute Lymphs (auto) 0.09 L, Nucleated RBC % 0 10/03/20 04:38: Sodium 132 L, Potassium 3.4 L, Chloride 88 L, Carbon Dioxide 38.0 H, Anion Gap 6, BUN 86 H, Creatinine 1.94 H, Estim Creat Clear Calc 27.86, Est GFR (MDRD) Af Amer 44 L, Est GFR (MDRD) Non-Af 36 L, BUN/Creatinine Ratio 44.3 H, Glucose 199 H, Calcium 7.6 L, Total Bilirubin 0.30, AST 40 H, ALT 31, Alkaline Phosphatase 68, Total Protein 4.8 L, Albumin 1.9 L, Globulin 2.9, Albumin/Globulin Ratio 0.7 L 10/03/20 05:25: Blood Type A POSITIVE, Antibody Screen NEGATIVE, Crossmatch See Detail 10/03/20 15:17: Hgb Pending, Hct Pending Current Medications Acetaminophen (Acetaminophen 325 Mg Tablet) 650 mg PO Q6H PRN PRN PRN Reason: Pain Score 1-10/Temp > 100.7 F Last Admin: 10/02/20 22:24 Dose: 650 mg Documented by: Al Hydroxide/Mg Hydroxide (Mag Hydrox/Al Hydrox/Simeth 30 Ml Udc) 30 ml PO Q6H PRN PRN PRN Reason: Gastric Burning Albuterol Sulfate (Albuterol 2.5 Mg/3 Ml Vial.Neb.) 2.5 mg INHALATION Q2H PRN PRN PRN Reason: SOB/Wheezing Albuterol/Ipratropium (Ipratropium/Albuterol Sulfate 3 Ml Ampul.Neb) 3 ml INHALATION Q4HWA.RT AYO Last Admin: 10/03/20 14:44 Dose: 3 ml Documented by: Carvedilol (Carvedilol 12.5 Mg Tablet) 12.5 mg PO BID [facility] Last Admin: 10/03/20 10:09 Dose: 12.5 mg Documented by: Furosemide (Furosemide 40 Mg Tablet) 40 mg PO DAILY [facility] Cefazolin Sodium () 1 gm in 50 mls @ 100 mls/hr IV Q12 [facility] Last Infusion: 10/03/20 10:59 Dose: Infused Documented by: Pantoprazole Sodium 40 mg/ (Sodium Chloride) 110 mls @ 330 mls/hr IV Q12 [facility] Last Infusion: 10/03/20 10:13 Dose: Infused Documented by: Sodium Chloride () 250 mls @ 15 mls/hr IV .[id number] PRN PRN Reason: Saline Flush Sodium Chloride () 250 mls @ 15 mls/hr IV .[id number] PRN PRN Reason: Additional IVPB Infusion Nitroglycerin (Nitroglycerin (Inpatient Use) 0.4 Mg Tab.Subl) 0.4 mg SUBLINGUAL Q5M PRN PRN Reason: CARDIAC/CHEST PAIN Ondansetron HCl (Ondansetron 4 Mg/2 Ml Vial) 4 mg IV Q8H PRN PRN PRN Reason: NAUSEA/VOMITING Last Admin: 10/02/20 22:33 Dose: 4 mg Documented by: Sodium Chloride (0.9% Saline Lock 10 Ml Syringe) 10 - 40 ml IV UD PRN PRN Reason: SALINE FLUSH Last Admin: 10/03/20 09:54 Dose: 10 ml Documented by: STROKE Vital Signs/Narrative: Vital Signs Temp Pulse Resp BP Pulse Ox 10/03/20 14:46 106 H 20 H 10/03/20 14:08 97.6 F L 108 H 16 119/65 94 10/03/20 14:07 97.6 F L 107 H 16 119/65 97 10/03/20 14:00 93 10/03/20 13:31 97.5 F L 92 18 103/59 L 97 01/26/21 13:25 103 H 16 95/54 L 98 10/03/20 13:20 104 H 18 82/62 L 98 10/03/20 13:16 97.3 F L 104 H 18 97/50 L 97 Assessment/Plan This patient was seen in conjunction with Júnior VANEGAS. I have independently interviewed and examined the patient and reviewed pertinent history, examination findings, laboratory and plan of management. I have reviewed the note and agree with the documented findings with the few additional points. In brief, patient is 70, gentleman with history of chronic alcohol use, chronic systolic heart failure, COPD admitted with shortness of breath. Patient started on CHF protocol with Lasix. 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 Patient started on Protonix 40 mg IV twice daily. H&H dropped from 12.8 to 9 g. Hemogram shows MCV 100.7, normal MCH. Platelet count 1 35,000. Liver profile ALT 102, AST 73, total bili normal. Alkaline phosphatase 73. 10/03: EGD reported AV malformation in the gastric fundus mucosa. Blood in the duodenal bulb. Regular Z-line. Colonoscopy found diverticulosis in the transverse colon, nonbleeding internal hemorrhoids. Right upper sonogram reported cirrhotic liver with right pleural effusion, ascites. GB wall 2 mm, CBD 6 mm. Visualized pancreas normal in size. Patient has mild thrombocytopenia probably acute on chronic from antiplatelet agent along with hyperlipidemia, cirrhosis, ascites and right pleural effusion features suggestive of decompensated cirrhosis. Mildly elevated transaminases, normal total bilirubin and INR. On IV PPI. Aspirin, cilostazol and heparin subcu discontinued. Patient also has chronic hypoxic respiratory failure secondary to COPD and CHF currently on baseline 4 L. 2D echo EF 18% with severe global LV systolic dysfunction. LA moderately enlarged. Normal RV size. Mild TR, RVSP 35 mmHg. Patient has peripheral arterial disease with recent PVR showed bilateral severe occlusive disease. Patient other comorbidities as mentioned above I have discussed my assessment with Júnior VANEGAS and orders have been reviewed. Clinical Impression(s) from Imaging Studies Chest X-Ray 09/30/20 16:00 IMPRESSION: 1. Moderate bilateral pleural effusions, new. 2. Vascular congestion and basilar dominant infiltrates could represent edema. Query CHF. Electronically Signed: Abiel Cardoza MD ([place]) at 16:23 EST , Service support , Abdomen Ultrasound 10/02/20 10:55 IMPRESSION: Right pleural effusion. Ascites. Probable cirrhosis.. Inpatient E&M: 64412 Subs Hosp L2
[2020-10-03 15:52] LABS: Hematocrit 30.5 % (40-54); Hemoglobin 10.1 g/dL (13.0-16.5); POSITIVE COUNT YES
[2020-10-03 21:29] LABS: Hematocrit 31.1 % (40-54)
[2020-10-04] VITALS (14 sets, daily range): BP systolic 104–122; BP diastolic 53–65; PULSE 78–118; RESP 16–20; TEMP 36.3–36.8; O2SAT 94–100
[2020-10-04 03:39] LABS: Absolute Lymphocyte Count 0.34 X10^3/uL (0.83-4.51); Absolute Neutrophil Count 5.6 X10^3/uL (2.0-7.7); Hematocrit 28.6 % (40-54); Hemoglobin 9.5 g/dL (13.0-16.5); Lymphocyte # 0.34 X10^3/ul (4.0); Lymphocyte % 5.3 % (19-41); Mean Corp Hgb Conc 33.2 g/dL (32-36); Mean Corpuscular Hgb 31.6 pg (27.0-32.0); Mean Platelet Vol. 11.7 fl (6.2-12.0); Monocyte# 0.52 X10^3/uL; Monocyte% 8.1 % (0-10); NRBC Flagged by Analyzer 0 % (0-5); Neutrophil # 5.55 X10^3/uL (2.7-7.7); Neutrophil % 86.4 % (47-70); POSITIVE COUNT YES; POSITIVE DIFFERENTIAL YES; Platelet Count 84 K/mm3 (150-450); RBC Distribution Width CV 18.1 % (11.6-14.6); RBC Distribution Width SD 61.1 fl (35.1-43.9); Red Blood Count 3.01 M/mm3 (4.6-6.2); White Blood Count 6.4 K/mm3 (4.4-11.0)
[2020-10-04 03:43] LABS: Anion Gap 7 (5-15); BUN 76 mg/dL (7-18); BUN/Creat Ratio 41.1 RATIO (10-20); Calcium,Total 7.8 mg/dL (8.5-10.1); Chloride 90 mmol/L (98-107); Creatinine, Serum 1.85 mg/dL (0.70-1.30); EST Glomerular Filtration Rate 38 mL/min (>60); Est Glom Filt Rate - Afr Amer 47 mL/min (>60); Estimated Creatinine Clearance 29.48 ml/min; Glucose 135 mg/dL (74-106); Sodium Level 132 mmol/L (136-145)
[2020-10-04 03:46] LABS: Differential Indicated SCAN CRITERIA MET
[2020-10-04] MEDS: Ipratropium/Albuterol Sulfate 3 ML AMPUL.NEB INHALATION ×4 (07:05→19:26)
[2020-10-04] MEDS: Furosemide 40 MG/4 ML Vial IV (08:54)
[2020-10-04] MEDS: 0.9% Saline Lock 10 ML Syringe IV (08:54)
[2020-10-04] MEDS: Cefazolin 1 GM/50 ML BAG IV ×2 (09:02→21:00)
[2020-10-04] MEDS: Carvedilol 12.5 MG Tablet PO ×2 (09:02→21:00)
--- NOTE | 2020-10-04 11:10 | PCM.PN.HOSP ---
<Júnior Guzman - Last Filed: 10/04/20 11:10> Patient Problems: Active and Suspected Problems (Last Reviewed 09/19/20 @ 12:09 by Mauricio Zamora SANDWICH MAKER, SANDWICH MAKER-C) COPD (chronic obstructive pulmonary disease) (Acute) Systolic CHF (Acute) Leg ulcer (Acute) Reason for Visit: SOB Subjective: Pt denies further blood in stool. He has ongoing SOB. No LE edema. No cough, fevers, chills. He reports some mild chest discomfort this AM. Vitals/I&O's: Vital Signs Temp Pulse Resp BP Pulse Ox 97.7 F L 91 16 114/59 L 100 10/04/20 08:51 10/04/20 10:30 10/04/20 10:30 10/04/20 08:51 10/04/20 10:30 Oxygen Flow Rate (L/min) 4 Oxygen Delivery Method Nasal Cannula Weight: 130 lb 8.218 oz Body Mass Index (BMI) 20.2 Intake and Output for Last 24 Hours 10/02/20 10/03/20 10/04/20 23:59 23:59 23:59 Intake Total 1510 / 2310 4120 / 4370 535 / 535 Output Total 850 / 1050 950 / 1750 1350 / 1350 Balance 660 / 1260 3170 / 2620 -815 / -815 General: Alert, Oriented x3, Cooperative HEENT: Atraumatic, PERRLA, EOMI, Normocephalic Neck: Supple, No JVD, Negative Carotid Bruits Lungs: Clear to auscultation, Normal air movement Cardiovascular: Regular rate, No murmurs Abdomen: Bowel Sounds Present, Soft, Non Tender Extremities: No edema, Capillary Refill Less than 3 Seconds Skin: No rashes, No breakdown Musculoskeletal: No Tenderness to Palpation of Joints or Extremities Neurological: Cranial nerves II-XII grossly intact Psych/Mental Status: Normal Affect, Appropriate, Alert and oriented to time, place, person, mood and affect Laboratory Results 10/03/20 05:25: Crossmatch See Detail 10/03/20 15:17: Hgb 10.1 L, Hct 30.5 L 10/03/20 21:22: Hgb 10.0 L, Hct 31.1 L 10/04/20 03:20: WBC 6.4, RBC 3.01 L, Hgb 9.5 L, Hct 28.6 L, MCV 95.0 H, MCH 31.6, MCHC 33.2 D, RDW Std Deviation 61.1 H, RDW Coeff of Senait 18.1 H, Plt Count 84 L, MPV 11.7, Immature Gran % (Auto) 0.200, Neut % (Auto) 86.4 H, Lymph % (Auto) 5.3 L, [place] % (Auto) 8.1, Eos % (Auto) 0.0, Baso % (Auto) 0.0, Absolute Neuts (auto) 5.6, Absolute Lymphs (auto) 0.34 L, Nucleated RBC % 0 10/04/20 03:20: Sodium 132 L, Potassium 4.0, Chloride 90 L, Carbon Dioxide 35.0 H, Anion Gap 7, BUN 76 H, Creatinine 1.85 H, Estim Creat Clear Calc 29.48, Est GFR (MDRD) Af Amer 47 L, Est GFR (MDRD) Non-Af 38 L, BUN/Creatinine Ratio 41.1 H, Glucose 135 H, Calcium 7.8 L Current Medications Acetaminophen (Acetaminophen 325 Mg Tablet) 650 mg PO Q6H PRN PRN PRN Reason: Pain Score 1-10/Temp > 100.7 F Last Admin: 10/02/20 22:24 Dose: 650 mg Documented by: Al Hydroxide/Mg Hydroxide (Mag Hydrox/Al Hydrox/Simeth 30 Ml Udc) 30 ml PO Q6H PRN PRN PRN Reason: Gastric Burning Albuterol Sulfate (Albuterol 2.5 Mg/3 Ml Vial.Neb.) 2.5 mg INHALATION Q2H PRN PRN PRN Reason: SOB/Wheezing Albuterol/Ipratropium (Ipratropium/Albuterol Sulfate 3 Ml Ampul.Neb) 3 ml INHALATION Q4HWA.RT [facility] Last Admin: 10/04/20 10:30 Dose: 3 ml Documented by: Carvedilol (Carvedilol 12.5 Mg Tablet) 12.5 mg PO BID [facility] Last Admin: 10/04/20 09:02 Dose: 12.5 mg Documented by: Furosemide (Furosemide 40 Mg Tablet) 40 mg PO DAILY [facility] Last Admin: 10/04/20 07:38 Dose: Not Given Documented by: Cefazolin Sodium () 1 gm in 50 mls @ 100 mls/hr IV Q12 [facility] Last Infusion: 10/04/20 11:02 Dose: Infused Documented by: Pantoprazole Sodium 40 mg/ (Sodium Chloride) 110 mls @ 330 mls/hr IV Q12 [facility] Last Infusion: 10/04/20 10:01 Dose: Infused Documented by: Sodium Chloride () 250 mls @ 15 mls/hr IV .[id number] PRN PRN Reason: Saline Flush Sodium Chloride () 250 mls @ 15 mls/hr IV .[id number] PRN PRN Reason: Additional IVPB Infusion Nitroglycerin (Nitroglycerin (Inpatient Use) 0.4 Mg Tab.Subl) 0.4 mg SUBLINGUAL Q5M PRN PRN Reason: CARDIAC/CHEST PAIN Ondansetron HCl (Ondansetron 4 Mg/2 Ml Vial) 4 mg IV Q8H PRN PRN PRN Reason: NAUSEA/VOMITING Last Admin: 10/02/20 22:33 Dose: 4 mg Documented by: Sodium Chloride (0.9% Saline Lock 10 Ml Syringe) 10 - 40 ml IV UD PRN PRN Reason: SALINE FLUSH Last Admin: 10/04/20 08:54 Dose: 10 ml Documented by: STROKE Vital Signs/Narrative: Vital Signs Temp Pulse Resp BP Pulse Ox 10/04/20 10:30 91 16 100 10/04/20 08:51 97.7 F L 106 H 18 114/59 L 100 Medical Necessity - Tobacco Use Smoking Status: Former smoker Tobacco Use: Non-smoker Assessment/Plan All Active Problems (Last Reviewed 09/19/20 @ 12:09 by Mauricio Zamora SANDWICH MAKER, SANDWICH MAKER-C) COPD (chronic obstructive pulmonary disease) (Acute) Systolic CHF (Acute) Leg ulcer (Acute) History of non-ST elevation myocardial infarction (NSTEMI) (Resolved 07/04/20) Atrial flutter (Ruled-out) 1. Acute on chronic systolic CHF -worsening SOB today, given IV lasix x1 this AM. Cardiology following. EF 18%. 2. Indeterminate troponin - cardiology consulted. previously cardiology planned to pursue a heart cath in the future, however with his bleeding he would not be able to start aspirin/plavix, so this is going to be deferred for the time being. pt c/o some chest heaviness. 3. Acute blood loss anemia 2/2 GI bleed presumed lower - Hgb now stable. -Heparin, Aspirin and pletal are discontinued. -General surgery consult. -Colonoscopy/EGD - duodenal bulb injected with epinephrine, AVMs noted. no active bleeding on colonoscopy. -IV PPI to PO today. -platelets 84 4. Chronic hypoxic respiratory failure -2/2 COPD/CHF. Pt is at his baseline - 4lpm. 5. CKD-III - No prior nephrology - [facility] following. improving. 6. PAD - Recent PVRs with Bilateral severe occlusive disease with SIRENA 0.22 and 0.37. Recommend f/u with the wound care center and Dr. Phillips. He is on aspirin and cilostazol - these are held due to bleeding. 7. HTN - stable 8. Hx alcoholism - mildly abnormal LFTs. RUQ shows ascites, probably cirrhosis, right pleural effusion. 9. Chronic LE wounds - podiatry following, will need Vascular workup. 10. COPD - stable DVT ppx: chemoppx contraindicated due to acute gi bleed, SCDs contraindicated due to severe PAD. DC planning: TCU when stable This patient was seen by Júnior Guzman PA-C under the supervision of Dr. Lopez <Rajesh Lopez - Last Filed: 10/04/20 14:21> Reason for Visit: Follow-up for acute on chronic heart failure, GI bleed, decompensated cirrhosis and COPD exacerbation Subjective: Patient denies any further bleeding since yesterday morning. Patient has lower extremity mild edema but has much improved. Mild short of breath but seems chronic Physical exam: General: Alert, awake, oriented x3. HEENT: Atraumatic, PERRLA, EOMI, Normocephalic Oral: No Gingival or Mucosal Lesions/ Ulcerations Neck: Supple, No JVD, Negative Carotid Bruits Lungs: Bilateral pleural effusion, air entry diminished in bilateral lungs. Mild bilateral expiratory wheezing and rhonchi Cardiovascular: Regular rate, Regular Rhythm, Normal S1, Normal S2, No murmurs Abdomen: Bowel Sounds Present, Soft, Non Tender, Non-Distended. No palpable mass : No renal angle tenderness. No suprapubic tenderness. Extremities: Mild bilateral ankle edema, Capillary Refill Less than 3 Seconds Skin: Small superficial wound on the right leg, dry scab on the left leg. Sacral decubitus ulcer covered with scab, unstageable. Musculoskeletal: Moderate muscle atrophy of extremities and loss of subcutaneous fat. No Tenderness to Palpation of Joints or Extremities Neurological: Cranial nerves II-XII grossly intact, Deep Tendon Reflexes 2+/4 and Symmetrical, Neuro grossly intact Psych/Mental Status: Depressed Vitals/I&O's: Vital Signs Temp Pulse Resp BP Pulse Ox 97.7 F L 91 16 114/59 L 100 10/04/20 08:51 10/04/20 10:30 10/04/20 10:30 10/04/20 08:51 10/04/20 10:30 Oxygen Flow Rate (L/min) 4 Oxygen Delivery Method Nasal Cannula Weight: 130 lb 8.218 oz Body Mass Index (BMI) 20.2 Intake and Output for Last 24 Hours 10/02/20 10/03/20 10/04/20 23:59 23:59 23:59 Intake Total 1510 / 2310 4120 / 4370 775 / 775 Output Total 850 / 1050 950 / 1750 2049 / 0 Balance 660 / 1260 3170 / 2620 -1275 / -1275 Laboratory Results 10/03/20 15:17: Hgb 10.1 L, Hct 30.5 L 10/03/20 21:22: Hgb 10.0 L, Hct 31.1 L 10/04/20 03:20: WBC 6.4, RBC 3.01 L, Hgb 9.5 L, Hct 28.6 L, MCV 95.0 H, MCH 31.6, MCHC 33.2 D, RDW Std Deviation 61.1 H, RDW Coeff of [place] 18.1 H, Plt Count 84 L, MPV 11.7, Immature Gran % (Auto) 0.200, Neut % (Auto) 86.4 H, Lymph % (Auto) 5.3 L, [place] % (Auto) 8.1, Eos % (Auto) 0.0, Baso % (Auto) 0.0, Absolute Neuts (auto) 5.6, Absolute Lymphs (auto) 0.34 L, Nucleated RBC % 0 10/04/20 03:20: Sodium 132 L, Potassium 4.0, Chloride 90 L, Carbon Dioxide 35.0 H, Anion Gap 7, BUN 76 H, Creatinine 1.85 H, Estim Creat Clear Calc 29.48, Est GFR (MDRD) Af Amer 47 L, Est GFR (MDRD) Non-Af 38 L, BUN/Creatinine Ratio 41.1 H, Glucose 135 H, Calcium 7.8 L Current Medications Acetaminophen (Acetaminophen 325 Mg Tablet) 650 mg PO Q6H PRN PRN PRN Reason: Pain Score 1-10/Temp > 100.7 F Last Admin: 10/02/20 22:24 Dose: 650 mg Documented by: Al Hydroxide/Mg Hydroxide (Mag Hydrox/Al Hydrox/Simeth 30 Ml Udc) 30 ml PO Q6H PRN PRN PRN Reason: Gastric Burning Albuterol Sulfate (Albuterol 2.5 Mg/3 Ml Vial.Neb.) 2.5 mg INHALATION Q2H PRN PRN PRN Reason: SOB/Wheezing Albuterol/Ipratropium (Ipratropium/Albuterol Sulfate 3 Ml Ampul.Neb) 3 ml INHALATION Q4HWA.RT [facility] Last Admin: 10/04/20 10:30 Dose: 3 ml Documented by: Carvedilol (Carvedilol 12.5 Mg Tablet) 12.5 mg PO BID [facility] Last Admin: 10/04/20 09:02 Dose: 12.5 mg Documented by: Furosemide (Furosemide 40 Mg Tablet) 40 mg PO DAILY [facility] Last Admin: 10/04/20 07:38 Dose: Not Given Documented by: Cefazolin Sodium () 1 gm in 50 mls @ 100 mls/hr IV Q12 [facility] Last Infusion: 10/04/20 11:02 Dose: Infused Documented by: Sodium Chloride () 250 mls @ 15 mls/hr IV .[id number] PRN PRN Reason: Saline Flush Sodium Chloride () 250 mls @ 15 mls/hr IV .[id number] PRN PRN Reason: Additional IVPB Infusion Nitroglycerin (Nitroglycerin (Inpatient Use) 0.4 Mg Tab.Subl) 0.4 mg SUBLINGUAL Q5M PRN PRN Reason: CARDIAC/CHEST PAIN Ondansetron HCl (Ondansetron 4 Mg/2 Ml Vial) 4 mg IV Q8H PRN PRN PRN Reason: NAUSEA/VOMITING Last Admin: 10/02/20 22:33 Dose: 4 mg Documented by: Pantoprazole Sodium (Pantoprazole Sodium 40 Mg Tablet) 40 mg PO BID [facility] Sodium Chloride (0.9% Saline Lock 10 Ml Syringe) 10 - 40 ml IV UD PRN PRN Reason: SALINE FLUSH Last Admin: 10/04/20 08:54 Dose: 10 ml Documented by: STROKE Vital Signs/Narrative: Vital Signs Pulse Resp Pulse Ox 10/04/20 10:30 91 16 100 Assessment/Plan This patient was seen in conjunction with Júnior VANEGAS. I have independently interviewed and examined the patient and reviewed pertinent history, examination findings, laboratory and plan of management. I have reviewed the note and agree with the documented findings with the few additional points. In brief, patient is 70, gentleman with history of chronic alcohol use, chronic systolic heart failure, COPD admitted with shortness of breath. Patient started on CHF protocol with Lasix. 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 Patient started on Protonix 40 mg IV twice daily. H&H dropped from 12.8 to 0.8 g. Hemogram shows MCV 100.7, normal MCH. Platelet count 1 35,000. Liver profile ALT 102, AST 73, total bili normal. Alkaline phosphatase 73. 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 Blood in the duodenal bulb. Regular Z-line. Colonoscopy found diverticulosis in the transverse colon, nonbleeding internal hemorrhoids. Right upper sonogram reported cirrhotic liver with right pleural effusion, ascites. GB wall 2 mm, CBD 6 mm. Visualized pancreas normal in size. Patient has mild thrombocytopenia probably acute on chronic from antiplatelet agent along with hyperlipidemia, cirrhosis, ascites and right pleural effusion features suggestive of decompensated alcoholic cirrhosis. Mildly elevated transaminases, normal total bilirubin and INR. IV PPI changed to oral 40 mg twice daily Aspirin, cilostazol and heparin subcu discontinued. 10/04: BUN/creatinine stable. Seen by dry house attendant. Getting diuresed. D. Serial H&H stable around 10g%. Patient also has chronic hypoxic respiratory failure secondary to COPD and CHF currently on baseline 4 L. 2D echo EF 18% with severe global LV systolic dysfunction. LA moderately enlarged. Normal RV size. Mild TR, RVSP 35 mmHg. Patient has peripheral arterial disease with recent PVR showed bilateral severe occlusive disease. Patient other comorbidities as mentioned above. Poor prognosis. I have discussed my assessment with Júnior VANEGAS and orders have been reviewed. Inpatient E&M: 23566 Subs Hosp L2
--- NOTE | 2020-10-04 12:57 | PCM.PN.REN ---
Patient Problems: Active and Suspected Problems (Last Reviewed 09/19/20 @ 12:09 by Mauricio Zamora SHIP JOINER, SHIP JOINER-C) COPD (chronic obstructive pulmonary disease) (Acute) Systolic CHF (Acute) Leg ulcer (Acute) Subjective: no new events - Physical Exam Vitals/I&O's: Vital Signs Temp Pulse Resp BP Pulse Ox 97.7 F L 91 16 114/59 L 100 10/04/20 08:51 10/04/20 10:30 10/04/20 10:30 10/04/20 08:51 10/04/20 10:30 Oxygen Flow Rate (L/min) 4 Oxygen Delivery Method Nasal Cannula Weight: 59.2 kg Body Mass Index (BMI) 20.2 Intake and Output for Last 24 Hours 10/02/20 10/03/20 10/04/20 23:59 23:59 23:59 Intake Total 1510 / 2310 4120 / 4370 775 / 775 Output Total 850 / 1050 950 / 1750 2049 / 2050 Balance 660 / 1260 3170 / 2620 -1275 / -1275 General: Alert, Oriented x3, Cooperative HEENT: Atraumatic, PERRLA, EOMI, Normocephalic Neck: Supple, No JVD, Negative Carotid Bruits Lungs: Clear to auscultation, Normal air movement Cardiovascular: Regular rate, No murmurs Abdomen: Bowel Sounds Present, Soft, Non Tender Extremities: No edema, Capillary Refill Less than 3 Seconds Skin: No rashes, No breakdown Musculoskeletal: No Tenderness to Palpation of Joints or Extremities Neurological: Cranial nerves II-XII grossly intact Psych/Mental Status: Normal Affect, Appropriate Laboratory Results 10/03/20 05:25: Crossmatch See Detail 10/03/20 15:17: Hgb 10.1 L, Hct 30.5 L 10/03/20 21:22: Hgb 10.0 L, Hct 31.1 L 10/04/20 03:20: WBC 6.4, RBC 3.01 L, Hgb 9.5 L, Hct 28.6 L, MCV 95.0 H, MCH 31.6, MCHC 33.2 D, RDW Std Deviation 61.1 H, RDW Coeff of [place]ait 18.1 H, Plt Count 84 L, MPV 11.7, Immature Gran % (Auto) 0.200, Neut % (Auto) 86.4 H, Lymph % (Auto) 5.3 L, [place] % (Auto) 8.1, Eos % (Auto) 0.0, Baso % (Auto) 0.0, Absolute Neuts (auto) 5.6, Absolute Lymphs (auto) 0.34 L, Nucleated RBC % 0 10/04/20 03:20: Sodium 132 L, Potassium 4.0, Chloride 90 L, Carbon Dioxide 35.0 H, Anion Gap 7, BUN 76 H, Creatinine 1.85 H, Estim Creat Clear Calc 29.48, Est GFR (MDRD) Af Amer 47 L, Est GFR (MDRD) Non-Af 38 L, BUN/Creatinine Ratio 41.1 H, Glucose 135 H, Calcium 7.8 L Current Medications Acetaminophen (Acetaminophen 325 Mg Tablet) 650 mg PO Q6H PRN PRN PRN Reason: Pain Score 1-10/Temp > 100.7 F Last Admin: 10/02/20 22:24 Dose: 650 mg Documented by: Al Hydroxide/Mg Hydroxide (Mag Hydrox/Al Hydrox/Simeth 30 Ml Udc) 30 ml PO Q6H PRN PRN PRN Reason: Gastric Burning Albuterol Sulfate (Albuterol 2.5 Mg/3 Ml Vial.Neb.) 2.5 mg INHALATION Q2H PRN PRN PRN Reason: SOB/Wheezing Albuterol/Ipratropium (Ipratropium/Albuterol Sulfate 3 Ml Ampul.Neb) 3 ml INHALATION Q4HWA.RT [facility] Last Admin: 10/04/20 10:30 Dose: 3 ml Documented by: Carvedilol (Carvedilol 12.5 Mg Tablet) 12.5 mg PO BID [facility] Last Admin: 10/04/20 09:02 Dose: 12.5 mg Documented by: Furosemide (Furosemide 40 Mg Tablet) 40 mg PO DAILY [facility] Last Admin: 10/04/20 07:38 Dose: Not Given Documented by: Cefazolin Sodium () 1 gm in 50 mls @ 100 mls/hr IV Q12 [facility] Last Infusion: 10/04/20 11:02 Dose: Infused Documented by: Sodium Chloride () 250 mls @ 15 mls/hr IV .[id number] PRN PRN Reason: Saline Flush Sodium Chloride () 250 mls @ 15 mls/hr IV .[id number] PRN PRN Reason: Additional IVPB Infusion Nitroglycerin (Nitroglycerin (Inpatient Use) 0.4 Mg Tab.Subl) 0.4 mg SUBLINGUAL Q5M PRN PRN Reason: CARDIAC/CHEST PAIN Ondansetron HCl (Ondansetron 4 Mg/2 Ml Vial) 4 mg IV Q8H PRN PRN PRN Reason: NAUSEA/VOMITING Last Admin: 10/02/20 22:33 Dose: 4 mg Documented by: Pantoprazole Sodium (Pantoprazole Sodium 40 Mg Tablet) 40 mg PO BID [facility] Sodium Chloride (0.9% Saline Lock 10 Ml Syringe) 10 - 40 ml IV UD PRN PRN Reason: SALINE FLUSH Last Admin: 10/04/20 08:54 Dose: 10 ml Documented by: Medical Necessity - Tobacco Use Smoking Status: Former smoker Tobacco Use: Non-smoker Assessment/Plan All Active Problems (Last Reviewed 09/19/20 @ 12:09 by Mauricio Zamora SHIP JOINER, SHIP JOINER-C) COPD (chronic obstructive pulmonary disease) (Acute) Systolic CHF (Acute) Leg ulcer (Acute) History of non-ST elevation myocardial infarction (NSTEMI) (Resolved 07/04/20) Atrial flutter (Ruled-out) RACHEL CKD 3a CHF CHF with low EF clinically overloaded on admit, pulmonary edema and effusions. better with lasix no obstructive symptoms RACHEL is likely cardiorenal continue lasix for now dw hospitalist service
[2020-10-04 17:31] LABS: Hematocrit 23.8 % (40-54); Hemoglobin 7.6 g/dL (13.0-16.5); POSITIVE COUNT YES
[2020-10-04 19:23] LABS: Hematocrit 22.6 % (40-54); Hemoglobin 7.5 g/dL (13.0-16.5); POSITIVE COUNT YES
[2020-10-04] MEDS: Pantoprazole Sodium 40 MG Tablet PO (21:00)
[2020-10-04] MEDS: Mag Hydrox/Al Hydrox/Simeth 30 ML UDC PO (21:01)
[2020-10-04] MEDS: ALPRAZolam 0.25 MG Tablet PO (21:04)
[2020-10-05] VITALS (27 sets, daily range): BP systolic 93–120; BP diastolic 37–87; PULSE 69–113; RESP 14–23; TEMP 36.4–36.8; O2SAT 86–100
[2020-10-05] MEDS: Furosemide 40 MG/4 ML Vial IV (00:11)
[2020-10-05] MEDS: Acetaminophen 325 MG Tablet 650 MG PO (00:57)
[2020-10-05 05:43] LABS: Absolute Lymphocyte Count 0.31 X10^3/uL (0.83-4.51); Eosinophil# 0.07 X10^3/uL; Hematocrit 20.7 % (40-54); Lymphocyte # 0.31 X10^3/ul (4.0); Lymphocyte % 4.5 % (19-41); Mean Corp Hgb Conc 33.8 g/dL (32-36); Mean Corpuscular Hgb 32.1 pg (27.0-32.0); Mean Platelet Vol. 11.1 fl (6.2-12.0); Monocyte# 0.43 X10^3/uL; Monocyte% 6.3 % (0-10); NRBC Flagged by Analyzer 0 % (0-5); Neutrophil # 5.97 X10^3/uL (2.7-7.7); Neutrophil % 87.6 % (47-70); POSITIVE COUNT YES; POSITIVE DIFFERENTIAL YES; Platelet Count 71 K/mm3 (150-450); RBC Distribution Width CV 15.8 % (11.6-14.6); RBC Distribution Width SD 51.7 fl (35.1-43.9); Red Blood Count 2.18 M/mm3 (4.6-6.2); White Blood Count 6.8 K/mm3 (4.4-11.0)
[2020-10-05 05:53] LABS: Differential Indicated SCAN CRITERIA MET
[2020-10-05 05:58] LABS: Anion Gap 5 (5-15); BUN 88 mg/dL (7-18); BUN/Creat Ratio 50.9 RATIO (10-20); Calcium,Total 7.4 mg/dL (8.5-10.1); Chloride 92 mmol/L (98-107); Creatinine, Serum 1.73 mg/dL (0.70-1.30); EST Glomerular Filtration Rate 42 mL/min (>60); Est Glom Filt Rate - Afr Amer 50 mL/min (>60); Estimated Creatinine Clearance 32.18 ml/min; Glucose 132 mg/dL (74-106); Potassium 4.1 mmol/L (3.5-5.1); Sodium Level 136 mmol/L (136-145)
[2020-10-05] MEDS: Ipratropium/Albuterol Sulfate 3 ML AMPUL.NEB INHALATION ×2 (07:20→10:50)
--- NOTE | 2020-10-05 07:55 | CASEMGMT ---
[facility], the following are in-network tertiary facilities: [facility], [facility], [facility], [facility], [facility], [facility], [facility], and . [facility] VICENTE CM
[2020-10-05] MEDS: Lactated Ringers 500 ML 999 ML IV (08:10)
[2020-10-05] MEDS: 0.9% Saline Lock 10 ML Syringe IV ×3 (08:12→14:09)
--- NOTE | 2020-10-05 08:50 | NURSING ---
this RN called report to BOWLING BALL ENGRAVERHelga. Pt being transferred by customer operations manager and ARROW POINT ATTACHER with SD monitor to ICU
--- NOTE | 2020-10-05 09:58 | CASEMGMT ---
RN CM NOte: per Dr. Lopez, patient will be transferred to [facility] in [place]. Ashley DAWNN RN ACM
[2020-10-05] MEDS: traMADol 50 MG Tablet PO (10:23)
[2020-10-05] MEDS: Cefazolin 1 GM/50 ML BAG IV (10:55)
--- NOTE | 2020-10-05 12:13 | PCM.DC.SUM ---
<Marla Farias COUNTER CHECKER - Last Filed: 10/05/20 12:43> Discharge Date and Diagnosis - Problem List Patient Problems: Active and Suspected Problems (Last Reviewed 09/19/20 @ 12:09 by Mauricio Zamora COUNTER CHECKER, COUNTER CHECKER-C) COPD (chronic obstructive pulmonary disease) (Acute) Systolic CHF (Acute) Leg ulcer (Acute) Date of Admission: 09/30/20 Date of Discharge: 10/05/20 - Primary Discharge Diagnosis Acute Problems: Active Problems (Last Reviewed 09/19/20 @ 12:09 by Mauricio Zamora COUNTER CHECKER, COUNTER CHECKER-C) 1. Acute on chronic systolic CHF 2. Acute blood loss anemia secondary to upper GI bleed 3. Chronic hypoxic respiratory failure secondary to chronic COPD/chronic systolic CHF 4. Acute kidney injury on chronic kidney disease stage III 5. Indeterminate troponin 6. History of alcoholism with probable cirrhosis 7. Chronic lower extremity wounds/PAD 8. Hypertension - Secondary Discharge Diagnosis Chronic Problems: Chronic Problems (Last Reviewed 09/19/20 @ 12:09 by Mauricio Zamora COUNTER CHECKER, COUNTER CHECKER-C) Anemia (Chronic) Protein-calorie malnutrition, mild (Chronic) Chronic back pain (Chronic) Dilated cardiomyopathy (Chronic) Acute systolic (congestive) heart failure (Chronic 07/04/20) Essential (primary) hypertension (Chronic) Chronic kidney disease (CKD) (Chronic) Abnormal CT scan, lung (Chronic 02/2020) There is a stellate margin 9 mm density of the right lower lobe, new in the interval. This may merely represent pneumonic or atelectatic process. Neoplasm cannot be excluded however. Close interval follow-up in 2-3 months is recommended. 02/2020 Peripheral vascular occlusive disease (Chronic) Bilateral severe occlussive disease with SIRENA 0.22 and 0.37. 07/12/2020 Nicotine dependence (Chronic) EtOH dependence (Chronic) Hospital Course and Treatment Imaging Results: Diagnostic Data Chest X-Ray 09/30/20 16:00 IMPRESSION: 1. Moderate bilateral pleural effusions, new. 2. Vascular congestion and basilar dominant infiltrates could represent edema. Query CHF. Electronically Signed: Abiel Cardoza MD (Brooks) at 16:23 EST , Service support , Abdomen Ultrasound 10/02/20 10:55 IMPRESSION: Right pleural effusion. Ascites. Probable cirrhosis.. at 0205 Reported and signed by: Wliliam Fraga MD Electronically Signed: William Fraga MD at 2:03 EST Tel , Service support , Consultations 09/30/20 19:07 Consult: Onc/Wound/ice guard inspector Routine Comment: Reason for Consult:: wounds BLE Dr. Dupont-Cardiology Dr. De Souza- General surgery Dr. Chester- Podiatry Dr. Johnson-Nephrology Dr. Raza- pumper helper Operations: None Procedures: 2-D Echocardiogram, Colonoscopy, EGD Summary of Care Provided: The patient is a 70 year old M admitted 09/30/2020 due to shortness of breath. 1. Acute on chronic systolic CHF-cardiology consulted during admission. Echocardiogram demonstrates an EF of 18%, severe global left ventricular systolic dysfunction, pulmonary artery systolic pressure 35 mmHg, stage III diastolic dysfunction. IV Lasix during admission. Plan for heart cath for further evaluation however this was placed on hold due to anemia. Further Lasix held due to hypotension. Patient on baseline O2 requirements. 2. 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 Blood in the duodenal bulb, injected. IV PPI. Given significant bloody stool and worsening anemia, transfer to tertiary facility for further GI evaluation/IR. Status post 4 units PRBC. 3. Chronic hypoxic respiratory failure secondary to chronic COPD/chronic systolic CHF-on 4 L nasal cannula at baseline. Currently stable on 3 L nasal cannula. 4. Acute kidney injury on chronic kidney disease stage III-suspect cardiorenal. Creatinine improved with diuresis. 5. Indeterminate troponin-enzymes did not trend. Suspect demand ischemia as result of #1/#2. However, when anemia/GI bleed is stable, patient will need further cardiology evaluation. 6. History of alcoholism with probable cirrhosis-outpatient follow-up. 7. Chronic lower extremity wounds/PAD-recent PVRs with bilateral severe occlusive disease. Patient to follow-up with wound center and vascular. 8. Hypertension-BP meds on hold due to hypotension. Patient seen and examined prior to discharge. Physical assessment as noted below. Transferred to [facility] for further evaluation and management of GI bleed. This patient was seen by SILVER Salcido under the supervision of Dr. Lopez. Patient Problems: Active and Suspected Problems (Last Reviewed 09/19/20 @ 12:09 by Mauricio Zamora NP, POLLY-C) COPD (chronic obstructive pulmonary disease) (Acute) Systolic CHF (Acute) Leg ulcer (Acute) - Physical Exam Vitals/I&O's: Vital Signs Temp Pulse Resp BP Pulse Ox 98.0 F 90 14 112/39 L 100 10/05/20 12:00 10/05/20 12:00 10/05/20 12:00 10/05/20 12:00 10/05/20 12:00 Oxygen Flow Rate (L/min) 3 Oxygen Delivery Method Nasal Cannula Weight: 128 lb 1.417 oz Body Mass Index (BMI) 20.2 Intake and Output for Last 24 Hours 10/03/20 10/04/20 10/05/20 23:59 23:59 23:59 Intake Total 4120 / 4370 1295 / 1295 1120 / 1120 Output Total 950 / 1750 2450 / 2450 525 / 525 Balance 3170 / 2620 -1155 / -1155 595 / 595 General: Alert, Oriented x3, Cooperative HEENT: Atraumatic, PERRLA, EOMI, Normocephalic Neck: Supple, No JVD, Negative Carotid Bruits Lungs: Clear to auscultation, Diminished Cardiovascular: Regular rate, No murmurs Abdomen: Bowel Sounds Present, Soft, Non Tender, Non-Distended Extremities: No clubbing, No cyanosis Skin: No rashes, No breakdown Musculoskeletal: No Tenderness to Palpation of Joints or Extremities, Cachexia, Muscle Wasting Neurological: Cranial nerves II-XII grossly intact, Neuro grossly intact Psych/Mental Status: Flat Affect Laboratory Results 10/03/20 05:25: Crossmatch See Detail 10/04/20 16:50: Hgb 7.6 L, Hct 23.8 L 10/04/20 19:14: Hgb 7.5 L, Hct 22.6 L 10/05/20 05:30: WBC 6.8, RBC 2.18 L, Hgb 7.0 L, Hct 20.7 L, MCV 95.0 H, MCH 32.1 H, MCHC 33.8, RDW Std Deviation 51.7 H, RDW Coeff of Senait 15.8 H, Plt Count 71 L, MPV 11.1, Immature Gran % (Auto) 0.600, Neut % (Auto) 87.6 H, Lymph % (Auto) 4.5 L, [place] % (Auto) 6.3, Eos % (Auto) 1.0, Baso % (Auto) 0.0, Absolute Neuts (auto) 6.0, Absolute Lymphs (auto) 0.31 L, Nucleated RBC % 0 10/05/20 05:30: Sodium 136, Potassium 4.1, Chloride 92 L, Carbon Dioxide 39.0 H, Anion Gap 5, BUN 88 H, Creatinine 1.73 H, Estim Creat Clear Calc 32.18, Est GFR (MDRD) Af Amer 50 L, Est GFR (MDRD) Non-Af 42 L, BUN/Creatinine Ratio 50.9 H, Glucose 132 H, Calcium 7.4 L Current Medications Acetaminophen (Acetaminophen 325 Mg Tablet) 650 mg PO Q6H PRN PRN PRN Reason: Pain Score 1-10/Temp > 100.7 F Last Admin: 10/05/20 00:57 Dose: 650 mg Documented by: Al Hydroxide/Mg Hydroxide (Mag Hydrox/Al Hydrox/Simeth 30 Ml Udc) 30 ml PO Q6H PRN PRN PRN Reason: Gastric Burning Last Admin: 10/04/20 21:01 Dose: 30 ml Documented by: Albuterol Sulfate (Albuterol 2.5 Mg/3 Ml Vial.Neb.) 2.5 mg INHALATION Q2H PRN PRN PRN Reason: SOB/Wheezing Albuterol/Ipratropium (Ipratropium/Albuterol Sulfate 3 Ml Ampul.Neb) 3 ml INHALATION Q4HWA.RT [facility] Last Admin: 10/05/20 10:50 Dose: 3 ml Documented by: Cefazolin Sodium () 1 gm in 50 mls @ 100 mls/hr IV Q12 [facility] Last Infusion: 10/05/20 11:25 Dose: Infused Documented by: Sodium Chloride () 250 mls @ 15 mls/hr IV .[id number] PRN PRN Reason: Saline Flush Last Admin: 10/05/20 10:57 Dose: 15 mls/hr Documented by: Sodium Chloride () 250 mls @ 15 mls/hr IV .[id number] PRN PRN Reason: Additional IVPB Infusion Pantoprazole Sodium 40 mg/ (Sodium Chloride) 110 mls @ 330 mls/hr IV Q12 [facility] Last Infusion: 10/05/20 11:53 Dose: Infused Documented by: Melatonin (Melatonin 3 Mg Tablet) 3 mg PO QHS PRN PRN PRN Reason: SLEEP Midodrine (Midodrine Hcl 5 Mg Tablet) 10 mg PO TID [facility] Nitroglycerin (Nitroglycerin (Inpatient Use) 0.4 Mg Tab.Subl) 0.4 mg SUBLINGUAL Q5M PRN PRN Reason: CARDIAC/CHEST PAIN Ondansetron HCl (Ondansetron 4 Mg/2 Ml Vial) 4 mg IV Q8H PRN PRN PRN Reason: NAUSEA/VOMITING Last Admin: 10/02/20 22:33 Dose: 4 mg Documented by: Sodium Chloride (0.9% Saline Lock 10 Ml Syringe) 10 - 40 ml IV UD PRN PRN Reason: SALINE FLUSH Last Admin: 10/05/20 10:57 Dose: 20 ml Documented by: Home Medications: Medications to take at Discharge cilostazol 50 mg tablet 50 mg PO BID 07/21/20 albuterol sulfate 90 mcg/actuation aerosol inhaler 2 puff INHALATION Q6H PRN PRN #18 g 09/18/20 acetaminophen 500 mg capsule 1,000 mg PO Q6H PRN cap 09/19/20 tramadol 50 mg tablet 50 mg PO BID PRN #60 tab 09/21/20 Aspirin [Aspirin, Baby] 81 mg PO DAILY@0800 09/30/20 Carvedilol 6.25 mg PO BID 09/30/20 Furosemide 40 mg PO BID 09/30/20 Melatonin 2 mg PO QHS 10/04/20 Primary Care Physician: Heena Oseguera MD [Primary Care Provider] - Please Follow Up With: Heena Oseguera MD Disposition: Acute care Hospital Minutes spent on discharge:: 45 Patient Condition:: Stable Medical Necessity - Tobacco Use Smoking Status: Former smoker Tobacco Use: Non-smoker Meaningful Use Info Meaningful Use Diagnoses (Choose all that apply): None applicable <Rajesh Lopez - Last Filed: 10/05/20 15:04> Discharge Date and Diagnosis - Primary Discharge Diagnosis Acute Problems: Active Problems (Last Reviewed 09/19/20 @ 12:09 by Mauricio Zamora COUNTER CHECKER, COUNTER CHECKER-C) COPD (chronic obstructive pulmonary disease) (Acute) Systolic CHF (Acute) Leg ulcer (Acute) - Secondary Discharge Diagnosis Chronic Problems: Chronic Problems (Last Reviewed 09/19/20 @ 12:09 by Mauricio Zamora NP, COUNTER CHECKER-C) Anemia (Chronic) Protein-calorie malnutrition, mild (Chronic) Chronic back pain (Chronic) Dilated cardiomyopathy (Chronic) Acute systolic (congestive) heart failure (Chronic 07/04/20) Essential (primary) hypertension (Chronic) Chronic kidney disease (CKD) (Chronic) Abnormal CT scan, lung (Chronic 02/2020) There is a stellate margin 9 mm density of the right lower lobe, new in the interval. This may merely represent pneumonic or atelectatic process. Neoplasm cannot be excluded however. Close interval follow-up in 2-3 months is recommended. 02/2020 Peripheral vascular occlusive disease (Chronic) Bilateral severe occlussive disease with SIRENA 0.22 and 0.37. 07/12/2020 Nicotine dependence (Chronic) EtOH dependence (Chronic) Hospital Course and Treatment Consultations 09/30/20 19:07 Consult: Onc/Wound/ice guard inspector Routine Comment: Reason for Consult:: wounds BLE Summary of Care Provided: This patient was seen in conjunction with Marla MATIAS. I have independently interviewed and examined the patient and reviewed pertinent history, examination findings, laboratory and plan of management. I have reviewed the note and agree with the documented findings with the few additional points. In brief, patient is 70, gentleman with history of chronic alcohol use, chronic systolic heart failure, COPD admitted with shortness of breath. Patient started on CHF protocol with IV Lasix. BNP more than 5000 patient had improvement in shortness of breath and there was plan for cardiac cath but he had bright red rectal bleed 2 times in retort cooler of 10/02. Patient started on Protonix 40 mg IV twice daily. H&H dropped from 12.8 to 0.8 g. Hemogram shows MCV 100.7, normal MCH. Platelet count 1 35,000. Liver profile ALT 102, AST 73, total bili normal. Alkaline phosphatase 73. 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 Blood in the duodenal bulb. Regular Z-line. Colonoscopy found diverticulosis in the transverse colon, nonbleeding internal hemorrhoids. Right upper sonogram reported cirrhotic liver with right pleural effusion, ascites. GB wall 2 mm, CBD 6 mm. Visualized pancreas normal in size. Patient has mild thrombocytopenia probably acute on chronic from antiplatelet agent along with hyperlipidemia, cirrhosis, ascites and right pleural effusion features suggestive of decompensated alcoholic cirrhosis. Mildly elevated transaminases, normal total bilirubin and INR. Aspirin, cilostazol and heparin subcu discontinued. Patient H&H was stable on 10/04 morning but he started having melena in late afternoon and evening and hemoglobin dropped from 9.5-7.5 and had 1 unit of PRBC transfusion but hemoglobin further dropped 7.0 with active melanotic stool, hypotension and tachycardia. Surgeon Dr. Rivero was called in the morning today, 10/05 and we discussed about EGD and colonoscopy findings. She further said there were not several AV malformation but did not see varices in lower esophagus or stomach. Currently no indication for octreotide. Patient had another 1 unit of PRBC transfusion and 500 Ringer lactate with discontinuation of diuretic. She advised to tertiary care center with possibility of interventional radiology guided angiographic therapeutic embolism. Transfer line was called and clinical information was exchanged. Patient is accepted by Dr. Hernandez. patient is being transferred to [facility]. Patient also has chronic hypoxic respiratory failure secondary to COPD and CHF currently on baseline 3-4 L. 2D echo EF 18% with severe global LV systolic dysfunction. LA moderately enlarged. Normal RV size. Mild TR, RVSP 35 mmHg. Patient has peripheral arterial disease with recent PVR showed bilateral severe occlusive disease. Patient has multiple organ system disease including chronic systolic heart failure, COPD, GI bleed, decompensated cirrhosis with ascites, pleural effusion, CKD possible HRS. Midodrine 10 mg 3 times daily started in the morning today. Total time of the visit including total time spent in counseling or coordination of care, (more than 50% of the total time, spent in obtaining medical information from nurses and other ancillary care providers,explaining to the patient about labs, imaging, diagnosis and management), discussion with consultants surgeon and pumper helper, transfer line coordinator, review of labs and imaging is 35 minutes. I have discussed my assessment with COUNTER CHECKERMarla and orders have been reviewed. [] Objective: Seen and examined at 7:20 AM. The patient started bleeding again since yesterday afternoon. Had 2 black stool yesterday evening and her hemoglobin dropped from 9.5-7.5 yesterday and was transfused 1 unit yesterday night. It further dropped to 7.0 and had couple more last night. In the morning patient was drowsy, feeling weak and pale. There is large pool of blood black stool in the diaper. Blood pressure was 95/47, 97/47 in retort cooler and after that patient transferred to ICU, received 500 mL LR and 1 more unit of transfusion, and most recent blood pressure is 112/39. It was in the low 100 and about 2 3 hours ago. Insurance Agent consult was requested. Physical exam: General: Lethargic, awake and oriented x3. Pale looking HEENT: Atraumatic, PERRLA, EOMI, Normocephalic Oral: No Gingival or Mucosal Lesions/ Ulcerations Neck: Supple, No JVD, Negative Carotid Bruits Lungs: Bilateral pleural effusion, air entry diminished in bilateral lungs. Mild expiratory rhonchi. Cardiovascular: Regular rate, Regular Rhythm, Normal S1, Normal S2, No murmurs Abdomen: Bowel Sounds Present, Soft, Non Tender, Non-Distended. No palpable mass. Large liquid melanotic stool in diaper : No renal angle tenderness. No suprapubic tenderness. Extremities: Mild bilateral ankle edema, Capillary Refill Less than 3 Seconds Skin: Small superficial wound on the right leg, dry scab on the left leg. Sacral decubitus ulcer covered with scab, unstageable. Musculoskeletal: Moderate muscle atrophy of extremities and loss of subcutaneous fat. No Tenderness to Palpation of Joints or Extremities Neurological: Cranial nerves II-XII grossly intact, Deep Tendon Reflexes 2+/4 and Symmetrical, Neuro grossly intact Psych/Mental Status: Depressed, weak looking - Physical Exam Vitals/I&O's: Vital Signs Temp Pulse Resp BP Pulse Ox 98.0 F 90 14 112/39 L 100 10/05/20 12:00 10/05/20 12:00 10/05/20 12:00 10/05/20 12:10/05/20 12:00 Oxygen Flow Rate (L/min) 3 Oxygen Delivery Method Nasal Cannula Weight: 128 lb 1.417 oz Body Mass Index (BMI) 20.2 Intake and Output for Last 24 Hours 10/03/20 10/04/20 10/05/20 23:59 23:59 23:59 Intake Total 4120 / 4370 1295 / 1295 1168.5 / 1168.5 Output Total 950 / 1750 2450 / 2450 525 / 525 Balance 3170 / 2620 -1155 / -1155 643.5 / 643.5 Laboratory Results 10/03/20 05:25: Crossmatch See Detail 10/04/20 16:50: Hgb 7.6 L, Hct 23.8 L 10/04/20 19:14: Hgb 7.5 L, Hct 22.6 L 10/05/20 05:30: WBC 6.8, RBC 2.18 L, Hgb 7.0 L, Hct 20.7 L, MCV 95.0 H, MCH 32.1 H, MCHC 33.8, RDW Std Deviation 51.7 H, RDW Coeff of Senait 15.8 H, Plt Count 71 L, MPV 11.1, Immature Gran % (Auto) 0.600, Neut % (Auto) 87.6 H, Lymph % (Auto) 4.5 L, [place] % (Auto) 6.3, Eos % (Auto) 1.0, Baso % (Auto) 0.0, Absolute Neuts (auto) 6.0, Absolute Lymphs (auto) 0.31 L, Nucleated RBC % 0 10/05/20 05:30: Sodium 136, Potassium 4.1, Chloride 92 L, Carbon Dioxide 39.0 H, Anion Gap 5, BUN 88 H, Creatinine 1.73 H, Estim Creat Clear Calc 32.18, Est GFR (MDRD) Af Amer 50 L, Est GFR (MDRD) Non-Af 42 L, BUN/Creatinine Ratio 50.9 H, Glucose 132 H, Calcium 7.4 L Current Medications Acetaminophen (Acetaminophen 325 Mg Tablet) 650 mg PO Q6H PRN PRN PRN Reason: Pain Score 1-10/Temp > 100.7 F Last Admin: 10/05/20 00:57 Dose: 650 mg Documented by: Al Hydroxide/Mg Hydroxide (Mag Hydrox/Al Hydrox/Simeth 30 Ml Udc) 30 ml PO Q6H PRN PRN PRN Reason: Gastric Burning Last Admin: 10/04/20 21:01 Dose: 30 ml Documented by: Albuterol Sulfate (Albuterol 2.5 Mg/3 Ml Vial.Neb.) 2.5 mg INHALATION Q2H PRN PRN PRN Reason: SOB/Wheezing Albuterol/Ipratropium (Ipratropium/Albuterol Sulfate 3 Ml Ampul.Neb) 3 ml INHALATION Q4HWA.RT [facility] Last Admin: 10/05/20 10:50 Dose: 3 ml Documented by: Cefazolin Sodium () 1 gm in 50 mls @ 100 mls/hr IV Q12 [facility] Last Infusion: 10/05/20 11:25 Dose: Infused Documented by: Sodium Chloride () 250 mls @ 15 mls/hr IV .[id number] PRN PRN Reason: Saline Flush Last Infusion: 10/05/20 14:11 Dose: Infused Documented by: Sodium Chloride () 250 mls @ 15 mls/hr IV .[id number] PRN PRN Reason: Additional IVPB Infusion Pantoprazole Sodium 40 mg/ (Sodium Chloride) 110 mls @ 330 mls/hr IV Q12 [facility] Last Infusion: 10/05/20 11:53 Dose: Infused Documented by: Melatonin (Melatonin 3 Mg Tablet) 3 mg PO QHS PRN PRN PRN Reason: SLEEP Midodrine (Midodrine Hcl 5 Mg Tablet) 10 mg PO TID [facility] Last Admin: 10/05/20 14:08 Dose: 10 mg Documented by: Nitroglycerin (Nitroglycerin (Inpatient Use) 0.4 Mg Tab.Subl) 0.4 mg SUBLINGUAL Q5M PRN PRN Reason: CARDIAC/CHEST PAIN Ondansetron HCl (Ondansetron 4 Mg/2 Ml Vial) 4 mg IV Q8H PRN PRN PRN Reason: NAUSEA/VOMITING Last Admin: 10/02/20 22:33 Dose: 4 mg Documented by: Sodium Chloride (0.9% Saline Lock 10 Ml Syringe) 10 - 40 ml IV UD PRN PRN Reason: SALINE FLUSH Last Admin: 10/05/20 14:09 Dose: 20 ml Documented by: Inpatient E&M: [id number] Disch Hosp
--- NOTE | 2020-10-05 13:13 | CASEMGMT ---
JULES CM Note: [facility] unable to accept patient. Will transfer to which is [facility] with patient's insurance per [facility] website. Ashley DAWNN RN ACM
[2020-10-05] MEDS: Midodrine HCl 5 MG Tablet 10 MG PO (14:08)
--- NOTE | 2020-10-05 16:29 | PN.RENAL_ITS ---
Patient Problems: Active and Suspected Problems (Last Reviewed 09/19/20 @ 12:09 by Mauricio Zamora URGENT CARE PHYSICIAN ASSISTANT, URGENT CARE PHYSICIAN ASSISTANT-C) COPD (chronic obstructive pulmonary disease) (Acute) Systolic CHF (Acute) Leg ulcer (Acute) Subjective: no new events - Physical Exam Vitals/I&O's: Vital Signs Temp Pulse Resp BP Pulse Ox 98.0 F 92 15 120/57 L 100 10/05/20 14:00 10/05/20 15:00 10/05/20 15:00 10/05/20 15:00 10/05/20 15:00 Oxygen Flow Rate (L/min) 3 Oxygen Delivery Method Nasal Cannula Weight: 58.1 kg Body Mass Index (BMI) 20.2 Intake and Output for Last 24 Hours 10/03/20 10/04/20 10/05/20 23:59 23:59 23:59 Intake Total 4120 / 4370 1295 / 1295 1168.5 / 1168.5 Output Total 950 / 1750 2450 / 2450 525 / 525 Balance 3170 / 2620 -1155 / -1155 643.5 / 643.5 General: Alert, Oriented x3, Cooperative HEENT: Atraumatic, PERRLA, EOMI, Normocephalic Neck: Supple, No JVD, Negative Carotid Bruits Lungs: Clear to auscultation, Normal air movement Cardiovascular: Regular rate, No murmurs Abdomen: Bowel Sounds Present, Soft, Non Tender Extremities: No edema, Capillary Refill Less than 3 Seconds Skin: No rashes, No breakdown Musculoskeletal: No Tenderness to Palpation of Joints or Extremities Neurological: Cranial nerves II-XII grossly intact Psych/Mental Status: Normal Affect, Appropriate Laboratory Results 10/03/20 05:25: Crossmatch See Detail 10/04/20 16:50: Hgb 7.6 L, Hct 23.8 L 10/04/20 19:14: Hgb 7.5 L, Hct 22.6 L 10/05/20 05:30: WBC 6.8, RBC 2.18 L, Hgb 7.0 L, Hct 20.7 L, MCV 95.0 H, MCH 32.1 H, MCHC 33.8, RDW Std Deviation 51.7 H, RDW Coeff of Senait 15.8 H, Plt Count 71 L, MPV 11.1, Immature Gran % (Auto) 0.600, Neut % (Auto) 87.6 H, Lymph % (Auto) 4.5 L, [place] % (Auto) 6.3, Eos % (Auto) 1.0, Baso % (Auto) 0.0, Absolute Neuts (auto) 6.0, Absolute Lymphs (auto) 0.31 L, Nucleated RBC % 0 10/05/20 05:30: Sodium 136, Potassium 4.1, Chloride 92 L, Carbon Dioxide 39.0 H, Anion Gap 5, BUN 88 H, Creatinine 1.73 H, Estim Creat Clear Calc 32.18, Est GFR (MDRD) Af Amer 50 L, Est GFR (MDRD) Non-Af 42 L, BUN/Creatinine Ratio 50.9 H, Glucose 132 H, Calcium 7.4 L Medical Necessity - Tobacco Use Smoking Status: Former smoker Tobacco Use: Non-smoker Assessment/Plan All Active Problems (Last Reviewed 09/19/20 @ 12:09 by Mauricio Zamora URGENT CARE PHYSICIAN ASSISTANT, URGENT CARE PHYSICIAN ASSISTANT-C) COPD (chronic obstructive pulmonary disease) (Acute) Systolic CHF (Acute) Leg ulcer (Acute) History of non-ST elevation myocardial infarction (NSTEMI) (Resolved 07/04/20) Atrial flutter (Ruled-out) RACHEL CKD 3a CHF CHF with low EF clinically overloaded on admit, pulmonary edema and effusions. better with lasix no obstructive symptoms RACHEL is likely cardiorenal continue lasix for now transfer out today due to gi bleed
== END 2020-10-05 15:35 | disposition short-term general hospital (02) | DRG 264 ==
LOC: ED 15:16 → PCU 17:30 → ICU 10-05 08:57
PROVIDERS: Hospitalist; Internal Medicine Interventional Cardiology; Physician Assistant; Surgery; Admitting Provider Internal Medicine; Emergency Provider Emergency Medicine; PCP Internal Medicine; Visit Provider Internal Medicine
PROC: 0DJD8ZZ Inspection of Lower Intestinal Tract, Via Natural or Artificial Opening Endoscopic (ICD-10-PCS; CPT 45378; principal; 2020-10-03 12:55)
DX: I13.0 Hypertensive heart and chronic kidney disease with heart failure and stage 1 through stage 4 chronic kidney disease, or unspecified chronic kidney disease (principal); I50.23 Acute on chronic systolic (congestive) heart failure; J44.1 Chronic obstructive pulmonary disease with (acute) exacerbation; D62 Acute posthemorrhagic anemia; J96.11 Chronic respiratory failure with hypoxia; E44.0 Moderate protein-calorie malnutrition; L03.115 Cellulitis of right lower limb; L03.116 Cellulitis of left lower limb; L97.929 Non-pressure chronic ulcer of unspecified part of left lower leg with unspecified severity; L97.919 Non-pressure chronic ulcer of unspecified part of right lower leg with unspecified severity; I24.8 Other forms of acute ischemic heart disease; Q27.30 Arteriovenous malformation, site unspecified; N17.9 Acute kidney failure, unspecified; R18.8 Other ascites; Z68.1 Body mass index [BMI] 19.9 or less, adult; K92.1 Melena; N18.31 Chronic kidney disease, stage 3a; I42.0 Dilated cardiomyopathy; F17.200 Nicotine dependence, unspecified, uncomplicated; M54.9 Dorsalgia, unspecified; G89.29 Other chronic pain; I73.9 Peripheral vascular disease, unspecified; K57.30 Diverticulosis of large intestine without perforation or abscess without bleeding; Z66 Do not resuscitate; K31.819 Angiodysplasia of stomach and duodenum without bleeding; F10.21 Alcohol dependence, in remission; K74.60 Unspecified cirrhosis of liver; E78.5 Hyperlipidemia, unspecified; D69.6 Thrombocytopenia, unspecified; Z99.81 Dependence on supplemental oxygen; Z79.02 Long term (current) use of antithrombotics/antiplatelets; Z79.82 Long term (current) use of aspirin; Z79.899 Other long term (current) drug therapy; Z82.3 Family history of stroke; I25.2 Old myocardial infarction; K64.0 First degree hemorrhoids; R91.8 Other nonspecific abnormal finding of lung field
CPT/HCPCS: 36415; 36600; 71045; 76705; 80048; 80053; 82803; 82977; 83880; 84484; 85014; 85018; 85025; 85610; 86850; 86900; 86901; 86920; 86922; 87426; 87633; 93005; 93306; 94640; 97110; 97116; 97162; 97165; 97530; 97535; 97802; 97803; 99251; 99285; 99406; J7040; J7050; J7120; P9016; A4216; G0463; J1940; J2405; J3490